=== PATIENT | female | born 1955 | race Caucasian/White ===

== ENCOUNTER → 2017-04-01 | Outpatient (CLI) | payer BC ==
[~2017-04-01] MED LIST: ATV1 SL; DICYCLOMINE
[2017-04-01 12:06] LABS: HEMATOCRIT 40.4 % (37-47); MEAN CELL VOLUME 92.4 fL (80-100); MEAN CORPUSCULAR HEMOGLOBIN 32.3 pg (25-34); MEAN CORPUSCULAR HGB CONC 34.9 g/dl (32-36); MEAN PLATELET VOLUME 10.1 fL (7.4-10.4); PLATELET COUNT 197 K/uL (130-400); RED BLOOD COUNT 4.37 M/uL (4.2-5.4); WHITE BLOOD COUNT 2.42 K/uL (4.8-10.8)
[2017-04-01 12:18] LABS: ALT/SGPT 157 U/L (12-78); AST/SGOT 166 U/L (15-37); BLOOD UREA NITROGEN 4 mg/dl (7-18); BUN/CREATININE RATIO 7.1 (10-20); CALCIUM 9.1 mg/dl (8.5-10.1); CARBON DIOXIDE 29 mmol/L (21-32); CHLORIDE 92 mmol/L (98-107); CHOLESTEROL 199 mg/dl (0-200); CREATININE 0.49 mg/dl (0.60-1.20); GLUCOSE 76 mg/dl (70-99); SODIUM 127 mmol/L (136-145)
[2017-04-01 12:26] LABS: ALB/GLOB RATIO 1.1 (0.9-2); ALKALINE PHOSPHATASE 94 U/L (45-117); CHOLESTEROL/HDL RATIO 1.9; HDL CHOLESTEROL 103 mg/dl; LDL CHOLESTEROL CALCULATED 83 mg/dl; RHEUMATOID FACTOR < 10.0 U/mL (0-15); TRIGLYCERIDES 64 mg/dl (0-150); VERY LOW DENSITY LIPOPROT CALC 13 mg/dl
[2017-04-01 13:35] LABS: LYME DISEASE AB IGG POS (NEG); LYME DISEASE AB IGM POS (NEG)
[2017-04-07 04:30] LABS: 18KDIGG BAND REACTIVE (NONREACTIVE); 23KDIGG BAND REACTIVE (NONREACTIVE); 23KDIGM BAND REACTIVE (NONREACTIVE); 28KDIGG BAND REACTIVE (NONREACTIVE); 30KDIGG BAND REACTIVE (NONREACTIVE); 39KDIGG BAND REACTIVE (NONREACTIVE); 39KDIGM BAND NONREACTIVE (NONREACTIVE); 41KDIGG BAND REACTIVE (NONREACTIVE); 41KDIGM BAND NONREACTIVE (NONREACTIVE); 45KDIGG BAND REACTIVE (NONREACTIVE); 58KDIGG BAND REACTIVE (NONREACTIVE); 66KDIGG BAND REACTIVE (NONREACTIVE); 93KDIGG BAND REACTIVE (NONREACTIVE)
== END | disposition home or self-care (01) ==
LOC: C.LABBFT 09:05
PROVIDERS: ATTEND Internal Medicine
DX: E53.8 Deficiency of other specified B group vitamins (principal); Z13.220 Encounter for screening for lipoid disorders; M25.50 Pain in unspecified joint; E55.9 Vitamin D deficiency, unspecified

== ENCOUNTER → 2017-04-14 | Outpatient (CLI) | payer BC ==
--- NOTE | 2017-04-14 08:54 | DIAGNOSTIC IMAGING REPORT ---
ABDOMINAL ULTRASOUND, RIGHT UPPER QUADRANT HISTORY: ELEVATED LFT. COMPARISON: None. FINDINGS: Pancreas: The pancreas demonstrates a normal echotexture. Liver: No hepatic masses. The liver measures 18 cm in length. Gallbladder: No gallbladder wall thickening. No gallstones. CBD: 4 mm. Right kidney: No hydronephrosis. IMPRESSION: No significant abnormality identified within the right upper quadrant. Electronically signed by: Edgar Cordova M.D. 04/14/2017 8:52 AM Dictated Date/Time: 04/14/2017 8:51 AM
[2017-04-14 09:50] LABS: BASO % 1.3 %; BASO ABS # 0.03 K/uL (0-0.2); COMPLETE YES; EOS % 2.6 %; HEMATOCRIT 42.1 % (37-47); IG% 0.4 %; LYMPH % 23.1 %; LYMPH ABS # 0.54 K/uL (1.2-3.4); MEAN CELL VOLUME 91.5 fL (80-100); MEAN CORPUSCULAR HEMOGLOBIN 31.7 pg (25-34); MEAN CORPUSCULAR HGB CONC 34.7 g/dl (32-36); MEAN PLATELET VOLUME 10.7 fL (7.4-10.4); MONO % 21.8 %; NEUT % 50.8 %; PLATELET COUNT 161 K/uL (130-400); WHITE BLOOD COUNT 2.34 K/uL (4.8-10.8)
[2017-04-14 10:05] LABS: C-REACTIVE PROTEIN 0.38 mg/dl (0-0.29)
== END | disposition home or self-care (01) ==
LOC: C.ULTR 08:07
PROVIDERS: ATTEND Internal Medicine
DX: R94.5 Abnormal results of liver function studies (principal)

== ENCOUNTER → 2017-05-20 | Outpatient (CLI) | payer BC ==
[2017-05-20 12:56] LABS: ALT/SGPT 125 U/L (12-78); AST/SGOT 121 U/L (15-37)
== END | disposition home or self-care (01) ==
LOC: C.LABBFT 09:12
PROVIDERS: ATTEND Physician Assistant
DX: R79.89 Other specified abnormal findings of blood chemistry (principal)

== ENCOUNTER → 2017-07-08 | Outpatient (CLI) | payer BC ==
--- NOTE | 2017-07-08 14:34 | MAMMOGRAPHY REPORT ---
BILATERAL DIGITAL SCREENING MAMMOGRAM TOMOSYNTHESIS WITH CAD: 07/08/2017 CLINICAL HISTORY: Routine screening. Patient has no complaints. TECHNIQUE: Breast tomosynthesis in addition to standard 2D mammography was performed. Current study was also evaluated with a Computer Aided Detection (CAD) system. COMPARISON: Comparison is made to exams dated: 06/04/2016 mammogram, 05/28/2015 mammogram, 04/13/2014 mammogram, 01/18/2013 mammogram, 02/19/2010 mammogram - [facility], and 02/12/2009. BREAST COMPOSITION: The tissue of both breasts is heterogeneously dense, which may obscure small mas ses. FINDINGS: No suspicious masses, calcifications, or areas of architectural distortion are noted in ei ther breast. There has been no significant interval change compared to prior exams. IMPRESSION: ACR BI-RADS CATEGORY 1: NEGATIVE There is no mammographic evidence of malignancy. A 1 year screening mammogram is recommended. The pa tient will receive written notification of the results. Approximately 10% of breast cancers are not detected with mammography. A negative mammographic report should not delay biopsy if a clinically suggestive mass is present. Ilda Umanzor M.D. ah/:07/08/2017 12:21:02 [employer] Manager: Velia SHARMA(Sophy)(M), [facility] letter sent: Normal 1/2 BI-RADS Code: ACR BI-RADS Category 1: Negative
== END | disposition home or self-care (01) ==
LOC: C.MAMM 11:50
PROVIDERS: ATTEND Internal Medicine
DX: Z12.31 Encounter for screening mammogram for malignant neoplasm of breast (principal)

== ENCOUNTER → 2017-09-30 | Outpatient (CLI) | payer BC ==
--- NOTE | 2017-09-30 12:40 | DIAGNOSTIC IMAGING REPORT ---
R HIP UNILATERAL 2 VIEWS CLINICAL HISTORY: RIGHT HIP PAIN pain COMPARISON: None. DISCUSSION: Near complete loss of the joint space of the right hip. [id number] configuration of the superior acetabular margin. Moderate subchondral cyst relation to the femoral head as well as acetabulum. No evidence for acetabular protrusion. There is no evidence for soft tissue swelling. IMPRESSION: Severe degenerative change right hip. The above report was generated using voice recognition software. It may contain grammatical, syntax or spelling errors. Electronically signed by: Jerson Jasmine M.D. 09/30/2017 12:38 PM Dictated Date/Time: 09/30/2017 12:37 PM
[2017-09-30 13:18] LABS: BASO ABS # 0.04 K/uL (0-0.2); EOS % 1.7 %; EOS ABS # 0.07 K/uL (0-0.5); HEMATOCRIT 41.1 % (37-47); HEMOGLOBIN 14.1 g/dL (12.0-16.0); IG# 0.02 K/uL (0.00-0.02); LYMPH ABS # 0.99 K/uL (1.2-3.4); MEAN CELL VOLUME 94.9 fL (80-100); MEAN CORPUSCULAR HEMOGLOBIN 32.6 pg (25-34); MEAN CORPUSCULAR HGB CONC 34.3 g/dl (32-36); MEAN PLATELET VOLUME 9.8 fL (7.4-10.4); MONO % 11.4 %; MONO ABS # 0.47 K/uL (0.11-0.59); NEUT % 61.4 %; NEUT ABS # 2.53 K/uL (1.4-6.5); PLATELET COUNT 219 K/uL (130-400); RED CELL DISTRIBUTION WIDTH CV 13.5 % (11.5-14.5); RED CELL DISTRIBUTION WIDTH SD 46.9 fL (36.4-46.3); WHITE BLOOD COUNT 4.12 K/uL (4.8-10.8)
[2017-09-30 13:41] LABS: ALBUMIN 3.9 gm/dl (3.4-5.0); AST/SGOT 62 U/L (15-37); BLOOD UREA NITROGEN 7 mg/dl (7-18); CARBON DIOXIDE 29 mmol/L (21-32); CREATININE 0.82 mg/dl (0.60-1.20); GLUCOSE 91 mg/dl (70-99); POTASSIUM 4.1 mmol/L (3.5-5.1); SODIUM 130 mmol/L (136-145)
[2017-09-30 13:48] LABS: ALKALINE PHOSPHATASE 93 U/L (45-117); ALT/SGPT 58 U/L (12-78); TOTAL PROTEIN 8.1 gm/dl (6.4-8.2)
== END | disposition home or self-care (01) ==
LOC: C.RAD1850 12:09
PROVIDERS: ATTEND Internal Medicine
DX: M25.551 Pain in right hip (principal); R79.89 Other specified abnormal findings of blood chemistry

== ENCOUNTER → 2017-10-21 | Outpatient (CLI) | payer BC ==
--- NOTE | 2017-10-21 15:06 | DIAGNOSTIC IMAGING REPORT ---
R LOWER EXT NONJOINT WITHOUT CLINICAL HISTORY: 62 years-old Female presenting with M79.674 Pain and swelling of toe, [id number]. TECHNIQUE: Multisequence, multiplanar MR imaging of the right foot was performed without the use of intravenous contrast. IV contrast: None. COMPARISON: Plain radiographs of the right foot from 08/13/2015. FINDINGS: Localizer images: Unremarkable. T2 hyperintense, T1 hypointense lobular lesion noted at the second interweb space intimately associated with the bases of the proximal phalanges of the second and third toes. This abuts but does not erode the adjacent proximal phalanx of the second toe. This extends from the plantar aspect of the dorsum. Normal bone marrow signal intensity of the adjacent phalanges. No significant surrounding edema. A similar appearing though less T2 hyperintense-shaped lesion is also noted in the third interweb space. Small amount of fluid noted between the heads of the fourth and fifth metatarsals. Joint space loss, subchondral sclerosis, and osteophytosis at the first metatarsophalangeal joint. Mild bony edema noted in the first metatarsal diaphysis. Deformity of the fourth metatarsal with a focal T1 hypointense, T2 hypointense region at the distal metaphysis. Minimal proximal bone marrow edema in the fourth metatarsal diaphysis. Callus formation noted at the deformity most prominently along the dorsum (series 5 image 9). IMPRESSION: 1. 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 2. Intermetatarsal bursitis between heads of the fourth and fifth metatarsals. 3. Subacute to chronic fracture deformity of the neck of the fourth metatarsal. 4. Severe degenerative change of the first metatarsophalangeal joint. Electronically signed by: Prashanth Licea M.D. 10/21/2017 3:05 PM Dictated Date/Time: 10/21/2017 2:44 PM
== END | disposition home or self-care (01) ==
LOC: C.MRI 13:27
PROVIDERS: ATTEND Internal Medicine
DX: M79.674 Pain in right toe(s) (principal); M79.89 Other specified soft tissue disorders

== ENCOUNTER 2017-11-07 11:09 | Inpatient (IN) | payer BC ==
[~2017-11-07] VITALS: Ht 167.6 cm; Wt 58.6 kg
[2017-11-07] VITALS (15 sets, daily range): BP systolic 100–145; BP diastolic 66–99; PULSE 100–123; TEMP 37–38.2; O2SAT 93–97; BMI 20.8
[2017-11-07] MEDS ORDERED: SODIUM CHLORIDE 0.9% 1000ML 1,000 ML IV SCH (11:22)
[2017-11-07] MEDS ORDERED: SODIUM CHLORIDE 0.9% 500ML 500 ML IV STA (11:25)
[2017-11-07 11:36] LABS: ISTAT CREATININE 0.6 mg/dl (0.6-1.3); ISTAT IONIZED CALCIUM 1.03 mmol/l (1.12-1.32); ISTAT POTASSIUM 4.9 mEq/L (3.3-5.0)
--- NOTE | 2017-11-07 11:39 | DIAGNOSTIC IMAGING REPORT ---
CT HEAD WITHOUT CONTRAST (CT) CLINICAL HISTORY: Stroke UNRESPONSIVE PATIENT COMPARISON STUDY: MRI dated 08/31/2011 TECHNIQUE: Axial CT of the brain is performed from the vertex to the skull base. IV contrast was not administered for this examination. A dose lowering technique was utilized adhering to the principles of ALARA. CT DOSE: 537.48 mGy.cm FINDINGS: No intra or extra-axial mass lesions are visualized. There is no CT evidence of acute cortical infarction. There is no evidence of midline shift. There is no acute hemorrhage. No calvarial fractures are visualized. There are patchy white matter hypodensities likely on a small vessel basis. There is no evidence of pathologic ventricular dilatation. There is no evidence of acute sinusitis As there are no CT findings to explain the patient's neurological condition, an MRI might be considered in follow-up. IMPRESSION: No acute intracranial findings Electronically signed by: Ebenezer Hunter M.D. 11/07/2017 11:38 AM Dictated Date/Time: 11/07/2017 11:35 AM
[2017-11-07] MEDS ORDERED: ESCI10TA17 PO (11:41)
[2017-11-07] MEDS ORDERED: DICY10CA12 PO (11:41)
[2017-11-07] MEDS ORDERED: NAPR1TAB9 PO (11:41)
[2017-11-07] MEDS ORDERED: OPTOPS OP (11:41)
[2017-11-07] MEDS ORDERED: LORAZEPAM 2 MG/ML 1 ML VIAL ONE (11:44)
[2017-11-07 11:46] LABS: INR 1.1 (0.9-1.1)
[2017-11-07 11:52] LABS: HEMATOCRIT 45.5 % (37-47); MEAN CELL VOLUME 86.7 fL (80-100); MEAN CORPUSCULAR HEMOGLOBIN 32.4 pg (25-34); MEAN CORPUSCULAR HGB CONC 37.4 g/dl (32-36); MEAN PLATELET VOLUME 8.9 fL (7.4-10.4); PLATELET COUNT 190 K/uL (130-400); RED CELL DISTRIBUTION WIDTH CV 12.5 % (11.5-14.5); RED CELL DISTRIBUTION WIDTH SD 39.4 fL (36.4-46.3); WHITE BLOOD COUNT 15.85 K/uL (4.8-10.8)
[2017-11-07 11:53] LABS: CALCIUM 9.2 mg/dl (8.5-10.1); CREATININE 0.76 mg/dl (0.60-1.20); POTASSIUM 4.6 mmol/L (3.5-5.1)
[2017-11-07 12:00] LABS: IG# 0.05 K/uL (0.00-0.02); LYMPH % 3.2 %; MONO % 8.8 %; NEUT % 87.7 %
[2017-11-07] MEDS ORDERED: SODIUM CHLORIDE 3% INJ 500 ML IV STA (12:00)
[2017-11-07 12:02] LABS: CKMB 27.2 ng/ml (0.5-3.6)
--- NOTE | 2017-11-07 12:18 | DIAGNOSTIC IMAGING REPORT ---
CHEST ONE VIEW PORTABLE CLINICAL HISTORY: UNRESPONSIVE CHANGE IN MENTAL STATUS COMPARISON STUDY: No previous studies for comparison. FINDINGS: The cardiac and mediastinal contours are normal. There is no evidence of focal pulmonary consolidation. There is no evidence of failure. No pleural effusions are visualized.[ IMPRESSION: No active disease in the chest. Electronically signed by: Ebenezer Hunter M.D. 11/07/2017 12:16 PM Dictated Date/Time: 11/07/2017 12:16 PM
[2017-11-07] MEDS ORDERED: ICU PROTOCOL FOR HYPERGLYCEMIA PRN (12:45)
[2017-11-07 13:32] LABS: ALBUMIN 4.1 gm/dl (3.4-5.0); TOTAL PROTEIN 8.8 gm/dl (6.4-8.2)
--- NOTE | 2017-11-07 13:34 | History and Physical ---
History & Physical Date & Time of Service: Nov 07, 2017 at 13:03 Chief Complaint: [facility] Primary Care Physician: Zia Salgado M.D. History of Present Illness 62-year-old female with history of alcohol abuse, anxiety and recently probably myalgia and polyarthralgia. She was found by her this morning around 10 AM unresponsive. She was beside her bed and last time he had seen her was around noon yesterday. She had a contusion above her right eye and he called 911 as soon as he found her. He states that she drinks at least 3 beers a day although he is not sure to the exact amount much more on weekends. He denies her having any significant past medical history. After reviewing Dr. Salgado's records, she has a history of irritable bowel anxiety recently started on Lexapro. She has prescriptions for lorazepam which was looked up in [facility] aware and she fills this consistently. Patient had routine labs. White count was elevated at 15.85. PRP was obtained and her initial sodium was 104 potassium 4.6 chloride was 68 carbon dioxide 26. Troponin was also found to be elevated at 0.725 CK 11 CK-MB is 27.2. It is uncertain how long she had laid on the ground. She had a contusion and abrasion above her right eye and a CT scan of the head was obtained there was no acute intracranial findings.Chest x-ray showed no active disease in the chest. Urinalysis showed 1+ ketones and some trace occult blood. A consult was placed with the head sugar reprocess operator and recommendations was for 3% saline which was hung. Patient also got a milligram of Ativan because of being restless. She was also given a liter of saline bolus. At that point,Hospital medicine was asked to evaluate the patient and she will be placed under the hospitalist service with consultation to the head sugar reprocess operator. Past Medical/Surgical History Past Medical History 1. ETOH Abuse 2. Anxiety 3. Irritable Bowel 4. polyjoint arthralgia 5. fibromyalgia 6. hip pain Past Surgical History according to , she has not had any surgeries Family History Cancer Diabetes mellitus Social History Smoking Status: Current Every Day Smoker Smokeless Tobacco Use: No Alcohol Use: heavy Drug Use: none Marital Status: Housing status: lives with significant other Occupational Status: employed Allergies Coded Allergies: No Known Allergies (Unverified , 11/07/17) Home Medications Scheduled Cromolyn Sodium (Ophth) (Opticrom Oph), 1 DROPS OP DAILY Escitalopram (Lexapro), 10 MG PO DAILY Lorazepam (Ativan *), 1 MG SL DAILY Scheduled PRN Dicyclomine Hcl (Dicyclomine Hcl), 1 CAP PO Q6H PRN for Pain Naproxen (Aleve), 220 MG PO BID PRN for Pain Review of Systems patient is currently unresponsive. Unable to do true review of systems. Did discuss with and yesterday, he states she had no complaints Physical Exam Vital Signs Date Time Temp Pulse Resp B/P (MAP) Pulse Ox O2 Delivery O2 Flow Rate FiO2 11/07/17 12:45 110 20 109/84 98 Nasal Cannula 4.0 11/07/17 12:30 105 21 110/96 98 Nasal Cannula 4.0 11/07/17 12:15 103 19 97/76 98 Nasal Cannula 4.0 11/07/17 12:01 101 19 131/91 100 Room Air 5.0 11/07/17 11:45 105 20 196/116 100 Non-Rebreather 15.0 11/07/17 11:43 88 Room Air 11/07/17 11:16 114 11/07/17 11:10 37.3 117 22 132/74 100 Room Air 11/07/17 11:10 100 Room Air General Appearance: + pertinent finding (unresponse ) Head: normocephalic, + evidence of trama (right periorbital/temporal hematoma/ abrassion) Eyes: sclerae normal, + pertinent finding (pupils 3mm and fixed) ENT: + pertinent finding (oral mucosa is moist) Neck: no JVD, no carotid bruits, trachea midline Respiratory/Chest: lungs clear, normal breath sounds, no respiratory distress Cardiovascular: regular rate, rhythm, no edema, no murmur, normal peripheral pulses Abdomen/GI: normal bowel sounds, soft, no organomegaly Back: normal inspection Extremities/Musculoskelatal: no pedal edema, + pertinent finding (feet cold) Neurologic/Psych: + pertinent finding (unresponsive) Skin: + pertinent finding (cool, dry) Diagnostics Laboratory Results Results Past 24 Hours Test 11/07/17 11:15 11/07/17 11:23 11/07/17 11:40 Range/Units White Blood Count 15.85 4.8-10.8 K/uL Red Blood Count 5.25 4.2-5.4 M/uL Hemoglobin 17.0 12.0-16.0 g/dL Hematocrit 45.5 37-47 % Mean Corpuscular Volume 86.7 80-100 fL Mean Corpuscular Hemoglobin 32.4 25-34 pg Mean Corpuscular Hemoglobin Concent 37.4 32-36 g/dl Platelet Count 190 130-400 K/uL Mean Platelet Volume 8.9 7.4-10.4 fL Neutrophils (%) (Auto) 87.7 % Lymphocytes (%) (Auto) 3.2 % Monocytes (%) (Auto) 8.8 % Eosinophils (%) (Auto) 0.0 % Basophils (%) (Auto) 0.0 % Neutrophils # (Auto) 13.90 1.4-6.5 K/uL Lymphocytes # (Auto) 0.50 1.2-3.4 K/uL Monocytes # (Auto) 1.40 0.11-0.59 K/uL Eosinophils # (Auto) 0.00 0-0.5 K/uL Basophils # (Auto) 0.00 0-0.2 K/uL RDW Standard Deviation 39.4 36.4-46.3 fL RDW Coefficient of Variation 12.5 11.5-14.5 % Immature Granulocyte % (Auto) 0.3 % Immature Granulocyte # (Auto) 0.05 0.00-0.02 K/uL Red Blood Cell Morphology Unremarkable Prothrombin Time 11.6 9.0-12.0 SECONDS Prothromb Time International Ratio 1.1 0.9-1.1 Activated Partial Thromboplast Time 31.0 21.0-31.0 SECONDS Partial Thromboplastin Ratio 1.2 Sodium Level 104 136-145 mmol/L Potassium Level 4.6 3.5-5.1 mmol/L Chloride Level 68 98-107 mmol/L Carbon Dioxide Level 26 21-32 mmol/L Anion Gap 10.0 16.0 16-25 mmol/L Blood Urea Nitrogen 11 7-18 mg/dl Creatinine 0.76 0.60-1.20 mg/dl Est Creatinine Clear Calc Drug Dose 72.7 ml/min Estimated GFR () 98.1 Estimated GFR (Non- 84.7 BUN/Creatinine Ratio 14.7 10-20 Random Glucose 103 70-99 mg/dl Calcium Level 9.2 8.5-10.1 mg/dl Magnesium Level 1.9 1.8-2.4 mg/dl Total Creatine Kinase 811 26-192 U/L Creatine Kinase MB 27.2 0.5-3.6 ng/ml Creatine Kinase MB Ratio 3.4 0-3.0 Troponin I 0.725 0-0.045 ng/ml Bedside Hemoglobin 19.4 12.0-16.0 g/dl Bedside Hematocrit 57 37-47 % Bedside Sodium 108 135-144 mEq/L Bedside Potassium 4.9 3.3-5.0 mEq/L Bedside Chloride 70 101-112 mEq/L Bedside Total CO2 28 24-31 mEq/l Bedside Blood Urea Nitrogen 13 7-18 mg/dl Bedside Creatinine 0.6 0.6-1.3 mg/dl Bedside Glucose (other) 112 70-99 mg/dl Bedside Ionized Calcium (Ingrid) 1.03 1.12-1.32 mmol/l Urine Color DK YELLOW Urine Appearance CLEAR CLEAR Urine pH 6.0 4.5-7.5 Urine Specific Randolph 1.020 1.000-1.030 Urine Protein 2+ NEG Urine Glucose (UA) TRACE NEG Urine Ketones 1+ NEG Urine Occult Blood TRACE NEG Urine Nitrite NEG NEG Urine Bilirubin NEG NEG Urine Urobilinogen NEG NEG Urine Leukocyte Esterase NEG NEG Urine WBC (Auto) 1-5 0-5 /hpf Urine RBC (Auto) 0-4 0-4 /hpf Urine Hyaline Casts (Auto) 1-5 0-5 /lpf Urine Epithelial Cells (Auto) 20-30 0-5 /lpf Urine Bacteria (Auto) NEG NEG Diagnostic Radiology CHEST ONE VIEW PORTABLE CLINICAL HISTORY: UNRESPONSIVE CHANGE IN MENTAL STATUS COMPARISON STUDY: No previous studies for comparison. FINDINGS: The cardiac and mediastinal contours are normal. There is no evidence of focal pulmonary consolidation. There is no evidence of failure. No pleural effusions are visualized.[ IMPRESSION: No active disease in the chest. CT HEAD WITHOUT CONTRAST (CT) CLINICAL HISTORY: Stroke UNRESPONSIVE PATIENT COMPARISON STUDY: MRI dated 08/31/2011 TECHNIQUE: Axial CT of the brain is performed from the vertex to the skull base. IV contrast was not administered for this examination. A dose lowering technique was utilized adhering to the principles of ALARA. CT DOSE: 537.48 mGy.cm FINDINGS: No intra or extra-axial mass lesions are visualized. There is no CT evidence of acute cortical infarction. There is no evidence of midline shift. There is no acute hemorrhage. No calvarial fractures are visualized. There are patchy white matter hypodensities likely on a small vessel basis. There is no evidence of pathologic ventricular dilatation. There is no evidence of acute sinusitis As there are no CT findings to explain the patient's neurological condition, an MRI might be considered in follow-up. IMPRESSION: No acute intracranial findings CXR normal EKG NSR with st depressions in V3, V4 Impression Assessment and Plan 62-year-old female presented to the emergency department unresponsive. History of alcohol and tobacco abuse as well as anxiety. 1. Severe acute hyponatremia in setting of chronic hyponatremia. Patient had a sodium of 104. She was started on 3% hypertonic saline. She will be admitted to the intensive care unit and will need frequent PRPs. Goal would be to not raise sodium by more than 1-2/h. I will allow the head sugar reprocess operator to manage the sodium repletion. will check a serum and urine osmolality as well as a random urine sodium. She was started on Lexapro approximately 2 weeks ago which may have contributed to her acute episode of hyponatremia. This may be simply worsening beer potomania as well. She will need frequent neuro assessments as well. 2. Alcohol abuse with high potential for withdrawal. She will be on as needed Lorazepam. She will receive a banana bag daily. 3. Unresponsive episode. This is likely from the severe hyponatremia and, associated with it. She does drink heavily and does use Lorazepam regularly. Will check an alcohol level and also urine tox screen. denies her using any illicit drugs. 4. Elevated troponin - will cycle troponins and consult cardiology if there is further elevation of troponins. 5. Elevated CPK with concerns for rhabdomyolysis as it is unknown how long patient was on the ground or if she stuggled to get up. 6. generalized anxiety disorder. Because of the hyponatremia, we will hold her Lexapro. 7. CODE STATUS. Discussed with she is a full code. 8. DVT prophylaxis will be with SCDs teds and heparin 9. Patient will be admitted to the intensive care unit with consultation to the head sugar reprocess operator. Estimated length of stay is likely greater than 3 days at this point. Uncertain of presenting discharge needs at this time. Resuscitation Status VTE Prophylaxis Will order VTE Prophylaxis: Yes Reviewed: Pt Seen/Exam by Me History Pt is unresponsive in her room without family present. Unable to obtain ROS/ HPI however did review the case as presented to MAINTENANCE CONTROLLER by . General Appearance: WD/WN, no apparent distress Eye Exam: bilateral eye normal inspection, bilateral eye other (nml sclera) Respiratory: normal breath sounds, no respiratory distress Cardiovascular: normal peripheral pulses, regular rate, rhythm Gastrointestinal: non tender, soft Extremities: non-tender, no pedal edema Neurologic/Psychiatric: other (unresponsive to voice) Skin Characteristics: normal color, warm/dry Assessment/Plan Agree with plan as outlined above I reviewed [employer]. Pt has been seen recently by PCP and PA for issues with anxiety. She informed them that she had been taking more than her prescribed dose as she had extra pills left from prior refills. She was started on lexapro on 11/04 for anxiety issues and was to f/u in 1 month. She has several MSK issues and was given a script for transdermal pain control 04/2017. She has also had recent visits for concern of elevated LFTs. Pt has long standing heavy beer intake use. Per MAINTENANCE CONTROLLER, pt and live in the same home but do not interact much and sleep in separate beds. was not fully aware of 's health issues. Unresponsive episode possibly related to hypoNa Baseline Na is low, 125-130 Beer potomania that was exacerbated by lexapro use?? Question of possible seizure activity as well, which was likely related to hypoNa vs EtOH withdrawals EtOH neg in the ED Elevated trop, serials pending ECHO pending
[2017-11-07] MEDS ORDERED: MULTI-VITAMIN INFUSION INJ 10 ML, THIAMINE HCL INJ 100 MG, FoLIC ACID INJ 1 MG in SODIU... IV SCH (14:00)
--- NOTE | 2017-11-07 14:20 | EMERGENCY ROOM VISIT NOTE ---
History Report prepared by Clarita: Marj Moreland Under the Supervision of: Dr. Jose Alejandro Felton M.D. First contact with patient: 11:17 Chief Complaint: UNRESPONSIVE Stated Complaint: AMS History of Present Illness The patient is a 62 year old female who presents to the Emergency Room with persistent altered mental status starting [employer]. The patient presents to the ED by EMS. Her found her on the floor by her bed. The dresser in her room had been moved. She would not say any words. Her did not notice anything out of the ordinary with her yesterday evening. He notes that the patient frequently drinks beer and has bad eating habits. He states that she has not been like this before. The history is limited secondary to patient's altered mental status. 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 Past Medical & Surgical Medical Problems: (1) Acute hyponatremia (2) Unresponsive episode Social History Problems: (1) ETOH abuse Family History Cancer Diabetes mellitus Social History Smoking Status: Current Every Day Smoker Marital Status: Housing Status: lives with significant other Current/Historical Medications Scheduled Cromolyn Sodium (Ophth) (Opticrom Oph), 1 DROPS OP DAILY Escitalopram (Lexapro), 10 MG PO DAILY Lorazepam (Ativan *), 1 MG SL DAILY Scheduled PRN Dicyclomine Hcl (Dicyclomine Hcl), 1 CAP PO Q6H PRN for Pain Naproxen (Aleve), 220 MG PO BID PRN for Pain Allergies Coded Allergies: No Known Allergies (Unverified , 11/07/17) Physical Exam Vital Signs Date Time Temp Pulse Resp B/P (MAP) Pulse Ox O2 Delivery O2 Flow Rate FiO2 11/07/17 12:45 110 20 109/84 98 Nasal Cannula 4.0 11/07/17 12:30 105 21 110/96 98 Nasal Cannula 4.0 11/07/17 12:15 103 19 97/76 98 Nasal Cannula 4.0 11/07/17 12:01 101 19 131/91 100 Room Air 5.0 11/07/17 11:45 105 20 196/116 100 Non-Rebreather 15.0 4/8/18 11:43 88 Room Air 11/07/17 11:16 114 11/07/17 11:10 37.3 117 22 132/74 100 Room Air 11/07/17 11:10 100 Room Air Physical Exam GENERAL: Lethargic, semi responsive to voice, opening eyes spontaneously, ill appearing. HENT: Hematoma to the right eyebrow area. Oropharynx unremarkable. EYES: Pupils 5 mm down to 4 mm bilaterally. Normal conjunctiva. Sclera non- icteric. NECK: Supple. No nuchal rigidity. FROM. No masses. RESPIRATORY: Clear to auscultation. No wheezes. No rales. Normal respiratory effort. CARDIAC: Normal rate. Normal rhythm. No murmurs. No rubs. Extremities warm and well perfused. Pulses equal. No JVD. GI: Soft, non-distended. No tenderness to palpation. No rebound or guarding. No masses. RECTAL: Deferred. MUSCULOSKELETAL: Bruising and skin tear to the left forearm. Chest examination reveals no tenderness. The back is symmetrical on inspection without obvious abnormality. There is no CVA tenderness to palpation. No joint edema. LOWER EXTREMITIES: Calves are equal size bilaterally and non-tender. No edema. No discoloration. NEURO: Altered sensorium. Not following commands. Moving arms and legs spontaneously. SKIN: No rash or jaundice noted. Medical Decision & Procedures ER Provider Diagnostic Interpretation: Radiology results as stated below per my review and radiologist interpretation: CHEST ONE VIEW PORTABLE CLINICAL HISTORY: UNRESPONSIVE CHANGE IN MENTAL STATUS COMPARISON STUDY: No previous studies for comparison. FINDINGS: The cardiac and mediastinal contours are normal. There is no evidence of focal pulmonary consolidation. There is no evidence of failure. No pleural effusions are visualized.[ IMPRESSION: No active disease in the chest. Electronically signed by: Ebenezer Hunter M.D. 11/07/2017 12:16 PM Dictated Date/Time: 11/07/2017 12:[address] HEAD WITHOUT CONTRAST (CT) CLINICAL HISTORY: Stroke UNRESPONSIVE PATIENT COMPARISON STUDY: MRI dated 08/31/2011 TECHNIQUE: Axial CT of the brain is performed from the vertex to the skull base. IV contrast was not administered for this examination. A dose lowering technique was utilized adhering to the principles of ALARA. CT DOSE: 537.48 mGy.cm FINDINGS: No intra or extra-axial mass lesions are visualized. There is no CT evidence of acute cortical infarction. There is no evidence of midline shift. There is no acute hemorrhage. No calvarial fractures are visualized. There are patchy white matter hypodensities likely on a small vessel basis. There is no evidence of pathologic ventricular dilatation. There is no evidence of acute sinusitis As there are no CT findings to explain the patient's neurological condition, an MRI might be considered in follow-up. IMPRESSION: No acute intracranial findings Electronically signed by: Ebenezer Hunter M.D. 11/07/2017 11:38 AM Dictated Date/Time: 11/07/2017 11:35 AM Laboratory Results 11/07/17 11:15 Red Blood Count 5.25, Mean Corpuscular Volume 86.7, Mean Corpuscular Hemoglobin 32.4, Mean Corpuscular Hemoglobin Concent 37.4, Mean Platelet Volume 8.9, Neutrophils (%) (Auto) 87.7, Lymphocytes (%) (Auto) 3.2, Monocytes (%) (Auto) 8.8, Eosinophils (%) (Auto) 0.0, Basophils (%) (Auto) 0.0, Neutrophils # (Auto) 13.90, Lymphocytes # (Auto) 0.50, Monocytes # (Auto) 1.40, Eosinophils # (Auto) 0.00, Basophils # (Auto) 0.00 11/07/17 11:15 Test 11/07/17 11:13 11/07/17 11:15 11/07/17 11:23 11/07/17 11:40 Osmolality 232 mOsm/kg (280-300) White Blood Count 15.85 K/uL (4.8-10.8) Red Blood Count 5.25 M/uL (4.2-5.4) Hemoglobin 17.0 g/dL (12.0-16.0) Hematocrit 45.5 % (37-47) Mean Corpuscular Volume 86.7 fL (80-100) Mean Corpuscular Hemoglobin 32.4 pg (25-34) Mean Corpuscular Hemoglobin Concent 37.4 g/dl (32-36) Platelet Count 190 K/uL (130-400) Mean Platelet Volume 8.9 fL (7.4-10.4) Neutrophils (%) (Auto) 87.7 % Lymphocytes (%) (Auto) 3.2 % Monocytes (%) (Auto) 8.8 % Eosinophils (%) (Auto) 0.0 % Basophils (%) (Auto) 0.0 % Neutrophils # (Auto) 13.90 K/uL (1.4-6.5) Lymphocytes # (Auto) 0.50 K/uL (1.2-3.4) Monocytes # (Auto) 1.40 K/uL (0.11-0.59) Eosinophils # (Auto) 0.00 K/uL (0-0.5) Basophils # (Auto) 0.00 K/uL (0-0.2) RDW Standard Deviation 39.4 fL (36.4-46.3) RDW Coefficient of Variation 12.5 % (11.5-14.5) Immature Granulocyte % (Auto) 0.3 % Immature Granulocyte # (Auto) 0.05 K/uL (0.00-0.02) Red Blood Cell Morphology Unremarkable Prothrombin Time 11.6 SECONDS (9.0-12.0) Prothromb Time International Ratio 1.1 (0.9-1.1) Activated Partial Thromboplast Time 31.0 SECONDS (21.0-31.0) Partial Thromboplastin Ratio 1.2 Est Creatinine Clear Calc Drug Dose 72.7 ml/min Estimated GFR () 98.1 Estimated GFR (Non- 84.7 BUN/Creatinine Ratio 14.7 (10-20) Calcium Level 9.2 mg/dl (8.5-10.1) Magnesium Level 1.9 mg/dl (1.8-2.4) Total Bilirubin 1.6 mg/dl (0.2-1) Direct Bilirubin 0.4 mg/dl (0-0.2) Aspartate Amino Transf (AST/SGOT) 104 U/L (15-37) Alanine Aminotransferase (ALT/SGPT) 124 U/L (12-78) Alkaline Phosphatase 112 U/L (45-117) Total Creatine Kinase 811 U/L (26-192) Creatine Kinase MB 27.2 ng/ml (0.5-3.6) Creatine Kinase MB Ratio 3.4 (0-3.0) Troponin I 0.725 ng/ml (0-0.045) Total Protein 8.8 gm/dl (6.4-8.2) Albumin 4.1 gm/dl (3.4-5.0) Bedside Hemoglobin 19.4 g/dl (12.0-16.0) Bedside Hematocrit 57 % (37-47) Bedside Sodium 108 mEq/L (135-144) Bedside Potassium 4.9 mEq/L (3.3-5.0) Bedside Chloride 70 mEq/L (101-112) Bedside Total CO2 28 mEq/l (24-31) Anion Gap 16.0 mmol/L (16-25) Bedside Blood Urea Nitrogen 13 mg/dl (7-18) Bedside Creatinine 0.6 mg/dl (0.6-1.3) Bedside Glucose (other) 112 mg/dl (70-99) Bedside Ionized Calcium (Ingrid) 1.03 mmol/l (1.12-1.32) Urine Color DK YELLOW Urine Appearance CLEAR (CLEAR) Urine pH 6.0 (4.5-7.5) Urine Specific Orwell 1.020 (1.000-1.030) Urine Protein 2+ (NEG) Urine Glucose (UA) TRACE (NEG) Urine Ketones 1+ (NEG) Urine Occult Blood TRACE (NEG) Urine Nitrite NEG (NEG) Urine Bilirubin NEG (NEG) Urine Urobilinogen NEG (NEG) Urine Leukocyte Esterase NEG (NEG) Urine WBC (Auto) 1-5 /hpf (0-5) Urine RBC (Auto) 0-4 /hpf (0-4) Urine Hyaline Casts (Auto) 1-5 /lpf (0-5) Urine Epithelial Cells (Auto) 20-30 /lpf (0-5) Urine Bacteria (Auto) NEG (NEG) Laboratory results reviewed by me Medications Administered Medications (Trade) Dose Ordered Sig/Mali Route Start Time Stop Time Status Last Admin Dose Admin Sodium Chloride 1,000 ml @ 50 mls/hr Q20H IV 11/07/17 11:22 11/07/17 13:39 DC 11/07/17 12:05 50 MLS/HR Sodium Chloride 500 ml @ 999 mls/hr Q31M STAT IV 11/07/17 11:25 11/07/17 11:55 DC 11/07/17 11:25 999 MLS/HR Lorazepam (Ativan Inj) 2 mg STK-MED ONCE .ROUTE 11/07/17 11:44 11/07/17 11:45 DC 11/07/17 11:57 1 MG Sodium Chloride 150 ml @ 50 mls/hr NOW STAT IV 11/07/17 12:00 11/07/17 14:59 11/07/17 02:08 50 MLS/HR ECG Per My Interpretation Indication: altered mental status Rate (beats per minute): 119 Rhythm: sinus tachycardia Findings: nonspecific-ST abn, no ectopy, other (biatrial enlargement) ED Course 1116: The patient was evaluated in room B1. A complete history and physical exam was performed. 1122: Sodium Chloride 1000 ml @ 50 mls/hr IV. 1125: Sodium Chloride 500 ml @ 999 mls/hr IV. 1144: I reevaluated the patient. Ordered Ativan Inj 2 mg IV. 1159: I discussed the patient's case with Dr. Martinez, ICU. He will evaluate the patient. 1200: Sodium Chloride 150 ml @ 50 mls/hr IV. 1204: I discussed the patient's case with SANTI Gamble [facility] hospitalist. He will evaluate the patient. 1206: I reevaluated the patient. She is now opening her eyes. Hypertonic saline is hanging. I updated her on the results and treatment plan. He verbalized understanding and agreement. She will be evaluated for further management. 1245: I reevaluated the patient. She was stable. Medical Decision Prior records/ancillary studies reviewed and summarized above. Nursing notes reviewed and agree them. Additional history obtained from patient's and EMS. The patient's history was concerning for altered mental status. Differential diagnosis: Etiologies such as infection, hypoglycemia, electrolyte abnormalities, cardiac sources, intracerebral event, toxicologic, neurologic, as well as others were entertained. Physical examination: As above. Patient was altered. ER treatment provided: IV Lock Normal saline hydration . Supplemental oxygen Seizure precautions IV Ativan 1 mg Hypertonic saline On reassessment the patient was doing better. Vital signs stabilized. Diagnostics interpretation by me: ECG: As above. The labs revealed a moderate leukocytosis on CBC. Chemistry panel revealed elevated LFTs and severe hyponatremia. This was found on i-STAT and then confirmed on official chemistries. The patient's troponin is also elevated. Urinalysis there is trace blood. Imaging studies: CT scan and chest x-ray as above Patient was evaluated upon arrival. I did also give medical command prehospital for the patient. She was altered. She seemed to be almost postictal. She had an event of clenching her jaw and this was concerning for possible seizure. Electrolyte testing by i-STAT revealed severe hyponatremia. Normal saline was initiated. I contacted the pharmacy and the ICU to discuss hypertonic saline. Hypertonic saline was ordered and administered as well as IV Ativan. Her condition stabilized. She was maintaining her saturations. Blood work was noted as above. Further management will be necessary in the intensive care unit. Consultation: A consultation was placed with the web production designer and hospitalist. The case was discussed and diagnostics were reviewed. The patient was evaluated in the ER for further treatment and taken emergently to the ICU for further management. Head Trauma GCS Score: 10 Medication Reconcilliation Current Medication List: was personally reviewed by me Blood Pressure Screening Patient's blood pressure: Elevated blood pressure Referred to hospitalist. Consults Time Called: 1157 Consulting Physician: Dr. Martinez, ICU Returned Call: 1159 I discussed the patient's case with him. He will evaluate the patient. Additional Consults: Time Called: 1202 Consulted Physician: SANTI Gamble [facility] hospitalist Returned Call: 1204 Additional Comments: I discussed the patient's case with him. He will evaluate the patient. Impression Primary Impression: Altered mental status Additional Impressions: Hyponatremia Seizure Elevated troponin Critical Care I have personally spent greater than 75 minutes of critical care time in the direct management of this patient. This includes bedside care, interpretation of diagnostic studies, and testing, discussion with consultants, patient, and family members, and other required patient management activities. This 75 minutes is in excess of all separately billable procedures. Scribe Attestation The scribe's documentation has been prepared under my direction and personally reviewed by me in its entirety. I confirm that the note above accurately reflects all work, treatment, procedures, and medical decision making performed by me. Departure Information Dispostion Being Evaluated By Hospitalist Referrals Zia Salgado M.D. (PCP) Patient Instructions [facility] Problem Qualifiers
--- NOTE | 2017-11-07 14:51 | Critical Care Consultation ---
Critical Care Consultation Date of Consultation: Nov 07, 2017. Attending Physician: Ema Gtz DO Reason for Consultation: Severe hyponatremia. History of Present Illness Dear Dr. Florentino: Thank you for your kind referral of Mrs. Hodges to critical care service. 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 Recently she was started on Lexapro for possible depression. The patient has not been in withdrawal in the past as she always been drinking on a daily basis. Him and his has been sleeping in separate beds. Yesterday when he saw her she was within her baseline and today when he saw her she was under the bed and unresponsive. The patient called the EMS and they brought her to the emergency room with the patient was found to have multiple areas of bruises including the right orbit and the left side of the mandible. The patient underwent x-ray survey without evidence of any new injury to the bones. The patient was evaluated with laboratory revealing significant hyponatremia with a sodium level of 104. Although in the records it says she does have chronic hyponatremia, her sodium beginning of September 2017 was 130. The patient could not give me any review of system at the moment, she was confused and delirious, opening her eyes but does not follow any commands. Her also could not have any answers from her. All the information obtained from the . No vomiting was reported, no pain in the chest of the abdomen, she did not lose her urination or defecation. The patient review of system was limited due to the above information. Family History Cancer Diabetes mellitus Social History Smoking Status: Current Every Day Smoker Smokeless Tobacco Use: No Alcohol Use: heavy Drug Use: none Marital Status: Housing Status: lives with significant other Occupation Status: employed Allergies Coded Allergies: No Known Allergies (Unverified , 11/07/17) Home Medications Scheduled Cromolyn Sodium (Ophth) (Opticrom Oph), 1 DROPS OP DAILY Escitalopram (Lexapro), 10 MG PO DAILY Lorazepam (Ativan *), 1 MG SL DAILY Scheduled PRN Dicyclomine Hcl (Dicyclomine Hcl), 1 CAP PO Q6H PRN for Pain Naproxen (Aleve), 220 MG PO BID PRN for Pain Current Inpatient Medications Current Inpatient Medications Medications (Trade) Dose Ordered Sig/Mali Route Start Time Stop Time Status Last Admin Dose Admin Sodium Chloride 150 ml @ 50 mls/hr NOW STAT IV 11/07/17 12:00 11/07/17 14:59 11/07/17 02:08 50 MLS/HR Heparin Sodium (Porcine) (Heparin Sq 5000 Unit/0.5ml) 5,000 unit Q12H SQ 11/07/17 20:00 12/07/17 19:59 Lorazepam (Ativan Inj) 1 mg Q2H PRN IV 11/07/17 12:45 12/07/17 12:44 Pantoprazole Sodium 40 mg/ Syringe 10 ml @ 5 mls/min DAILY@1100 IV 11/08/17 11:00 12/08/17 10:59 Miscellaneous Information (Icu Protocol For Hyperglycemia) 1 ea PRN PRN N/A 11/07/17 12:45 11/09/17 12:44 Multivitamins 10 ml/Thiamine HCl 100 mg/Folic Acid 1 mg/Sodium Chloride 1,011.2 ml @ 75 mls/hr DAILY IV 11/07/17 14:00 12/07/17 13:59 11/07/17 14:09 75 MLS/HR Phenobarbital Sodium 65 mg/ Syringe 1 ml @ 1 mls/min Q6 IV 11/07/17 18:00 12/07/17 17:59 UNV Review of Systems Not obtainable. Physical Exam Date Time Temp Pulse Resp B/P (MAP) Pulse Ox O2 Delivery O2 Flow Rate FiO2 11/07/17 13:30 110 18 109/93 98 Nasal Cannula 4.0 11/07/17 13:10 110 17 109/93 98 Nasal Cannula 4.0 11/07/17 13:07 110 11/07/17 12:45 110 20 109/84 98 Nasal Cannula 4.0 11/07/17 12:30 105 21 110/96 98 Nasal Cannula 4.0 11/07/17 12:15 103 19 97/76 98 Nasal Cannula 4.0 11/07/17 12:01 101 19 131/91 100 Room Air 5.0 11/07/17 11:45 105 20 196/116 100 Non-Rebreather 15.0 11/07/17 11:43 88 Room Air 11/07/17 11:16 114 11/07/17 11:10 37.3 117 22 132/74 100 Room Air 11/07/17 11:10 100 Room Air General Appearance: uncomfortable, mild distress Eyes: EOMI ENT: normal throat exam Respiratory: breath sounds normal, clear to auscultation Cardiovasular: regular rate/rhythm, normal S1S2, no M/G/R Abdomen: no masses Lower Extremities: no edema, other (Significant cold extremities and cyanosis.) Neuro: other (Delirious) Psychiatric: anxious, other (Delirium) Laboratory Results Last 24 Hours Test 11/07/17 11:13 11/07/17 11:15 11/07/17 11:23 11/07/17 11:40 Osmolality 232 mOsm/kg White Blood Count 15.85 K/uL Red Blood Count 5.25 M/uL Hemoglobin 17.0 g/dL Hematocrit 45.5 % Mean Corpuscular Volume 86.7 fL Mean Corpuscular Hemoglobin 32.4 pg Mean Corpuscular Hemoglobin Concent 37.4 g/dl Platelet Count 190 K/uL Mean Platelet Volume 8.9 fL Neutrophils (%) (Auto) 87.7 % Lymphocytes (%) (Auto) 3.2 % Monocytes (%) (Auto) 8.8 % Eosinophils (%) (Auto) 0.0 % Basophils (%) (Auto) 0.0 % Neutrophils # (Auto) 13.90 K/uL Lymphocytes # (Auto) 0.50 K/uL Monocytes # (Auto) 1.40 K/uL Eosinophils # (Auto) 0.00 K/uL Basophils # (Auto) 0.00 K/uL RDW Standard Deviation 39.4 fL RDW Coefficient of Variation 12.5 % Immature Granulocyte % (Auto) 0.3 % Immature Granulocyte # (Auto) 0.05 K/uL Red Blood Cell Morphology Unremarkable Prothrombin Time 11.6 SECONDS Prothromb Time International Ratio 1.1 Activated Partial Thromboplast Time 31.0 SECONDS Partial Thromboplastin Ratio 1.2 Sodium Level 104 mmol/L Potassium Level 4.6 mmol/L Chloride Level 68 mmol/L Carbon Dioxide Level 26 mmol/L Anion Gap 10.0 mmol/L 16.0 mmol/L Blood Urea Nitrogen 11 mg/dl Creatinine 0.76 mg/dl Est Creatinine Clear Calc Drug Dose 72.7 ml/min Estimated GFR () 98.1 Estimated GFR (Non- 84.7 BUN/Creatinine Ratio 14.7 Random Glucose 103 mg/dl Calcium Level 9.2 mg/dl Magnesium Level 1.9 mg/dl Total Bilirubin 1.6 mg/dl Direct Bilirubin 0.4 mg/dl Aspartate Amino Transf (AST/SGOT) 104 U/L Alanine Aminotransferase (ALT/SGPT) 124 U/L Alkaline Phosphatase 112 U/L Total Creatine Kinase 811 U/L Creatine Kinase MB 27.2 ng/ml Creatine Kinase MB Ratio 3.4 Troponin I 0.725 ng/ml Total Protein 8.8 gm/dl Albumin 4.1 gm/dl Bedside Hemoglobin 19.4 g/dl Bedside Hematocrit 57 % Bedside Sodium 108 mEq/L Bedside Potassium 4.9 mEq/L Bedside Chloride 70 mEq/L Bedside Total CO2 28 mEq/l Bedside Blood Urea Nitrogen 13 mg/dl Bedside Creatinine 0.6 mg/dl Bedside Glucose (other) 112 mg/dl Bedside Ionized Calcium (Ingrid) 1.03 mmol/l Urine Color DK YELLOW Urine Appearance CLEAR Urine pH 6.0 Urine Specific Labelle 1.020 Urine Protein 2+ Urine Glucose (UA) TRACE Urine Ketones 1+ Urine Occult Blood TRACE Urine Nitrite NEG Urine Bilirubin NEG Urine Urobilinogen NEG Urine Leukocyte Esterase NEG Urine WBC (Auto) 1-5 /hpf Urine RBC (Auto) 0-4 /hpf Urine Hyaline Casts (Auto) 1-5 /lpf Urine Epithelial Cells (Auto) 20-30 /lpf Urine Bacteria (Auto) NEG Test 11/07/17 13:47 Ethyl Alcohol mg/dL < 3.0 mg/dl Diagnostic Results Labs and chest x-ray as well as other imaging were reviewed personally. The patient has significant hypoosmolar hyponatremia. Urine sodium still pending. No acidosis reported. Slightly elevated CPK and slight elevation in the white count. Chest x-ray with clear lung morrison. Assessment & Plan 1. Severe hyponatremia secondary to hypovolemia and possible [place]. 2. History of alcoholism, no history of alcohol withdrawal in the past. But she has never been abstinent from alcohol in the past. 3. Likely heading towards DT. 4. History of fibromyalgia. 5. History of degenerative joint disease status post cortisone injection in her right hip. 6. Heavy smoker according to the , does not use any inhalers. 7. Possible seizure activity could be related to alcoholism but most likely related to hypo-natremia. Plan: 1. Agree with 3% saline at the current rate. 2. Normal saline at 75 mL an hour. 3. Repeat sodium level every 4 hours. 4. Maintain urine output. 5. The patient currently maintaining her airways and she does not require intubation, although, low threshold to intubate. 6. Start the patient empirically on phenobarbital 65 mg IV every 6. 7. He was high dose of thiamine 500 mg IV every 8 hours for the first day. 8. Continue with vitamins replacement. 9. Keep the patient n.p.o. for the time being. 10. DVT prophylaxis. 11. GI prophylaxis given her history of alcoholism. 12. Leukocytosis is likely related to stress and recent seizure. 13. Seizure precautions in the bed. 14. Discussed with the staff on rounds and details, critical care time spent with the patient was 45 minutes. Case discussed with the and details all his questions being answered.
[2017-11-07] MEDS: THIAMINE HCL INJ 500 MG in SODIUM CHLORIDE 0.9% 50ML 50 ML IV SCH ×2 (15:21→23:19)
[2017-11-07 16:47] LABS: OSMOLALITY,URINE 564 mOms/kg (500-800)
[2017-11-07 16:53] LABS: SODIUM RANDOM URINE 19 mEq/L
[2017-11-07 17:38] LABS: CALCIUM 8.1 mg/dl (8.5-10.1); CREATININE 0.57 mg/dl (0.60-1.20); POTASSIUM 4.2 mmol/L (3.5-5.1)
[2017-11-07] MEDS: PHENOBARBITAL SOD INJ 65 MG in SYRINGE 0 ML IV SCH ×2 (17:54→23:18)
[2017-11-07] MEDS ORDERED: HEPARIN SOD 5000 UNIT/0.5 ML CARP SQ SCH (20:00)
[2017-11-07 20:15] LABS: CALCIUM 8.2 mg/dl (8.5-10.1); CREATININE 0.47 mg/dl (0.60-1.20); POTASSIUM 4.2 mmol/L (3.5-5.1)
[2017-11-07 22:46] LABS: ALBUMIN 3.1 gm/dl (3.4-5.0); CREATININE 0.53 mg/dl (0.60-1.20); POTASSIUM 3.9 mmol/L (3.5-5.1)
[2017-11-07 22:50] LABS: TOTAL PROTEIN 6.8 gm/dl (6.4-8.2)
[2017-11-08] VITALS (22 sets, daily range): BP systolic 86–140; BP diastolic 54–86; PULSE 75–114; TEMP 36–37.2; O2SAT 90–99
[2017-11-08] MEDS: LORAZEPAM 2 MG/ML 1 ML VIAL IV PRN ×2 (02:07→11:22)
[2017-11-08 04:00] LABS: HEMATOCRIT 42.7 % (37-47); HEMOGLOBIN 15.9 g/dL (12.0-16.0); IG# 0.04 K/uL (0.00-0.02); LYMPH % 4.5 %; LYMPH ABS # 0.64 K/uL (1.2-3.4); MEAN CELL VOLUME 88.2 fL (80-100); MEAN CORPUSCULAR HEMOGLOBIN 32.9 pg (25-34); MEAN CORPUSCULAR HGB CONC 37.2 g/dl (32-36); MEAN PLATELET VOLUME 10.2 fL (7.4-10.4); MONO % 10.2 %; MONO ABS # 1.46 K/uL (0.11-0.59); NEUT ABS # 12.17 K/uL (1.4-6.5); PLATELET COUNT 131 K/uL (130-400); RED CELL DISTRIBUTION WIDTH CV 12.6 % (11.5-14.5); RED CELL DISTRIBUTION WIDTH SD 40.4 fL (36.4-46.3); WHITE BLOOD COUNT 14.31 K/uL (4.8-10.8)
[2017-11-08 04:11] LABS: INR 1.1 (0.9-1.1); PTT PATIENT 30.6 SECONDS (21.0-31.0)
[2017-11-08 04:51] LABS: CREATININE 0.47 mg/dl (0.60-1.20); PHOSPHORUS 2.4 mg/dl (2.5-4.9); POTASSIUM 3.8 mmol/L (3.5-5.1)
[2017-11-08] MEDS: PHENOBARBITAL SOD INJ 65 MG in SYRINGE 0 ML IV SCH (06:32)
[2017-11-08 08:32] LABS: CALCIUM 7.8 mg/dl (8.5-10.1); CREATININE 0.4 mg/dl (0.60-1.20); POTASSIUM 3.9 mmol/L (3.5-5.1)
--- NOTE | 2017-11-08 08:41 | Progress Note ---
Subjective Date of Service: Nov 08, 2017. Subjective Pt evaluation today including: conversation w/ patient, physical exam, chart review, lab review, review of studies, conversation w/ field service consultant Pain: under control Voiding: no voiding problems was able to respond to verbal stimuli moved all ext denied any pain yet still lethargic possible slight right side neglect Problem List Medical Problems: (1) Altered mental status Status: Acute (2) Elevated troponin Status: Acute (3) Hyponatremia Status: Acute (4) Seizure Status: Acute Review of Systems Due to patient mental status review of system was unobtainable/unreliable We'll attempt to obtain review of system as needed from staff and family Objective Vital Signs Date Time Temp Pulse Resp B/P (MAP) Pulse Ox O2 Delivery O2 Flow Rate FiO2 11/08/17 07:00 36.0 91 20 115/65 (82) 96 Nasal Cannula 4.0 11/08/17 06:01 105 21 140/79 (99) 97 Nasal Cannula 4.0 11/08/17 05:01 98 16 87/56 (66) 93 Room Air 11/08/17 04:01 37.2 114 20 123/77 (92) 90 Room Air 11/08/17 04:00 92 Room Air 11/08/17 03:01 94 16 100/61 (74) 91 Room Air 11/08/17 02:01 111 20 121/82 (95) 96 Nasal Cannula 4.0 11/08/17 01:02 112 23 138/86 (103) 95 Nasal Cannula 4.0 11/08/17 00:01 37.0 99 20 103/66 (78) 96 Nasal Cannula 4.0 11/08/17 00:01 96 Nasal Cannula 4.0 11/07/17 23:01 100 19 130/69 (89) 95 Nasal Cannula 4.0 11/07/17 22:46 114 17 125/74 (91) 93 Nasal Cannula 4.0 11/07/17 22:01 104 18 125/74 (91) 93 Room Air 11/07/17 21:01 101 21 100/66 (77) 97 Nasal Cannula 4.0 11/07/17 20:01 120 20 124/90 (101) 97 Nasal Cannula 4.0 11/07/17 20:00 96 Nasal Cannula 4.0 11/07/17 19:37 38.2 122 22 132/97 (109) 95 Nasal Cannula 4.0 11/07/17 19:01 123 18 123/85 (98) 95 Nasal Cannula 4.0 11/07/17 18:01 106 20 123/82 (96) 95 Nasal Cannula 4.0 11/07/17 18:00 106 20 123/82 (96) 95 Nasal Cannula 4.0 11/07/17 17:01 118 20 130/77 (94) 96 Nasal Cannula 4.0 11/07/17 17:00 118 18 130/77 (94) 96 Nasal Cannula 4.0 11/07/17 16:00 97 Nasal Cannula 4.0 11/07/17 16:00 107 22 115/66 (82) 97 Nasal Cannula 4.0 11/07/17 16:00 97 Nasal Cannula 4.0 11/07/17 15:00 111 20 116/82 (93) 96 Nasal Cannula 4.0 11/07/17 13:40 37.0 112 18 145/99 97 Nasal Cannula 4.0 11/07/17 13:30 110 18 109/93 98 Nasal Cannula 4.0 11/07/17 13:10 110 17 109/93 98 Nasal Cannula 4.0 11/07/17 13:07 110 11/07/17 12:45 110 20 109/84 98 Nasal Cannula 4.0 11/07/17 12:30 105 21 110/96 98 Nasal Cannula 4.0 11/07/17 12:15 103 19 97/76 98 Nasal Cannula 4.0 11/07/17 12:01 101 19 131/91 100 Room Air 5.0 11/07/17 11:45 105 20 196/116 100 Non-Rebreather 15.0 11/07/17 11:43 88 Room Air 11/07/17 11:16 114 11/07/17 11:10 37.3 117 22 132/74 100 Room Air 11/07/17 11:10 100 Room Air Physical Exam General Appearance: + mild distress, + thin Eyes: normal inspection, PERRL, EOMI, + pertinent finding (Ecchymosis/bruise on right) ENT: normal ENT inspection, hearing grossly normal Neck: supple Respiratory/Chest: chest non-tender, + decreased breath sounds, + crackles Cardiovascular: regular rate, rhythm, no edema, no gallop, no JVD, no murmur Abdomen: normal bowel sounds, non tender, soft, no organomegaly, no pulsatile mass Extremities: normal range of motion, non-tender, normal inspection, no pedal edema Neurologic/Psychiatric: + disoriented, + pertinent finding (Lethargic but responded to verbal stimuli, followed commands, moves all extremities, suspected right-sided neglect) Skin: normal color, warm/dry, no rash Laboratory Results Last 24 Hours Test 11/07/17 11:13 11/07/17 11:15 11/07/17 11:21 11/07/17 11:23 Osmolality 232 mOsm/kg White Blood Count 15.85 K/uL Red Blood Count 5.25 M/uL Hemoglobin 17.0 g/dL Hematocrit 45.5 % Mean Corpuscular Volume 86.7 fL Mean Corpuscular Hemoglobin 32.4 pg Mean Corpuscular Hemoglobin Concent 37.4 g/dl Platelet Count 190 K/uL Mean Platelet Volume 8.9 fL Neutrophils (%) (Auto) 87.7 % Lymphocytes (%) (Auto) 3.2 % Monocytes (%) (Auto) 8.8 % Eosinophils (%) (Auto) 0.0 % Basophils (%) (Auto) 0.0 % Neutrophils # (Auto) 13.90 K/uL Lymphocytes # (Auto) 0.50 K/uL Monocytes # (Auto) 1.40 K/uL Eosinophils # (Auto) 0.00 K/uL Basophils # (Auto) 0.00 K/uL RDW Standard Deviation 39.4 fL RDW Coefficient of Variation 12.5 % Immature Granulocyte % (Auto) 0.3 % Immature Granulocyte # (Auto) 0.05 K/uL Red Blood Cell Morphology Unremarkable Prothrombin Time 11.6 SECONDS Prothromb Time International Ratio 1.1 Activated Partial Thromboplast Time 31.0 SECONDS Partial Thromboplastin Ratio 1.2 Sodium Level 104 mmol/L Potassium Level 4.6 mmol/L Chloride Level 68 mmol/L Carbon Dioxide Level 26 mmol/L Anion Gap 10.0 mmol/L 16.0 mmol/L Blood Urea Nitrogen 11 mg/dl Creatinine 0.76 mg/dl Est Creatinine Clear Calc Drug Dose 72.7 ml/min Estimated GFR () 98.1 Estimated GFR (Non- 84.7 BUN/Creatinine Ratio 14.7 Random Glucose 103 mg/dl Calcium Level 9.2 mg/dl Magnesium Level 1.9 mg/dl Total Bilirubin 1.6 mg/dl Direct Bilirubin 0.4 mg/dl Aspartate Amino Transf (AST/SGOT) 104 U/L Alanine Aminotransferase (ALT/SGPT) 124 U/L Alkaline Phosphatase 112 U/L Total Creatine Kinase 811 U/L Creatine Kinase MB 27.2 ng/ml Creatine Kinase MB Ratio 3.4 Troponin I 0.725 ng/ml Total Protein 8.8 gm/dl Albumin 4.1 gm/dl Bedside Glucose 116 mg/dl Bedside Hemoglobin 19.4 g/dl Bedside Hematocrit 57 % Bedside Sodium 108 mEq/L Bedside Potassium 4.9 mEq/L Bedside Chloride 70 mEq/L Bedside Total CO2 28 mEq/l Bedside Blood Urea Nitrogen 13 mg/dl Bedside Creatinine 0.6 mg/dl Bedside Glucose (other) 112 mg/dl Bedside Ionized Calcium (Ingrid) 1.03 mmol/l Test 11/07/17 11:40 11/07/17 13:47 11/07/17 16:05 11/07/17 16:41 Urine Color DK YELLOW Urine Appearance CLEAR Urine pH 6.0 Urine Specific [place] 1.020 Urine Protein 2+ Urine Glucose (UA) TRACE Urine Ketones 1+ Urine Occult Blood TRACE Urine Nitrite NEG Urine Bilirubin NEG Urine Urobilinogen NEG Urine Leukocyte Esterase NEG Urine WBC (Auto) 1-5 /hpf Urine RBC (Auto) 0-4 /hpf Urine Hyaline Casts (Auto) 1-5 /lpf Urine Epithelial Cells (Auto) 20-30 /lpf Urine Bacteria (Auto) NEG Ethyl Alcohol mg/dL < 3.0 mg/dl Urine Osmolality 564 mOms/kg Urine Random Sodium 19 mEq/L Urine Opiates Screen NEG Urine Methadone, Qualitative NEG Urine Barbiturates NEG Urine Phencyclidine (PCP) Level NEG Ur Amphetamine/Methamphetamine NEG MDMA (Ecstasy) Screen NEG Urine Benzodiazepines Screen NEG Urine Cocaine Metabolite NEG Urine Marijuana (THC) POS Sodium Level 110 mmol/L Potassium Level 4.2 mmol/L Chloride Level 78 mmol/L Carbon Dioxide Level 21 mmol/L Anion Gap 11.0 mmol/L Blood Urea Nitrogen 13 mg/dl Creatinine 0.57 mg/dl Est Creatinine Clear Calc Drug Dose 95.7 ml/min Estimated GFR () 116.0 Estimated GFR (Non- 100.1 BUN/Creatinine Ratio 22.9 Random Glucose 90 mg/dl Calcium Level 8.1 mg/dl Total Creatine Kinase 793 U/L Troponin I 0.835 ng/ml Test 11/07/17 17:24 11/07/17 17:26 11/07/17 19:42 11/07/17 22:03 Bedside Glucose 101 mg/dl Blood Gas Sample Site L Radial Bedside Blood Gas pH (LAB) 7.42 Bedside Blood Gas pCO2 (LAB) 27 mmHg Bedside Blood Gas pO2 (LAB) 77 mmHg Bedside Blood Gas HCO3 (LAB) 17 meq/L Bedside Blood Gas Total CO2 18 mEq/l Bedside Blood Gas Base Excess (LAB) -7.0 meq/L Bedside Blood Gas O2 Saturation 96.0 % Avel Test Pass Oxygen Delivery Device Cannula Sodium Level 111 mmol/L 113 mmol/L Potassium Level 4.2 mmol/L 3.9 mmol/L Chloride Level 79 mmol/L 80 mmol/L Carbon Dioxide Level 20 mmol/L 20 mmol/L Anion Gap 11.0 mmol/L 11.0 mmol/L Blood Urea Nitrogen 13 mg/dl 13 mg/dl Creatinine 0.47 mg/dl 0.53 mg/dl Est Creatinine Clear Calc Drug Dose 116.1 ml/min 102.9 ml/min Estimated GFR () 123.6 118.8 Estimated GFR (Non- 106.6 102.5 BUN/Creatinine Ratio 26.8 24.3 Random Glucose 92 mg/dl 87 mg/dl Calcium Level 8.2 mg/dl 8.0 mg/dl Total Bilirubin 1.0 mg/dl Direct Bilirubin 0.3 mg/dl Aspartate Amino Transf (AST/SGOT) 75 U/L Alanine Aminotransferase (ALT/SGPT) 86 U/L Alkaline Phosphatase 84 U/L Troponin I 0.594 ng/ml Total Protein 6.8 gm/dl Albumin 3.1 gm/dl Test 11/08/17 00:35 11/08/17 03:49 11/08/17 06:37 11/08/17 08:01 Bedside Glucose 93 mg/dl 90 mg/dl White Blood Count 14.31 K/uL Red Blood Count 4.84 M/uL Hemoglobin 15.9 g/dL Hematocrit 42.7 % Mean Corpuscular Volume 88.2 fL Mean Corpuscular Hemoglobin 32.9 pg Mean Corpuscular Hemoglobin Concent 37.2 g/dl Platelet Count 131 K/uL Mean Platelet Volume 10.2 fL Neutrophils (%) (Auto) 85.0 % Lymphocytes (%) (Auto) 4.5 % Monocytes (%) (Auto) 10.2 % Eosinophils (%) (Auto) 0.0 % Basophils (%) (Auto) 0.0 % Neutrophils # (Auto) 12.17 K/uL Lymphocytes # (Auto) 0.64 K/uL Monocytes # (Auto) 1.46 K/uL Eosinophils # (Auto) 0.00 K/uL Basophils # (Auto) 0.00 K/uL RDW Standard Deviation 40.4 fL RDW Coefficient of Variation 12.6 % Immature Granulocyte % (Auto) 0.3 % Immature Granulocyte # (Auto) 0.04 K/uL Prothrombin Time 11.1 SECONDS Prothromb Time International Ratio 1.1 Activated Partial Thromboplast Time 30.6 SECONDS Partial Thromboplastin Ratio 1.2 Sodium Level 115 mmol/L Potassium Level 3.8 mmol/L Chloride Level 83 mmol/L Carbon Dioxide Level 22 mmol/L Anion Gap 10.0 mmol/L Blood Urea Nitrogen 13 mg/dl Creatinine 0.47 mg/dl Est Creatinine Clear Calc Drug Dose 116.1 ml/min Estimated GFR () 123.6 Estimated GFR (Non- 106.6 BUN/Creatinine Ratio 28.5 Random Glucose 89 mg/dl Calcium Level 8.0 mg/dl Phosphorus Level 2.4 mg/dl Magnesium Level 1.9 mg/dl Total Creatine Kinase 805 U/L Troponin I 0.475 ng/ml Assessment and Plan 62-year-old female with history of recently started on Lexapro. she was found unresponsive at home with sodium level of 104 Assessment Metabolic encephalopathy secondary to below Acute on chronic severe hyponatremia SIRS present on admission with no clear source of infection Positive troponin likely demand ischemia Alcohol abuse Plan Patient was found to have low serum osmolality and urine osmolality, indicating low solute intake / beer potomania,. but osmolality was not not low enough to justify his sodium level is 104 likely combined hyponatremia Sodium level today was 115, advanced faster than warranted Discussed with Dr. Cedillo's consult is appreciated, he is considering VDDP to slowly rise of sodium level Alcohol withdrawal precautions, thiamine Korsakoff treatment does for [address] head was negative Consider repeat CT head when patient is stable given her possible right-sided neglect Check electrolytes in a.m. Trend troponin Ordered pro-calcitonin Heparin for DVT prophylaxis Protonix for GI prophylaxis
[2017-11-08] MEDS ORDERED: THIAMINE HCL 100 MG TAB PO SCH (09:00)
[2017-11-08] MEDS ORDERED: DESMOPRESSIN ACETATE 4 MCG/ML 10 ML VIAL SQ ONE (09:00)
--- NOTE | 2017-11-08 09:11 | Clinical Documentation Query ---
CLINICAL DOCUMENTATION QUERY Dr. LLOYD SÁNCHEZ, In your clinical opinion is this patient being managed for: ( x ) Metabolic encephalopathy ( ) Not Agree ( ) Other explanation of clinical findings (Please Explain) ( ) Unable to determine (Please Define) ( ) Need to Discuss The medical record reflects the following clinical findings, treatment, and risk factors. Clinical Indicators: 62 yo female presenting with severe hyponatremia. Found unresponsive by her spouse. Initially presented to ER with lethargy, semiresponsive, unable to follow commands. Na 104. Per nursing documentation on 11/08 at 04:00 pt is described as more awake and alert but still confused and disoriented to location. Treatment: IV fluids, IV hypertonic saline, serial Na levels, serum and urine osmo, urine Na, seizure precautions, ICU monitoring, CT head Risk Factors: hyponatremia, alcohol abuse Please clarify and document your clinical opinion in the progress notes and discharge summary. Terms such as "probable", "suspected", "likely", "questionable", "possible", or "still to be ruled out" are acceptable. IF IN AGREEMENT, YOU MUST DOCUMENT ABOVE DIAGNOSTIC STATEMENT IN DAILY PROGRESS NOTES AND DISCHARGE SUMMARY. This document is not part of the patient's record. Thank You, Cristina Gooden, BERKLEY [phone]
[2017-11-08] MEDS ORDERED: DESMOPRESSIN ACETATE 1 MCG in SYRINGE 0 ML SQ ONE (09:15)
--- NOTE | 2017-11-08 09:22 | Nephrology Consultation ---
Nephrology Consultation Date & Providers Date of Consultation: Nov 08, 2017. Primary Care Provider: Zia Salgado M.D. Referring Provider: Reason for Consultation Hyponatremia History of Present Illness Mrs. Hodges is a 62 year old white female who is seen at the request of Dr. Gtz for evaluation of hyponatremia. Medical records in the EMR were reviewed and are summarized as follows: Mrs. Hodges's PCP is Dr. Zia Salgado. Her medical history is significant for IBS, tobacco use, anxiety, h/o lyme disease and alcohol abuse. She has chronic hyponatremia. Outpatient medical records document a serum sodium of 130 mmol/L 10/17. Patient was brought to the ED yesterday evening for evaluation of lethargy. She had fallen at home. In the ED Mrs. Hodges would awaken to verbal stimuli but would not follow commands. She was not experiencing seizures. Serum sodium was 104 mmol/L. Urine osmolality was elevated at > 500. Toxicology screen was ethanol - , THC + . CXR was negative for mass. Head CT was negative for mass or bleed. Mrs. Hodges was admitted to the ICU and 3% saline infusion was provided. Follow up laboratory studies show a 9 mmol increase over the last 20 hours. 3% saline infusion has been stopped. Potassium is acceptable and serum creatinine is low at 0.4. Patient has a mild leukocytosis w/ L shift. Blood and urine cultures are pending. Patient remains lethargic. Past Medical/Surgical History Medical: # Alcohol abuse # IBS # Tobacco abuse # Anxiety d/o # h/o Lyme disease Allergies Coded Allergies: No Known Allergies (Unverified , 11/07/17) Inpatient Medications Current Inpatient Medications Medications (Trade) Dose Ordered Sig/Mali Route Start Time Stop Time Status Last Admin Dose Admin Heparin Sodium (Porcine) (Heparin Sq 5000 Unit/0.5ml) 5,000 unit Q12H SQ 11/07/17 20:00 12/07/17 19:59 11/07/17 20:45 5,000 UNIT Lorazepam (Ativan Inj) 1 mg Q2H PRN IV 11/07/17 12:45 12/07/17 12:44 11/08/17 02:07 1 MG Pantoprazole Sodium 40 mg/ Syringe 10 ml @ 5 mls/min DAILY@1100 IV 11/08/17 11:00 12/08/17 10:59 Miscellaneous Information (Icu Protocol For Hyperglycemia) 1 ea PRN PRN N/A 11/07/17 12:45 11/09/17 12:44 Phenobarbital Sodium 65 mg/ Syringe 1 ml @ 0.9 mls/min Q6H IV 11/07/17 18:00 12/07/17 17:59 11/08/17 06:32 0.9 MLS/MIN Multivitamins 10 ml/Thiamine HCl 100 mg/Folic Acid 1 mg/Sodium Chloride 1,011.2 ml @ 75 mls/hr DAILY@1400 IV 11/08/17 14:00 12/08/17 13:59 Thiamine HCl (Vitamin B-1 Tab) 500 mg TID PO 11/08/17 09:00 12/08/17 08:59 Desmopressin Acetate (Ddavp Inj) 1 mcg NOW ONCE SQ 11/08/17 09:00 11/08/17 09:01 UNV Family History Cancer Diabetes mellitus Negative for CKD / ESRD Social History Smoking Status: Current Every Day Smoker Smokeless Tobacco Use: No Alcohol Use: heavy Drug Use: none Marital Status: Housing Status: lives with significant other Occupation: employed . Retired. + alcohol & tobacco use. Review of Systems Patient was unable to participate in ROS Physical Exam Date Time Temp Pulse Resp B/P (MAP) Pulse Ox O2 Delivery O2 Flow Rate FiO2 11/08/17 07:00 36.0 91 20 115/65 (82) 96 Nasal Cannula 4.0 11/08/17 06:01 105 21 140/79 (99) 97 Nasal Cannula 4.0 11/08/17 05:01 98 16 87/56 (66) 93 Room Air 11/08/17 04:01 37.2 114 20 123/77 (92) 90 Room Air 11/08/17 04:00 92 Room Air 11/08/17 03:01 94 16 100/61 (74) 91 Room Air 11/08/17 02:01 111 20 121/82 (95) 96 Nasal Cannula 4.0 11/08/17 01:02 112 23 138/86 (103) 95 Nasal Cannula 4.0 11/08/17 00:01 37.0 99 20 103/66 (78) 96 Nasal Cannula 4.0 11/08/17 00:01 96 Nasal Cannula 4.0 11/07/17 23:01 100 19 130/69 (89) 95 Nasal Cannula 4.0 11/07/17 22:46 114 17 125/74 (91) 93 Nasal Cannula 4.0 11/07/17 22:01 104 18 125/74 (91) 93 Room Air 11/07/17 21:01 101 21 100/66 (77) 97 Nasal Cannula 4.0 11/07/17 20:01 120 20 124/90 (101) 97 Nasal Cannula 4.0 11/07/17 20:00 96 Nasal Cannula 4.0 11/07/17 19:37 38.2 122 22 132/97 (109) 95 Nasal Cannula 4.0 11/07/17 19:01 123 18 123/85 (98) 95 Nasal Cannula 4.0 11/07/17 18:01 106 20 123/82 (96) 95 Nasal Cannula 4.0 11/07/17 18:00 106 20 123/82 (96) 95 Nasal Cannula 4.0 11/07/17 17:01 118 20 130/77 (94) 96 Nasal Cannula 4.0 11/07/17 17:00 118 18 130/77 (94) 96 Nasal Cannula 4.0 11/07/17 16:00 97 Nasal Cannula 4.0 11/07/17 16:00 107 22 115/66 (82) 97 Nasal Cannula 4.0 11/07/17 16:00 97 Nasal Cannula 4.0 11/07/17 15:00 111 20 116/82 (93) 96 Nasal Cannula 4.0 11/07/17 13:40 37.0 112 18 145/99 97 Nasal Cannula 4.0 11/07/17 13:30 110 18 109/93 98 Nasal Cannula 4.0 11/07/17 13:10 110 17 109/93 98 Nasal Cannula 4.0 11/07/17 13:07 110 11/07/17 12:45 110 20 109/84 98 Nasal Cannula 4.0 11/07/17 12:30 105 21 110/96 98 Nasal Cannula 4.0 11/07/17 12:15 103 19 97/76 98 Nasal Cannula 4.0 11/07/17 12:01 101 19 131/91 100 Room Air 5.0 11/07/17 11:45 105 20 196/116 100 Non-Rebreather 15.0 11/07/17 11:43 88 Room Air 11/07/17 11:16 114 11/07/17 11:10 37.3 117 22 132/74 100 Room Air 11/07/17 11:10 100 Room Air General Appearance: + thin (frail appearing) Head: + pertinent finding (temporal muscle wasting) Eyes: PERRL, EOMI Neck: no adenopathy Respiratory/Chest: lungs clear Cardiovascular: regular rate, rhythm Extremities/Musculoskelatal: no pedal edema Neurologic/Psych: + pertinent finding (lethargic. Does not folllow commands) Laboratory Results Last 24 Hours Test 11/07/17 11:13 11/07/17 11:15 11/07/17 11:21 11/07/17 11:23 Osmolality 232 mOsm/kg White Blood Count 15.85 K/uL Red Blood Count 5.25 M/uL Hemoglobin 17.0 g/dL Hematocrit 45.5 % Mean Corpuscular Volume 86.7 fL Mean Corpuscular Hemoglobin 32.4 pg Mean Corpuscular Hemoglobin Concent 37.4 g/dl Platelet Count 190 K/uL Mean Platelet Volume 8.9 fL Neutrophils (%) (Auto) 87.7 % Lymphocytes (%) (Auto) 3.2 % Monocytes (%) (Auto) 8.8 % Eosinophils (%) (Auto) 0.0 % Basophils (%) (Auto) 0.0 % Neutrophils # (Auto) 13.90 K/uL Lymphocytes # (Auto) 0.50 K/uL Monocytes # (Auto) 1.40 K/uL Eosinophils # (Auto) 0.00 K/uL Basophils # (Auto) 0.00 K/uL RDW Standard Deviation 39.4 fL RDW Coefficient of Variation 12.5 % Immature Granulocyte % (Auto) 0.3 % Immature Granulocyte # (Auto) 0.05 K/uL Red Blood Cell Morphology Unremarkable Prothrombin Time 11.6 SECONDS Prothromb Time International Ratio 1.1 Activated Partial Thromboplast Time 31.0 SECONDS Partial Thromboplastin Ratio 1.2 Sodium Level 104 mmol/L Potassium Level 4.6 mmol/L Chloride Level 68 mmol/L Carbon Dioxide Level 26 mmol/L Anion Gap 10.0 mmol/L 16.0 mmol/L Blood Urea Nitrogen 11 mg/dl Creatinine 0.76 mg/dl Est Creatinine Clear Calc Drug Dose 72.7 ml/min Estimated GFR () 98.1 Estimated GFR (Non- 84.7 BUN/Creatinine Ratio 14.7 Random Glucose 103 mg/dl Calcium Level 9.2 mg/dl Magnesium Level 1.9 mg/dl Total Bilirubin 1.6 mg/dl Direct Bilirubin 0.4 mg/dl Aspartate Amino Transf (AST/SGOT) 104 U/L Alanine Aminotransferase (ALT/SGPT) 124 U/L Alkaline Phosphatase 112 U/L Total Creatine Kinase 811 U/L Creatine Kinase MB 27.2 ng/ml Creatine Kinase MB Ratio 3.4 Troponin I 0.725 ng/ml Total Protein 8.8 gm/dl Albumin 4.1 gm/dl Bedside Glucose 116 mg/dl Bedside Hemoglobin 19.4 g/dl Bedside Hematocrit 57 % Bedside Sodium 108 mEq/L Bedside Potassium 4.9 mEq/L Bedside Chloride 70 mEq/L Bedside Total CO2 28 mEq/l Bedside Blood Urea Nitrogen 13 mg/dl Bedside Creatinine 0.6 mg/dl Bedside Glucose (other) 112 mg/dl Bedside Ionized Calcium (Ingrid) 1.03 mmol/l Test 11/07/17 11:40 11/07/17 13:47 11/07/17 16:05 11/07/17 16:41 Urine Color DK YELLOW Urine Appearance CLEAR Urine pH 6.0 Urine Specific [place] 1.020 Urine Protein 2+ Urine Glucose (UA) TRACE Urine Ketones 1+ Urine Occult Blood TRACE Urine Nitrite NEG Urine Bilirubin NEG Urine Urobilinogen NEG Urine Leukocyte Esterase NEG Urine WBC (Auto) 1-5 /hpf Urine RBC (Auto) 0-4 /hpf Urine Hyaline Casts (Auto) 1-5 /lpf Urine Epithelial Cells (Auto) 20-30 /lpf Urine Bacteria (Auto) NEG Ethyl Alcohol mg/dL < 3.0 mg/dl Urine Osmolality 564 mOms/kg Urine Random Sodium 19 mEq/L Urine Opiates Screen NEG Urine Methadone, Qualitative NEG Urine Barbiturates NEG Urine Phencyclidine (PCP) Level NEG Ur Amphetamine/Methamphetamine NEG MDMA (Ecstasy) Screen NEG Urine Benzodiazepines Screen NEG Urine Cocaine Metabolite NEG Urine Marijuana (THC) POS Sodium Level 110 mmol/L Potassium Level 4.2 mmol/L Chloride Level 78 mmol/L Carbon Dioxide Level 21 mmol/L Anion Gap 11.0 mmol/L Blood Urea Nitrogen 13 mg/dl Creatinine 0.57 mg/dl Est Creatinine Clear Calc Drug Dose 95.7 ml/min Estimated GFR () 116.0 Estimated GFR (Non- 100.1 BUN/Creatinine Ratio 22.9 Random Glucose 90 mg/dl Calcium Level 8.1 mg/dl Total Creatine Kinase 793 U/L Troponin I 0.835 ng/ml Test 11/07/17 17:24 11/07/17 17:26 11/07/17 19:42 11/07/17 22:03 Bedside Glucose 101 mg/dl Blood Gas Sample Site L Radial Bedside Blood Gas pH (LAB) 7.42 Bedside Blood Gas pCO2 (LAB) 27 mmHg Bedside Blood Gas pO2 (LAB) 77 mmHg Bedside Blood Gas HCO3 (LAB) 17 meq/L Bedside Blood Gas Total CO2 18 mEq/l Bedside Blood Gas Base Excess (LAB) -7.0 meq/L Bedside Blood Gas O2 Saturation 96.0 % Avel Test Pass Oxygen Delivery Device Cannula Sodium Level 111 mmol/L 113 mmol/L Potassium Level 4.2 mmol/L 3.9 mmol/L Chloride Level 79 mmol/L 80 mmol/L Carbon Dioxide Level 20 mmol/L 20 mmol/L Anion Gap 11.0 mmol/L 11.0 mmol/L Blood Urea Nitrogen 13 mg/dl 13 mg/dl Creatinine 0.47 mg/dl 0.53 mg/dl Est Creatinine Clear Calc Drug Dose 116.1 ml/min 102.9 ml/min Estimated GFR () 123.6 118.8 Estimated GFR (Non- 106.6 102.5 BUN/Creatinine Ratio 26.8 24.3 Random Glucose 92 mg/dl 87 mg/dl Calcium Level 8.2 mg/dl 8.0 mg/dl Total Bilirubin 1.0 mg/dl Direct Bilirubin 0.3 mg/dl Aspartate Amino Transf (AST/SGOT) 75 U/L Alanine Aminotransferase (ALT/SGPT) 86 U/L Alkaline Phosphatase 84 U/L Troponin I 0.594 ng/ml Total Protein 6.8 gm/dl Albumin 3.1 gm/dl Test 11/08/17 00:35 11/08/17 03:49 11/08/17 06:37 11/08/17 08:01 Bedside Glucose 93 mg/dl 90 mg/dl White Blood Count 14.31 K/uL Red Blood Count 4.84 M/uL Hemoglobin 15.9 g/dL Hematocrit 42.7 % Mean Corpuscular Volume 88.2 fL Mean Corpuscular Hemoglobin 32.9 pg Mean Corpuscular Hemoglobin Concent 37.2 g/dl Platelet Count 131 K/uL Mean Platelet Volume 10.2 fL Neutrophils (%) (Auto) 85.0 % Lymphocytes (%) (Auto) 4.5 % Monocytes (%) (Auto) 10.2 % Eosinophils (%) (Auto) 0.0 % Basophils (%) (Auto) 0.0 % Neutrophils # (Auto) 12.17 K/uL Lymphocytes # (Auto) 0.64 K/uL Monocytes # (Auto) 1.46 K/uL Eosinophils # (Auto) 0.00 K/uL Basophils # (Auto) 0.00 K/uL RDW Standard Deviation 40.4 fL RDW Coefficient of Variation 12.6 % Immature Granulocyte % (Auto) 0.3 % Immature Granulocyte # (Auto) 0.04 K/uL Prothrombin Time 11.1 SECONDS Prothromb Time International Ratio 1.1 Activated Partial Thromboplast Time 30.6 SECONDS Partial Thromboplastin Ratio 1.2 Sodium Level 115 mmol/L 115 mmol/L Potassium Level 3.8 mmol/L 3.9 mmol/L Chloride Level 83 mmol/L 84 mmol/L Carbon Dioxide Level 22 mmol/L 20 mmol/L Anion Gap 10.0 mmol/L 11.0 mmol/L Blood Urea Nitrogen 13 mg/dl 12 mg/dl Creatinine 0.47 mg/dl 0.40 mg/dl Est Creatinine Clear Calc Drug Dose 116.1 ml/min 136.4 ml/min Estimated GFR () 123.6 130.3 Estimated GFR (Non- 106.6 112.4 BUN/Creatinine Ratio 28.5 30.7 Random Glucose 89 mg/dl 83 mg/dl Calcium Level 8.0 mg/dl 7.8 mg/dl Phosphorus Level 2.4 mg/dl Magnesium Level 1.9 mg/dl Total Creatine Kinase 805 U/L Troponin I 0.475 ng/ml Test 11/08/17 08:37 Impression (1) Acute hyponatremia (2) Altered mental status (3) ETOH abuse (4) Tobacco use Acute on chronic hyponatremia likely related to a combination of poor solute intake, excessive free water intake (alcohol) and ADH release associated with intravascular volume contraction. Patient is at high risk for complications of rapid sodium correction due to the severity of her hyponatremia and poor nutritional status. Patient remains lethargic. CXR is clear. WBC is mildly elevated. Blood & urine cultures are pending Recommendations -- Agree w/ stopping 3% saline infusion -- Will administer 1 mcg DDAVP SQ this am to avoid overcorrection -- Target correction rate is 6 - 8 mmol / day -- Monitor serum sodium q4 hours -- Await blood and urine culture results One hour critical care time provided to the patient today. This was necessary to review her record, perform physical exam and discuss medical management w/ ICU team.
[2017-11-08] MEDS ORDERED: CHLORDIAZEPOXIDE 25 MG CAP PO SCH (09:30)
[2017-11-08] MEDS: PANTOprazole INJ 40 MG in SYRINGE 0 ML IV SCH (09:54)
[2017-11-08] MEDS: THIAMINE HCL INJ 500 MG in SODIUM CHLORIDE 0.9% 50ML 50 ML IV SCH ×3 (09:55→23:47)
[2017-11-08] MEDS: FoLIC ACID INJ 1 MG in SYRINGE 9.8 ML IV SCH (10:02)
--- NOTE | 2017-11-08 12:55 | ECHOCARDIOGRAM REPORT ---
*NOTICE TO RECEIVING DEMOCRAT AGENCY This information is strictly Confidential and protected under [place] law. [place] law prohibits you from making any further disclosure of this information unless further disclosure is expressly permitted by the written consent of the person to whom it pertains or is authorized by law. A general authorization for the release of medical or other information is not sufficient for this purpose. Hospital accepts no responsibility if the information is made available to any other person, INCLUDING THE PATIENT. Interpretation Summary * Name: RIN JAIME Study Date: 11/08/2017 07:26 AM BP: 115/65 mmHg * Patient Location: .MSICU\S\E105\S\1 HR: 88 * : 1955 (M/d/yyyy) Gender: Female Height: 66 in * Age: 62 yrs Ethnicity: CA Weight: 138 lb * Ordering Physician: Javi Chavira * Referring Physician: Self, Referred * Performed By: Denisse Loco RCS * * Reason For Study: ALT OF CONSCIOUSNESS * BSA: 1.7 m2 * -- Conclusions -- * There is mild concentric left ventricular hypertrophy. * Left ventricular systolic function is normal. * Grade I diastolic dysfunction, (abnormal relaxation pattern). * There is mild mitral annular calcification. Procedure Details * A complete two-dimensional transthoracic echocardiogram was performed (2D, M-mode, Doppler and color flow Doppler). Left Ventricle * The left ventricle is normal in size. * There is mild concentric left ventricular hypertrophy. * Left ventricular systolic function is normal. * Ejection Fraction = 55-60%. * Grade I diastolic dysfunction, (abnormal relaxation pattern). * The left ventricular wall motion is normal. Right Ventricle * The right ventricle is normal in size and function. Atria * The left atrial size is normal. * Right atrial size is normal. Mitral Valve * There is mild mitral annular calcification. * Significant mitral regurgitation is absent. Tricuspid Valve * The tricuspid valve is not well visualized, but is grossly normal. * Significant tricuspid regurgitation is absent. Aortic Valve * Aortic valve sclerosis moderate, without significant aortic valvular stenosis. * There is no significant aortic regurgitation. Pulmonic Valve * The pulmonic valve is not well visualized. Great Vessels * The aortic root is normal size. Pericardium/Pleural * There is no pericardial effusion. Great Vessels * Normal inferior vena cava diameter and respiratory variation suggests normal central venous pressure. MMode 2D Measurements and Calculations IVSd 1.4 cm IVSs 1.4 cm LVIDd 4.0 cm LVIDs 2.7 cm LVPWd 1.2 cm LVPWs 1.5 cm IVS/LVPW 1.2 FS 32.7 % EDV(Teich) 71.3 ml ESV(Teich) 27.4 ml EF(Teich) 61.6 % EDV(cubed) 65.5 ml ESV(cubed) 20.0 ml EF(cubed) 69.5 % % IVS thick 0.96 % % LVPW thick 27.2 % LV mass(C)d 187.5 grams LV mass(C)dI 109.7 grams/m\S\2 LV mass(C)s 133.0 grams LV mass(C)sI 77.9 grams/m\S\2 SV(Teich) 43.9 ml SI(Teich) 25.7 ml/m\S\2 SV(cubed) 45.5 ml SI(cubed) 26.7 ml/m\S\2 Ao root diam 2.9 cm Ao root area 6.4 cm\S\2 ACS 1.9 cm LA dimension 3.8 cm LA/Ao 1.3 LVOT diam 2.0 cm LVOT area 3.2 cm\S\2 LVAd ap4 24.8 cm\S\2 LVLd ap4 7.4 cm EDV(MOD-sp4) 70.4 ml EDV(sp4-el) 70.8 ml LVAs ap4 16.0 cm\S\2 LVLs ap4 5.5 cm ESV(MOD-sp4) 37.7 ml ESV(sp4-el) 39.8 ml EF(MOD-sp4) 46.5 % EF(sp4-el) 43.8 % LVAd ap2 24.0 cm\S\2 LVLd ap2 7.3 cm EDV(MOD-sp2) 66.0 ml EDV(sp2-el) 67.3 ml LVAs ap2 15.6 cm\S\2 LVLs ap2 6.0 cm ESV(MOD-sp2) 34.6 ml ESV(sp2-el) 34.3 ml EF(MOD-sp2) 47.6 % EF(sp2-el) 49.1 % LVLd %diff -1.64 % EDV(MOD-bp) 68.2 ml LVLs %diff 9.3 % ESV(MOD-bp) 37.4 ml EF(MOD-bp) 45.1 % SV(MOD-sp4) 32.8 ml SI(MOD-sp4) 19.2 ml/m\S\2 SV(MOD-sp2) 31.4 ml SI(MOD-sp2) 18.4 ml/m\S\2 SV(MOD-bp) 30.7 ml SI(MOD-bp) 18.0 ml/m\S\2 SV(sp4-el) 31.0 ml SI(sp4-el) 18.1 ml/m\S\2 SV(sp2-el) 33.0 ml SI(sp2-el) 19.3 ml/m\S\2 Doppler Measurements and Calculations MV E max edmund 70.1 cm/sec MV A max edmund 102.5 cm/sec MV E/A 0.68 MV P1/2t max edmund 73.3 cm/sec MV P1/2t 50.3 msec MVA(P1/2t) 4.4 cm\S\2 MV dec slope 426.7 cm/sec\S\2 MV dec time 0.21 sec Ao V2 max 132.0 cm/sec Ao max PG 7.0 mmHg Ao max PG (full) 2.3 mmHg RITESH(V,A) 2.6 cm\S\2 RITESH(V,D) 2.6 cm\S\2 LV V1 max PG 4.7 mmHg LV V1 max 108.4 cm/sec PA V2 max 90.6 cm/sec PA max PG 3.3 mmHg
[2017-11-08 13:08] LABS: CALCIUM 8.1 mg/dl (8.5-10.1); CREATININE 0.39 mg/dl (0.60-1.20); POTASSIUM 3.9 mmol/L (3.5-5.1)
[2017-11-08] MEDS: ENOXAPARIN 40 MG/0.4 ML SYR SQ SCH (13:35)
[2017-11-08] MEDS ORDERED: ACETAMINOPHEN 325 MG TAB PO ONE (13:37)
[2017-11-08] MEDS: CHLORDIAZEPOXIDE 50MG 1ST DOSE PO SCH ×3 (13:37→23:48)
[2017-11-08] MEDS ORDERED: ACETAMINOPHEN 325 MG TAB ONE (13:37)
[2017-11-08] MEDS ORDERED: MULTI-VITAMIN INFUSION INJ 10 ML, THIAMINE HCL INJ 100 MG, FoLIC ACID INJ 1 MG in SODIU... IV SCH (14:00)
[2017-11-08] MEDS: NICOTINE 21 MG/24 HR TDSY TD SCH (14:00)
--- NOTE | 2017-11-08 15:21 | Critical Care Progress Note ---
Critical Care Progress Note Date of Service Nov 08, 2017. ICU Day ICU Day Number: [address] Alvarez Subjective 62F admitted to ICU 11/07/17 from ED for altered mental status secondary to severe hyponatremia and SORAYA and elevated lactate. 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 Unclear as to how much daily alcohol. Also smokes cigarettes daily. Sodium on presentation at ED was 104, this AM is 115, with noon value 117 Objective GENERAL: Snoring loudly on exam, unable to rouse. Per nurse, alertness fluctuates greatly, and when asked is able to take PO meds, and when awake sits up in bed unassisted. Has 1:1 due to agitation. HENT: Normocephalic, bruising and 3mm horizontal laceration on right eyebrow. Oropharynx unremarkable. Nasal cannula in place, 3L. EYES: Normal conjunctiva. Sclera non-icteric. PERRL. NECK: Supple. No JVD. RESPIRATORY: Coarse breath sounds bilaterally. CARDIAC: Regular rate, normal rhythm. Extremities warm and well perfused. Pulses equal. ABDOMEN: Soft, non-distended. No tenderness to palpation. No rebound or guarding. No masses. EXTREMITIES: SCD's in place. No edema. No discoloration. 3 peripheral IV's in tact. PICC line in tact right arm. Ecchymosis to arms and knees. NEURO: difficult to arouse, does open eyes and follows simple commands. Breathing spontaneously. CAM positive. SKIN: bruising and 3mm horizontal laceration on right eyebrow Assessment & Plan (1) Unresponsive episode (2) Hyponatremia (3) Seizure (4) Altered mental status (5) Elevated troponin (6) ETOH abuse (7) Tobacco use Reason Critically Ill: 62-year-old female with a significant past medical history of depression and alcohol abuse here due to severe hyponatremia Neuro - CAM ICU: POSITIVE Librium per alcohol withdrawal protocol - DCed Phenobarbital. Neuro checks per protocol in the setting Cardiac - Electrocardiogram was abnormal, with peaked T waves, sinus Tachycardia. Hemodynamically stable. Echocardiogram complete 11/08/17 and wnl: EF 55-60%. There is mild concentric left ventricular hypertrophy. Left ventricular systolic function is normal. Grade I diastolic dysfunction, (abnormal relaxation pattern). There is mild mitral annular calcification. AM ECG ordered. Respiratory - SpO2 97 on 3L. ABG 11/07/17 at 1726 7.42/27/77/17/96% Continue to titrate supplemental O2 >90% No known h/o PFT's/pulmonary disease Daily smoker 1PPD most of adult life Follow closely for respiratory failure - begin end tidal CO2 monitoring. GI - NPO RENAL/LYTES - DCed hypertonic saline Nephrology consulted, appreciate recs. Goal of increase Na by 6- 8 per day - Ordered 1mcg DDAVP SQ this AM to avoid overcorrection. Monitoring serum sodium q4hrs - No concerns at this time. ENDO - No concerns at this time HEME - Elevated WBC 14.31, trending down. Stable H&H. Will monitor ID - No concerns for infection at this point. Urine culture and MRSA negative. Blood cx pending. Monitor fever curve. LINES/IV ACCESS - PIVs intact. PICC line in place in right arm. DVT PROPHYLAXIS - Enoxaparin 40mg daily sq I have personally spent 35 minutes of critical care time in the direct management of this patient. This is a life/limb threatening event. This includes time spent evaluating patient, direct bedside care, chart review, placing orders, interpretation of diagnostic studies, discussion with consultants, patient, and family members, as well as other required patient management activities. This time is exclusive of all separately billable procedures, and teaching time and separate from and in addition to any other critical care service time. Thank you for allowing us to be part of this patient's care. Please refer to Dr. Alvarez's documentation for any further recommendations. Resident Physician Supervision Note: Dr. Jamie Tran was resident physician during care of patient. I separately evaluated patient and did history and exam. I discussed the case with the resident and generally agree with the findings and plan. Patient is critically ill due to profound hyponatremia requiring initially hypertonic saline. Patient's sodium is increased to 117 despite treatment with DDAVP, I have instituted free water intravenously at this time and will continue to check her sodiums every 4 hours. I have personally spent 40 minutes of critical care time in the direct management of this patient. This is a life/limb threatening event. This includes time spent evaluating patient, direct bedside care, chart review, placing orders, interpretation of diagnostic studies, discussion with consultants, patient, and/or family members regarding treatment decisions, as well as other required patient management activities. This time is exclusive of all separately billable procedures, and teaching time and separate from and in addition to any other critical care service time. Documented By: Gerardo Alvarez DO Consults & Procedures Consultants: Nephrology Procedures: PICC line placed 11/08/17 Echocardiogram completed 11/08/17 Data Medications: Current Inpatient Medications Medications (Trade) Dose Ordered Sig/Mali Route Start Time Stop Time Status Last Admin Dose Admin Lorazepam (Ativan Inj) 1 mg Q2H PRN IV 11/07/17 12:45 12/07/17 12:44 11/08/17 11:22 1 MG Pantoprazole Sodium 40 mg/ Syringe 10 ml @ 5 mls/min DAILY@1100 IV 11/08/17 11:00 12/08/17 10:59 11/08/17 09:54 5 MLS/MIN Miscellaneous Information (Icu Protocol For Hyperglycemia) 1 ea PRN PRN N/A 11/07/17 12:45 11/09/17 12:44 Thiamine HCl 500 mg/Sodium Chloride 55 ml @ 208 mls/hr Q8H IV 11/07/17 16:00 11/09/17 15:59 11/08/17 09:55 208 MLS/HR Enoxaparin Sodium (Lovenox Inj) 40 mg DAILY SQ 11/08/17 10:00 12/08/17 09:59 11/08/17 13:35 40 MG Folic Acid 1 mg/ Syringe 10 ml @ 5 mls/min QAM IV 11/08/17 10:00 12/08/17 09:59 11/08/17 10:02 5 MLS/MIN Chlordiazepoxide (Librium Cap) 50 mg Q6H PO 11/08/17 12:00 11/09/17 06:01 11/08/17 13:37 50 MG Chlordiazepoxide (Librium Cap) 50 mg Q8H PO 11/09/17 14:00 11/10/17 06:01 Chlordiazepoxide (Librium Cap) 25 mg Q8H PO 11/10/17 14:00 11/11/17 06:01 Chlordiazepoxide (Librium Cap) 10 mg Q12H PO 11/11/17 18:00 11/12/17 06:01 Nicotine (Nicoderm Cq 21MG Patch) 1 patch QAM TD 11/09/17 09:00 12/09/17 08:59 11/08/17 14:00 1 PATCH Miscellaneous (Remove Nicoderm Patch) 1 ea HS N/A 11/08/17 21:00 12/08/17 20:59 Heparin Sodium (Porcine) (Heparin 10 Unit/ ml 5 ml Flush) 5 ml PRN PRN FLUSH 11/08/17 13:45 12/08/17 13:44 I & O: 24-Hour Column 11/09/17 07:59 Output Total 300 ml Balance -300 ml Vital Signs: Date Time Temp Pulse Resp B/P (MAP) Pulse Ox O2 Delivery O2 Flow Rate FiO2 11/08/17 15:00 75 18 106/65 (79) 96 Room Air 11/08/17 14:00 83 20 115/69 (84) 95 Room Air 11/08/17 13:00 89 20 136/72 (93) 95 Room Air 11/08/17 12:00 Room Air 11/08/17 12:00 36.5 100 18 106/72 (83) 92 Room Air 11/08/17 12:00 95 Room Air 11/08/17 11:00 83 20 86/54 (65) 93 Nasal Cannula 11/08/17 10:08 Nasal Cannula 11/08/17 10:00 91 20 122/71 (88) 97 Nasal Cannula 2.0 11/08/17 09:01 18 110/63 (79) Nasal Cannula 3.0 11/08/17 08:00 88 18 106/64 (78) 95 Nasal Cannula 3.0 11/08/17 08:00 Nasal Cannula 3.0 11/08/17 07:00 36.0 91 20 115/65 (82) 96 Nasal Cannula 4.0 11/08/17 06:01 105 21 140/79 (99) 97 Nasal Cannula 4.0 11/08/17 05:01 98 16 87/56 (66) 93 Room Air 11/08/17 04:01 37.2 114 20 123/77 (92) 90 Room Air 11/08/17 04:00 92 Room Air 11/08/17 03:01 94 16 100/61 (74) 91 Room Air 11/08/17 02:01 111 20 121/82 (95) 96 Nasal Cannula 4.0 11/08/17 01:02 112 23 138/86 (103) 95 Nasal Cannula 4.0 11/08/17 00:01 37.0 99 20 103/66 (78) 96 Nasal Cannula 4.0 11/08/17 00:01 96 Nasal Cannula 4.0 11/07/17 23:01 100 19 130/69 (89) 95 Nasal Cannula 4.0 11/07/17 22:46 114 17 125/74 (91) 93 Nasal Cannula 4.0 11/07/17 22:01 104 18 125/74 (91) 93 Room Air 11/07/17 21:01 101 21 100/66 (77) 97 Nasal Cannula 4.0 11/07/17 20:01 120 20 124/90 (101) 97 Nasal Cannula 4.0 11/07/17 20:00 96 Nasal Cannula 4.0 11/07/17 19:37 38.2 122 22 132/97 (109) 95 Nasal Cannula 4.0 11/07/17 19:01 123 18 123/85 (98) 95 Nasal Cannula 4.0 11/07/17 18:01 106 20 123/82 (96) 95 Nasal Cannula 4.0 11/07/17 18:00 106 20 123/82 (96) 95 Nasal Cannula 4.0 11/07/17 17:01 118 20 130/77 (94) 96 Nasal Cannula 4.0 11/07/17 17:00 118 18 130/77 (94) 96 Nasal Cannula 4.0 11/07/17 16:00 97 Nasal Cannula 4.0 11/07/17 16:00 107 22 115/66 (82) 97 Nasal Cannula 4.0 11/07/17 16:00 97 Nasal Cannula 4.0 Laboratory Results: Last 24 Hours Test 11/07/17 16:05 11/07/17 16:41 11/07/17 17:24 11/07/17 17:26 Urine Osmolality 564 mOms/kg Urine Random Sodium 19 mEq/L Urine Opiates Screen NEG Urine Methadone, Qualitative NEG Urine Barbiturates NEG Urine Phencyclidine (PCP) Level NEG Ur Amphetamine/Methamphetamine NEG MDMA (Ecstasy) Screen NEG Urine Benzodiazepines Screen NEG Urine Cocaine Metabolite NEG Urine Marijuana (THC) POS Sodium Level 110 mmol/L Potassium Level 4.2 mmol/L Chloride Level 78 mmol/L Carbon Dioxide Level 21 mmol/L Anion Gap 11.0 mmol/L Blood Urea Nitrogen 13 mg/dl Creatinine 0.57 mg/dl Est Creatinine Clear Calc Drug Dose 95.7 ml/min Estimated GFR () 116.0 Estimated GFR (Non- 100.1 BUN/Creatinine Ratio 22.9 Random Glucose 90 mg/dl Calcium Level 8.1 mg/dl Total Creatine Kinase 793 U/L Troponin I 0.835 ng/ml Bedside Glucose 101 mg/dl Blood Gas Sample Site L Radial Bedside Blood Gas pH (LAB) 7.42 Bedside Blood Gas pCO2 (LAB) 27 mmHg Bedside Blood Gas pO2 (LAB) 77 mmHg Bedside Blood Gas HCO3 (LAB) 17 meq/L Bedside Blood Gas Total CO2 18 mEq/l Bedside Blood Gas Base Excess (LAB) -7.0 meq/L Bedside Blood Gas O2 Saturation 96.0 % Avel Test Pass Oxygen Delivery Device Cannula Test 11/07/17 19:42 11/07/17 22:03 11/08/17 00:35 11/08/17 03:49 Sodium Level 111 mmol/L 113 mmol/L 115 mmol/L Potassium Level 4.2 mmol/L 3.9 mmol/L 3.8 mmol/L Chloride Level 79 mmol/L 80 mmol/L 83 mmol/L Carbon Dioxide Level 20 mmol/L 20 mmol/L 22 mmol/L Anion Gap 11.0 mmol/L 11.0 mmol/L 10.0 mmol/L Blood Urea Nitrogen 13 mg/dl 13 mg/dl 13 mg/dl Creatinine 0.47 mg/dl 0.53 mg/dl 0.47 mg/dl Est Creatinine Clear Calc Drug Dose 116.1 ml/min 102.9 ml/min 116.1 ml/min Estimated GFR () 123.6 118.8 123.6 Estimated GFR (Non- 106.6 102.5 106.6 BUN/Creatinine Ratio 26.8 24.3 28.5 Random Glucose 92 mg/dl 87 mg/dl 89 mg/dl Calcium Level 8.2 mg/dl 8.0 mg/dl 8.0 mg/dl Total Bilirubin 1.0 mg/dl Direct Bilirubin 0.3 mg/dl Aspartate Amino Transf (AST/SGOT) 75 U/L Alanine Aminotransferase (ALT/SGPT) 86 U/L Alkaline Phosphatase 84 U/L Troponin I 0.594 ng/ml 0.475 ng/ml Total Protein 6.8 gm/dl Albumin 3.1 gm/dl Bedside Glucose 93 mg/dl White Blood Count 14.31 K/uL Red Blood Count 4.84 M/uL Hemoglobin 15.9 g/dL Hematocrit 42.7 % Mean Corpuscular Volume 88.2 fL Mean Corpuscular Hemoglobin 32.9 pg Mean Corpuscular Hemoglobin Concent 37.2 g/dl Platelet Count 131 K/uL Mean Platelet Volume 10.2 fL Neutrophils (%) (Auto) 85.0 % Lymphocytes (%) (Auto) 4.5 % Monocytes (%) (Auto) 10.2 % Eosinophils (%) (Auto) 0.0 % Basophils (%) (Auto) 0.0 % Neutrophils # (Auto) 12.17 K/uL Lymphocytes # (Auto) 0.64 K/uL Monocytes # (Auto) 1.46 K/uL Eosinophils # (Auto) 0.00 K/uL Basophils # (Auto) 0.00 K/uL RDW Standard Deviation 40.4 fL RDW Coefficient of Variation 12.6 % Immature Granulocyte % (Auto) 0.3 % Immature Granulocyte # (Auto) 0.04 K/uL Prothrombin Time 11.1 SECONDS Prothromb Time International Ratio 1.1 Activated Partial Thromboplast Time 30.6 SECONDS Partial Thromboplastin Ratio 1.2 Phosphorus Level 2.4 mg/dl Magnesium Level 1.9 mg/dl Total Creatine Kinase 805 U/L Test 11/08/17 06:37 11/08/17 08:01 11/08/17 08:48 11/08/17 12:08 Bedside Glucose 90 mg/dl Sodium Level 115 mmol/L 117 mmol/L Potassium Level 3.9 mmol/L 3.9 mmol/L Chloride Level 84 mmol/L 86 mmol/L Carbon Dioxide Level 20 mmol/L 23 mmol/L Anion Gap 11.0 mmol/L 8.0 mmol/L Blood Urea Nitrogen 12 mg/dl 13 mg/dl Creatinine 0.40 mg/dl 0.39 mg/dl Est Creatinine Clear Calc Drug Dose 136.4 ml/min 139.9 ml/min Estimated GFR () 130.3 131.4 Estimated GFR (Non- 112.4 113.4 BUN/Creatinine Ratio 30.7 32.1 Random Glucose 83 mg/dl 83 mg/dl Calcium Level 7.8 mg/dl 8.1 mg/dl Troponin I 0.326 ng/ml Procalcitonin 0.31 ng/ml Resident Tracking Resident Involvement: Resident Care Provided Care Provided: Adult [facility] Medicine
[2017-11-08 17:13] LABS: CREATININE 0.38 mg/dl (0.60-1.20); POTASSIUM 3.5 mmol/L (3.5-5.1)
[2017-11-08] MEDS ORDERED: DESMOPRESSIN ACETATE 4 MCG/ML 1 ML AMP SQ ONE (17:30)
[2017-11-08] MEDS: DEXTROSE 5% 1000ML 1,000 ML IV SCH (18:43)
[2017-11-08 21:21] LABS: CALCIUM 8.2 mg/dl (8.5-10.1); CREATININE 0.36 mg/dl (0.60-1.20); POTASSIUM 3.5 mmol/L (3.5-5.1)
[2017-11-09] VITALS (15 sets, daily range): BP systolic 93–139; BP diastolic 56–92; PULSE 75–89; TEMP 36.4–36.6; O2SAT 92–100
[2017-11-09 00:26] LABS: CALCIUM 7.8 mg/dl (8.5-10.1); CREATININE 0.31 mg/dl (0.60-1.20); POTASSIUM 3.2 mmol/L (3.5-5.1)
[2017-11-09] MEDS ORDERED: POTASSIUM CHLR 20 MEQ / WTR 20 MEQ in PREMIXED WATER 100 ML IV SCH (01:15)
[2017-11-09] MEDS ORDERED: SODIUM CHLORIDE 0.65% NA SOLN 45 ML (OCEAN) ONE (03:02)
[2017-11-09] MEDS: LORAZEPAM 2 MG/ML 1 ML VIAL IV PRN ×3 (03:20→22:08)
[2017-11-09 04:12] LABS: EOS % 0.5 %; EOS ABS # 0.04 K/uL (0-0.5); HEMATOCRIT 35.7 % (37-47); HEMOGLOBIN 13.5 g/dL (12.0-16.0); IG# 0.03 K/uL (0.00-0.02); LYMPH % 8.9 %; LYMPH ABS # 0.79 K/uL (1.2-3.4); MEAN CELL VOLUME 88.8 fL (80-100); MEAN CORPUSCULAR HEMOGLOBIN 33.6 pg (25-34); MEAN CORPUSCULAR HGB CONC 37.8 g/dl (32-36); MEAN PLATELET VOLUME 10.2 fL (7.4-10.4); MONO % 12.5 %; NEUT % 77.8 %; NEUT ABS # 6.87 K/uL (1.4-6.5); PLATELET COUNT 100 K/uL (130-400); RED CELL DISTRIBUTION WIDTH CV 12.8 % (11.5-14.5); RED CELL DISTRIBUTION WIDTH SD 41.4 fL (36.4-46.3); WHITE BLOOD COUNT 8.83 K/uL (4.8-10.8)
[2017-11-09 04:27] LABS: PTT PATIENT 31.5 SECONDS (21.0-31.0)
[2017-11-09 04:38] LABS: CREATININE 0.38 mg/dl (0.60-1.20); POTASSIUM 3.9 mmol/L (3.5-5.1)
[2017-11-09 04:46] LABS: PHOSPHORUS 1.7 mg/dl (2.5-4.9); TOTAL PROTEIN 6.3 gm/dl (6.4-8.2)
[2017-11-09] MEDS: CHLORDIAZEPOXIDE 50MG 1ST DOSE PO SCH (04:55)
[2017-11-09] MEDS: DEXTROSE 5% 1000ML 1,000 ML IV SCH (04:55)
--- NOTE | 2017-11-09 07:25 | DIAGNOSTIC IMAGING REPORT ---
CHEST ONE VIEW PORTABLE HISTORY: Respiratory failure. COMPARISON: Chest 11/07/2017. FINDINGS: Interval development of mild diffuse interstitial thickening, left greater than right. A right PICC terminates in the SVC. The heart is normal in size. No pleural effusions. No pneumothorax. IMPRESSION: Interval development of mild diffuse interstitial thickening, left greater than right. This could represent developing congestive change or an interstitial pneumonitis. The right PICC terminates in the SVC. Electronically signed by: Edgar Cordova M.D. 11/09/2017 7:23 AM Dictated Date/Time: 11/09/2017 7:22 AM
[2017-11-09] MEDS ORDERED: POTASSIUM PHOS 3 MMOL/1 ML INFUSION IV STA (08:15)
[2017-11-09] MEDS ORDERED: MAGNESIUM SULFATE 1GM / D5W 2 GM in PREMIXED IN D5W 100 ML IV SCH (08:15)
[2017-11-09] MEDS: THIAMINE HCL INJ 500 MG in SODIUM CHLORIDE 0.9% 50ML 50 ML IV SCH ×2 (08:22→16:05)
[2017-11-09] MEDS ORDERED: POTASSIUM PHOSPHATE INJ 15 MMOL in SODIUM CHLORIDE 0.9% 250ML 250 ML IV ONE (08:30)
[2017-11-09] MEDS ORDERED: MAGNESIUM SULFATE 1GM / D5W 1 GM in PREMIXED IN D5W 100 ML IV SCH (08:30)
[2017-11-09] MEDS: FoLIC ACID INJ 1 MG in SYRINGE 9.8 ML IV SCH (08:37)
[2017-11-09] MEDS: NICOTINE 21 MG/24 HR TDSY TD SCH (08:38)
[2017-11-09] MEDS: ENOXAPARIN 40 MG/0.4 ML SYR SQ SCH (08:38)
[2017-11-09 08:55] LABS: CALCIUM 7.8 mg/dl (8.5-10.1); CREATININE 0.32 mg/dl (0.60-1.20); POTASSIUM 3.4 mmol/L (3.5-5.1)
--- NOTE | 2017-11-09 09:45 | Nephrology Progress Note ---
Nephrology Progress Note Date of Service Nov 09, 2017. Chief Complaint Hyponatremia Subjective Mrs. Hodges was seen & examined in the ICU this morning. She is awake and oriented to self and month only. She will now follow one step commands. Review of Systems Constitutional: No fever Cardiovascular: No chest pain Respiratory: No dyspnea at rest Abdomen: No nausea, No vomiting Extremities: No leg edema A complete review of systems was performed. Pertinent positives are noted above. All other systems are negative. Vital Signs Last 8 Hrs Date Time Temp Pulse Resp B/P (MAP) Pulse Ox O2 Delivery O2 Flow Rate FiO2 11/09/17 06:00 36.6 76 16 115/78 (90) 98 Room Air 11/09/17 04:03 Nasal Cannula 2.0 11/09/17 04:03 36.6 79 18 101/75 (84) 100 Nasal Cannula 2.0 11/09/17 02:04 36.4 85 14 122/72 (89) 98 Nasal Cannula 2.0 Last Recorded Weight Weight (Kilograms): 61.400 Physical Exam General Appearance: + thin (frail appearing) Head: + pertinent finding (temporal muscle wasting. Large area of ecchymosis surrounding R orbit) Eyes: PERRL, EOMI Neck: no adenopathy Respiratory/Chest: lungs clear (anteriorly), no respiratory distress Cardiovascular: regular rate, rhythm Abdomen/GI: normal bowel sounds, non tender, soft Extremities/Musculoskelatal: no calf tenderness, no pedal edema Neurologic/Psych: alert Family History Cancer Diabetes mellitus Negative for CKD / ESRD Social History Smoking Status: Current every day smoker Smokeless Tobacco Use: No Alcohol Use: heavy Drug Use: none Marital Status: Housing Status: lives with significant other Occupation: employed . Retired. + alcohol & tobacco use. Laboratory Results Past 24 Hours 11/09/17 03:52 Red Blood Count 4.02, Mean Corpuscular Volume 88.8, Mean Corpuscular Hemoglobin 33.6, Mean Corpuscular Hemoglobin Concent 37.8, Mean Platelet Volume 10.2, Neutrophils (%) (Auto) 77.8, Lymphocytes (%) (Auto) 8.9, Monocytes (%) (Auto) 12.5, Eosinophils (%) (Auto) 0.5, Basophils (%) (Auto) 0.0, Neutrophils # (Auto ) 6.87, Lymphocytes # (Auto) 0.79, Monocytes # (Auto) 1.10, Eosinophils # (Auto ) 0.04, Basophils # (Auto) 0.00 11/08/17 12:08 11/08/17 16:08 11/08/17 20:46 11/08/17 23:54 11/09/17 03:52 11/09/17 08:11 Test 11/08/17 12:08 11/08/17 12:25 11/08/17 16:08 11/08/17 16:42 Anion Gap 8.0 mmol/L (3-11) 9.0 mmol/L (3-11) Est Creatinine Clear Calc Drug Dose 139.9 ml/min 143.6 ml/min Estimated GFR () 131.4 132.5 Estimated GFR (Non- 113.4 114.3 BUN/Creatinine Ratio 32.1 (10-20) 33.5 (10-20) Calcium Level 8.1 mg/dl (8.5-10.1) 8.0 mg/dl (8.5-10.1) Bedside Glucose 78 mg/dl (70-90) Total Bilirubin 1.1 mg/dl (0.2-1) Direct Bilirubin 0.3 mg/dl (0-0.2) Aspartate Amino Transf (AST/SGOT) 66 U/L (15-37) Alanine Aminotransferase (ALT/SGPT) 71 U/L (12-78) Alkaline Phosphatase 68 U/L (45-117) Ammonia 20.4 umol/L (11-32) Total Protein 6.0 gm/dl (6.4-8.2) Albumin 3.0 gm/dl (3.4-5.0) Test 11/08/17 17:45 11/08/17 20:46 11/08/17 20:49 11/08/17 23:54 Bedside Glucose 73 mg/dl (70-90) 99 mg/dl (70-90) Anion Gap 10.0 mmol/L (3-11) 10.0 mmol/L (3-11) Est Creatinine Clear Calc Drug Dose 151.6 ml/min 176.0 ml/min Estimated GFR () 134.9 141.7 Estimated GFR (Non- 116.4 122.3 BUN/Creatinine Ratio 33.1 (10-20) 34.0 (10-20) Calcium Level 8.2 mg/dl (8.5-10.1) 7.8 mg/dl (8.5-10.1) Test 11/09/17 03:44 11/09/17 03:52 11/09/17 08:11 Bedside Glucose 103 mg/dl (70-90) White Blood Count 8.83 K/uL (4.8-10.8) Red Blood Count 4.02 M/uL (4.2-5.4) Hemoglobin 13.5 g/dL (12.0-16.0) Hematocrit 35.7 % (37-47) Mean Corpuscular Volume 88.8 fL (80-100) Mean Corpuscular Hemoglobin 33.6 pg (25-34) Mean Corpuscular Hemoglobin Concent 37.8 g/dl (32-36) Platelet Count 100 K/uL (130-400) Mean Platelet Volume 10.2 fL (7.4-10.4) Neutrophils (%) (Auto) 77.8 % Lymphocytes (%) (Auto) 8.9 % Monocytes (%) (Auto) 12.5 % Eosinophils (%) (Auto) 0.5 % Basophils (%) (Auto) 0.0 % Neutrophils # (Auto) 6.87 K/uL (1.4-6.5) Lymphocytes # (Auto) 0.79 K/uL (1.2-3.4) Monocytes # (Auto) 1.10 K/uL (0.11-0.59) Eosinophils # (Auto) 0.04 K/uL (0-0.5) Basophils # (Auto) 0.00 K/uL (0-0.2) RDW Standard Deviation 41.4 fL (36.4-46.3) RDW Coefficient of Variation 12.8 % (11.5-14.5) Immature Granulocyte % (Auto) 0.3 % Immature Granulocyte # (Auto) 0.03 K/uL (0.00-0.02) Prothrombin Time 10.8 SECONDS (9.0-12.0) Prothromb Time International Ratio 1.0 (0.9-1.1) Activated Partial Thromboplast Time 31.5 SECONDS (21.0-31.0) Partial Thromboplastin Ratio 1.2 Anion Gap 7.0 mmol/L (3-11) 9.0 mmol/L (3-11) Est Creatinine Clear Calc Drug Dose 143.6 ml/min 172.7 ml/min Estimated GFR () 132.5 140.2 Estimated GFR (Non- 114.3 121.0 BUN/Creatinine Ratio 23.4 (10-20) 21.9 (10-20) Calcium Level 8.0 mg/dl (8.5-10.1) 7.8 mg/dl (8.5-10.1) Phosphorus Level 1.7 mg/dl (2.5-4.9) Magnesium Level 1.8 mg/dl (1.8-2.4) Total Bilirubin 1.1 mg/dl (0.2-1) Aspartate Amino Transf (AST/SGOT) 67 U/L (15-37) Alanine Aminotransferase (ALT/SGPT) 69 U/L (12-78) Alkaline Phosphatase 71 U/L (45-117) Total Protein 6.3 gm/dl (6.4-8.2) Albumin 3.0 gm/dl (3.4-5.0) Globulin 3.3 gm/dl (2.5-4.0) Albumin/Globulin Ratio 0.9 (0.9-2) Allergies Coded Allergies: No Known Allergies (Unverified , 11/07/17) Medications Current Inpatient Medications Medications (Trade) Dose Ordered Sig/Mali Route Start Time Stop Time Status Last Admin Dose Admin Lorazepam (Ativan Inj) 1 mg Q2H PRN IV 11/07/17 12:45 12/07/17 12:44 11/09/17 03:20 1 MG Pantoprazole Sodium 40 mg/ Syringe 10 ml @ 5 mls/min DAILY@1100 IV 11/08/17 11:00 12/08/17 10:59 11/08/17 09:54 5 MLS/MIN Miscellaneous Information (Icu Protocol For Hyperglycemia) 1 ea PRN PRN N/A 11/07/17 12:45 11/09/17 12:44 Thiamine HCl 500 mg/Sodium Chloride 55 ml @ 208 mls/hr Q8H IV 11/07/17 16:00 11/10/17 15:59 11/09/17 08:22 208 MLS/HR Enoxaparin Sodium (Lovenox Inj) 40 mg DAILY SQ 11/08/17 10:00 12/08/17 09:59 11/09/17 08:38 40 MG Folic Acid 1 mg/ Syringe 10 ml @ 5 mls/min QAM IV 11/08/17 10:00 12/08/17 09:59 11/09/17 08:37 5 MLS/MIN Chlordiazepoxide (Librium Cap) 50 mg Q8H PO 11/09/17 14:00 11/10/17 06:01 Chlordiazepoxide (Librium Cap) 25 mg Q8H PO 11/10/17 14:00 11/11/17 06:01 Chlordiazepoxide (Librium Cap) 10 mg Q12H PO 11/11/17 18:00 11/12/17 06:01 Nicotine (Nicoderm Cq 21MG Patch) 1 patch QAM TD 11/09/17 09:00 12/09/17 08:59 11/09/17 08:38 1 PATCH Miscellaneous (Remove Nicoderm Patch) 1 ea HS N/A 11/08/17 21:00 12/08/17 20:59 11/08/17 20:51 1 EA Heparin Sodium (Porcine) (Heparin 10 Unit/ ml 5 ml Flush) 5 ml PRN PRN FLUSH 11/08/17 13:45 12/08/17 13:44 Potassium Phosphate 15 mmol/ Sodium Chloride 255 ml @ 88 mls/hr ONE ONCE IV 11/09/17 08:30 11/09/17 11:23 11/09/17 08:37 88 MLS/HR Impression (1) Acute hyponatremia (2) Altered mental status (3) ETOH abuse (4) Tobacco use Acute on chronic hyponatremia likely related to a combination of poor solute intake, excessive free water intake (alcohol) and ADH release associated with intravascular volume contraction. Patient is at high risk for complications of rapid sodium correction due to the severity of her hyponatremia and poor nutritional status. Patient is more alert today. CXR shows mild interstitial thickening without overt CHF/infiltrate. Blood & urine cultures are NGTD Recommendations -- DDAVP 1 mcg administered at 8 pm last night -- Patient also started on D5W infusion -- Serum sodium has stabilized overnight. Patient is nonoliguric. I&O's were matched last 24 hours -- Target correction rate is 6 - 8 mmol / day. Keep serum sodium 115 - 120 until noon today and then stop D5W and monitor serum sodium. Suspect this will gradually rise as patient diureses on her own One hour critical care time provided to the patient today. This was necessary to review her record, perform physical exam and discuss medical management w/ ICU team.
[2017-11-09] MEDS: PANTOprazole INJ 40 MG in SYRINGE 0 ML IV SCH (11:04)
[2017-11-09 12:41] LABS: CREATININE 0.32 mg/dl (0.60-1.20)
--- NOTE | 2017-11-09 12:42 | Critical Care Progress Note ---
Critical Care Progress Note Date of Service Nov 09, 2017. ICU Day ICU Day Number: [address] Alvarez Subjective Pt sleeping in bed, snoring loudly, is arousable but oriented only to person not to place. Overnight pt pulled out her vazquez in tact and also keeps taking off her nasal cannula. Has yet to void per nursing. Bladder scan this morning showed 260ccs. D5 was kept at 125 ml/hr overnight, and morning Na resulted at 117 yesterday, last result 0800 is 115.5. Pt denies pain in her abdomen or chest, denies difficulty breathing, or headache. ROS See HPI for pertinent positives and negatives. Objective GENERAL: Conversant, appears drowsy. HENT: Normocephalic, bruising and 3mm horizontal laceration on right eyebrow. Oropharynx unremarkable. EYES: Normal conjunctiva. Sclera non-icteric. PERRL. NECK: Supple. No JVD. RESPIRATORY: Coarse breath sounds bilaterally. CARDIAC: Regular rate, normal rhythm. Extremities warm and well perfused. Pulses equal. ABDOMEN: Soft, non-distended. No tenderness to palpation. No rebound or guarding. No masses. EXTREMITIES: SCD's in place. No edema. No discoloration. 3 peripheral IV's in tact. PICC line in tact right arm. Ecchymosis to arms and knees. NEURO: Breathing spontaneously. SKIN: bruising and 3mm horizontal laceration on right eyebrow Assessment & Plan (1) Unresponsive episode (2) Hyponatremia (3) Seizure (4) Altered mental status (5) Elevated troponin (6) ETOH abuse (7) Tobacco use Reason Critically Ill: 62-year-old female with a significant past medical history of depression and alcohol abuse here due to severe hyponatremia Neuro - [facility] ICU: NEGATIVE Librium per alcohol withdrawal protocol, ativan PRN. Neuro checks per protocol Cardiac - Repeat ECG today this AM shows QT prolongation and ST changes, however reordered ECG @ 1200 and QT normalized 472 ms. Pt asymptomatic. Suspect lead placement issue. Hemodynamically stable. Echocardiogram completed 11/08/17 and wnl: EF 55-60%. There is mild concentric left ventricular hypertrophy. Left ventricular systolic function is normal. Grade I diastolic dysfunction, (abnormal relaxation pattern). There is mild mitral annular calcification. Respiratory - SpO2 97 on 3L. ABG 11/07/17 at 1726 7.42/27/77/17/96% Currently 96 on room air No known h/o PFT's/pulmonary disease Daily smoker 1PPD most of adult life Follow closely for respiratory failure - unable to monitor end tidal CO2 monitoring bc pt would not tolerate nasal cannula. Repeat CXR shows no changes. GI - Continue NPO RENAL/LYTES - DCed hypertonic saline Nephrology consulted, appreciate recs. Goal of increase Na by 6- 8 per day - Received 1mcg DDAVP SQ x 2 yesterday. Added D5 125 ml/hr yesterday to slow down increase, DC today. Goal is Na 115-120 today. Last check 0800 was 115, next check is at 1200. Continue monitoring serum sodium q4hrs 15 mmol KPhos given. Thiamine 500mg q8 continue. - Pt has not yet voided s/p vazquez self removal -- bladder scan shows 319 mL. Follow ENDO - No concerns at this time HEME - Leukocytosis resolved. Stable H&H. Will monitor ID - No concerns for infection at this point. Urine culture and MRSA negative. Blood cx NGTD. Monitor fever curve. LINES/IV ACCESS - PIVs intact. PICC line in place in right arm. DVT PROPHYLAXIS - Enoxaparin 40mg daily sq I have personally spent 35 minutes of critical care time in the direct management of this patient. This is a life/limb threatening event. This includes time spent evaluating patient, direct bedside care, chart review, placing orders, interpretation of diagnostic studies, discussion with consultants, patient, and family members, as well as other required patient management activities. This time is exclusive of all separately billable procedures, and teaching time and separate from and in addition to any other critical care service time. Thank you for allowing us to be part of this patient's care. Please refer to Dr. Alvarez's documentation for any further recommendations. Resident Physician Supervision Note: Dr. Jamie Tran was resident physician during care of patient. I separately evaluated patient and did history and exam. I discussed the case with the resident and generally agree with the findings and plan. Patient self discontinued catheter last night, Vazquez bulb remained intact. Continue to monitor clinically for urethral injury may necessitate Vazquez catheter placement. Required D5 administration yesterday for sodium changes, goal sodium 115-120 today will start normal saline infusion at 50 ML's per hour continue every 4 hour sodiums Patient remains critically ill secondary to profound hyponatremia. I have personally spent 35 minutes of critical care time in the direct management of this patient. This is a life/limb threatening event. This includes time spent evaluating patient, direct bedside care, chart review, placing orders, interpretation of diagnostic studies, discussion with consultants, patient, and/or family members regarding treatment decisions, as well as other required patient management activities. This time is exclusive of all separately billable procedures, and teaching time and separate from and in addition to any other critical care service time. Documented By: Gerardo Alvarez DO Consults & Procedures Consultants: Nephrology Procedures: PICC line placed 11/08/17 Echocardiogram completed 11/08/17 Data Medications: Current Inpatient Medications Medications (Trade) Dose Ordered Sig/Mali Route Start Time Stop Time Status Last Admin Dose Admin Lorazepam (Ativan Inj) 1 mg Q2H PRN IV 11/07/17 12:45 12/07/17 12:44 11/09/17 03:20 1 MG Pantoprazole Sodium 40 mg/ Syringe 10 ml @ 5 mls/min DAILY@1100 IV 11/08/17 11:00 12/08/17 10:59 11/09/17 11:04 5 MLS/MIN Miscellaneous Information (Icu Protocol For Hyperglycemia) 1 ea PRN PRN N/A 11/07/17 12:45 11/09/17 12:44 Thiamine HCl 500 mg/Sodium Chloride 55 ml @ 208 mls/hr Q8H IV 11/07/17 16:00 11/10/17 15:59 11/09/17 08:22 208 MLS/HR Enoxaparin Sodium (Lovenox Inj) 40 mg DAILY SQ 11/08/17 10:00 12/08/17 09:59 11/09/17 08:38 40 MG Folic Acid 1 mg/ Syringe 10 ml @ 5 mls/min QAM IV 11/08/17 10:00 12/08/17 09:59 11/09/17 08:37 5 MLS/MIN Chlordiazepoxide (Librium Cap) 50 mg Q8H PO 11/09/17 14:00 11/10/17 06:01 Chlordiazepoxide (Librium Cap) 25 mg Q8H PO 11/10/17 14:00 11/11/17 06:01 Chlordiazepoxide (Librium Cap) 10 mg Q12H PO 11/11/17 18:00 11/12/17 06:01 Nicotine (Nicoderm Cq 21MG Patch) 1 patch QAM TD 11/09/17 09:00 12/09/17 08:59 11/09/17 08:38 1 PATCH Miscellaneous (Remove Nicoderm Patch) 1 ea HS N/A 11/08/17 21:00 12/08/17 20:59 11/08/17 20:51 1 EA Heparin Sodium (Porcine) (Heparin 10 Unit/ ml 5 ml Flush) 5 ml PRN PRN FLUSH 11/08/17 13:45 12/08/17 13:44 Vital Signs: Date Time Temp Pulse Resp B/P (MAP) Pulse Ox O2 Delivery O2 Flow Rate FiO2 11/09/17 10:00 83 18 112/72 (85) 96 Room Air 11/09/17 08:00 Room Air 11/09/17 08:00 36.5 75 16 93/59 (70) 92 Room Air 11/09/17 06:00 36.6 76 16 115/78 (90) 98 Room Air 11/09/17 04:03 Nasal Cannula 2.0 11/09/17 04:03 36.6 79 18 101/75 (84) 100 Nasal Cannula 2.0 11/09/17 02:04 36.4 85 14 122/72 (89) 98 Nasal Cannula 2.0 11/09/17 00:02 36.4 76 17 93/56 (68) 97 Nasal Cannula 2.0 11/09/17 00:02 Nasal Cannula 2.0 11/08/17 22:00 84 20 124/77 (93) 98 Room Air 11/08/17 20:00 36.9 81 16 121/73 (89) 95 Nasal Cannula 2.0 11/08/17 20:00 95 Nasal Cannula 2.0 11/08/17 18:00 81 18 115/73 (87) 97 Room Air 11/08/17 17:00 75 18 104/63 (77) 99 Room Air 11/08/17 16:06 Nasal Cannula 2.0 11/08/17 16:00 97 11/08/17 16:00 36.7 80 20 112/62 (79) 97 Room Air 11/08/17 15:00 75 18 106/65 (79) 96 Room Air 11/08/17 14:00 83 20 115/69 (84) 95 Room Air 11/08/17 13:00 89 20 136/72 (93) 95 Room Air 11/08/17 12:00 Room Air 11/08/17 12:00 36.5 100 18 106/72 (83) 92 Room Air 11/08/17 12:00 95 Room Air Laboratory Results: Last 24 Hours Test 11/08/17 12:08 11/08/17 12:25 11/08/17 16:08 11/08/17 16:42 Sodium Level 117 mmol/L 117 mmol/L Potassium Level 3.9 mmol/L 3.5 mmol/L Chloride Level 86 mmol/L 86 mmol/L Carbon Dioxide Level 23 mmol/L 22 mmol/L Anion Gap 8.0 mmol/L 9.0 mmol/L Blood Urea Nitrogen 13 mg/dl 13 mg/dl Creatinine 0.39 mg/dl 0.38 mg/dl Est Creatinine Clear Calc Drug Dose 139.9 ml/min 143.6 ml/min Estimated GFR () 131.4 132.5 Estimated GFR (Non- 113.4 114.3 BUN/Creatinine Ratio 32.1 33.5 Random Glucose 83 mg/dl 79 mg/dl Calcium Level 8.1 mg/dl 8.0 mg/dl Bedside Glucose 78 mg/dl Total Bilirubin 1.1 mg/dl Direct Bilirubin 0.3 mg/dl Aspartate Amino Transf (AST/SGOT) 66 U/L Alanine Aminotransferase (ALT/SGPT) 71 U/L Alkaline Phosphatase 68 U/L Ammonia 20.4 umol/L Total Protein 6.0 gm/dl Albumin 3.0 gm/dl Test 11/08/17 17:45 11/08/17 20:46 11/08/17 20:49 11/08/17 23:54 Bedside Glucose 73 mg/dl 99 mg/dl Sodium Level 117 mmol/L 117 mmol/L Potassium Level 3.5 mmol/L 3.2 mmol/L Chloride Level 84 mmol/L 85 mmol/L Carbon Dioxide Level 22 mmol/L 23 mmol/L Anion Gap 10.0 mmol/L 10.0 mmol/L Blood Urea Nitrogen 12 mg/dl 11 mg/dl Creatinine 0.36 mg/dl 0.31 mg/dl Est Creatinine Clear Calc Drug Dose 151.6 ml/min 176.0 ml/min Estimated GFR () 134.9 141.7 Estimated GFR (Non- 116.4 122.3 BUN/Creatinine Ratio 33.1 34.0 Random Glucose 98 mg/dl 101 mg/dl Calcium Level 8.2 mg/dl 7.8 mg/dl Test 11/09/17 03:44 11/09/17 03:52 11/09/17 08:11 Bedside Glucose 103 mg/dl White Blood Count 8.83 K/uL Red Blood Count 4.02 M/uL Hemoglobin 13.5 g/dL Hematocrit 35.7 % Mean Corpuscular Volume 88.8 fL Mean Corpuscular Hemoglobin 33.6 pg Mean Corpuscular Hemoglobin Concent 37.8 g/dl Platelet Count 100 K/uL Mean Platelet Volume 10.2 fL Neutrophils (%) (Auto) 77.8 % Lymphocytes (%) (Auto) 8.9 % Monocytes (%) (Auto) 12.5 % Eosinophils (%) (Auto) 0.5 % Basophils (%) (Auto) 0.0 % Neutrophils # (Auto) 6.87 K/uL Lymphocytes # (Auto) 0.79 K/uL Monocytes # (Auto) 1.10 K/uL Eosinophils # (Auto) 0.04 K/uL Basophils # (Auto) 0.00 K/uL RDW Standard Deviation 41.4 fL RDW Coefficient of Variation 12.8 % Immature Granulocyte % (Auto) 0.3 % Immature Granulocyte # (Auto) 0.03 K/uL Prothrombin Time 10.8 SECONDS Prothromb Time International Ratio 1.0 Activated Partial Thromboplast Time 31.5 SECONDS Partial Thromboplastin Ratio 1.2 Sodium Level 116 mmol/L 115 mmol/L Potassium Level 3.9 mmol/L 3.4 mmol/L Chloride Level 84 mmol/L 83 mmol/L Carbon Dioxide Level 25 mmol/L 24 mmol/L Anion Gap 7.0 mmol/L 9.0 mmol/L Blood Urea Nitrogen 9 mg/dl 7 mg/dl Creatinine 0.38 mg/dl 0.32 mg/dl Est Creatinine Clear Calc Drug Dose 143.6 ml/min 172.7 ml/min Estimated GFR () 132.5 140.2 Estimated GFR (Non- 114.3 121.0 BUN/Creatinine Ratio 23.4 21.9 Random Glucose 105 mg/dl 114 mg/dl Calcium Level 8.0 mg/dl 7.8 mg/dl Phosphorus Level 1.7 mg/dl Magnesium Level 1.8 mg/dl Total Bilirubin 1.1 mg/dl Aspartate Amino Transf (AST/SGOT) 67 U/L Alanine Aminotransferase (ALT/SGPT) 69 U/L Alkaline Phosphatase 71 U/L Total Protein 6.3 gm/dl Albumin 3.0 gm/dl Globulin 3.3 gm/dl Albumin/Globulin Ratio 0.9 Resident Tracking Resident Involvement: Resident Care Provided Care Provided: Adult [facility]
[2017-11-09 13:07] LABS: POTASSIUM 4.2 mmol/L (3.5-5.1)
[2017-11-09] MEDS: CHLORDIAZEPOXIDE 50MG Q8H DOSE PO SCH ×2 (13:48→21:25)
[2017-11-09] MEDS ORDERED: SODIUM CHLORIDE 0.9% 1000ML 1,000 ML IV SCH (14:45)
[2017-11-09 16:30] LABS: CALCIUM 7.7 mg/dl (8.5-10.1); CREATININE 0.29 mg/dl (0.60-1.20); POTASSIUM 3.8 mmol/L (3.5-5.1)
--- NOTE | 2017-11-09 18:03 | Progress Note ---
Subjective Date of Service: Nov 09, 2017. Subjective Pt evaluation today including: conversation w/ patient, physical exam, chart review, lab review, review of studies Pain: controlled PO Intake: adequate Voiding: no voiding problems still lethargic but better than yesterday Problem List Medical Problems: (1) Altered mental status Status: Acute (2) Elevated troponin Status: Acute (3) Hyponatremia Status: Acute (4) Seizure Status: Acute Review of Systems Due to patient mental status review of system was unobtainable/unreliable We'll attempt to obtain review of system as needed from staff and family Medications Current Inpatient Medications Medications (Trade) Dose Ordered Sig/Mali Route Start Time Stop Time Status Last Admin Dose Admin Lorazepam (Ativan Inj) 1 mg Q2H PRN IV 11/07/17 12:45 12/07/17 12:44 11/09/17 16:54 1 MG Pantoprazole Sodium 40 mg/ Syringe 10 ml @ 5 mls/min DAILY@1100 IV 11/08/17 11:00 12/08/17 10:59 11/09/17 11:04 5 MLS/MIN Thiamine HCl 500 mg/Sodium Chloride 55 ml @ 208 mls/hr Q8H IV 11/07/17 16:00 11/10/17 15:59 11/09/17 16:05 208 MLS/HR Enoxaparin Sodium (Lovenox Inj) 40 mg DAILY SQ 11/08/17 10:00 12/08/17 09:59 11/09/17 08:38 40 MG Folic Acid 1 mg/ Syringe 10 ml @ 5 mls/min QAM IV 11/08/17 10:00 12/08/17 09:59 11/09/17 08:37 5 MLS/MIN Chlordiazepoxide (Librium Cap) 50 mg Q8H PO 11/09/17 14:00 11/10/17 06:01 11/09/17 13:48 50 MG Chlordiazepoxide (Librium Cap) 25 mg Q8H PO 11/10/17 14:00 11/11/17 06:01 Chlordiazepoxide (Librium Cap) 10 mg Q12H PO 11/11/17 18:00 11/12/17 06:01 Nicotine (Nicoderm Cq 21MG Patch) 1 patch QAM TD 11/09/17 09:00 12/09/17 08:59 11/09/17 08:38 1 PATCH Miscellaneous (Remove Nicoderm Patch) 1 ea HS N/A 11/08/17 21:00 12/08/17 20:59 11/08/17 20:51 1 EA Heparin Sodium (Porcine) (Heparin 10 Unit/ ml 5 ml Flush) 5 ml PRN PRN FLUSH 11/08/17 13:45 12/08/17 13:44 Sodium Chloride 1,000 ml @ 50 mls/hr Q20H IV 11/09/17 14:45 12/09/17 14:44 11/09/17 14:44 50 MLS/HR Objective Vital Signs Date Time Temp Pulse Resp B/P (MAP) Pulse Ox O2 Delivery O2 Flow Rate FiO2 11/09/17 16:00 36.5 79 18 138/79 (98) 95 Room Air 11/09/17 16:00 Room Air 11/09/17 14:00 79 16 131/92 (105) 95 Room Air 11/09/17 12:00 Room Air 11/09/17 12:00 36.6 80 0 113/64 (80) 95 Room Air 11/09/17 10:00 83 18 112/72 (85) 96 Room Air 11/09/17 08:00 Room Air 11/09/17 08:00 Room Air 11/09/17 08:00 36.5 75 16 93/59 (70) 92 Room Air 11/09/17 06:00 36.6 76 16 115/78 (90) 98 Room Air 11/09/17 04:03 Nasal Cannula 2.0 11/09/17 04:03 36.6 79 18 101/75 (84) 100 Nasal Cannula 2.0 11/09/17 02:04 36.4 85 14 122/72 (89) 98 Nasal Cannula 2.0 11/09/17 00:02 36.4 76 17 93/56 (68) 97 Nasal Cannula 2.0 11/09/17 00:02 Nasal Cannula 2.0 11/08/17 22:00 84 20 124/77 (93) 98 Room Air 11/08/17 20:00 36.9 81 16 121/73 (89) 95 Nasal Cannula 2.0 11/08/17 20:00 95 Nasal Cannula 2.0 11/08/17 18:00 81 18 115/73 (87) 97 Room Air Physical Exam Comments: Physical examination General patient appears to be comfortable, not in acute distress HEENT: right eye bruise, Atraumatic , normocephalic /no jaundice /no pallor / anicteric /no dry mucous membrane /normal external ear inspection Neck: Supple /no swelling /central trach Heart: S1/S2 normal/regular rate and rhythm/no gallop /no rub /no murmur Lungs: Clear to auscultation bilaterally/normal chest with expansion/no rhonchi/ no rales/no wheezing/no use of accessory muscles of respiration Abdomen: Soft/nontender/no guarding/no rebound/no organomegaly/no pulsatile mass Musculoskeletal: No swelling/no edema/no tenderness/normal range of motion Neuro exam: lethargic/sensation intact/moves all extremities/no abnormal movements Psychiatric evaluation: No depressed mood/normal affect Skin: No rash on exposed skin area/no erythema Extremity: Normal pulse/no pitting edema/no clubbing or cyanosis Endocrine/lymphatic: No obvious lymphadenopathy /no lymphedema Laboratory Results Last 24 Hours Test 11/08/17 17:45 11/08/17 20:46 11/08/17 20:49 11/08/17 23:54 Bedside Glucose 73 mg/dl 99 mg/dl Sodium Level 117 mmol/L 117 mmol/L Potassium Level 3.5 mmol/L 3.2 mmol/L Chloride Level 84 mmol/L 85 mmol/L Carbon Dioxide Level 22 mmol/L 23 mmol/L Anion Gap 10.0 mmol/L 10.0 mmol/L Blood Urea Nitrogen 12 mg/dl 11 mg/dl Creatinine 0.36 mg/dl 0.31 mg/dl Est Creatinine Clear Calc Drug Dose 151.6 ml/min 176.0 ml/min Estimated GFR () 134.9 141.7 Estimated GFR (Non- 116.4 122.3 BUN/Creatinine Ratio 33.1 34.0 Random Glucose 98 mg/dl 101 mg/dl Calcium Level 8.2 mg/dl 7.8 mg/dl Test 11/09/17 03:44 11/09/17 03:52 11/09/17 08:11 11/09/17 12:07 Bedside Glucose 103 mg/dl White Blood Count 8.83 K/uL Red Blood Count 4.02 M/uL Hemoglobin 13.5 g/dL Hematocrit 35.7 % Mean Corpuscular Volume 88.8 fL Mean Corpuscular Hemoglobin 33.6 pg Mean Corpuscular Hemoglobin Concent 37.8 g/dl Platelet Count 100 K/uL Mean Platelet Volume 10.2 fL Neutrophils (%) (Auto) 77.8 % Lymphocytes (%) (Auto) 8.9 % Monocytes (%) (Auto) 12.5 % Eosinophils (%) (Auto) 0.5 % Basophils (%) (Auto) 0.0 % Neutrophils # (Auto) 6.87 K/uL Lymphocytes # (Auto) 0.79 K/uL Monocytes # (Auto) 1.10 K/uL Eosinophils # (Auto) 0.04 K/uL Basophils # (Auto) 0.00 K/uL RDW Standard Deviation 41.4 fL RDW Coefficient of Variation 12.8 % Immature Granulocyte % (Auto) 0.3 % Immature Granulocyte # (Auto) 0.03 K/uL Prothrombin Time 10.8 SECONDS Prothromb Time International Ratio 1.0 Activated Partial Thromboplast Time 31.5 SECONDS Partial Thromboplastin Ratio 1.2 Sodium Level 116 mmol/L 115 mmol/L 115 mmol/L Potassium Level 3.9 mmol/L 3.4 mmol/L 4.2 mmol/L Chloride Level 84 mmol/L 83 mmol/L 83 mmol/L Carbon Dioxide Level 25 mmol/L 24 mmol/L 22 mmol/L Anion Gap 7.0 mmol/L 9.0 mmol/L 9.0 mmol/L Blood Urea Nitrogen 9 mg/dl 7 mg/dl 7 mg/dl Creatinine 0.38 mg/dl 0.32 mg/dl 0.32 mg/dl Est Creatinine Clear Calc Drug Dose 143.6 ml/min 172.7 ml/min 172.7 ml/min Estimated GFR () 132.5 140.2 140.2 Estimated GFR (Non- 114.3 121.0 121.0 BUN/Creatinine Ratio 23.4 21.9 21.1 Random Glucose 105 mg/dl 114 mg/dl 96 mg/dl Calcium Level 8.0 mg/dl 7.8 mg/dl 8.0 mg/dl Phosphorus Level 1.7 mg/dl Magnesium Level 1.8 mg/dl Total Bilirubin 1.1 mg/dl Aspartate Amino Transf (AST/SGOT) 67 U/L Alanine Aminotransferase (ALT/SGPT) 69 U/L Alkaline Phosphatase 71 U/L Total Protein 6.3 gm/dl Albumin 3.0 gm/dl Globulin 3.3 gm/dl Albumin/Globulin Ratio 0.9 Test 11/09/17 15:53 Sodium Level 115 mmol/L Potassium Level 3.8 mmol/L Chloride Level 84 mmol/L Carbon Dioxide Level 23 mmol/L Anion Gap 8.0 mmol/L Blood Urea Nitrogen 6 mg/dl Creatinine 0.29 mg/dl Est Creatinine Clear Calc Drug Dose 190.6 ml/min Estimated GFR () 144.8 Estimated GFR (Non- 125.0 BUN/Creatinine Ratio 21.6 Random Glucose 86 mg/dl Calcium Level 7.7 mg/dl Assessment and Plan 62-year-old female with history of recently started on Lexapro. she was found unresponsive at home with sodium level of 104 Assessment Metabolic encephalopathy secondary to below Acute on chronic severe hyponatremia SIRS present on admission with no clear source of infection Positive troponin likely demand ischemia Alcohol abuse Plan S/P DDAVP 1 mcg administered last night, sodium continued to rise, so she was started on D5W infusion Sodium level today was 116, Discussed with Dr. Cedillo's and Dr. Alvarez Alcohol withdrawal precautions, thiamine Korsakoff treatment does for [address] head was negative Consider repeat CT head when patient is stable given her possible right-sided neglect Check electrolytes in a.m. Trend troponin low pro-calcitonin Heparin for DVT prophylaxis Protonix for GI prophylaxis
[2017-11-09 20:49] LABS: CREATININE 0.29 mg/dl (0.60-1.20); POTASSIUM 3.6 mmol/L (3.5-5.1)
[2017-11-10] VITALS (24 sets, daily range): BP systolic 100–140; BP diastolic 61–102; PULSE 77–96; TEMP 35.5–37; O2SAT 89–100
[2017-11-10 00:28] LABS: CALCIUM 7.9 mg/dl (8.5-10.1); CREATININE 0.33 mg/dl (0.60-1.20); POTASSIUM 3.6 mmol/L (3.5-5.1)
[2017-11-10] MEDS: THIAMINE HCL INJ 500 MG in SODIUM CHLORIDE 0.9% 50ML 50 ML IV SCH ×2 (00:36→08:00)
[2017-11-10 04:22] LABS: EOS % 0.4 %; EOS ABS # 0.03 K/uL (0-0.5); HEMOGLOBIN 13.7 g/dL (12.0-16.0); IG# 0.03 K/uL (0.00-0.02); LYMPH % 5.7 %; LYMPH ABS # 0.43 K/uL (1.2-3.4); MEAN CELL VOLUME 89.2 fL (80-100); MEAN PLATELET VOLUME 9.9 fL (7.4-10.4); MONO % 17.1 %; MONO ABS # 1.29 K/uL (0.11-0.59); NEUT % 76.4 %; NEUT ABS # 5.76 K/uL (1.4-6.5); PLATELET COUNT 114 K/uL (130-400); RED CELL DISTRIBUTION WIDTH CV 12.9 % (11.5-14.5); RED CELL DISTRIBUTION WIDTH SD 41.9 fL (36.4-46.3); WHITE BLOOD COUNT 7.54 K/uL (4.8-10.8)
[2017-11-10 04:33] LABS: PTT PATIENT 30.2 SECONDS (21.0-31.0)
[2017-11-10 05:01] LABS: BLOOD UREA NITROGEN 5 mg/dl (7-18); CALCIUM 7.6 mg/dl (8.5-10.1); CARBON DIOXIDE 24 mmol/L (21-32); CREATININE 0.26 mg/dl (0.60-1.20); GLUCOSE 79 mg/dl (70-99); PHOSPHORUS 2.1 mg/dl (2.5-4.9); POTASSIUM 3.4 mmol/L (3.5-5.1); SODIUM 120 mmol/L (136-145)
[2017-11-10] MEDS: CHLORDIAZEPOXIDE 50MG Q8H DOSE PO SCH (05:54)
[2017-11-10] MEDS ORDERED: DEXTROSE 50% 50 ML SYR IV ONE (06:00)
[2017-11-10] MEDS ORDERED: DEXTROSE 50% 50 ML SYR ONE (06:00)
[2017-11-10] MEDS: POT PHOSPHATE MONOBASIC W/ SOD TAB PO SCH ×4 (06:39→21:07)
[2017-11-10] MEDS: FoLIC ACID INJ 1 MG in SYRINGE 9.8 ML IV SCH (08:00)
[2017-11-10] MEDS: NICOTINE 21 MG/24 HR TDSY TD SCH (08:47)
[2017-11-10] MEDS: ENOXAPARIN 40 MG/0.4 ML SYR SQ SCH (08:47)
[2017-11-10] MEDS: D5W AND NSS 1,000 ML IV SCH ×2 (08:48→21:07)
[2017-11-10 09:26] LABS: CALCIUM 7.8 mg/dl (8.5-10.1); CREATININE 0.3 mg/dl (0.60-1.20); POTASSIUM 3.2 mmol/L (3.5-5.1)
--- NOTE | 2017-11-10 09:30 | Nephrology Progress Note ---
Nephrology Progress Note Date of Service Nov 10, 2017. Chief Complaint Hyponatremia Subjective Mrs. Hodges was seen & examined in the ICU this morning. Her was present at bedside. Mrs. Hodges is receiving 0.9NS at 50 cc/hr IV. She opens her eyes to voice and will speak her name but then quickly drifts back to sleep. Review of Systems Respiratory: No dyspnea at rest Lethargic. Unable to provide ROS Vital Signs Last 8 Hrs Date Time Temp Pulse Resp B/P (MAP) Pulse Ox O2 Delivery O2 Flow Rate FiO2 11/10/17 08:00 92 Room Air 11/10/17 08:00 36.6 88 18 120/70 (87) 92 Room Air 11/10/17 06:14 91 25 113/80 (101) 97 11/10/17 06:01 93 21 121/102 (108) 97 11/10/17 06:01 93 21 121/102 (103) 97 11/10/17 05:01 96 15 124/66 (111) 92 11/10/17 05:01 96 15 124/66 (85) 92 11/10/17 04:00 86 42 105/61 (66) 90 11/10/17 04:00 Nasal Cannula 3.0 11/10/17 04:00 35.5 11/10/17 03:00 80 21 118/67 (85) 93 11/10/17 02:00 81 21 108/64 (79) 89 11/10/17 02:00 81 21 108/64 (73) 89 Last Recorded Weight Weight (Kilograms): 60.100 Physical Exam General Appearance: no apparent distress Head: + pertinent finding (Ecchymosis surrounding R orbit) Eyes: PERRL, EOMI Neck: no adenopathy Respiratory/Chest: lungs clear (anteriorly) Cardiovascular: regular rate, rhythm Abdomen/GI: normal bowel sounds, non tender, soft Extremities/Musculoskelatal: no calf tenderness, no pedal edema Neurologic/Psych: + pertinent finding (lethargic) Family History Cancer Diabetes mellitus Negative for CKD / ESRD Social History Smoking Status: Current every day smoker Smokeless Tobacco Use: No Alcohol Use: heavy Drug Use: none Marital Status: Housing Status: lives with significant other Occupation: employed . Retired. + alcohol & tobacco use. Laboratory Results Past 24 Hours 11/10/17 04:15 Red Blood Count 4.15, Mean Corpuscular Volume 89.2, Mean Corpuscular Hemoglobin 33.0, Mean Corpuscular Hemoglobin Concent 37.0, Mean Platelet Volume 9.9, Neutrophils (%) (Auto) 76.4, Lymphocytes (%) (Auto) 5.7, Monocytes (%) (Auto) 17.1, Eosinophils (%) (Auto) 0.4, Basophils (%) (Auto) 0.0, Neutrophils # (Auto ) 5.76, Lymphocytes # (Auto) 0.43, Monocytes # (Auto) 1.29, Eosinophils # (Auto ) 0.03, Basophils # (Auto) 0.00 11/09/17 12:07 11/09/17 15:53 11/09/17 20:02 11/09/17 23:23 11/10/17 04:15 Test 11/09/17 12:07 11/09/17 15:53 11/09/17 20:02 11/09/17 23:23 Anion Gap 9.0 mmol/L (3-11) 8.0 mmol/L (3-11) 7.0 mmol/L (3-11) 8.0 mmol/L (3-11) Est Creatinine Clear Calc Drug Dose 172.7 ml/min 190.6 ml/min 190.6 ml/min 167.5 ml/min Estimated GFR () 140.2 144.8 144.8 138.8 Estimated GFR (Non- 121.0 125.0 125.0 119.8 BUN/Creatinine Ratio 21.1 (10-20) 21.6 (10-20) 19.4 (10-20) 16.4 (10-20) Calcium Level 8.0 mg/dl (8.5-10.1) 7.7 mg/dl (8.5-10.1) 8.0 mg/dl (8.5-10.1) 7.9 mg/dl (8.5-10.1) Test 11/10/17 04:15 11/10/17 05:56 11/10/17 06:17 11/10/17 08:36 White Blood Count 7.54 K/uL (4.8-10.8) Red Blood Count 4.15 M/uL (4.2-5.4) Hemoglobin 13.7 g/dL (12.0-16.0) Hematocrit 37.0 % (37-47) Mean Corpuscular Volume 89.2 fL (80-100) Mean Corpuscular Hemoglobin 33.0 pg (25-34) Mean Corpuscular Hemoglobin Concent 37.0 g/dl (32-36) Platelet Count 114 K/uL (130-400) Mean Platelet Volume 9.9 fL (7.4-10.4) Neutrophils (%) (Auto) 76.4 % Lymphocytes (%) (Auto) 5.7 % Monocytes (%) (Auto) 17.1 % Eosinophils (%) (Auto) 0.4 % Basophils (%) (Auto) 0.0 % Neutrophils # (Auto) 5.76 K/uL (1.4-6.5) Lymphocytes # (Auto) 0.43 K/uL (1.2-3.4) Monocytes # (Auto) 1.29 K/uL (0.11-0.59) Eosinophils # (Auto) 0.03 K/uL (0-0.5) Basophils # (Auto) 0.00 K/uL (0-0.2) RDW Standard Deviation 41.9 fL (36.4-46.3) RDW Coefficient of Variation 12.9 % (11.5-14.5) Immature Granulocyte % (Auto) 0.4 % Immature Granulocyte # (Auto) 0.03 K/uL (0.00-0.02) Prothrombin Time 10.4 SECONDS (9.0-12.0) Prothromb Time International Ratio 1.0 (0.9-1.1) Activated Partial Thromboplast Time 30.2 SECONDS (21.0-31.0) Partial Thromboplastin Ratio 1.2 Anion Gap 8.0 mmol/L (3-11) Est Creatinine Clear Calc Drug Dose 212.6 ml/min Estimated GFR () > 150.0 Estimated GFR (Non- 129.5 BUN/Creatinine Ratio 20.1 (10-20) Calcium Level 7.6 mg/dl (8.5-10.1) Phosphorus Level 2.1 mg/dl (2.5-4.9) Magnesium Level 1.8 mg/dl (1.8-2.4) Bedside Glucose 59 mg/dl (70-90) 149 mg/dl (70-90) Allergies Coded Allergies: No Known Allergies (Unverified , 11/07/17) Medications Current Inpatient Medications Medications (Trade) Dose Ordered Sig/Mali Route Start Time Stop Time Status Last Admin Dose Admin Lorazepam (Ativan Inj) 1 mg Q2H PRN IV 11/07/17 12:45 12/07/17 12:44 11/09/17 22:08 1 MG Pantoprazole Sodium 40 mg/ Syringe 10 ml @ 5 mls/min DAILY@1100 IV 11/08/17 11:00 12/08/17 10:59 11/09/17 11:04 5 MLS/MIN Thiamine HCl 500 mg/Sodium Chloride 55 ml @ 208 mls/hr Q8H IV 11/07/17 16:00 11/10/17 15:59 11/10/17 08:00 208 MLS/HR Enoxaparin Sodium (Lovenox Inj) 40 mg DAILY SQ 11/08/17 10:00 12/08/17 09:59 11/10/17 08:47 40 MG Folic Acid 1 mg/ Syringe 10 ml @ 5 mls/min QAM IV 11/08/17 10:00 12/08/17 09:59 11/10/17 08:00 5 MLS/MIN Chlordiazepoxide (Librium Cap) 25 mg Q8H PO 11/10/17 14:00 11/11/17 06:01 Chlordiazepoxide (Librium Cap) 10 mg Q12H PO 11/11/17 18:00 11/12/17 06:01 Nicotine (Nicoderm Cq 21MG Patch) 1 patch QAM TD 11/09/17 09:00 12/09/17 08:59 11/10/17 08:47 1 PATCH Miscellaneous (Remove Nicoderm Patch) 1 ea HS N/A 11/08/17 21:00 12/08/17 20:59 11/09/17 21:00 1 EA Heparin Sodium (Porcine) (Heparin 10 Unit/ ml 5 ml Flush) 5 ml PRN PRN FLUSH 11/08/17 13:45 12/08/17 13:44 Potassium/ Phosphorus/Sodium (Phospha 250 Neutral 155-852-130 Mg) 1 tab Q4H PO 11/10/17 06:30 11/10/17 14:31 11/10/17 06:39 1 TAB Dextrose/Sodium Chloride 1,000 ml @ 50 mls/hr Q20H IV 11/10/17 08:15 12/10/17 08:14 11/10/17 08:48 50 MLS/HR Impression (1) Acute hyponatremia (2) Altered mental status (3) ETOH abuse (4) Tobacco use Acute on chronic hyponatremia likely related to a combination of poor solute intake, excessive free water intake (alcohol) and ADH release associated with intravascular volume contraction. Patient is at high risk for complications of rapid sodium correction due to the severity of her hyponatremia and poor nutritional status. Patient is more alert today. CXR shows mild interstitial thickening without overt CHF/infiltrate. Blood & urine cultures are NGTD Recommendations -- Serum sodium is 120 mmol/L this am representing a 4 mEq increase over the last 24 hours. -- Patient remains nonoliguric. Continue 0.9 NS at 50 cc/hr and monitor serial PRP -- Target correction rate is 6 - 8 mmol / day. 40 min critical care time provided to the patient today. This was necessary to review her record, perform physical exam and discuss medical management w/ patient's & ICU team.
[2017-11-10] MEDS ORDERED: POTASSIUM CHLORIDE 20 MEQ/15 ML UDC PO ONE (10:30)
[2017-11-10] MEDS ORDERED: POTASSIUM CHLR 10 MEQ / WTR 10 MEQ in PREMIXED WATER 100 ML IV SCH (10:30)
[2017-11-10] MEDS ORDERED: POTASSIUM CHLR 20 MEQ / WTR 20 MEQ in PREMIXED WATER 100 ML IV ONE (10:30)
[2017-11-10] MEDS: MAGNESIUM SULFATE 1GM / D5W 1 GM in PREMIXED IN D5W 100 ML IV SCH ×2 (10:46→11:58)
[2017-11-10] MEDS: PANTOprazole INJ 40 MG in SYRINGE 0 ML IV SCH (11:01)
[2017-11-10 13:02] LABS: CALCIUM 7.9 mg/dl (8.5-10.1); CREATININE 0.28 mg/dl (0.60-1.20); POTASSIUM 4.4 mmol/L (3.5-5.1)
[2017-11-10] MEDS: CHLORDIAZEPOXIDE 25MG Q8H DOSE PO SCH ×2 (14:00→21:07)
[2017-11-10 16:52] LABS: CALCIUM 7.8 mg/dl (8.5-10.1); CREATININE 0.41 mg/dl (0.60-1.20)
[2017-11-10 16:53] LABS: POTASSIUM 3.5 mmol/L (3.5-5.1)
[2017-11-10] MEDS ORDERED: POTASSIUM CHLORIDE 20 MEQ TABCR PO STA ×2 (17:25→21:21)
--- NOTE | 2017-11-10 17:39 | Critical Care Progress Note ---
Critical Care Progress Note Date of Service Nov 10, 2017. ICU Day ICU Day Number: [address] Alvarez Subjective Pt still very somnolent this morning. Na was stable overnight, 120 this AM. Asymptomatic hypoglycemia overnight, given dextrose. Receiving valium and ativan for alcohol withdrawal, no seizures as of yet. Review of systems very limited given pt's mental status, but does not offer complaints at this time of pain. Objective GENERAL: Drowsy, in no distress. Oxygenating 96-100 on 2 L NC. HENT: Normocephalic, bruising and 3mm horizontal laceration on right eyebrow. Oropharynx unremarkable. EYES: Normal conjunctiva. Sclera non-icteric. PERRL. NECK: Supple. No JVD. RESPIRATORY: Coarse breath sounds bilaterally although pt is actively snoring. CARDIAC: Regular rate, normal rhythm. Extremities warm and well perfused. Pulses equal. ABDOMEN: Soft, non-distended. No tenderness to palpation. No rebound or guarding. No masses. EXTREMITIES: SCD's in place. No edema. No discoloration. 3 peripheral IV's in tact. PICC line in tact right arm. Ecchymosis to arms and knees. NEURO: Breathing spontaneously. SKIN: bruising and 3mm horizontal laceration on right eyebrow Assessment & Plan (1) Unresponsive episode (2) Hyponatremia (3) Seizure (4) Altered mental status (5) Elevated troponin (6) ETOH abuse (7) Tobacco use Reason Critically Ill: 62-year-old female with a significant past medical history of depression and alcohol abuse here due to severe hyponatremia Neuro - [facility] ICU: NEGATIVE Librium per alcohol withdrawal protocol, ativan PRN. Neuro checks per protocol Cardiac - Hemodynamically stable. Echocardiogram completed 11/08/17 and wnl: EF 55-60%. There is mild concentric left ventricular hypertrophy. Left ventricular systolic function is normal. Grade I diastolic dysfunction, (abnormal relaxation pattern). There is mild mitral annular calcification. Respiratory - Oxygenating 96-100 on 2 L via nasal cannula. No known h/o PFT's/pulmonary disease Daily smoker 1PPD most of adult life Follow closely for respiratory failure. GI - Began regular diet today, slowly advance. Constipated, hopefully diet will correct today. Is flatulent. RENAL/LYTES - Nephrology consulted, appreciate recs. Continue hydration, goal of 6-8 mmol/ day increase. Goal is Na 120-130 today. Last check is at 120. Continue monitoring serum sodium q4hrs Replacing Mg, K, and thiamine. - Self dc'ed vazquez yesterday and was not able to urinate yesterday. Vazquez replaced. Urinating adequately. Urology consult placed. ENDO - No concerns at this time HEME - 50% decrease in platelets. Low probability of HIT <5% given rate, no recent known exposure to heparin prior, and no s/s of new thrombosis or skin necrosis. Will continue Heparin, and monitor ID - No concerns for infection at this point. Urine culture and MRSA negative. Blood cx NGTD. Monitor fever curve. LINES/IV ACCESS - PIVs intact. PICC line in place in right arm. DVT PROPHYLAXIS - Enoxaparin 40mg daily sq Thank you for allowing us to be part of this patient's care. Please refer to Dr. Alvarez's documentation for any further recommendations. Resident Physician Supervision Note: Dr. Jamie Tran was resident physician during care of patient. I separately evaluated patient and did history and exam. I discussed the case with the resident and generally agree with the findings and plan. Patient was discussed on multidisciplinary rounds Patient remains critically ill secondary to profound hyponatremia slowly improving. Given lack of significant movement today increased normal saline to 125 ML's also allowing regular diet continue with frequent sodium monitoring. Routine urology consult placed for possible urethral trauma I have personally spent 35 minutes of critical care time in the direct management of this patient. This is a life/limb threatening event. This includes time spent evaluating patient, direct bedside care, chart review, placing orders, interpretation of diagnostic studies, discussion with consultants, patient, and/or family members regarding treatment decisions, as well as other required patient management activities. This time is exclusive of all separately billable procedures, and teaching time and separate from and in addition to any other critical care service time. Documented By: Gerardo Avlarez DO Consults & Procedures Consultants: Nephrology Procedures: PICC line placed 11/08/17 Echocardiogram completed 11/08/17 Data Medications: Current Inpatient Medications Medications (Trade) Dose Ordered Sig/Mali Route Start Time Stop Time Status Last Admin Dose Admin Lorazepam (Ativan Inj) 1 mg Q2H PRN IV 11/07/17 12:45 12/07/17 12:44 11/09/17 22:08 1 MG Enoxaparin Sodium (Lovenox Inj) 40 mg DAILY SQ 11/08/17 10:00 12/08/17 09:59 11/10/17 08:47 40 MG Folic Acid 1 mg/ Syringe 10 ml @ 5 mls/min QAM IV 11/08/17 10:00 12/08/17 09:59 11/10/17 08:00 5 MLS/MIN Chlordiazepoxide (Librium Cap) 25 mg Q8H PO 11/10/17 14:00 11/11/17 06:01 Chlordiazepoxide (Librium Cap) 10 mg Q12H PO 11/11/17 18:00 11/12/17 06:01 Nicotine (Nicoderm Cq 21MG Patch) 1 patch QAM TD 11/09/17 09:00 12/09/17 08:59 11/10/17 08:47 1 PATCH Miscellaneous (Remove Nicoderm Patch) 1 ea HS N/A 11/08/17 21:00 12/08/17 20:59 11/09/17 21:00 1 EA Heparin Sodium (Porcine) (Heparin 10 Unit/ ml 5 ml Flush) 5 ml PRN PRN FLUSH 11/08/17 13:45 12/08/17 13:44 Dextrose/Sodium Chloride 1,000 ml @ 125 mls/hr Q8H IV 11/10/17 08:15 12/10/17 08:14 11/10/17 08:48 50 MLS/HR Magnesium Oxide (Mag-Ox Tab) 400 mg HS PO 11/10/17 21:00 12/10/17 20:59 Thiamine HCl 250 mg/Sodium Chloride 102.5 ml @ 210 mls/hr QAM IV 11/11/17 09:00 11/15/17 09:30 Potassium/ Phosphorus/Sodium (Phospha 250 Neutral 155-852-130 Mg) 2 tab DAILY PO 11/10/17 19:30 12/10/17 19:29 I & O: 24-Hour Column 11/11/17 08:00 Intake Total 867 ml Output Total 425 ml Balance 442 ml Vital Signs: Date Time Temp Pulse Resp B/P (MAP) Pulse Ox O2 Delivery O2 Flow Rate FiO2 11/10/17 17:00 82 17 116/70 (85) 99 11/10/17 16:00 96 Nasal Cannula 2.0 11/10/17 16:00 36.5 88 21 100/70 (80) 96 Nasal Cannula 2.0 11/10/17 14:00 83 16 108/66 (80) 97 Nasal Cannula 2.0 11/10/17 12:00 100 Nasal Cannula 2.0 11/10/17 12:00 36.5 82 21 106/69 (81) 100 Nasal Cannula 2.0 11/10/17 11:00 90 16 126/77 (93) 93 Nasal Cannula 2.0 11/10/17 10:00 91 20 129/75 (93) 91 11/10/17 08:00 92 Room Air 11/10/17 08:00 Nasal Cannula 11/10/17 08:00 36.6 88 18 120/70 (87) 92 Room Air 11/10/17 06:14 91 25 113/80 (101) 97 11/10/17 06:01 93 21 121/102 (108) 97 11/10/17 06:01 93 21 121/102 (103) 97 11/10/17 05:01 96 15 124/66 (111) 92 11/10/17 05:01 96 15 124/66 (85) 92 11/10/17 04:00 86 42 105/61 (66) 90 11/10/17 04:00 Nasal Cannula 3.0 11/10/17 04:00 35.5 11/10/17 03:00 80 21 118/67 (85) 93 11/10/17 02:00 81 21 108/64 (79) 89 11/10/17 02:00 81 21 108/64 (73) 89 11/10/17 01:00 78 18 105/66 (85) 93 11/10/17 01:00 78 18 105/66 (85) 93 11/10/17 00:45 80 23 93 11/10/17 00:30 85 22 91 11/10/17 00:15 79 19 92 11/10/17 00:01 36.6 11/10/17 00:00 77 17 124/71 (90) 97 11/10/17 00:00 77 17 124/71 (90) 97 11/09/17 23:59 Room Air 11/09/17 23:00 89 24 139/84 (107) 97 11/09/17 22:02 81 24 135/77 (92) 98 11/09/17 21:00 86 20 118/79 (82) 98 11/09/17 20:00 94 Room Air 11/09/17 20:00 36.5 11/09/17 20:00 80 18 119/77 (84) 98 11/09/17 19:00 83 19 133/74 (80) 95 11/09/17 18:00 80 16 127/69 (88) 97 Room Air Laboratory Results: Last 24 Hours Test 11/09/17 20:02 11/09/17 23:23 11/10/17 04:15 11/10/17 05:56 Sodium Level 117 mmol/L 118 mmol/L 120 mmol/L Potassium Level 3.6 mmol/L 3.6 mmol/L 3.4 mmol/L Chloride Level 85 mmol/L 86 mmol/L 88 mmol/L Carbon Dioxide Level 24 mmol/L 25 mmol/L 24 mmol/L Anion Gap 7.0 mmol/L 8.0 mmol/L 8.0 mmol/L Blood Urea Nitrogen 6 mg/dl 5 mg/dl 5 mg/dl Creatinine 0.29 mg/dl 0.33 mg/dl 0.26 mg/dl Est Creatinine Clear Calc Drug Dose 190.6 ml/min 167.5 ml/min 212.6 ml/min Estimated GFR () 144.8 138.8 > 150.0 Estimated GFR (Non- 125.0 119.8 129.5 BUN/Creatinine Ratio 19.4 16.4 20.1 Random Glucose 81 mg/dl 78 mg/dl 79 mg/dl Calcium Level 8.0 mg/dl 7.9 mg/dl 7.6 mg/dl White Blood Count 7.54 K/uL Red Blood Count 4.15 M/uL Hemoglobin 13.7 g/dL Hematocrit 37.0 % Mean Corpuscular Volume 89.2 fL Mean Corpuscular Hemoglobin 33.0 pg Mean Corpuscular Hemoglobin Concent 37.0 g/dl Platelet Count 114 K/uL Mean Platelet Volume 9.9 fL Neutrophils (%) (Auto) 76.4 % Lymphocytes (%) (Auto) 5.7 % Monocytes (%) (Auto) 17.1 % Eosinophils (%) (Auto) 0.4 % Basophils (%) (Auto) 0.0 % Neutrophils # (Auto) 5.76 K/uL Lymphocytes # (Auto) 0.43 K/uL Monocytes # (Auto) 1.29 K/uL Eosinophils # (Auto) 0.03 K/uL Basophils # (Auto) 0.00 K/uL RDW Standard Deviation 41.9 fL RDW Coefficient of Variation 12.9 % Immature Granulocyte % (Auto) 0.4 % Immature Granulocyte # (Auto) 0.03 K/uL Prothrombin Time 10.4 SECONDS Prothromb Time International Ratio 1.0 Activated Partial Thromboplast Time 30.2 SECONDS Partial Thromboplastin Ratio 1.2 Phosphorus Level 2.1 mg/dl Magnesium Level 1.8 mg/dl Bedside Glucose 59 mg/dl Test 11/10/17 06:17 11/10/17 08:36 11/10/17 12:04 11/10/17 16:04 Bedside Glucose 149 mg/dl Sodium Level 120 mmol/L 121 mmol/L 120 mmol/L Potassium Level 3.2 mmol/L 4.4 mmol/L 3.5 mmol/L Chloride Level 87 mmol/L 89 mmol/L 89 mmol/L Carbon Dioxide Level 24 mmol/L 26 mmol/L 25 mmol/L Anion Gap 8.0 mmol/L 6.0 mmol/L 6.0 mmol/L Blood Urea Nitrogen 5 mg/dl 4 mg/dl 4 mg/dl Creatinine 0.30 mg/dl 0.28 mg/dl 0.41 mg/dl Est Creatinine Clear Calc Drug Dose 184.2 ml/min 197.4 ml/min 134.8 ml/min Estimated GFR () 143.2 146.5 129.2 Estimated GFR (Non- 123.6 126.4 111.5 BUN/Creatinine Ratio 15.9 15.2 10.4 Random Glucose 108 mg/dl 125 mg/dl 136 mg/dl Calcium Level 7.8 mg/dl 7.9 mg/dl 7.8 mg/dl Resident Tracking Resident Involvement: Resident Care Provided Care Provided: Adult Hospital Medicine
--- NOTE | 2017-11-10 18:15 | Progress Note ---
Subjective Date of Service: Nov 10, 2017. Subjective Pt evaluation today including: conversation w/ patient, conversation w/ family , physical exam, chart review, lab review, review of inpatient medication list Pain: controlled her was in the room we had a long discussion about what happened he does not think beer drinking was significant enough to cause it but admitted that she hides her drinking from him Problem List Medical Problems: (1) Altered mental status Status: Acute (2) Elevated troponin Status: Acute (3) Hyponatremia Status: Acute (4) Seizure Status: Acute Review of Systems Due to patient mental status review of system was unobtainable/unreliable We'll attempt to obtain review of system as needed from staff and family Objective Vital Signs Date Time Temp Pulse Resp B/P (MAP) Pulse Ox O2 Delivery O2 Flow Rate FiO2 11/10/17 17:00 82 17 116/70 (85) 99 11/10/17 16:00 96 Nasal Cannula 2.0 11/10/17 16:00 36.5 88 21 100/70 (80) 96 Nasal Cannula 2.0 11/10/17 14:00 83 16 108/66 (80) 97 Nasal Cannula 2.0 11/10/17 12:00 100 Nasal Cannula 2.0 11/10/17 12:00 36.5 82 21 106/69 (81) 100 Nasal Cannula 2.0 11/10/17 11:00 90 16 126/77 (93) 93 Nasal Cannula 2.0 11/10/17 10:00 91 20 129/75 (93) 91 11/10/17 08:00 92 Room Air 11/10/17 08:00 Nasal Cannula 11/10/17 08:00 36.6 88 18 120/70 (87) 92 Room Air 11/10/17 06:14 91 25 113/80 (101) 97 11/10/17 06:01 93 21 121/102 (108) 97 11/10/17 06:01 93 21 121/102 (103) 97 11/10/17 05:01 96 15 124/66 (111) 92 11/10/17 05:01 96 15 124/66 (85) 92 11/10/17 04:00 86 42 105/61 (66) 90 11/10/17 04:00 Nasal Cannula 3.0 11/10/17 04:00 35.5 11/10/17 03:00 80 21 118/67 (85) 93 11/10/17 02:00 81 21 108/64 (79) 89 11/10/17 02:00 81 21 108/64 (73) 89 11/10/17 01:00 78 18 105/66 (85) 93 11/10/17 01:00 78 18 105/66 (85) 93 11/10/17 00:45 80 23 93 11/10/17 00:30 85 22 91 11/10/17 00:15 79 19 92 11/10/17 00:01 36.6 11/10/17 00:00 77 17 124/71 (90) 97 11/10/17 00:00 77 17 124/71 (90) 97 11/09/17 23:59 Room Air 11/09/17 23:00 89 24 139/84 (107) 97 11/09/17 22:02 81 24 135/77 (92) 98 11/09/17 21:00 86 20 118/79 (82) 98 11/09/17 20:00 94 Room Air 11/09/17 20:00 36.5 11/09/17 20:00 80 18 119/77 (84) 98 11/09/17 19:00 83 19 133/74 (80) 95 Physical Exam Comments: Physical examination General patient appears to be comfortable, not in acute distress HEENT: Atraumatic , normocephalic /no jaundice /no pallor /anicteric /no dry mucous membrane /normal external ear inspection, Neck: Supple /no swelling /central trach Heart: S1/S2 normal/regular rate and rhythm/no gallop /no rub /no murmur Lungs: Decreased air entry with scattered rhonchi, decreased chest wall expansion, poor respiratory effort. Abdomen: Soft/nontender/no guarding/no rebound/no organomegaly/no pulsatile mass Musculoskeletal: No swelling/no edema/no tenderness/normal range of motion Neuro exam: Lethargic but moves all extremities and follows simple commands bruise over her right eye Psychiatric evaluation: No depressed mood/normal affect Skin: No rash on exposed skin area/no erythema Extremity: Normal pulse/no pitting edema/no clubbing or cyanosis Endocrine/lymphatic: No obvious lymphadenopathy /no lymphedema Laboratory Results Last 24 Hours Test 11/09/17 20:02 11/09/17 23:23 11/10/17 04:15 11/10/17 05:56 Sodium Level 117 mmol/L 118 mmol/L 120 mmol/L Potassium Level 3.6 mmol/L 3.6 mmol/L 3.4 mmol/L Chloride Level 85 mmol/L 86 mmol/L 88 mmol/L Carbon Dioxide Level 24 mmol/L 25 mmol/L 24 mmol/L Anion Gap 7.0 mmol/L 8.0 mmol/L 8.0 mmol/L Blood Urea Nitrogen 6 mg/dl 5 mg/dl 5 mg/dl Creatinine 0.29 mg/dl 0.33 mg/dl 0.26 mg/dl Est Creatinine Clear Calc Drug Dose 190.6 ml/min 167.5 ml/min 212.6 ml/min Estimated GFR () 144.8 138.8 > 150.0 Estimated GFR (Non- 125.0 119.8 129.5 BUN/Creatinine Ratio 19.4 16.4 20.1 Random Glucose 81 mg/dl 78 mg/dl 79 mg/dl Calcium Level 8.0 mg/dl 7.9 mg/dl 7.6 mg/dl White Blood Count 7.54 K/uL Red Blood Count 4.15 M/uL Hemoglobin 13.7 g/dL Hematocrit 37.0 % Mean Corpuscular Volume 89.2 fL Mean Corpuscular Hemoglobin 33.0 pg Mean Corpuscular Hemoglobin Concent 37.0 g/dl Platelet Count 114 K/uL Mean Platelet Volume 9.9 fL Neutrophils (%) (Auto) 76.4 % Lymphocytes (%) (Auto) 5.7 % Monocytes (%) (Auto) 17.1 % Eosinophils (%) (Auto) 0.4 % Basophils (%) (Auto) 0.0 % Neutrophils # (Auto) 5.76 K/uL Lymphocytes # (Auto) 0.43 K/uL Monocytes # (Auto) 1.29 K/uL Eosinophils # (Auto) 0.03 K/uL Basophils # (Auto) 0.00 K/uL RDW Standard Deviation 41.9 fL RDW Coefficient of Variation 12.9 % Immature Granulocyte % (Auto) 0.4 % Immature Granulocyte # (Auto) 0.03 K/uL Prothrombin Time 10.4 SECONDS Prothromb Time International Ratio 1.0 Activated Partial Thromboplast Time 30.2 SECONDS Partial Thromboplastin Ratio 1.2 Phosphorus Level 2.1 mg/dl Magnesium Level 1.8 mg/dl Bedside Glucose 59 mg/dl Test 11/10/17 06:17 11/10/17 08:36 11/10/17 12:04 11/10/17 16:04 Bedside Glucose 149 mg/dl Sodium Level 120 mmol/L 121 mmol/L 120 mmol/L Potassium Level 3.2 mmol/L 4.4 mmol/L 3.5 mmol/L Chloride Level 87 mmol/L 89 mmol/L 89 mmol/L Carbon Dioxide Level 24 mmol/L 26 mmol/L 25 mmol/L Anion Gap 8.0 mmol/L 6.0 mmol/L 6.0 mmol/L Blood Urea Nitrogen 5 mg/dl 4 mg/dl 4 mg/dl Creatinine 0.30 mg/dl 0.28 mg/dl 0.41 mg/dl Est Creatinine Clear Calc Drug Dose 184.2 ml/min 197.4 ml/min 134.8 ml/min Estimated GFR () 143.2 146.5 129.2 Estimated GFR (Non- 123.6 126.4 111.5 BUN/Creatinine Ratio 15.9 15.2 10.4 Random Glucose 108 mg/dl 125 mg/dl 136 mg/dl Calcium Level 7.8 mg/dl 7.9 mg/dl 7.8 mg/dl Assessment and Plan 62-year-old female with history of recently started on Lexapro. she was found unresponsive at home with sodium level of 104 Assessment Metabolic encephalopathy secondary to below Acute on chronic severe hyponatremia SIRS present on admission with no clear source of infection Positive troponin likely demand ischemia Alcohol abuse Plan S/P DDAVP 1 mcg administered 11/08, sodium continued to rise, so she was started on D5W infusion, sodium level today is 120, advancing in a satisfactory rate, goal is 6 mEq per [address] Cedillo's and Dr. Alvarez in both Alcohol withdrawal precautions, thiamine Korsakoff treatment does for 3 days then switch to lower dose of thiamine continue Librium per protocol, CT head was negative Consider repeat CT head if no improvement Check electrolytes in a.m. low pro-calcitonin Heparin for DVT prophylaxis Protonix for GI prophylaxis
[2017-11-10 20:53] LABS: CALCIUM 7.5 mg/dl (8.5-10.1); CREATININE 0.42 mg/dl (0.60-1.20); POTASSIUM 3.4 mmol/L (3.5-5.1)
[2017-11-10] MEDS: MAGNESIUM OXIDE 400 MG TAB PO SCH (21:07)
[2017-11-10 23:37] LABS: CALCIUM 7.7 mg/dl (8.5-10.1); CREATININE 0.4 mg/dl (0.60-1.20); POTASSIUM 4.3 mmol/L (3.5-5.1)
[2017-11-11] VITALS (18 sets, daily range): BP systolic 92–168; BP diastolic 58–101; PULSE 73–107; TEMP 36.6–37; O2SAT 92–100; Ht 167.6 cm; Wt 58.6 kg
[2017-11-11] MEDS: LORAZEPAM 2 MG/ML 1 ML VIAL IV PRN (00:26)
[2017-11-11 04:30] LABS: BASO % 0.2 %; BASO ABS # 0.01 K/uL (0-0.2); EOS % 0.6 %; EOS ABS # 0.04 K/uL (0-0.5); HEMOGLOBIN 13.3 g/dL (12.0-16.0); IG# 0.04 K/uL (0.00-0.02); LYMPH % 8.4 %; LYMPH ABS # 0.55 K/uL (1.2-3.4); MEAN CELL VOLUME 90.7 fL (80-100); MEAN CORPUSCULAR HEMOGLOBIN 32.6 pg (25-34); MEAN CORPUSCULAR HGB CONC 35.9 g/dl (32-36); MEAN PLATELET VOLUME 9.9 fL (7.4-10.4); MONO % 22.5 %; MONO ABS # 1.47 K/uL (0.11-0.59); NEUT % 67.7 %; NEUT ABS # 4.42 K/uL (1.4-6.5); PLATELET COUNT 150 K/uL (130-400); RED CELL DISTRIBUTION WIDTH CV 13.1 % (11.5-14.5); RED CELL DISTRIBUTION WIDTH SD 43.4 fL (36.4-46.3); WHITE BLOOD COUNT 6.53 K/uL (4.8-10.8)
[2017-11-11 04:39] LABS: PTT PATIENT 31.7 SECONDS (21.0-31.0)
[2017-11-11 04:46] LABS: CALCIUM 7.8 mg/dl (8.5-10.1); CREATININE 0.35 mg/dl (0.60-1.20); PHOSPHORUS 2.2 mg/dl (2.5-4.9); POTASSIUM 4.1 mmol/L (3.5-5.1)
[2017-11-11] MEDS: D5W AND NSS 1,000 ML IV SCH (04:57)
[2017-11-11] MEDS ORDERED: SODIUM CHLORIDE 1 GM TAB PO ONE (05:00)
[2017-11-11] MEDS: CHLORDIAZEPOXIDE 25MG Q8H DOSE PO SCH (06:00)
[2017-11-11] MEDS ORDERED: MINERAL OIL 30 ML UDC PO ONE (08:15)
[2017-11-11] MEDS ORDERED: BISACODYL 5 MG TABEC PO ONE (08:15)
[2017-11-11 08:58] LABS: CALCIUM 7.8 mg/dl (8.5-10.1); CREATININE 0.38 mg/dl (0.60-1.20)
[2017-11-11] MEDS ORDERED: THIAMINE HCL INJ 250 MG in SODIUM CHLORIDE 0.9% 100ML 100 ML IV SCH (09:00)
[2017-11-11] MEDS: FoLIC ACID INJ 1 MG in SYRINGE 9.8 ML IV SCH (09:01)
[2017-11-11] MEDS: NICOTINE 21 MG/24 HR TDSY TD SCH (09:01)
[2017-11-11] MEDS: SODIUM CHLORIDE 1 GM TAB PO SCH ×2 (09:02→21:12)
[2017-11-11] MEDS: ENOXAPARIN 40 MG/0.4 ML SYR SQ SCH (09:02)
[2017-11-11] MEDS: POT PHOSPHATE MONOBASIC W/ SOD TAB PO SCH (09:02)
--- NOTE | 2017-11-11 09:26 | Nephrology Progress Note ---
Nephrology Progress Note Date of Service Nov 11, 2017. Chief Complaint Hyponatremia Subjective Mrs. Hodges was seen & examined in the ICU this am. She was sitting up in bed visiting with her . She repeatedly requests to "go home" Review of Systems Constitutional: No fever Cardiovascular: No chest pain Respiratory: No dyspnea at rest Abdomen: No pain, No nausea Extremities: No leg edema A complete review of systems was performed. Pertinent positives are noted above. All other systems are negative. Vital Signs Last 8 Hrs Date Time Temp Pulse Resp B/P (MAP) Pulse Ox O2 Delivery O2 Flow Rate FiO2 11/11/17 08:00 36.7 90 20 135/75 (95) 95 Room Air 11/11/17 07:41 Room Air 96 11/11/17 06:00 73 19 92/58 (69) 98 Nasal Cannula 2.0 11/11/17 05:00 93 20 128/71 (90) 93 Nasal Cannula 2.0 11/11/17 04:00 36.6 84 17 129/69 (89) 98 Nasal Cannula 2.0 11/11/17 04:00 Nasal Cannula 11/11/17 03:00 83 18 116/68 (84) 100 11/11/17 02:00 84 18 135/71 (92) 100 Nasal Cannula 2.0 Last Recorded Weight Weight (Kilograms): 60.600 Physical Exam General Appearance: no apparent distress Head: normocephalic (R periorbital ecchymosis) Eyes: PERRL Neck: no adenopathy Respiratory/Chest: lungs clear, no respiratory distress Cardiovascular: regular rate, rhythm Abdomen/GI: normal bowel sounds, non tender, soft Extremities/Musculoskelatal: no calf tenderness, no pedal edema Neurologic/Psych: alert Family History Cancer Diabetes mellitus Negative for CKD / ESRD Social History Smoking Status: Current every day smoker Smokeless Tobacco Use: No Alcohol Use: heavy Drug Use: none Marital Status: Housing Status: lives with significant other Occupation: employed . Retired. + alcohol & tobacco use. Laboratory Results Past 24 Hours 11/11/17 04:08 Red Blood Count 4.08, Mean Corpuscular Volume 90.7, Mean Corpuscular Hemoglobin 32.6, Mean Corpuscular Hemoglobin Concent 35.9, Mean Platelet Volume 9.9, Neutrophils (%) (Auto) 67.7, Lymphocytes (%) (Auto) 8.4, Monocytes (%) (Auto) 22.5, Eosinophils (%) (Auto) 0.6, Basophils (%) (Auto) 0.2, Neutrophils # (Auto ) 4.42, Lymphocytes # (Auto) 0.55, Monocytes # (Auto) 1.47, Eosinophils # (Auto ) 0.04, Basophils # (Auto) 0.01 11/10/17 12:04 11/10/17 16:04 11/10/17 20:06 11/10/17 23:07 11/11/17 04:08 11/11/17 08:14 Test 11/10/17 12:04 11/10/17 16:04 11/10/17 20:06 11/10/17 23:07 Anion Gap 6.0 mmol/L (3-11) 6.0 mmol/L (3-11) 6.0 mmol/L (3-11) 4.0 mmol/L (3-11) Est Creatinine Clear Calc Drug Dose 197.4 ml/min 134.8 ml/min 131.6 ml/min 138.2 ml/min Estimated GFR () 146.5 129.2 128.2 130.3 Estimated GFR (Non- 126.4 111.5 110.6 112.4 BUN/Creatinine Ratio 15.2 (10-20) 10.4 (10-20) 9.9 (10-20) 9.0 (10-20) Calcium Level 7.9 mg/dl (8.5-10.1) 7.8 mg/dl (8.5-10.1) 7.5 mg/dl (8.5-10.1) 7.7 mg/dl (8.5-10.1) Test 11/11/17 04:08 11/11/17 08:14 White Blood Count 6.53 K/uL (4.8-10.8) Red Blood Count 4.08 M/uL (4.2-5.4) Hemoglobin 13.3 g/dL (12.0-16.0) Hematocrit 37.0 % (37-47) Mean Corpuscular Volume 90.7 fL (80-100) Mean Corpuscular Hemoglobin 32.6 pg (25-34) Mean Corpuscular Hemoglobin Concent 35.9 g/dl (32-36) Platelet Count 150 K/uL (130-400) Mean Platelet Volume 9.9 fL (7.4-10.4) Neutrophils (%) (Auto) 67.7 % Lymphocytes (%) (Auto) 8.4 % Monocytes (%) (Auto) 22.5 % Eosinophils (%) (Auto) 0.6 % Basophils (%) (Auto) 0.2 % Neutrophils # (Auto) 4.42 K/uL (1.4-6.5) Lymphocytes # (Auto) 0.55 K/uL (1.2-3.4) Monocytes # (Auto) 1.47 K/uL (0.11-0.59) Eosinophils # (Auto) 0.04 K/uL (0-0.5) Basophils # (Auto) 0.01 K/uL (0-0.2) RDW Standard Deviation 43.4 fL (36.4-46.3) RDW Coefficient of Variation 13.1 % (11.5-14.5) Immature Granulocyte % (Auto) 0.6 % Immature Granulocyte # (Auto) 0.04 K/uL (0.00-0.02) Prothrombin Time 10.7 SECONDS (9.0-12.0) Prothromb Time International Ratio 1.0 (0.9-1.1) Activated Partial Thromboplast Time 31.7 SECONDS (21.0-31.0) Partial Thromboplastin Ratio 1.2 Anion Gap 2.0 mmol/L (3-11) 6.0 mmol/L (3-11) Est Creatinine Clear Calc Drug Dose 157.9 ml/min 145.5 ml/min Estimated GFR () 136.1 132.5 Estimated GFR (Non- 117.5 114.3 BUN/Creatinine Ratio 9.0 (10-20) 5.9 (10-20) Calcium Level 7.8 mg/dl (8.5-10.1) 7.8 mg/dl (8.5-10.1) Phosphorus Level 2.2 mg/dl (2.5-4.9) Magnesium Level 1.9 mg/dl (1.8-2.4) Allergies Coded Allergies: No Known Allergies (Unverified , 11/07/17) Medications Current Inpatient Medications Medications (Trade) Dose Ordered Sig/Mali Route Start Time Stop Time Status Last Admin Dose Admin Lorazepam (Ativan Inj) 1 mg Q2H PRN IV 11/07/17 12:45 12/07/17 12:44 11/11/17 00:26 1 MG Enoxaparin Sodium (Lovenox Inj) 40 mg DAILY SQ 11/08/17 10:00 12/08/17 09:59 11/11/17 09:02 40 MG Folic Acid 1 mg/ Syringe 10 ml @ 5 mls/min QAM IV 11/08/17 10:00 12/08/17 09:59 11/11/17 09:01 5 MLS/MIN Chlordiazepoxide (Librium Cap) 10 mg Q12H PO 11/11/17 18:00 11/12/17 06:01 Nicotine (Nicoderm Cq 21MG Patch) 1 patch QAM TD 11/09/17 09:00 12/09/17 08:59 11/11/17 09:01 1 PATCH Miscellaneous (Remove Nicoderm Patch) 1 ea HS N/A 11/08/17 21:00 12/08/17 20:59 11/10/17 21:21 1 EA Heparin Sodium (Porcine) (Heparin 10 Unit/ ml 5 ml Flush) 5 ml PRN PRN FLUSH 11/08/17 13:45 12/08/17 13:44 Magnesium Oxide (Mag-Ox Tab) 400 mg HS PO 11/10/17 21:00 12/10/17 20:59 11/10/17 21:07 400 MG Thiamine HCl 250 mg/Sodium Chloride 102.5 ml @ 210 mls/hr QAM IV 11/11/17 09:00 11/15/17 09:30 11/11/17 09:01 210 MLS/HR Potassium/ Phosphorus/Sodium (Phospha 250 Neutral 155-852-130 Mg) 2 tab DAILY PO 11/10/17 19:30 12/10/17 19:29 11/11/17 09:02 2 TAB Sodium Chloride (Sodium Chloride Tab) 1 gm BID PO 11/11/17 09:00 12/11/17 08:59 11/11/17 09:02 1 GM Impression (1) Acute hyponatremia (2) Altered mental status (3) ETOH abuse (4) Tobacco use Acute on chronic hyponatremia likely related to a combination of poor solute intake, excessive free water intake (alcohol) and ADH release associated with intravascular volume contraction. Patient is at high risk for complications of rapid sodium correction due to the severity of her hyponatremia and poor nutritional status. Patient is more alert today. CXR shows mild interstitial thickening without overt CHF/infiltrate. Blood & urine cultures are NGTD Recommendations -- Serum sodium is 125 mmol/L this am representing a 5 mEq increase over the last 24 hours. -- Patient remains nonoliguric. -- Primary service has stopped IVF and will provide NaCl tablets today -- Target correction rate is 6 - 8 mmol / day. Continue serial PRP 30 min critical care time provided to the patient today. This was necessary to review her record, perform physical exam and discuss medical management w/ patient's & ICU team.
--- NOTE | 2017-11-11 11:26 | Critical Care Progress Note ---
Critical Care Progress Note Date of Service Nov 11, 2017. ICU Day ICU Day Number: [address] Alvarez Subjective Pt mental status significantly improved today. Of note, pt states that she normally takes 3 ativan's per day for her anxiety. Pt is eating her breakfast, and requesting salt with her eggs. Reports that she normally eats at least 2 balanced meals per day. Acknowledges that she is not at her baseline yet, still drowsy. When I ask about her bruises on her right eye and arms and legs, she states that she fell out of bed. Denies any abuse at home or being threatened. States she follows with her PCP regularly, and last saw Dr. Salgado on October 31, and at that time he had made no changes to her medications. Denies any other complaints at this time, including difficulty breathing, chest pain, or abdominal pain. Also denies genitourinary pain. Objective GENERAL: Drowsy, in no distress. Oxygenating 98 on 2 L NC. HENT: Normocephalic, bruising and 3mm horizontal laceration on right eyebrow. Oropharynx unremarkable. EYES: Normal conjunctiva. Sclera non-icteric. PERRL. NECK: Supple. No JVD. RESPIRATORY: Coarse breath sounds bilaterally. No respiratory distress. Has wet cough. CARDIAC: Regular rate, normal rhythm. Extremities warm and well perfused. Pulses equal. ABDOMEN: Soft, non-distended. No tenderness to palpation. No rebound or guarding. No masses. EXTREMITIES: SCD's in place. No edema. No discoloration. 3 peripheral IV's in tact. PICC line in tact right arm. Ecchymosis to arms and knees. NEURO: Breathing spontaneously. SKIN: bruising and 3mm horizontal laceration on right eyebrow Assessment & Plan (1) Unresponsive episode (2) Hyponatremia (3) Seizure (4) Altered mental status (5) Elevated troponin (6) ETOH abuse (7) Tobacco use Reason Critically Ill: 62-year-old female with a significant past medical history of depression and alcohol abuse here due to severe hyponatremia Neuro - [facility] ICU: NEGATIVE Librium per alcohol withdrawal protocol, ativan PRN. Neuro checks per protocol Cardiac - Hemodynamically stable. Echocardiogram completed 11/08/17 and wnl: EF 55-60%. There is mild concentric left ventricular hypertrophy. Left ventricular systolic function is normal. Grade I diastolic dysfunction, (abnormal relaxation pattern). There is mild mitral annular calcification. Respiratory - Oxygenating 98 on 2 L via nasal cannula, weaning as tolerated. No known h/o PFT's/pulmonary disease Daily smoker 1PPD most of adult life Follow closely for respiratory failure. GI - Tolerating regular diet Constipated. Is flatulent. Mineral oil given. Follow. RENAL/LYTES - Nephrology consulted, appreciate recs. Continue hydration, goal of 6-8 mmol/ day increase. Goal is normal Na today. Last check is at 126. Continue monitoring serum sodium q4hrs Replacing Mg, K, and thiamine. - Self dc'ed vazquez 2 days ago and was not able to urinate afterwards. Vazquez replaced. Urinating adequately. Urology consult, appreciate recs. ENDO - No concerns at this time HEME - PLT normalized. Will continue Heparin, and monitor ID - No concerns for infection at this point. Urine culture and MRSA negative. Blood cx NGTD. Monitor fever curve. LINES/IV ACCESS - PIVs intact. PICC line in place in right arm. DVT PROPHYLAXIS - Enoxaparin 40mg daily sq Thank you for allowing us to be part of this patient's care. Please refer to Dr. Alvarez's documentation for any further recommendations. Resident Physician Supervision Note: Dr. Jamie Tran was resident physician during care of patient. I separately evaluated patient and did history and exam. I discussed the case with the resident and generally agree with the findings and plan. Reviewed urology consultation, hold off voiding trial today possibly tomorrow with improved mental status. Discontinue normal saline at this time instituted salt tablets significant improvement in mental status allowing for oral intake. I have personally spent 35 minutes of critical care time in the direct management of this patient. This is a life/limb threatening event. This includes time spent evaluating patient, direct bedside care, chart review, placing orders, interpretation of diagnostic studies, discussion with consultants, patient, and/or family members regarding treatment decisions, as well as other required patient management activities. This time is exclusive of all separately billable procedures, and teaching time and separate from and in addition to any other critical care service time. Documented By: Gerardo Alvarez DO Consults & Procedures Consultants: Nephrology Procedures: PICC line placed 11/08/17 Echocardiogram completed 11/08/17 Data Medications: Current Inpatient Medications Medications (Trade) Dose Ordered Sig/Mali Route Start Time Stop Time Status Last Admin Dose Admin Lorazepam (Ativan Inj) 1 mg Q2H PRN IV 11/07/17 12:45 12/07/17 12:44 11/11/17 00:26 1 MG Enoxaparin Sodium (Lovenox Inj) 40 mg DAILY SQ 11/08/17 10:00 12/08/17 09:59 11/11/17 09:02 40 MG Folic Acid 1 mg/ Syringe 10 ml @ 5 mls/min QAM IV 11/08/17 10:00 12/08/17 09:59 11/11/17 09:01 5 MLS/MIN Chlordiazepoxide (Librium Cap) 10 mg Q12H PO 11/11/17 18:00 11/12/17 06:01 Nicotine (Nicoderm Cq 21MG Patch) 1 patch QAM TD 11/09/17 09:00 12/09/17 08:59 11/11/17 09:01 1 PATCH Miscellaneous (Remove Nicoderm Patch) 1 ea HS N/A 11/08/17 21:00 12/08/17 20:59 11/10/17 21:21 1 EA Heparin Sodium (Porcine) (Heparin 10 Unit/ ml 5 ml Flush) 5 ml PRN PRN FLUSH 11/08/17 13:45 12/08/17 13:44 Magnesium Oxide (Mag-Ox Tab) 400 mg HS PO 11/10/17 21:00 12/10/17 20:59 11/10/17 21:07 400 MG Thiamine HCl 250 mg/Sodium Chloride 102.5 ml @ 210 mls/hr QAM IV 11/11/17 09:00 11/15/17 09:30 11/11/17 09:01 210 MLS/HR Potassium/ Phosphorus/Sodium (Phospha 250 Neutral 155-852-130 Mg) 2 tab DAILY PO 11/10/17 19:30 12/10/17 19:29 11/11/17 09:02 2 TAB Sodium Chloride (Sodium Chloride Tab) 1 gm BID PO 11/11/17 09:00 12/11/17 08:59 11/11/17 09:02 1 GM Vital Signs: Date Time Temp Pulse Resp B/P (MAP) Pulse Ox O2 Delivery O2 Flow Rate FiO2 11/11/17 10:00 90 20 92 Room Air 11/11/17 08:00 36.7 90 20 135/75 (95) 95 Room Air 11/11/17 08:00 Nasal Cannula 11/11/17 07:41 Room Air 96 11/11/17 06:00 73 19 92/58 (69) 98 Nasal Cannula 2.0 11/11/17 05:00 93 20 128/71 (90) 93 Nasal Cannula 2.0 11/11/17 04:00 36.6 84 17 129/69 (89) 98 Nasal Cannula 2.0 11/11/17 04:00 Nasal Cannula 11/11/17 03:00 83 18 116/68 (84) 100 11/11/17 02:00 84 18 135/71 (92) 100 Nasal Cannula 2.0 11/11/17 01:00 89 20 129/69 (89) 99 Nasal Cannula 2.0 11/11/17 00:00 36.6 95 20 144/78 (100) 97 Nasal Cannula 11/10/17 23:59 Nasal Cannula 11/10/17 22:00 86 21 133/80 (97) 98 Nasal Cannula 11/10/17 21:00 88 24 140/81 (100) 97 Nasal Cannula 11/10/17 20:00 37.0 88 21 125/70 (88) 92 Nasal Cannula 11/10/17 20:00 Nasal Cannula 11/10/17 19:00 84 23 132/82 (99) 100 Nasal Cannula 11/10/17 18:00 86 20 120/75 (90) 99 Nasal Cannula 2.0 11/10/17 17:00 82 17 116/70 (85) 99 11/10/17 16:00 96 Nasal Cannula 2.0 11/10/17 16:00 36.5 88 21 100/70 (80) 96 Nasal Cannula 2.0 11/10/17 14:00 83 16 108/66 (80) 97 Nasal Cannula 2.0 11/10/17 12:00 100 Nasal Cannula 2.0 11/10/17 12:00 36.5 82 21 106/69 (81) 100 Nasal Cannula 2.0 Laboratory Results: Last 24 Hours Test 11/10/17 12:04 11/10/17 16:04 11/10/17 20:06 11/10/17 23:07 Sodium Level 121 mmol/L 120 mmol/L 122 mmol/L 122 mmol/L Potassium Level 4.4 mmol/L 3.5 mmol/L 3.4 mmol/L 4.3 mmol/L Chloride Level 89 mmol/L 89 mmol/L 90 mmol/L 91 mmol/L Carbon Dioxide Level 26 mmol/L 25 mmol/L 27 mmol/L 27 mmol/L Anion Gap 6.0 mmol/L 6.0 mmol/L 6.0 mmol/L 4.0 mmol/L Blood Urea Nitrogen 4 mg/dl 4 mg/dl 4 mg/dl 4 mg/dl Creatinine 0.28 mg/dl 0.41 mg/dl 0.42 mg/dl 0.40 mg/dl Est Creatinine Clear Calc Drug Dose 197.4 ml/min 134.8 ml/min 131.6 ml/min 138.2 ml/min Estimated GFR () 146.5 129.2 128.2 130.3 Estimated GFR (Non- 126.4 111.5 110.6 112.4 BUN/Creatinine Ratio 15.2 10.4 9.9 9.0 Random Glucose 125 mg/dl 136 mg/dl 119 mg/dl 142 mg/dl Calcium Level 7.9 mg/dl 7.8 mg/dl 7.5 mg/dl 7.7 mg/dl Test 11/11/17 04:08 11/11/17 08:14 White Blood Count 6.53 K/uL Red Blood Count 4.08 M/uL Hemoglobin 13.3 g/dL Hematocrit 37.0 % Mean Corpuscular Volume 90.7 fL Mean Corpuscular Hemoglobin 32.6 pg Mean Corpuscular Hemoglobin Concent 35.9 g/dl Platelet Count 150 K/uL Mean Platelet Volume 9.9 fL Neutrophils (%) (Auto) 67.7 % Lymphocytes (%) (Auto) 8.4 % Monocytes (%) (Auto) 22.5 % Eosinophils (%) (Auto) 0.6 % Basophils (%) (Auto) 0.2 % Neutrophils # (Auto) 4.42 K/uL Lymphocytes # (Auto) 0.55 K/uL Monocytes # (Auto) 1.47 K/uL Eosinophils # (Auto) 0.04 K/uL Basophils # (Auto) 0.01 K/uL RDW Standard Deviation 43.4 fL RDW Coefficient of Variation 13.1 % Immature Granulocyte % (Auto) 0.6 % Immature Granulocyte # (Auto) 0.04 K/uL Prothrombin Time 10.7 SECONDS Prothromb Time International Ratio 1.0 Activated Partial Thromboplast Time 31.7 SECONDS Partial Thromboplastin Ratio 1.2 Sodium Level 125 mmol/L 126 mmol/L Potassium Level 4.1 mmol/L 4.0 mmol/L Chloride Level 93 mmol/L 94 mmol/L Carbon Dioxide Level 30 mmol/L 25 mmol/L Anion Gap 2.0 mmol/L 6.0 mmol/L Blood Urea Nitrogen 3 mg/dl 2 mg/dl Creatinine 0.35 mg/dl 0.38 mg/dl Est Creatinine Clear Calc Drug Dose 157.9 ml/min 145.5 ml/min Estimated GFR () 136.1 132.5 Estimated GFR (Non- 117.5 114.3 BUN/Creatinine Ratio 9.0 5.9 Random Glucose 122 mg/dl 140 mg/dl Calcium Level 7.8 mg/dl 7.8 mg/dl Phosphorus Level 2.2 mg/dl Magnesium Level 1.9 mg/dl Resident Tracking Resident Involvement: Resident Care Provided Care Provided: [facility]
--- NOTE | 2017-11-11 11:27 | Urology Consultation ---
History General Date of Service: Nov 11, 2017. Chief Complaint: Hematuria, vazquez trauma Primary Care Physician: Zia Salgado M.D. History of Present Illness 62 yo female admitted with malnutrition and history of alcohol abuse, hyponatremia, in ICU, slowly improving clinically as well as with her serum Na. Family in room. Patient noted to have pulled her vazquez out yesterday, replaced after she was unable to void. Her mental status has been improving, no further trauma since it was replaced. Transient hematuria associated with trauma, essentially resolved. consulted to assist with her care. Laboratory Last 24 Hours Test 11/10/17 12:04 11/10/17 16:04 11/10/17 20:06 11/10/17 23:07 Sodium Level 121 mmol/L 120 mmol/L 122 mmol/L 122 mmol/L Potassium Level 4.4 mmol/L 3.5 mmol/L 3.4 mmol/L 4.3 mmol/L Chloride Level 89 mmol/L 89 mmol/L 90 mmol/L 91 mmol/L Carbon Dioxide Level 26 mmol/L 25 mmol/L 27 mmol/L 27 mmol/L Anion Gap 6.0 mmol/L 6.0 mmol/L 6.0 mmol/L 4.0 mmol/L Blood Urea Nitrogen 4 mg/dl 4 mg/dl 4 mg/dl 4 mg/dl Creatinine 0.28 mg/dl 0.41 mg/dl 0.42 mg/dl 0.40 mg/dl Est Creatinine Clear Calc Drug Dose 197.4 ml/min 134.8 ml/min 131.6 ml/min 138.2 ml/min Estimated GFR () 146.5 129.2 128.2 130.3 Estimated GFR (Non- 126.4 111.5 110.6 112.4 BUN/Creatinine Ratio 15.2 10.4 9.9 9.0 Random Glucose 125 mg/dl 136 mg/dl 119 mg/dl 142 mg/dl Calcium Level 7.9 mg/dl 7.8 mg/dl 7.5 mg/dl 7.7 mg/dl Test 11/11/17 04:08 11/11/17 08:14 White Blood Count 6.53 K/uL Red Blood Count 4.08 M/uL Hemoglobin 13.3 g/dL Hematocrit 37.0 % Mean Corpuscular Volume 90.7 fL Mean Corpuscular Hemoglobin 32.6 pg Mean Corpuscular Hemoglobin Concent 35.9 g/dl Platelet Count 150 K/uL Mean Platelet Volume 9.9 fL Neutrophils (%) (Auto) 67.7 % Lymphocytes (%) (Auto) 8.4 % Monocytes (%) (Auto) 22.5 % Eosinophils (%) (Auto) 0.6 % Basophils (%) (Auto) 0.2 % Neutrophils # (Auto) 4.42 K/uL Lymphocytes # (Auto) 0.55 K/uL Monocytes # (Auto) 1.47 K/uL Eosinophils # (Auto) 0.04 K/uL Basophils # (Auto) 0.01 K/uL RDW Standard Deviation 43.4 fL RDW Coefficient of Variation 13.1 % Immature Granulocyte % (Auto) 0.6 % Immature Granulocyte # (Auto) 0.04 K/uL Prothrombin Time 10.7 SECONDS Prothromb Time International Ratio 1.0 Activated Partial Thromboplast Time 31.7 SECONDS Partial Thromboplastin Ratio 1.2 Sodium Level 125 mmol/L 126 mmol/L Potassium Level 4.1 mmol/L 4.0 mmol/L Chloride Level 93 mmol/L 94 mmol/L Carbon Dioxide Level 30 mmol/L 25 mmol/L Anion Gap 2.0 mmol/L 6.0 mmol/L Blood Urea Nitrogen 3 mg/dl 2 mg/dl Creatinine 0.35 mg/dl 0.38 mg/dl Est Creatinine Clear Calc Drug Dose 157.9 ml/min 145.5 ml/min Estimated GFR () 136.1 132.5 Estimated GFR (Non- 117.5 114.3 BUN/Creatinine Ratio 9.0 5.9 Random Glucose 122 mg/dl 140 mg/dl Calcium Level 7.8 mg/dl 7.8 mg/dl Phosphorus Level 2.2 mg/dl Magnesium Level 1.9 mg/dl Problem List Medical Problems: (1) Altered mental status Status: Acute (2) Elevated troponin Status: Acute (3) Hyponatremia Status: Acute (4) Seizure Status: Acute Past History alcohol addiction, anxiety, osteoporosis, other (IBS, Lyme disease) Family History Cancer Diabetes mellitus Social History Smokin pack/day Alcohol: history of alcohol abuse Marital status: Housing status: lives with significant other Occupation status: employed History of MDRO No Allergies Coded Allergies: No Known Allergies (Unverified , 11/07/17) Medications Home Medications: Home Meds and Scripts Medications Dose Route/Sig Max Daily Dose Days Date Category Aleve (Naproxen) 220 Mg Tab 220 Mg PO BID PRN 11/07/17 Reported Opticrom Oph (Cromolyn Sodium (Ophth)) 4 % Joy 1 Drops OP DAILY 90 11/07/17 Reported Lexapro (Escitalopram Oxalate) 10 Mg Tab 10 Mg PO DAILY 11/07/17 Reported Dicyclomine Hcl 10 Mg Cap 1 Cap PO Q6H PRN 25 11/07/17 Reported Ativan * (Lorazepam) 1 Mg Tab 1 Mg SL DAILY 06/12/11 Reported Inpatient Medications: Current Inpatient Medications Medications (Trade) Dose Ordered Sig/Mali Route Start Time Stop Time Status Last Admin Dose Admin Lorazepam (Ativan Inj) 1 mg Q2H PRN IV 11/07/17 12:45 12/07/17 12:44 11/11/17 00:26 1 MG Enoxaparin Sodium (Lovenox Inj) 40 mg DAILY SQ 11/08/17 10:00 12/08/17 09:59 11/11/17 09:02 40 MG Folic Acid 1 mg/ Syringe 10 ml @ 5 mls/min QAM IV 11/08/17 10:00 12/08/17 09:59 11/11/17 09:01 5 MLS/MIN Chlordiazepoxide (Librium Cap) 10 mg Q12H PO 11/11/17 18:00 11/12/17 06:01 Nicotine (Nicoderm Cq 21MG Patch) 1 patch QAM TD 11/09/17 09:00 12/09/17 08:59 11/11/17 09:01 1 PATCH Miscellaneous (Remove Nicoderm Patch) 1 ea HS N/A 11/08/17 21:00 12/08/17 20:59 11/10/17 21:21 1 EA Heparin Sodium (Porcine) (Heparin 10 Unit/ ml 5 ml Flush) 5 ml PRN PRN FLUSH 11/08/17 13:45 12/08/17 13:44 Magnesium Oxide (Mag-Ox Tab) 400 mg HS PO 11/10/17 21:00 12/10/17 20:59 11/10/17 21:07 400 MG Thiamine HCl 250 mg/Sodium Chloride 102.5 ml @ 210 mls/hr QAM IV 11/11/17 09:00 11/15/17 09:30 11/11/17 09:01 210 MLS/HR Potassium/ Phosphorus/Sodium (Phospha 250 Neutral 155-852-130 Mg) 2 tab DAILY PO 11/10/17 19:30 12/10/17 19:29 11/11/17 09:02 2 TAB Sodium Chloride (Sodium Chloride Tab) 1 gm BID PO 11/11/17 09:00 12/11/17 08:59 11/11/17 09:02 1 GM Review of Systems Review of Systems Constitutional: No fever, No chills Neurological: + problem reported (disoriented) Gastrointestinal: No abdominal pain, No nausea, No vomiting Cardiovascular: No irregular heartbeat Respiratory: No coughing up blood Skin: No boils Ears / Nose / Throat: No hoarse voice Psychologic / Mental: + trouble remembering Female : + see HPI Physical Exam Vital Signs: Vital Signs Past 12 Hours Date Time Temp Pulse Resp B/P (MAP) Pulse Ox O2 Delivery O2 Flow Rate FiO2 11/11/17 10:00 90 20 92 Room Air 11/11/17 08:00 36.7 90 20 135/75 (95) 95 Room Air 11/11/17 08:00 Nasal Cannula 11/11/17 07:41 Room Air 96 11/11/17 06:00 73 19 92/58 (69) 98 Nasal Cannula 2.0 11/11/17 05:00 93 20 128/71 (90) 93 Nasal Cannula 2.0 11/11/17 04:00 36.6 84 17 129/69 (89) 98 Nasal Cannula 2.0 11/11/17 04:00 Nasal Cannula 11/11/17 03:00 83 18 116/68 (84) 100 11/11/17 02:00 84 18 135/71 (92) 100 Nasal Cannula 2.0 11/11/17 01:00 89 20 129/69 (89) 99 Nasal Cannula 2.0 11/11/17 00:00 36.6 95 20 144/78 (100) 97 Nasal Cannula 11/10/17 23:59 Nasal Cannula Physical Exam: General Appearance: WD/WN, no apparent distress ENT: hearing grossly normal Neck: supple Respiratory/Chest: no respiratory distress, no accessory muscle use Cardiovascular: no JVD Gastrointestinal: Abdomen: normal abdomen Bladder: normal bladder Renal: normal renal Spleen: normal spleen Extremities: non-tender Neurologic/Psychiatric: + disoriented (sedate) Skin: normal color Assessment & Plan Assessment & Plan A/P 62 yo female with improving hyponatremia and delirium, vazquez trauma. Vazquez in place, functioning well. Leave vazquez in place until mental status back to baseline and then would proceed with trial of void. I expect the patient's voiding should return to baseline. Will arrange for outpatient cystoscopy in 4-6 weeks to r/o any worrisome findings associated with her hematuria - I would expect her trauma to be the cause. Continue medical management per primary service. Thank you for allowing us to participate in this patient's care. Please recall our service PRN any new questions or concerns.
[2017-11-11 12:47] LABS: CALCIUM 8.1 mg/dl (8.5-10.1); CREATININE 0.3 mg/dl (0.60-1.20)
--- NOTE | 2017-11-11 14:36 | Progress Note ---
Subjective Date of Service: Nov 11, 2017. Subjective Pt evaluation today including: conversation w/ patient, conversation w/ family , physical exam, chart review, lab review, review of inpatient medication list Pain: Controlled PO Intake: Adequate Much more awake today, was able to follow all commands, answered simple questions Not awake enough sufficient to rely on her own and the review of system Problem List Medical Problems: (1) Altered mental status Status: Acute (2) Elevated troponin Status: Acute (3) Hyponatremia Status: Acute (4) Seizure Status: Acute Review of Systems Due to patient mental status review of system was unobtainable/unreliable We'll attempt to obtain review of system as needed from staff and family Objective Vital Signs Date Time Temp Pulse Resp B/P (MAP) Pulse Ox O2 Delivery O2 Flow Rate FiO2 11/11/17 12:00 Room Air 95 11/11/17 10:00 90 20 92 Room Air 11/11/17 08:00 36.7 90 20 135/75 (95) 95 Room Air 11/11/17 08:00 Nasal Cannula 11/11/17 07:41 Room Air 96 11/11/17 06:00 73 19 92/58 (69) 98 Nasal Cannula 2.0 11/11/17 05:00 93 20 128/71 (90) 93 Nasal Cannula 2.0 11/11/17 04:00 36.6 84 17 129/69 (89) 98 Nasal Cannula 2.0 11/11/17 04:00 Nasal Cannula 11/11/17 03:00 83 18 116/68 (84) 100 11/11/17 02:00 84 18 135/71 (92) 100 Nasal Cannula 2.0 11/11/17 01:00 89 20 129/69 (89) 99 Nasal Cannula 2.0 11/11/17 00:00 36.6 95 20 144/78 (100) 97 Nasal Cannula 11/10/17 23:59 Nasal Cannula 11/10/17 22:00 86 21 133/80 (97) 98 Nasal Cannula 11/10/17 21:00 88 24 140/81 (100) 97 Nasal Cannula 11/10/17 20:00 37.0 88 21 125/70 (88) 92 Nasal Cannula 11/10/17 20:00 Nasal Cannula 11/10/17 19:00 84 23 132/82 (99) 100 Nasal Cannula 11/10/17 18:00 86 20 120/75 (90) 99 Nasal Cannula 2.0 11/10/17 17:00 82 17 116/70 (85) 99 11/10/17 16:00 96 Nasal Cannula 2.0 11/10/17 16:00 36.5 88 21 100/70 (80) 96 Nasal Cannula 2.0 Physical Exam Comments: Physical examination General patient appears to be comfortable, not in acute distress HEENT: Big bruise on her right eye, normocephalic /no jaundice /no pallor / anicteric /no dry mucous membrane /normal external ear inspection Neck: Supple /no swelling /central trach Heart: S1/S2 normal/regular rate and rhythm/no gallop /no rub /no murmur Lungs: decrease air entry b/l , scattered rhonchi Abdomen: Soft/nontender/no guarding/no rebound/no organomegaly/no pulsatile mass Musculoskeletal: No swelling/no edema/no tenderness/normal range of motion Neuro exam: Lethargic but arousable , requires strong verbal or tactile stimuli . When awaking she was able to follow commands sensation intact/moves all extremities/no abnormal movements. Right eye visual acuity is equal to the left Psychiatric evaluation: No depressed mood/normal affect Skin: No rash on exposed skin area/no erythema Extremity: Normal pulse/no pitting edema/no clubbing or cyanosis Endocrine/lymphatic: No obvious lymphadenopathy /no lymphedema Laboratory Results Last 24 Hours Test 11/10/17 16:04 11/10/17 20:06 11/10/17 23:07 11/11/17 04:08 Sodium Level 120 mmol/L 122 mmol/L 122 mmol/L 125 mmol/L Potassium Level 3.5 mmol/L 3.4 mmol/L 4.3 mmol/L 4.1 mmol/L Chloride Level 89 mmol/L 90 mmol/L 91 mmol/L 93 mmol/L Carbon Dioxide Level 25 mmol/L 27 mmol/L 27 mmol/L 30 mmol/L Anion Gap 6.0 mmol/L 6.0 mmol/L 4.0 mmol/L 2.0 mmol/L Blood Urea Nitrogen 4 mg/dl 4 mg/dl 4 mg/dl 3 mg/dl Creatinine 0.41 mg/dl 0.42 mg/dl 0.40 mg/dl 0.35 mg/dl Est Creatinine Clear Calc Drug Dose 134.8 ml/min 131.6 ml/min 138.2 ml/min 157.9 ml/min Estimated GFR () 129.2 128.2 130.3 136.1 Estimated GFR (Non- 111.5 110.6 112.4 117.5 BUN/Creatinine Ratio 10.4 9.9 9.0 9.0 Random Glucose 136 mg/dl 119 mg/dl 142 mg/dl 122 mg/dl Calcium Level 7.8 mg/dl 7.5 mg/dl 7.7 mg/dl 7.8 mg/dl White Blood Count 6.53 K/uL Red Blood Count 4.08 M/uL Hemoglobin 13.3 g/dL Hematocrit 37.0 % Mean Corpuscular Volume 90.7 fL Mean Corpuscular Hemoglobin 32.6 pg Mean Corpuscular Hemoglobin Concent 35.9 g/dl Platelet Count 150 K/uL Mean Platelet Volume 9.9 fL Neutrophils (%) (Auto) 67.7 % Lymphocytes (%) (Auto) 8.4 % Monocytes (%) (Auto) 22.5 % Eosinophils (%) (Auto) 0.6 % Basophils (%) (Auto) 0.2 % Neutrophils # (Auto) 4.42 K/uL Lymphocytes # (Auto) 0.55 K/uL Monocytes # (Auto) 1.47 K/uL Eosinophils # (Auto) 0.04 K/uL Basophils # (Auto) 0.01 K/uL RDW Standard Deviation 43.4 fL RDW Coefficient of Variation 13.1 % Immature Granulocyte % (Auto) 0.6 % Immature Granulocyte # (Auto) 0.04 K/uL Prothrombin Time 10.7 SECONDS Prothromb Time International Ratio 1.0 Activated Partial Thromboplast Time 31.7 SECONDS Partial Thromboplastin Ratio 1.2 Phosphorus Level 2.2 mg/dl Magnesium Level 1.9 mg/dl Test 11/11/17 08:14 11/11/17 11:56 Sodium Level 126 mmol/L 126 mmol/L Potassium Level 4.0 mmol/L 4.0 mmol/L Chloride Level 94 mmol/L 95 mmol/L Carbon Dioxide Level 25 mmol/L 26 mmol/L Anion Gap 6.0 mmol/L 5.0 mmol/L Blood Urea Nitrogen 2 mg/dl 3 mg/dl Creatinine 0.38 mg/dl 0.30 mg/dl Est Creatinine Clear Calc Drug Dose 145.5 ml/min 184.2 ml/min Estimated GFR () 132.5 143.2 Estimated GFR (Non- 114.3 123.6 BUN/Creatinine Ratio 5.9 9.5 Random Glucose 140 mg/dl 117 mg/dl Calcium Level 7.8 mg/dl 8.1 mg/dl Assessment and Plan 62-year-old female with history of recently started on Lexapro. she was found unresponsive at home with sodium level of 104 Assessment Metabolic encephalopathy secondary to below Acute on chronic severe hyponatremia SIRS present on admission with no clear source of infection Positive troponin likely demand ischemia Alcohol abuse Plan sodium level today is 126, advancing in a satisfactory rate, goal is 6 mEq per 24 hour. S/P DDAVP 1 mcg administered 11/08, Appreciate Dr. Cedillo's and Dr. Alvarez in both Alcohol withdrawal precautions, thiamine Korsakoff treatment does for 3 days then switch to lower dose of thiamine continue Librium per protocol, CT head was negative Check electrolytes in a.m. low pro-calcitonin Heparin for DVT prophylaxis Protonix for GI prophylaxis
[2017-11-11 16:53] LABS: CALCIUM 7.8 mg/dl (8.5-10.1); CREATININE 0.38 mg/dl (0.60-1.20)
[2017-11-11] MEDS: CHLORDIAZEPOXIDE 10MG Q12H DOSE PO SCH (18:00)
[2017-11-11 20:21] LABS: CALCIUM 8.2 mg/dl (8.5-10.1); POTASSIUM 3.6 mmol/L (3.5-5.1)
[2017-11-11 20:33] LABS: CREATININE 0.69 mg/dl (0.60-1.20)
[2017-11-11] MEDS ORDERED: POTASSIUM CHLORIDE 20 MEQ TABCR PO STA (20:37)
[2017-11-11] MEDS: MAGNESIUM OXIDE 400 MG TAB PO SCH (21:12)
[2017-11-12] VITALS (9 sets, daily range): BP systolic 112–165; BP diastolic 64–101; PULSE 100–114; TEMP 36.4–37.4; O2SAT 88–97
[2017-11-12 00:36] LABS: CALCIUM 7.9 mg/dl (8.5-10.1); CREATININE 0.42 mg/dl (0.60-1.20)
[2017-11-12 05:44] LABS: BASO % 0.3 %; BASO ABS # 0.02 K/uL (0-0.2); EOS % 0.4 %; EOS ABS # 0.03 K/uL (0-0.5); HEMATOCRIT 34.9 % (37-47); HEMOGLOBIN 12.3 g/dL (12.0-16.0); IG# 0.04 K/uL (0.00-0.02); LYMPH % 9.9 %; LYMPH ABS # 0.73 K/uL (1.2-3.4); MEAN CELL VOLUME 92.1 fL (80-100); MEAN CORPUSCULAR HEMOGLOBIN 32.5 pg (25-34); MEAN CORPUSCULAR HGB CONC 35.2 g/dl (32-36); MEAN PLATELET VOLUME 9.5 fL (7.4-10.4); MONO % 24.2 %; MONO ABS # 1.78 K/uL (0.11-0.59); NEUT % 64.7 %; NEUT ABS # 4.75 K/uL (1.4-6.5); PLATELET COUNT 168 K/uL (130-400); RED CELL DISTRIBUTION WIDTH CV 13.3 % (11.5-14.5); RED CELL DISTRIBUTION WIDTH SD 44.5 fL (36.4-46.3); WHITE BLOOD COUNT 7.35 K/uL (4.8-10.8)
[2017-11-12 05:55] LABS: PTT PATIENT 28.2 SECONDS (21.0-31.0)
[2017-11-12 06:15] LABS: CALCIUM 8.1 mg/dl (8.5-10.1); CREATININE 0.35 mg/dl (0.60-1.20)
[2017-11-12 06:18] LABS: PHOSPHORUS 3.3 mg/dl (2.5-4.9)
[2017-11-12] MEDS: CHLORDIAZEPOXIDE 10MG Q12H DOSE PO SCH (06:19)
[2017-11-12] MEDS: POT PHOSPHATE MONOBASIC W/ SOD TAB PO SCH (07:50)
[2017-11-12] MEDS: SODIUM CHLORIDE 1 GM TAB PO SCH ×4 (07:51→20:47)
[2017-11-12] MEDS: NICOTINE 21 MG/24 HR TDSY TD SCH (07:51)
[2017-11-12] MEDS: THIAMINE HCL 100 MG TAB PO SCH (07:51)
[2017-11-12] MEDS: ENOXAPARIN 40 MG/0.4 ML SYR SQ SCH (07:51)
[2017-11-12] MEDS: FoLIC ACID INJ 1 MG in SYRINGE 9.8 ML IV SCH (07:52)
[2017-11-12] MEDS ORDERED: MINERAL OIL 30 ML UDC PO ONE (08:15)
[2017-11-12] MEDS: BISACODYL 5 MG TABEC PO SCH (08:53)
--- NOTE | 2017-11-12 09:18 | Nephrology Progress Note ---
Nephrology Progress Note Date of Service Nov 12, 2017. Chief Complaint Hyponatremia Subjective Mrs. Hodges was seen & examined in the ICU this morning. Her was present at bedside. She reports no complications overnight. She currently denies fever, angina or dyspnea. She is tolerating oral NaCl therapy without GI upset. She is tolerating a regular diet. Review of Systems Constitutional: No fever Cardiovascular: No chest pain Respiratory: No dyspnea at rest Abdomen: No pain, No nausea, No vomiting Extremities: No leg edema A complete review of systems was performed. Pertinent positives are noted above. All other systems are negative. Vital Signs Last 8 Hrs Date Time Temp Pulse Resp B/P (MAP) Pulse Ox O2 Delivery O2 Flow Rate FiO2 11/12/17 09:06 36.6 105 22 88 2.0 11/12/17 08:00 Nasal Cannula 2.0 11/12/17 08:00 36.6 105 22 124/64 (84) 88 Room Air 11/12/17 06:11 111 25 112/75 (87) 94 Nasal Cannula 2.0 11/12/17 04:00 Nasal Cannula 2.0 11/12/17 04:00 36.5 105 18 133/69 (90) 97 Nasal Cannula 2.0 11/12/17 02:01 114 18 141/101 (114) 89 Room Air Last Recorded Weight Weight (Kilograms): 61.300 Physical Exam General Appearance: no apparent distress Head: + pertinent finding (ecchymosis surrounding the R orbit) Eyes: PERRL, EOMI Respiratory/Chest: lungs clear, no respiratory distress Cardiovascular: + tachycardia Abdomen/GI: normal bowel sounds, non tender, soft Extremities/Musculoskelatal: no calf tenderness, no pedal edema Neurologic/Psych: alert Family History Cancer Diabetes mellitus Negative for CKD / ESRD Social History Smoking Status: Current every day smoker Smokeless Tobacco Use: No Alcohol Use: heavy Drug Use: none Marital Status: Housing Status: lives with significant other Occupation: employed . Retired. + alcohol & tobacco use. Laboratory Results Past 24 Hours 11/12/17 05:23 Red Blood Count 3.79, Mean Corpuscular Volume 92.1, Mean Corpuscular Hemoglobin 32.5, Mean Corpuscular Hemoglobin Concent 35.2, Mean Platelet Volume 9.5, Neutrophils (%) (Auto) 64.7, Lymphocytes (%) (Auto) 9.9, Monocytes (%) (Auto) 24.2, Eosinophils (%) (Auto) 0.4, Basophils (%) (Auto) 0.3, Neutrophils # (Auto ) 4.75, Lymphocytes # (Auto) 0.73, Monocytes # (Auto) 1.78, Eosinophils # (Auto ) 0.03, Basophils # (Auto) 0.02 11/11/17 11:56 11/11/17 16:02 11/11/17 19:37 11/11/17 23:58 11/12/17 05:23 Test 11/11/17 11:56 11/11/17 16:02 11/11/17 19:37 11/11/17 23:58 Anion Gap 5.0 mmol/L (3-11) 3.0 mmol/L (3-11) 3.0 mmol/L (3-11) 4.0 mmol/L (3-11) Est Creatinine Clear Calc Drug Dose 184.2 ml/min 145.5 ml/min 80.1 ml/min 131.6 ml/min Estimated GFR () 143.2 132.5 108.9 128.2 Estimated GFR (Non- 123.6 114.3 94.0 110.6 BUN/Creatinine Ratio 9.5 (10-20) 8.2 (10-20) 9.0 (10-20) 17.5 (10-20) Calcium Level 8.1 mg/dl (8.5-10.1) 7.8 mg/dl (8.5-10.1) 8.2 mg/dl (8.5-10.1) 7.9 mg/dl (8.5-10.1) Test 11/12/17 05:23 White Blood Count 7.35 K/uL (4.8-10.8) Red Blood Count 3.79 M/uL (4.2-5.4) Hemoglobin 12.3 g/dL (12.0-16.0) Hematocrit 34.9 % (37-47) Mean Corpuscular Volume 92.1 fL (80-100) Mean Corpuscular Hemoglobin 32.5 pg (25-34) Mean Corpuscular Hemoglobin Concent 35.2 g/dl (32-36) Platelet Count 168 K/uL (130-400) Mean Platelet Volume 9.5 fL (7.4-10.4) Neutrophils (%) (Auto) 64.7 % Lymphocytes (%) (Auto) 9.9 % Monocytes (%) (Auto) 24.2 % Eosinophils (%) (Auto) 0.4 % Basophils (%) (Auto) 0.3 % Neutrophils # (Auto) 4.75 K/uL (1.4-6.5) Lymphocytes # (Auto) 0.73 K/uL (1.2-3.4) Monocytes # (Auto) 1.78 K/uL (0.11-0.59) Eosinophils # (Auto) 0.03 K/uL (0-0.5) Basophils # (Auto) 0.02 K/uL (0-0.2) RDW Standard Deviation 44.5 fL (36.4-46.3) RDW Coefficient of Variation 13.3 % (11.5-14.5) Immature Granulocyte % (Auto) 0.5 % Immature Granulocyte # (Auto) 0.04 K/uL (0.00-0.02) Prothrombin Time 10.6 SECONDS (9.0-12.0) Prothromb Time International Ratio 1.0 (0.9-1.1) Activated Partial Thromboplast Time 28.2 SECONDS (21.0-31.0) Partial Thromboplastin Ratio 1.1 Anion Gap 3.0 mmol/L (3-11) Est Creatinine Clear Calc Drug Dose 157.9 ml/min Estimated GFR () 136.1 Estimated GFR (Non- 117.5 BUN/Creatinine Ratio 18.3 (10-20) Calcium Level 8.1 mg/dl (8.5-10.1) Phosphorus Level 3.3 mg/dl (2.5-4.9) Magnesium Level 1.8 mg/dl (1.8-2.4) Allergies Coded Allergies: No Known Allergies (Unverified , 11/07/17) Medications Current Inpatient Medications Medications (Trade) Dose Ordered Sig/Mali Route Start Time Stop Time Status Last Admin Dose Admin Lorazepam (Ativan Inj) 1 mg Q2H PRN IV 11/07/17 12:45 12/07/17 12:44 11/11/17 00:26 1 MG Enoxaparin Sodium (Lovenox Inj) 40 mg DAILY SQ 11/08/17 10:00 12/08/17 09:59 11/12/17 07:51 40 MG Nicotine (Nicoderm Cq 21MG Patch) 1 patch QAM TD 11/09/17 09:00 12/09/17 08:59 11/12/17 07:51 1 PATCH Miscellaneous (Remove Nicoderm Patch) 1 ea HS N/A 11/08/17 21:00 12/08/17 20:59 11/11/17 21:12 1 EA Heparin Sodium (Porcine) (Heparin 10 Unit/ ml 5 ml Flush) 5 ml PRN PRN FLUSH 11/08/17 13:45 12/08/17 13:44 Magnesium Oxide (Mag-Ox Tab) 400 mg HS PO 11/10/17 21:00 12/10/17 20:59 11/11/17 21:12 400 MG Thiamine HCl (Vitamin B-1 Tab) 200 mg Taper QAM PO 11/12/17 09:00 12/16/17 08:59 11/12/17 07:51 200 MG Bisacodyl (Dulcolax Tab) 5 mg QAM PO 11/12/17 09:00 12/12/17 08:59 11/12/17 08:53 5 MG Mineral Oil (Mineral Oil) 30 ml BID PO 11/12/17 21:00 12/12/17 20:59 Sodium Chloride (Sodium Chloride Tab) 1 gm TID PO 11/12/17 09:00 12/12/17 08:59 11/12/17 08:51 1 GM Folic Acid (Folvite Tab) 1 mg QAM PO 11/13/17 09:00 12/13/17 08:59 Polyethylene (Miralax Powder Packet) 17 gm BID PO 11/12/17 09:00 12/12/17 08:59 Impression (1) Acute hyponatremia (2) Altered mental status (3) ETOH abuse (4) Tobacco use Acute on chronic hyponatremia due to a combination of poor solute intake, excessive free water intake (alcohol) and ADH release associated with intravascular volume contraction. Patient is more alert today. CXR shows mild interstitial thickening without overt CHF/infiltrate. Blood & urine cultures are NGTD Recommendations -- Serum sodium is 128 mmol/L this am representing a 3 mEq increase over the last 24 hours. -- Patient remains nonoliguric. -- Primary started NaCl tablets yesterday. Serum sodium continues to gradually trend upward -- Target correction rate is 6 - 8 mmol / day. Continue serial PRP -- No further Nephrology evaluation indicated at this time. Will defer NaCl management to primary service and sign off. Please call if further assistance is needed. 30 min critical care time provided to the patient today. This was necessary to review her record, perform physical exam and discuss medical management w/ patient's & ICU team.
--- NOTE | 2017-11-12 09:25 | Critical Care Progress Note ---
Critical Care Progress Note Date of Service Nov 12, 2017. ICU Day ICU Day Number: [address] Alvarez Subjective Pt is alert and oriented to place and self but not time. Eating breakfast in bed. Has not had a BM since admission. Given mineral oil yesterday. Pt refused suppository. Also has h/o pulling own vazquez several days ago and inability to void afterwards. Vazquez currently in now. Objective GENERAL: Drowsy, in no distress. Oxygenating 94 on 2 L NC, 88 on room air. HENT: Normocephalic, bruising and 3mm horizontal laceration on right eyebrow present on admission. Oropharynx unremarkable. EYES: Normal conjunctiva. Sclera non-icteric. PERRL. NECK: Supple. No JVD. RESPIRATORY: Coarse breath sounds bilaterally. No respiratory distress. Has wet cough. CARDIAC: Regular rate, normal rhythm. Extremities warm and well perfused. Pulses equal. ABDOMEN: Soft, non-distended. No tenderness to palpation. No rebound or guarding. No masses. EXTREMITIES: SCD's in place. No edema. No discoloration. 3 peripheral IV's in tact. PICC line in tact right arm. Ecchymosis to arms and knees present on admission. NEURO: Breathing spontaneously. Assessment & Plan (1) Unresponsive episode (2) Hyponatremia (3) Seizure (4) Altered mental status (5) Elevated troponin (6) ETOH abuse (7) Tobacco use Reason Critically Ill: 62-year-old female with a significant past medical history of depression and alcohol abuse here due to severe hyponatremia Neuro - [facility] ICU: NEGATIVE Librium per alcohol withdrawal protocol, ativan PRN. Neuro checks per protocol Cardiac - Hemodynamically stable. Echocardiogram completed 11/08/17 and wnl: EF 55-60%. There is mild concentric left ventricular hypertrophy. Left ventricular systolic function is normal. Grade I diastolic dysfunction, (abnormal relaxation pattern). There is mild mitral annular calcification. Respiratory - Oxygenating 98 on 2 L via nasal cannula, weaning as tolerated. No known h/o PFT's/pulmonary disease -- recommend follow up PFT's in 4-6 weeks. Daily smoker 1PPD most of adult life Follow closely for respiratory failure. GI - Tolerating regular diet Constipated. Is flatulent. Mineral oil and Miralax and dulcolax ordered BID till she has BM. Follow. RENAL/LYTES - Nephrology consulted, appreciate recs. Na is at 128. Sodium tabs ordered TID till normalize. Goal is normal Na today. Continue monitoring serum sodium, rec q 12h Replacing Mg, K, and thiamine. - Self dc'ed vazquez 2 days ago and was not able to urinate afterwards. Vazquez replaced. Urinating adequately. Ordered dc vazquez and will need voiding trial with bladder scan post resid <150. Urology consult, appreciate recs. Recommend outpatient cystoscopy in 6-8 weeks to ensure no residual trauma to urethra. ENDO - No concerns at this time HEME - PLT normalized. Will continue Heparin, and monitor ID - No concerns for infection at this point. Urine culture and MRSA negative. Blood cx NGTD. Monitor fever curve. LINES/IV ACCESS - PIVs intact. PICC line in place in right arm. DVT PROPHYLAXIS - Enoxaparin 40mg daily sq Thank you for allowing us to be part of this patient's care. Please refer to Dr. Alvarez's documentation for any further recommendations. Pt will be transferred to med/surg today for further management. Resident Physician Supervision Note: Dr. Jamie Tran was resident physician during care of patient. I separately evaluated patient and did history and exam. I discussed the case with the resident and generally agree with the findings and plan. Significant improvement in mental status, increased salt intake, oriented at this time to participate in voiding trial to evaluate for urethral injury, will ultimately need follow-up with urology as noted in their recommendations. Stable for downgrade to the medical floor. Documented By: Gerardo Alvarez DO Consults & Procedures Consultants: Nephrology Procedures: PICC line placed 11/08/17 Echocardiogram completed 11/08/17 Data Medications: Current Inpatient Medications Medications (Trade) Dose Ordered Sig/Mali Route Start Time Stop Time Status Last Admin Dose Admin Lorazepam (Ativan Inj) 1 mg Q2H PRN IV 11/07/17 12:45 12/07/17 12:44 11/11/17 00:26 1 MG Enoxaparin Sodium (Lovenox Inj) 40 mg DAILY SQ 11/08/17 10:00 12/08/17 09:59 11/12/17 07:51 40 MG Nicotine (Nicoderm Cq 21MG Patch) 1 patch QAM TD 11/09/17 09:00 12/09/17 08:59 11/12/17 07:51 1 PATCH Miscellaneous (Remove Nicoderm Patch) 1 ea HS N/A 11/08/17 21:00 12/08/17 20:59 11/11/17 21:12 1 EA Heparin Sodium (Porcine) (Heparin 10 Unit/ ml 5 ml Flush) 5 ml PRN PRN FLUSH 11/08/17 13:45 12/08/17 13:44 Magnesium Oxide (Mag-Ox Tab) 400 mg HS PO 11/10/17 21:00 12/10/17 20:59 11/11/17 21:12 400 MG Thiamine HCl (Vitamin B-1 Tab) 200 mg Taper QAM PO 11/12/17 09:00 12/16/17 08:59 11/12/17 07:51 200 MG Bisacodyl (Dulcolax Tab) 5 mg QAM PO 11/12/17 09:00 12/12/17 08:59 11/12/17 08:53 5 MG Mineral Oil (Mineral Oil) 30 ml BID PO 11/12/17 21:00 12/12/17 20:59 Sodium Chloride (Sodium Chloride Tab) 1 gm TID PO 11/12/17 09:00 12/12/17 08:59 11/12/17 08:51 1 GM Folic Acid (Folvite Tab) 1 mg QAM PO 11/13/17 09:00 12/13/17 08:59 Polyethylene (Miralax Powder Packet) 17 gm BID PO 11/12/17 09:00 12/12/17 08:59 Vital Signs: Date Time Temp Pulse Resp B/P (MAP) Pulse Ox O2 Delivery O2 Flow Rate FiO2 11/12/17 09:06 36.6 105 22 88 2.0 11/12/17 08:00 Nasal Cannula 2.0 11/12/17 08:00 36.6 105 22 124/64 (84) 88 Room Air 11/12/17 06:11 111 25 112/75 (87) 94 Nasal Cannula 2.0 11/12/17 04:00 Nasal Cannula 2.0 11/12/17 04:00 36.5 105 18 133/69 (90) 97 Nasal Cannula 2.0 11/12/17 02:01 114 18 141/101 (114) 89 Room Air 11/12/17 00:01 Nasal Cannula 2.0 11/12/17 00:00 36.6 105 21 147/75 (99) 93 Room Air 11/11/17 22:00 107 14 155/86 (109) 94 Room Air 11/11/17 20:00 Room Air 95 11/11/17 20:00 18 124/83 (97) 94 Room Air 11/11/17 19:41 103 17 152/99 (116) 94 Room Air 11/11/17 19:21 36.7 11/11/17 19:20 103 19 168/101 (123) 94 Room Air 11/11/17 18:00 96 13 145/74 (97) 97 11/11/17 16:00 Nasal Cannula 2.0 95 11/11/17 15:49 37.0 104 17 158/84 (108) 97 Nasal Cannula 2.0 11/11/17 14:00 95 15 127/73 (91) 95 11/11/17 12:00 36.8 91 20 121/78 (92) 95 Room Air 11/11/17 12:00 Room Air 95 11/11/17 10:00 90 20 92 Room Air Laboratory Results: Last 24 Hours Test 11/11/17 11:56 11/11/17 16:02 11/11/17 19:37 11/11/17 23:58 Sodium Level 126 mmol/L 128 mmol/L 125 mmol/L 129 mmol/L Potassium Level 4.0 mmol/L 4.0 mmol/L 3.6 mmol/L 4.0 mmol/L Chloride Level 95 mmol/L 95 mmol/L 94 mmol/L 94 mmol/L Carbon Dioxide Level 26 mmol/L 30 mmol/L 28 mmol/L 30 mmol/L Anion Gap 5.0 mmol/L 3.0 mmol/L 3.0 mmol/L 4.0 mmol/L Blood Urea Nitrogen 3 mg/dl 3 mg/dl 6 mg/dl 7 mg/dl Creatinine 0.30 mg/dl 0.38 mg/dl 0.69 mg/dl 0.42 mg/dl Est Creatinine Clear Calc Drug Dose 184.2 ml/min 145.5 ml/min 80.1 ml/min 131.6 ml/min Estimated GFR () 143.2 132.5 108.9 128.2 Estimated GFR (Non- 123.6 114.3 94.0 110.6 BUN/Creatinine Ratio 9.5 8.2 9.0 17.5 Random Glucose 117 mg/dl 101 mg/dl 131 mg/dl 102 mg/dl Calcium Level 8.1 mg/dl 7.8 mg/dl 8.2 mg/dl 7.9 mg/dl Test 11/12/17 05:23 White Blood Count 7.35 K/uL Red Blood Count 3.79 M/uL Hemoglobin 12.3 g/dL Hematocrit 34.9 % Mean Corpuscular Volume 92.1 fL Mean Corpuscular Hemoglobin 32.5 pg Mean Corpuscular Hemoglobin Concent 35.2 g/dl Platelet Count 168 K/uL Mean Platelet Volume 9.5 fL Neutrophils (%) (Auto) 64.7 % Lymphocytes (%) (Auto) 9.9 % Monocytes (%) (Auto) 24.2 % Eosinophils (%) (Auto) 0.4 % Basophils (%) (Auto) 0.3 % Neutrophils # (Auto) 4.75 K/uL Lymphocytes # (Auto) 0.73 K/uL Monocytes # (Auto) 1.78 K/uL Eosinophils # (Auto) 0.03 K/uL Basophils # (Auto) 0.02 K/uL RDW Standard Deviation 44.5 fL RDW Coefficient of Variation 13.3 % Immature Granulocyte % (Auto) 0.5 % Immature Granulocyte # (Auto) 0.04 K/uL Prothrombin Time 10.6 SECONDS Prothromb Time International Ratio 1.0 Activated Partial Thromboplast Time 28.2 SECONDS Partial Thromboplastin Ratio 1.1 Sodium Level 128 mmol/L Potassium Level 4.0 mmol/L Chloride Level 94 mmol/L Carbon Dioxide Level 31 mmol/L Anion Gap 3.0 mmol/L Blood Urea Nitrogen 6 mg/dl Creatinine 0.35 mg/dl Est Creatinine Clear Calc Drug Dose 157.9 ml/min Estimated GFR () 136.1 Estimated GFR (Non- 117.5 BUN/Creatinine Ratio 18.3 Random Glucose 100 mg/dl Calcium Level 8.1 mg/dl Phosphorus Level 3.3 mg/dl Magnesium Level 1.8 mg/dl
[2017-11-12] MEDS: POLYETHYLENE (MIRALAX) 17 GM PACK PO SCH ×2 (09:27→20:10)
[2017-11-12 16:55] LABS: CALCIUM 8.4 mg/dl (8.5-10.1); CREATININE 0.38 mg/dl (0.60-1.20); POTASSIUM 3.6 mmol/L (3.5-5.1)
--- NOTE | 2017-11-12 17:34 | Progress Note ---
Subjective Date of Service: Nov 12, 2017. Subjective Pt evaluation today including: conversation w/ patient, physical exam, chart review, lab review, review of studies, review of inpatient medication list Pain: controlled PO Intake: adequate Voiding: no voiding problems patient has no complaint she was transferred from ICU after being stable for 2 days. she said that she used to take lorazepam twice a day at home Problem List Medical Problems: (1) Altered mental status Status: Acute (2) Elevated troponin Status: Acute (3) Hyponatremia Status: Acute (4) Seizure Status: Acute Review of Systems Constitutional: No see HPI, No fever, No chills, No sweats, No weight loss, No weakness, No fatigue, No problem reported Eyes: No see HPI, No worsening of vision, No eye pain, No redness, No discharge , No diplopia, No problem reported ENT: No see HPI, No hearing loss, No unusual epistaxis, No nasal symptoms, No sore throat, No tinnitus, No dental problems, No trouble swallowing, No problem reported Respiratory: + cough, + sputum, No see HPI, No wheezing, No shortness of breath , No dyspnea on exertion, No dyspnea at rest, No hemoptysis, No problem reported Cardiac: No see HPI, No chest pain, No orthopnea, No PND, No edema, No claudication, No palpitations, No problem reported Breast: No see HPI, No breast lump, No change in shape, No nipple discharge, No breast pain, No problem reported Abdomen: No see HPI, No pain, No nausea, No vomiting, No diarrhea, No constipation, No GI bleeding, No problem reported Musculoskeletal: No see HPI, No joint pain, No muscle pain, No swelling, No calf pain, No problem reported Female : No see HPI, No dysuria, No urinary frequency, No hematuria, No incontinence, No abnormal vaginal bleeding, No vaginal discharge, No problem reported Neurologic: No see HPI, No memory loss, No paralysis, No weakness, No numbness/ tingling, No vertigo, No balance problems, No problem reported Psychiatric: No see HPI, No depression symptoms, No anhedonism, No anxiety, No insomnia, No substance abuse, No problem reported Heme: No see HPI, No abnormal bleeding/bruising, No clotting problems, No swollen lymph nodes, No night sweats, No problem reported Endo: No see HPI, No fatigue, No excessive thirst, No excessive urination, No problem reported Skin: No see HPI, No rash, No itch, No new/changing skin lesions, No color change, No bleeding, No problem reported Medications Current Inpatient Medications Medications (Trade) Dose Ordered Sig/Mali Route Start Time Stop Time Status Last Admin Dose Admin Lorazepam (Ativan Inj) 1 mg Q2H PRN IV 11/07/17 12:45 12/07/17 12:44 11/11/17 00:26 1 MG Enoxaparin Sodium (Lovenox Inj) 40 mg DAILY SQ 11/08/17 10:00 12/08/17 09:59 11/12/17 07:51 40 MG Nicotine (Nicoderm Cq 21MG Patch) 1 patch QAM TD 11/09/17 09:00 12/09/17 08:59 11/12/17 07:51 1 PATCH Miscellaneous (Remove Nicoderm Patch) 1 ea HS N/A 11/08/17 21:00 12/08/17 20:59 11/11/17 21:12 1 EA Heparin Sodium (Porcine) (Heparin 10 Unit/ ml 5 ml Flush) 5 ml PRN PRN FLUSH 11/08/17 13:45 12/08/17 13:44 11/12/17 16:06 5 ML Magnesium Oxide (Mag-Ox Tab) 400 mg HS PO 11/10/17 21:00 12/10/17 20:59 11/11/17 21:12 400 MG Thiamine HCl (Vitamin B-1 Tab) 200 mg Taper QAM PO 11/12/17 09:00 12/16/17 08:59 11/12/17 07:51 200 MG Bisacodyl (Dulcolax Tab) 5 mg QAM PO 11/12/17 09:00 12/12/17 08:59 11/12/17 08:53 5 MG Mineral Oil (Mineral Oil) 30 ml BID PO 11/12/17 21:00 12/12/17 20:59 Sodium Chloride (Sodium Chloride Tab) 1 gm TID PO 11/12/17 09:00 12/12/17 08:59 11/12/17 13:34 1 GM Folic Acid (Folvite Tab) 1 mg QAM PO 11/13/17 09:00 12/13/17 08:59 Polyethylene (Miralax Powder Packet) 17 gm BID PO 11/12/17 09:00 12/12/17 08:59 11/12/17 09:27 17 GM Objective Vital Signs Date Time Temp Pulse Resp B/P (MAP) Pulse Ox O2 Delivery O2 Flow Rate FiO2 11/12/17 16:00 Room Air 11/12/17 15:06 37.1 113 20 156/72 (100) 92 11/12/17 09:30 92 Room Air 11/12/17 09:30 36.4 100 18 136/82 (100) 92 Room Air 11/12/17 09:06 36.6 105 22 88 2.0 11/12/17 08:00 Nasal Cannula 2.0 11/12/17 08:00 Nasal Cannula 11/12/17 08:00 36.6 105 22 124/64 (84) 88 Room Air 11/12/17 06:11 111 25 112/75 (87) 94 Nasal Cannula 2.0 11/12/17 04:00 Nasal Cannula 2.0 11/12/17 04:00 36.5 105 18 133/69 (90) 97 Nasal Cannula 2.0 11/12/17 02:01 114 18 141/101 (114) 89 Room Air 11/12/17 00:01 Nasal Cannula 2.0 11/12/17 00:00 36.6 105 21 147/75 (99) 93 Room Air 11/11/17 22:00 107 14 155/86 (109) 94 Room Air 11/11/17 20:00 Room Air 95 11/11/17 20:00 18 124/83 (97) 94 Room Air 11/11/17 19:41 103 17 152/99 (116) 94 Room Air 11/11/17 19:21 36.7 11/11/17 19:20 103 19 168/101 (123) 94 Room Air 11/11/17 18:00 96 13 145/74 (97) 97 Physical Exam General Appearance: WD/WN, no apparent distress Eyes: normal inspection, EOMI ENT: normal ENT inspection, hearing grossly normal Neck: supple Respiratory/Chest: chest non-tender, + decreased breath sounds, + crackles Cardiovascular: regular rate, rhythm, no edema, no gallop, no JVD, no murmur Abdomen: normal bowel sounds, non tender, soft, no organomegaly, no pulsatile mass Extremities: normal range of motion, non-tender, normal inspection, no pedal edema, no calf tenderness 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, no motor/sensory deficits, alert, normal mood/affect, oriented x 3 Skin: normal color, warm/dry, no rash Laboratory Results Last 24 Hours Test 11/11/17 19:37 11/11/17 23:58 11/12/17 05:23 11/12/17 16:05 Sodium Level 125 mmol/L 129 mmol/L 128 mmol/L 127 mmol/L Potassium Level 3.6 mmol/L 4.0 mmol/L 4.0 mmol/L 3.6 mmol/L Chloride Level 94 mmol/L 94 mmol/L 94 mmol/L 94 mmol/L Carbon Dioxide Level 28 mmol/L 30 mmol/L 31 mmol/L 30 mmol/L Anion Gap 3.0 mmol/L 4.0 mmol/L 3.0 mmol/L 3.0 mmol/L Blood Urea Nitrogen 6 mg/dl 7 mg/dl 6 mg/dl 7 mg/dl Creatinine 0.69 mg/dl 0.42 mg/dl 0.35 mg/dl 0.38 mg/dl Est Creatinine Clear Calc Drug Dose 80.1 ml/min 131.6 ml/min 157.9 ml/min 145.5 ml/min Estimated GFR () 108.9 128.2 136.1 132.5 Estimated GFR (Non- 94.0 110.6 117.5 114.3 BUN/Creatinine Ratio 9.0 17.5 18.3 19.1 Random Glucose 131 mg/dl 102 mg/dl 100 mg/dl 93 mg/dl Calcium Level 8.2 mg/dl 7.9 mg/dl 8.1 mg/dl 8.4 mg/dl White Blood Count 7.35 K/uL Red Blood Count 3.79 M/uL Hemoglobin 12.3 g/dL Hematocrit 34.9 % Mean Corpuscular Volume 92.1 fL Mean Corpuscular Hemoglobin 32.5 pg Mean Corpuscular Hemoglobin Concent 35.2 g/dl Platelet Count 168 K/uL Mean Platelet Volume 9.5 fL Neutrophils (%) (Auto) 64.7 % Lymphocytes (%) (Auto) 9.9 % Monocytes (%) (Auto) 24.2 % Eosinophils (%) (Auto) 0.4 % Basophils (%) (Auto) 0.3 % Neutrophils # (Auto) 4.75 K/uL Lymphocytes # (Auto) 0.73 K/uL Monocytes # (Auto) 1.78 K/uL Eosinophils # (Auto) 0.03 K/uL Basophils # (Auto) 0.02 K/uL RDW Standard Deviation 44.5 fL RDW Coefficient of Variation 13.3 % Immature Granulocyte % (Auto) 0.5 % Immature Granulocyte # (Auto) 0.04 K/uL Prothrombin Time 10.6 SECONDS Prothromb Time International Ratio 1.0 Activated Partial Thromboplast Time 28.2 SECONDS Partial Thromboplastin Ratio 1.1 Phosphorus Level 3.3 mg/dl Magnesium Level 1.8 mg/dl Test 11/12/17 16:38 Bedside Glucose 108 mg/dl Assessment and Plan 62-year-old female with history of recently started on Lexapro. she was found unresponsive at home with sodium level of 104 Assessment Metabolic encephalopathy, resolved secondary to below Acute on chronic severe hyponatremia SIRS present on admission with no clear source of infection Positive troponin likely demand ischemia Alcohol abuse Plan sodium level today is 127, did not advance much since yesterday S/P DDAVP 1 mcg administered 11/08, Appreciate Dr. Cedillo's Alcohol withdrawal precautions, [facility] then switched to lower dose of thiamine continue ativan per protocol, CT head was negative Check electrolytes in a.m. low pro-calcitonin ordered PT/OT Heparin for DVT prophylaxis Protonix for GI prophylaxis
[2017-11-12] MEDS: MINERAL OIL 30 ML UDC PO SCH (20:08)
[2017-11-12] MEDS: MAGNESIUM OXIDE 400 MG TAB PO SCH (20:47)
[2017-11-13 05:25] LABS: BASO % 0.3 %; BASO ABS # 0.02 K/uL (0-0.2); EOS ABS # 0.07 K/uL (0-0.5); HEMATOCRIT 34.1 % (37-47); IG# 0.06 K/uL (0.00-0.02); LYMPH % 14.2 %; MEAN CELL VOLUME 92.9 fL (80-100); MEAN CORPUSCULAR HEMOGLOBIN 32.7 pg (25-34); MEAN CORPUSCULAR HGB CONC 35.2 g/dl (32-36); MEAN PLATELET VOLUME 9.4 fL (7.4-10.4); MONO % 22.3 %; MONO ABS # 1.57 K/uL (0.11-0.59); NEUT % 61.3 %; NEUT ABS # 4.31 K/uL (1.4-6.5); PLATELET COUNT 176 K/uL (130-400); RED CELL DISTRIBUTION WIDTH CV 13.2 % (11.5-14.5); RED CELL DISTRIBUTION WIDTH SD 44.7 fL (36.4-46.3); WHITE BLOOD COUNT 7.03 K/uL (4.8-10.8)
[2017-11-13 05:53] LABS: ALBUMIN 2.5 gm/dl (3.4-5.0); CALCIUM 8.3 mg/dl (8.5-10.1); CREATININE 0.33 mg/dl (0.60-1.20); POTASSIUM 3.6 mmol/L (3.5-5.1)
[2017-11-13 05:55] LABS: TOTAL PROTEIN 6.1 gm/dl (6.4-8.2)
[2017-11-13 07:40] VITALS: BP 146/86; PULSE 96; TEMP 36.6; O2SAT 93
[2017-11-13] MEDS: POLYETHYLENE (MIRALAX) 17 GM PACK PO SCH (07:57)
[2017-11-13] MEDS: SODIUM CHLORIDE 1 GM TAB PO SCH ×3 (07:58→21:00)
[2017-11-13] MEDS: THIAMINE HCL 100 MG TAB PO SCH (07:58)
[2017-11-13] MEDS: NICOTINE 21 MG/24 HR TDSY TD SCH (07:58)
[2017-11-13] MEDS: ENOXAPARIN 40 MG/0.4 ML SYR SQ SCH (07:58)
[2017-11-13] MEDS: BISACODYL 5 MG TABEC PO SCH (07:58)
[2017-11-13] MEDS: MINERAL OIL 30 ML UDC PO SCH (07:59)
[2017-11-13 15:19] VITALS: BP 149/74; PULSE 92; TEMP 37; O2SAT 94
[2017-11-13] MEDS ORDERED: NURSING VERBAL MED ORDER ONE (20:45)
[2017-11-13] MEDS: MAGNESIUM OXIDE 400 MG TAB PO SCH (21:00)
--- NOTE | 2017-11-13 22:35 | Progress Note ---
Subjective Date of Service: Nov 13, 2017. Subjective Pt evaluation today including: conversation w/ patient 62 yo female with history of alcohol abuse. Patient believes the reason she has low salt is not due to her drinking about a 6 pack of beer daily (sometimes 5 beers a day). She states that it is likely due to her hip injection that she had in the beginning of October. She also states she was recently started on lexapro as well. She states that she is having trouble sleeping in the hospital and takes lorazepam at home as needed. She takes about .25 to 1 mg a day. Problem List Medical Problems: (1) Altered mental status Status: Acute (2) Elevated troponin Status: Acute (3) Hyponatremia Status: Acute (4) Seizure Status: Acute Review of Systems Constitutional: No fever, No chills Eyes: No worsening of vision ENT: No hearing loss Respiratory: No cough Cardiac: No chest pain Abdomen: No pain Neurologic: No memory loss Psychiatric: + depression symptoms, + anxiety, + insomnia Heme: No abnormal bleeding/bruising Endo: No fatigue Skin: No rash All Other Systems: Reviewed and Negative Medications Current Inpatient Medications Medications (Trade) Dose Ordered Sig/Mali Route Start Time Stop Time Status Last Admin Dose Admin Lorazepam (Ativan Inj) 1 mg Q2H PRN IV 11/07/17 12:45 12/07/17 12:44 11/11/17 00:26 1 MG Enoxaparin Sodium (Lovenox Inj) 40 mg DAILY SQ 11/08/17 10:00 12/08/17 09:59 11/14/17 07:42 40 MG Nicotine (Nicoderm Cq 21MG Patch) 1 patch QAM TD 11/09/17 09:00 12/09/17 08:59 11/14/17 07:42 1 PATCH Miscellaneous (Remove Nicoderm Patch) 1 ea HS N/A 11/08/17 21:00 12/08/17 20:59 11/13/17 21:00 1 EA Heparin Sodium (Porcine) (Heparin 10 Unit/ ml 5 ml Flush) 5 ml PRN PRN FLUSH 11/08/17 13:45 12/08/17 13:44 11/14/17 05:12 5 ML Magnesium Oxide (Mag-Ox Tab) 400 mg HS PO 11/10/17 21:00 5/11/18 20:59 11/13/17 21:00 400 MG Thiamine HCl (Vitamin B-1 Tab) 200 mg Taper QAM PO 11/12/17 09:00 12/16/17 08:59 11/14/17 07:43 200 MG Sodium Chloride (Sodium Chloride Tab) 1 gm TID PO 11/12/17 09:00 12/12/17 08:59 11/14/17 07:43 1 GM Folic Acid (Folvite Tab) 1 mg QAM PO 11/13/17 09:00 12/13/17 08:59 11/14/17 07:43 1 MG Objective Vital Signs Date Time Temp Pulse Resp B/P (MAP) Pulse Ox O2 Delivery O2 Flow Rate FiO2 11/13/17 19:15 Room Air 11/13/17 16:30 Room Air 11/13/17 15:19 37.0 92 18 149/74 (99) 94 Room Air 11/13/17 08:30 Room Air 11/13/17 07:40 36.6 96 18 146/86 (106) 93 Room Air 11/13/17 00:00 Room Air 11/12/17 23:48 37.4 106 18 165/81 (109) 90 Room Air Physical Exam Comments: General Appearance: WD/WN, no apparent distress Eyes: normal inspection, EOMI, ecchymosis on right eye ENT: normal ENT inspection, hearing grossly normal Neck: supple Respiratory/Chest: chest non-tender, + decreased breath sounds, + crackles Cardiovascular: regular rate, rhythm, no edema, no gallop, no JVD, no murmur Abdomen: normal bowel sounds, non tender, soft, no organomegaly, no pulsatile mass Extremities: normal range of motion, non-tender, normal inspection, no pedal edema, no calf tenderness Neurologic/Psychiatric: 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, no motor/sensory deficits, alert, normal mood/affect, oriented x 3 Skin: normal color, warm/dry, no rash Laboratory Results Last 24 Hours Test 11/13/17 05:09 11/13/17 07:31 11/13/17 11:16 11/13/17 16:21 White Blood Count 7.03 K/uL Red Blood Count 3.67 M/uL Hemoglobin 12.0 g/dL Hematocrit 34.1 % Mean Corpuscular Volume 92.9 fL Mean Corpuscular Hemoglobin 32.7 pg Mean Corpuscular Hemoglobin Concent 35.2 g/dl Platelet Count 176 K/uL Mean Platelet Volume 9.4 fL Neutrophils (%) (Auto) 61.3 % Lymphocytes (%) (Auto) 14.2 % Monocytes (%) (Auto) 22.3 % Eosinophils (%) (Auto) 1.0 % Basophils (%) (Auto) 0.3 % Neutrophils # (Auto) 4.31 K/uL Lymphocytes # (Auto) 1.00 K/uL Monocytes # (Auto) 1.57 K/uL Eosinophils # (Auto) 0.07 K/uL Basophils # (Auto) 0.02 K/uL RDW Standard Deviation 44.7 fL RDW Coefficient of Variation 13.2 % Immature Granulocyte % (Auto) 0.9 % Immature Granulocyte # (Auto) 0.06 K/uL Sodium Level 127 mmol/L Potassium Level 3.6 mmol/L Chloride Level 93 mmol/L Carbon Dioxide Level 31 mmol/L Anion Gap 3.0 mmol/L Blood Urea Nitrogen 6 mg/dl Creatinine 0.33 mg/dl Est Creatinine Clear Calc Drug Dose 167.5 ml/min Estimated GFR () 138.8 Estimated GFR (Non- 119.8 BUN/Creatinine Ratio 19.0 Random Glucose 98 mg/dl Calcium Level 8.3 mg/dl Magnesium Level 1.6 mg/dl Total Bilirubin 0.7 mg/dl Aspartate Amino Transf (AST/SGOT) 52 U/L Alanine Aminotransferase (ALT/SGPT) 48 U/L Alkaline Phosphatase 61 U/L Total Protein 6.1 gm/dl Albumin 2.5 gm/dl Globulin 3.6 gm/dl Albumin/Globulin Ratio 0.7 Bedside Glucose 93 mg/dl 82 mg/dl 94 mg/dl Test 11/13/17 20:26 Bedside Glucose 98 mg/dl Assessment and Plan 62-year-old female with history of recently started on Lexapro. she was found unresponsive at home with sodium level of 104 Assessment Metabolic encephalopathy, resolved secondary to below Acute on chronic severe hyponatremia SIRS present on admission with no clear source of infection Positive troponin likely demand ischemia Alcohol abuse Plan sodium level today is 127, did not advance much since yesterday. Will continue to monitor, if level decreases tomorrow, will ask for further input from nephro team. S/P DDAVP 1 mcg administered 11/08, Appreciate Dr. Cedillo's Has signed off. Alcohol withdrawal precautions, thiamine [place] treatment does for 3 days then switched to lower dose of thiamine continue ativan per protocol, Will not add more Ativan at this time. Explained to patient that doubt SNRI was cause of her hyponatremia, and I believe her alcoholism likely played a role. Concerning however that her sodium has not improved from more than 127. SNRI can cause SIADH but are more rare. Patient also believes that she think the corticosteroid used for her hip injection could have caused this. I explained that this is very unlikely. I discussed at length the importance of not drinking as she may have more complications in the future from drinking alcohol. CT head was negative Check electrolytes in a.m. low pro-calcitonin ordered PT/OT Heparin for DVT prophylaxis Protonix for GI prophylaxis
[2017-11-13 23:10] VITALS: BP 169/93; PULSE 100; TEMP 37.2; O2SAT 100
[2017-11-14 05:49] LABS: CALCIUM 8.2 mg/dl (8.5-10.1); CREATININE 0.32 mg/dl (0.60-1.20); POTASSIUM 3.4 mmol/L (3.5-5.1)
[2017-11-14 07:22] VITALS: BP 169/78; PULSE 96; TEMP 36.7; O2SAT 93
[2017-11-14] MEDS: NICOTINE 21 MG/24 HR TDSY TD SCH (07:42)
[2017-11-14] MEDS: ENOXAPARIN 40 MG/0.4 ML SYR SQ SCH (07:42)
[2017-11-14] MEDS: THIAMINE HCL 100 MG TAB PO SCH (07:43)
[2017-11-14] MEDS: SODIUM CHLORIDE 1 GM TAB PO SCH ×3 (07:43→20:44)
[2017-11-14] MEDS ORDERED: LEVALBUTEROL 1.25MG/0.5ML NEB INH PRN (15:30)
[2017-11-14 15:43] VITALS: BP 148/87; PULSE 95; TEMP 37.3; O2SAT 95
[2017-11-14] MEDS ORDERED: LEVALBUTEROL 1.25MG/0.5ML NEB INH SCH (15:45)
[2017-11-14] MEDS ORDERED: FUROSEMIDE 20 MG TAB PO ONE (16:00)
--- NOTE | 2017-11-14 16:32 | DIAGNOSTIC IMAGING REPORT ---
CHEST 2 VIEWS ROUTINE CLINICAL HISTORY: 62 years-old Female presenting with wheezing. TECHNIQUE: PA and lateral views of the chest were obtained. COMPARISON: 11/09/2017. FINDINGS: Right upper extremity PICC again terminates in the mid SVC. Atherosclerosis of aortic arch. Cardiac silhouette normal in size. Diffuse prominence of lung markings. Mild peribronchial cuffing vague perihilar opacity. No other focal opacity. No large effusion or pneumothorax. Osseous structures normal. Upper abdomen normal. IMPRESSION: 1. Appropriately positioned right upper extremity PICC. 2. Bronchial wall thickening and vague perihilar opacities suggest reactive airways disease or viral bronchiolitis. No focal infiltrate to suggest pneumonia. Electronically signed by: Prashanth Licea M.D. 11/14/2017 4:31 PM Dictated Date/Time: 11/14/2017 4:29 PM
[2017-11-14] MEDS: MAGNESIUM OXIDE 400 MG TAB PO SCH (20:43)
[2017-11-14] MEDS: POTASSIUM CHLORIDE 20 MEQ TABCR PO SCH (20:43)
[2017-11-14] MEDS: LORAZEPAM 1 MG TAB PO PRN (21:57)
--- NOTE | 2017-11-14 22:22 | Progress Note ---
Subjective Date of Service: Nov 14, 2017. Subjective Pt evaluation today including: conversation w/ patient, conversation w/ family , physical exam Patient reports feeling well. On questioning she denies any signs of alcohol withdrawal: such as tremors, agitation, hallucinations. Problem List Medical Problems: (1) Altered mental status Status: Acute (2) Elevated troponin Status: Acute (3) Hyponatremia Status: Acute (4) Seizure Status: Acute Review of Systems Constitutional: No fever, No chills Eyes: No worsening of vision ENT: No hearing loss Respiratory: No cough Cardiac: No chest pain Abdomen: No pain Neurologic: No memory loss Psychiatric: + anxiety, + insomnia Endo: No fatigue Skin: No rash All Other Systems: Reviewed and Negative Medications Current Inpatient Medications Medications (Trade) Dose Ordered Sig/Mali Route Start Time Stop Time Status Last Admin Dose Admin Lorazepam (Ativan Inj) 1 mg Q2H PRN IV 11/07/17 12:45 12/07/17 12:44 11/11/17 00:26 1 MG Enoxaparin Sodium (Lovenox Inj) 40 mg DAILY SQ 11/08/17 10:00 12/08/17 09:59 11/14/17 07:42 40 MG Nicotine (Nicoderm Cq 21MG Patch) 1 patch QAM TD 11/09/17 09:00 12/09/17 08:59 11/14/17 07:42 1 PATCH Miscellaneous (Remove Nicoderm Patch) 1 ea HS N/A 11/08/17 21:00 12/08/17 20:59 11/14/17 20:44 1 EA Heparin Sodium (Porcine) (Heparin 10 Unit/ ml 5 ml Flush) 5 ml PRN PRN FLUSH 11/08/17 13:45 12/08/17 13:44 11/14/17 05:12 5 ML Magnesium Oxide (Mag-Ox Tab) 400 mg HS PO 11/10/17 21:00 12/10/17 20:59 11/14/17 20:43 400 MG Thiamine HCl (Vitamin B-1 Tab) 200 mg Taper QAM PO 11/12/17 09:00 12/16/17 08:59 11/14/17 07:43 200 MG Folic Acid (Folvite Tab) 1 mg QAM PO 11/13/17 09:00 12/13/17 08:59 11/14/17 07:43 1 MG Potassium Chloride (Klor-Con Tab) 20 meq BID PO 11/14/17 21:00 11/16/17 09:01 11/14/17 20:43 20 MEQ Sodium Chloride (Sodium Chloride Tab) 2 gm BID PO 11/14/17 21:00 12/12/17 08:59 11/14/17 20:44 2 GM Furosemide (Lasix Tab) 20 mg QAM PO 11/15/17 09:00 12/15/17 08:59 Levalbuterol (Xopenex 1.25MG/ 0.5ML Neb) 1.25 mg Q6HWA PRN INH 11/14/17 15:30 12/14/17 15:29 Lorazepam (Ativan Tab) 1 mg HS PRN PO 11/14/17 21:45 12/14/17 21:44 11/14/17 21:57 1 MG Objective Vital Signs Date Time Temp Pulse Resp B/P (MAP) Pulse Ox O2 Delivery O2 Flow Rate FiO2 11/14/17 16:15 Room Air 11/14/17 15:43 37.3 95 18 148/87 (107) 95 Room Air 11/14/17 08:15 Room Air 11/14/17 07:22 36.7 96 18 169/78 (108) 93 Room Air 11/14/17 00:30 Room Air 11/13/17 23:10 37.2 100 18 169/93 (118) 100 Room Air Physical Exam Comments: General Appearance: WD/WN, no apparent distress Eyes: normal inspection, EOMI, ecchymosis on right eye ENT: normal ENT inspection, hearing grossly normal Neck: supple Respiratory/Chest: chest non-tender, + decreased breath sounds, + crackles Cardiovascular: regular rate, rhythm, no edema, no gallop, no JVD, no murmur Abdomen: normal bowel sounds, non tender, soft, no organomegaly, no pulsatile mass Extremities: normal range of motion, non-tender, normal inspection, no pedal edema, no calf tenderness 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, no motor/sensory deficits, alert, normal mood/affect, oriented x 3 Skin: normal color, warm/dry, no rash Laboratory Results Last 24 Hours Test 11/14/17 05:04 11/14/17 07:32 11/14/17 11:22 4/15/18 16:32 Sodium Level 125 mmol/L Potassium Level 3.4 mmol/L Chloride Level 90 mmol/L Carbon Dioxide Level 29 mmol/L Anion Gap 6.0 mmol/L Blood Urea Nitrogen 6 mg/dl Creatinine 0.32 mg/dl Est Creatinine Clear Calc Drug Dose 172.7 ml/min Estimated GFR () 140.2 Estimated GFR (Non- 121.0 BUN/Creatinine Ratio 19.7 Random Glucose 89 mg/dl Calcium Level 8.2 mg/dl Bedside Glucose 102 mg/dl 118 mg/dl 92 mg/dl Assessment and Plan 62-year-old female with history of recently started on Lexapro. she was found unresponsive at home with sodium level of 104 Assessment Metabolic encephalopathy, resolved secondary to below Acute on chronic severe hyponatremia SIRS present on admission with no clear source of infection Positive troponin likely demand ischemia Alcohol abuse Plan sodium level today is 125, did not advance much since yesterday; actually worsened a bit. D/W nephro will start lasix PO. increase sodium tabs strength. recheck sodium in AM S/P DDAVP 1 mcg administered 11/08, Appreciate Dr. Cedillo's Alcohol withdrawal precautions, thiamine K[place]akoff treatment does for 3 days then switched to lower dose of thiamine continue ativan per protocol, Will not add more Ativan at this time. Explained to patient that doubt SNRI was cause of her hyponatremia, and I believe her alcoholism likely played a role. Concerning however that her sodium has not improved from more than 127. SNRI can cause SIADH but are more rare. Patient also believes that she think the corticosteroid used for her hip injection could have caused this. I explained that this is very unlikely. I discussed at length the importance of not drinking as she may have more complications in the future from drinking alcohol. CT head was negative Check electrolytes in a.m. low pro-calcitonin ordered PT/OT Heparin for DVT prophylaxis Protonix for GI prophylaxis Continued [facility] stay due to: other (abnormal labs) Discharge planning: uncertain
[2017-11-14 22:55] VITALS: BP 151/89; PULSE 91; TEMP 37.3; O2SAT 97
--- NOTE | 2017-11-14 23:22 | Progress Note ---
Post ICU Progress Note Date & Time Nov 14, 2017 at 23:13 Vital Signs Vital Signs Past 12 Hours Date Time Temp Pulse Resp B/P (MAP) Pulse Ox O2 Delivery O2 Flow Rate FiO2 11/14/17 16:15 Room Air 11/14/17 15:43 37.3 95 18 148/87 (107) 95 Room Air Notes Mental Status: alert / awake, participated in evaluation Nausea / Vomiting: adequately controlled Pain: adequately controlled Airway Patency, RR, SpO2: stable & adequate BP & HR: stable & adequate Anni Molina is a 62-year-old female who is found in her bedroom unresponsive and upon admission to [facility] was found to be hyponatremic with a level of 104. She was admitted to the ICU where her sodium was closely trended and repleted appropriately. Patient admits to drinking, smoking and marijuana use. She was monitored and at no point demonstrated signs of withdrawal. Patient was not intubated as she was maintaining her airway. Patient did not undergo invasive monitoring, central line or arterial line access. Patient did however undergo a right upper arm PICC line which remains in place at this time. Patient was downgraded to telemetry status on November 12. Upon my examination today patient's only complaints are some generalized pain from laying in her bed. She does state that she has been walking the halls with her without problem. She was happy that her Schrader catheter had been removed and she is urinating appropriately. She does complain that she does not care for her current doctor and that he has been withholding medications from her including her allergy medications and her Lorazepam. She asked me for 10 mg of lorazepam upon exiting the room for her anxiety. I did resume her 1 mg p.o. Ativan home medication for night administration at this time. Patient is stabilized sodium today is 125 and is being monitored by the hospitalist team. Consider outpatient follow up in 1 to 2 weeks with: Dr. Zia Salgado Repeat imaging needed: ELLYN Follow up cultures: NA Reviewed progress notes, labs, and inpatient medication list Continue current management Additional recommendations: Onur provide nurse with a HS order for 1mg PO Ativan per patients outpt med list. Critical care will sign off at this time. Thank you for including us in the care of this patient; please feel free to reconsult as needed. [facility] inpatient billing Thank you for including us in the care of this patient. Please review Dr. Gerardo Alvarez's addendum for further recommendations. Consults & Procedures Consultants: Nephrology: Dr. Jonathan Zuniga Urology: Dr. Deon Méndez Procedures: PICC line placed 11/08/17 Echocardiogram completed 11/08/17
[2017-11-15] VITALS: O2SAT 97
[2017-11-15 07:28] VITALS: BP 124/74; PULSE 85; TEMP 36.7; O2SAT 95
[2017-11-15] MEDS: NICOTINE 21 MG/24 HR TDSY TD SCH (07:40)
[2017-11-15] MEDS: ENOXAPARIN 40 MG/0.4 ML SYR SQ SCH (07:41)
[2017-11-15] MEDS: FUROSEMIDE 20 MG TAB PO SCH (07:41)
[2017-11-15] MEDS: THIAMINE HCL 100 MG TAB PO SCH (07:41)
[2017-11-15] MEDS: SODIUM CHLORIDE 1 GM TAB PO SCH ×2 (07:42→20:34)
[2017-11-15] MEDS: POTASSIUM CHLORIDE 20 MEQ TABCR PO SCH ×2 (07:42→20:35)
[2017-11-15 08:23] LABS: HEMATOCRIT 36.2 % (37-47); HEMOGLOBIN 12.8 g/dL (12.0-16.0); MEAN CELL VOLUME 92.8 fL (80-100); MEAN CORPUSCULAR HEMOGLOBIN 32.8 pg (25-34); MEAN CORPUSCULAR HGB CONC 35.4 g/dl (32-36); MEAN PLATELET VOLUME 9.4 fL (7.4-10.4); PLATELET COUNT 219 K/uL (130-400); RED CELL DISTRIBUTION WIDTH SD 44.4 fL (36.4-46.3); WHITE BLOOD COUNT 5.41 K/uL (4.8-10.8)
[2017-11-15 08:54] LABS: CALCIUM 8.4 mg/dl (8.5-10.1); CREATININE 0.44 mg/dl (0.60-1.20); POTASSIUM 3.5 mmol/L (3.5-5.1)
--- NOTE | 2017-11-15 14:36 | Hospitalist Progress Note ---
Hospitalist Progress Note Date of Service Nov 15, 2017. Subjective Pt evaluation today including: conversation w/ patient, conversation w/ family ( at bedside ), physical exam, lab review, review of studies, review of inpatient medication list Voiding: no voiding problems Patient resting in bed. Feeling well. Eating and drinking OK. +weakness, feeling stronger each day. +anxiousness due to situation but controlled w/ Ativan. at bedside- continues to improve daily, walking around the halls with his assistance, but stronger. Encouraged importance of proper nutrition, alcohol cessation, smoking cessation. and patient both in understanding. Patient denies any fever, chills, sweats, lightheadedness, dizziness, vision changes, CP, palpitations, edema, SOB, wheezing, cough, abdominal pain, nausea, vomiting, diarrhea, urinary symptoms, melena, numbness/tingling, muscle/joint pain, depression, active bleeding, or new skin discoloration/changes. Medications Current Inpatient Medications Medications (Trade) Dose Ordered Sig/Mali Route Start Time Stop Time Status Last Admin Dose Admin Lorazepam (Ativan Inj) 1 mg Q2H PRN IV 11/07/17 12:45 12/07/17 12:44 11/11/17 00:26 1 MG Enoxaparin Sodium (Lovenox Inj) 40 mg DAILY SQ 11/08/17 10:00 12/08/17 09:59 11/15/17 07:41 40 MG Nicotine (Nicoderm Cq 21MG Patch) 1 patch QAM TD 11/09/17 09:00 12/09/17 08:59 11/15/17 07:40 1 PATCH Miscellaneous (Remove Nicoderm Patch) 1 ea HS N/A 11/08/17 21:00 12/08/17 20:59 11/14/17 20:44 1 EA Heparin Sodium (Porcine) (Heparin 10 Unit/ ml 5 ml Flush) 5 ml PRN PRN FLUSH 11/08/17 13:45 12/08/17 13:44 11/14/17 05:12 5 ML Magnesium Oxide (Mag-Ox Tab) 400 mg HS PO 11/10/17 21:00 12/10/17 20:59 11/14/17 20:43 400 MG Thiamine HCl (Vitamin B-1 Tab) 200 mg Taper QAM PO 11/12/17 09:00 12/16/17 08:59 11/15/17 07:41 200 MG Folic Acid (Folvite Tab) 1 mg QAM PO 11/13/17 09:00 12/13/17 08:59 11/15/17 07:42 1 MG Potassium Chloride (Klor-Con Tab) 20 meq BID PO 11/14/17 21:00 11/16/17 09:01 11/15/17 07:42 20 MEQ Sodium Chloride (Sodium Chloride Tab) 2 gm BID PO 11/14/17 21:00 12/12/17 08:59 11/15/17 07:42 2 GM Furosemide (Lasix Tab) 20 mg QAM PO 11/15/17 09:00 12/15/17 08:59 11/15/17 07:41 20 MG Levalbuterol (Xopenex 1.25MG/ 0.5ML Neb) 1.25 mg Q6HWA PRN INH 11/14/17 15:30 12/14/17 15:29 Lorazepam (Ativan Tab) 1 mg HS PRN PO 11/14/17 21:45 12/14/17 21:44 11/14/17 21:57 1 MG Objective Vital Signs Date Time Temp Pulse Resp B/P (MAP) Pulse Ox O2 Delivery O2 Flow Rate FiO2 11/15/17 08:15 Room Air 11/15/17 07:28 36.7 85 20 124/74 (91) 95 Room Air 11/15/17 00:00 97 Room Air 11/14/17 22:55 37.3 91 18 151/89 (109) 97 Room Air 11/14/17 16:15 Room Air 11/14/17 15:43 37.3 95 18 148/87 (107) 95 Room Air Physical Exam General Appearance: no apparent distress Eyes: PERRL, + pertinent finding (brusing around R orbit ) ENT: hearing grossly normal Neck: supple Respiratory/Chest: lungs clear, no respiratory distress, no accessory muscle use Cardiovascular: regular rate, rhythm Abdomen: normal bowel sounds, non tender, soft Extremities: no pedal edema, no calf tenderness Neurologic/Psychiatric: alert, normal mood/affect, oriented x 3 Skin: normal color, warm/dry, no rash Laboratory Results Last 24 Hours Test 11/14/17 16:32 11/15/17 08:05 Bedside Glucose 92 mg/dl White Blood Count 5.41 K/uL Red Blood Count 3.90 M/uL Hemoglobin 12.8 g/dL Hematocrit 36.2 % Mean Corpuscular Volume 92.8 fL Mean Corpuscular Hemoglobin 32.8 pg Mean Corpuscular Hemoglobin Concent 35.4 g/dl RDW Standard Deviation 44.4 fL RDW Coefficient of Variation 13.0 % Platelet Count 219 K/uL Mean Platelet Volume 9.4 fL Sodium Level 127 mmol/L Potassium Level 3.5 mmol/L Chloride Level 91 mmol/L Carbon Dioxide Level 30 mmol/L Anion Gap 6.0 mmol/L Blood Urea Nitrogen 5 mg/dl Creatinine 0.44 mg/dl Est Creatinine Clear Calc Drug Dose 124.8 ml/min Estimated GFR () 126.3 Estimated GFR (Non- 108.9 BUN/Creatinine Ratio 12.3 Random Glucose 128 mg/dl Calcium Level 8.4 mg/dl Assessment and Plan 62-year-old female with history of recently started on Lexapro. she was found unresponsive at home with sodium level of 104 Metabolic encephalopathy secondary to acute on chronic severe hypoNA- RESOLVING , alcohol abuse: - Admitted to ICU- transferred to med/surg- STABLE - Follow Na- 127 today- Na in 09/2017 at 130 - Treated w/ IV NSS and DDAVP - Continue Lasix 20 mg daily and Sodium chloride 2 gm BID - Stop Lexapro - IV Thiamine taper + Folic acid - Encourage alcohol cessation, healthy diet - Alcohol withdrawal protocol - BCx NG; UCx NG; MRSA swab negative - Nephrology consulted- signed-off at this time Hypomagnesemia: Continue Mag-Ox supplement Hypokalemia- RESOLVED: KCL supplement, follow PRP and replace PRN Anxiety: - Stop Lexapro as above - Continue Ativan 1 mg HS and IV Ativan PRN for anxiousness Tobacco abuse: - Smoking cessation encouraged - Nicotine patch DVT prophylaxis: Lovenox SQ daily Code status: LEVEL I, FULL Dispo: Discharge to home once medically stable- hopefully in the next 1-2 days- CM and PT/OT following
[2017-11-15 14:56] VITALS: BP 123/75; PULSE 94; TEMP 37.2; O2SAT 98
[2017-11-15] MEDS: IBUPROFEN 200 MG TAB PO PRN ×2 (15:31→23:34)
[2017-11-15 16:00] VITALS: O2SAT 98
[2017-11-15] MEDS: MAGNESIUM OXIDE 400 MG TAB PO SCH (20:35)
[2017-11-15] MEDS: LORAZEPAM 1 MG TAB PO PRN (20:38)
[2017-11-15 23:04] VITALS: BP 151/78; PULSE 89; TEMP 36.6; O2SAT 97
[2017-11-16 06:23] LABS: CALCIUM 8.4 mg/dl (8.5-10.1); CREATININE 0.33 mg/dl (0.60-1.20); POTASSIUM 3.8 mmol/L (3.5-5.1)
[2017-11-16 07:10] VITALS: BP 131/77; PULSE 77; TEMP 36.5; O2SAT 99
[2017-11-16] MEDS: FUROSEMIDE 20 MG TAB PO SCH (08:06)
[2017-11-16] MEDS: POTASSIUM CHLORIDE 20 MEQ TABCR PO SCH (08:06)
[2017-11-16] MEDS: NICOTINE 21 MG/24 HR TDSY TD SCH (08:07)
[2017-11-16] MEDS: THIAMINE HCL 100 MG TAB PO SCH (08:07)
[2017-11-16] MEDS: SODIUM CHLORIDE 1 GM TAB PO SCH (08:08)
[2017-11-16] MEDS: ENOXAPARIN 40 MG/0.4 ML SYR SQ SCH (08:10)
[2017-11-16] MEDS ORDERED: MGNO400 PO (08:17)
[2017-11-16] MEDS ORDERED: LSX20 PO (08:17)
[2017-11-16] MEDS ORDERED: MCRK20 PO (08:17)
[2017-11-16] MEDS ORDERED: SDMC1 PO (08:17)
[2017-11-16] MEDS ORDERED: THM100 PO (08:17)
[2017-11-16] MEDS ORDERED: FLV1 PO (08:17)
--- NOTE | 2017-11-16 08:24 | Discharge Instructions ---
Discharge Instructions Date of Service Nov 16, 2017. Admission Reason for Admission: Acute Hyponatremia,Etoh Abuse,Unresponsive Episode Discharge Discharge Diagnosis / Problem: Hyponatremia, altered mental status, alcohol abuse Discharge Goals Goal(s): Improve function, Improve disease control Activity Recommendations Activity Limitations: resume your previous activity Exercise/Sports Limitations: as tolerated May Resume Sexual Activity: when tolerated Shower/Bathe: no limitations Driving or Machine Use: no driving after taking Ativan . Instructions / Follow-Up Instructions / Follow-Up Medications: - SODIUM CHLORIDE: 2gm (2 tablets) twice a day - LASIX: 20mg daily, this is to help retain sodium and decrease urinary concentrating ability - FOLIC ACID and THIAMINE and MAGNESIUM and POTASSIUM: daily supplements, take as prescribed Hyponatremia (low sodium) dangerously low on admission at 104 (normal 135) at this level you can suffer seizures, coma, corrected over admission, today sodium is 130 continue to take sodium chloride tablets and Lasix as prescribed recommended that you stop drinking as heavy alcohol abuse with poor intake of food can lead to hyponatremia also, Lexapro was stopped as this may have been contributing you need to call Dr. Salgado for follow up next week and get a repeat sodium level Alcohol abuse: as discussed, recommended that you stop drinking damage to the liver is irreversible at this time, you want to stop drinking before you develop cirrhosis your drinking obviously affected your sodium level but also has effected your nutrition please reach out to your PCP for information on alcohol cessation FOLLOW UP - call for appointment with Dr. Salgado in 5-7 days - call for appointment with Dr. Zuniga (nephrology) in several weeks, [phone] Current Hospital Diet Patient's current hospital diet: Regular Diet Discharge Diet Recommended Diet: Regular Diet Pending Studies Studies pending at discharge: no Medical Emergencies . Who to Call and When: Medical Emergencies: If at any time you feel your situation is an emergency, please call 911 immediately. . Non-Emergent Contact Non-Emergency issues call your: Primary Care Provider, [employer] Beauty Advisor Call Non-Emergent contact if: you have any medication questions . . "Provider Documentation" section prepared by Chetan Roque. . [place] Drug Monitoring Program Search Results: no issues identified
--- NOTE | 2017-11-16 09:19 | Discharge Summary ---
Discharge Summary Date of Service Nov 16, 2017. Discharge Summary Admission Date: Nov 07, 2017 at 12:57 Discharge Date: Nov 16, 2017 Discharge Disposition: Home Principal Diagnosis: Acute hyponatremia Problems/Secondary Diagnoses: Metabolic encephalopathy acute on chronic severe hypoNA alcohol abuse Hypomagnesemia Hypokalemia Anxiety Tobacco abuse grade I diastolic dysfunction Hematuria secondary to Schrader trauma R hip pain Procedures: CT HEAD WITHOUT CONTRAST (CT) CLINICAL HISTORY: Stroke UNRESPONSIVE PATIENT COMPARISON STUDY: MRI dated 08/31/2011 TECHNIQUE: Axial CT of the brain is performed from the vertex to the skull base. IV contrast was not administered for this examination. A dose lowering technique was utilized adhering to the principles of ALARA. CT DOSE: 537.48 mGy.cm FINDINGS: No intra or extra-axial mass lesions are visualized. There is no CT evidence of acute cortical infarction. There is no evidence of midline shift. There is no acute hemorrhage. No calvarial fractures are visualized. There are patchy white matter hypodensities likely on a small vessel basis. There is no evidence of pathologic ventricular dilatation. There is no evidence of acute sinusitis As there are no CT findings to explain the patient's neurological condition, an MRI might be considered in follow-up. IMPRESSION: No acute intracranial findings Electronically signed by: Ebenezer Hunter M.D. 11/07/2017 11:38 AM Dictated Date/Time: 11/07/2017 11:35 AM The status of this report is Signed. Draft = Not yet reviewed or approved by Radiologist. Signed = Reviewed and approved by Radiologist CHEST ONE VIEW PORTABLE CLINICAL HISTORY: UNRESPONSIVE CHANGE IN MENTAL STATUS COMPARISON STUDY: No previous studies for comparison. FINDINGS: The cardiac and mediastinal contours are normal. There is no evidence of focal pulmonary consolidation. There is no evidence of failure. No pleural effusions are visualized.[ IMPRESSION: No active disease in the chest. Electronically signed by: Ebenezer Hunter M.D. 11/07/2017 12:16 PM Dictated Date/Time: 11/07/2017 12:16 PM The status of this report is Signed. Draft = Not yet reviewed or approved by Radiologist. Signed = Reviewed and approved by Radiologist CHEST ONE VIEW PORTABLE HISTORY: Respiratory failure. COMPARISON: Chest 11/07/2017. FINDINGS: Interval development of mild diffuse interstitial thickening, left greater than right. A right PICC terminates in the SVC. The heart is normal in size. No pleural effusions. No pneumothorax. IMPRESSION: Interval development of mild diffuse interstitial thickening, left greater than right. This could represent developing congestive change or an interstitial pneumonitis. The right PICC terminates in the SVC. Electronically signed by: Edgar Cordova M.D. 11/09/2017 7:23 AM Dictated Date/Time: 11/09/2017 7:22 AM The status of this report is Signed. Draft = Not yet reviewed or approved by Radiologist. Signed = Reviewed and approved by Radiologist CHEST 2 VIEWS ROUTINE CLINICAL HISTORY: 62 years-old Female presenting with wheezing. TECHNIQUE: PA and lateral views of the chest were obtained. COMPARISON: 11/09/2017. FINDINGS: Right upper extremity PICC again terminates in the mid SVC. Atherosclerosis of aortic arch. Cardiac silhouette normal in size. Diffuse prominence of lung markings. Mild peribronchial cuffing vague perihilar opacity. No other focal opacity. No large effusion or pneumothorax. Osseous structures normal. Upper abdomen normal. IMPRESSION: 1. Appropriately positioned right upper extremity PICC. 2. Bronchial wall thickening and vague perihilar opacities suggest reactive airways disease or viral bronchiolitis. No focal infiltrate to suggest pneumonia. Electronically signed by: Prashanth Licea M.D. 11/14/2017 4:31 PM Dictated Date/Time: 11/14/2017 4:29 PM The status of this report is Signed. Draft = Not yet reviewed or approved by Radiologist. Signed = Reviewed and approved by Radiologist ECHOCARDIOGRAM: Interpretation Summary * Name: RIN JAIME Study Date: 11/08/2017 07:26 AM BP: 115/65 mmHg * Patient Location: [facility] [place]\S\1 HR: 88 * : 1955 (M/d/yyyy) Gender: Female Height: 66 in * Age: 62 yrs Ethnicity: [place] Weight: 138 lb * Ordering Physician: Javi Chavira * Referring Physician: Self, Referred * Performed By: Denisse Loco RCS * * Reason For Study: ALT OF CONSCIOUSNESS * BSA: 1.7 m2 * -- Conclusions -- * There is mild concentric left ventricular hypertrophy. * Left ventricular systolic function is normal. * Grade I diastolic dysfunction, (abnormal relaxation pattern). * There is mild mitral annular calcification. Procedure Details * A complete two-dimensional transthoracic echocardiogram was performed (2D, M- mode, Doppler and color flow Doppler). Left Ventricle * The left ventricle is normal in size. * There is mild concentric left ventricular hypertrophy. * Left ventricular systolic function is normal. * Ejection Fraction = 55-60%. * Grade I diastolic dysfunction, (abnormal relaxation pattern). * The left ventricular wall motion is normal. Right Ventricle * The right ventricle is normal in size and function. Atria * The left atrial size is normal. * Right atrial size is normal. Mitral Valve * There is mild mitral annular calcification. * Significant mitral regurgitation is absent. Tricuspid Valve * The tricuspid valve is not well visualized, but is grossly normal. * Significant tricuspid regurgitation is absent. Aortic Valve * Aortic valve sclerosis moderate, without significant aortic valvular stenosis. * There is no significant aortic regurgitation. Pulmonic Valve * The pulmonic valve is not well visualized. Great Vessels * The aortic root is normal size. Pericardium/Pleural * There is no pericardial effusion. Great Vessels * Normal inferior vena cava diameter and respiratory variation suggests normal central venous pressure. Consultations: Nephrology- Dr. Zuniga ICU- Dr. Martinez Urology- Dr. Méndez Medication Reconciliation New Medications: Folic Acid (Folic Acid) 1 Mg Tab 1 MG PO QAM, #30 TAB 1 Refill Furosemide (Furosemide) 20 Mg Tab 20 MG PO QAM, #30 TAB 1 Refill Magnesium Oxide (Magnesium-Oxide) 400 Mg Tab 400 MG PO HS, #30 TAB 3 Refills Potassium Chloride (Klor-Con M20) 20 Meq Tabcr 20 MEQ PO BID, #60 TABS 1 Refill Sodium Chloride (Sodium Chloride) 1 Gm Tab 2 GM PO BID, #120 TAB 1 Refill Thiamine HCl (Vitamin B-1) 100 Mg Tab 100 MG PO QAM, #30 TAB 1 Refill Continued Medications: Cromolyn Sodium (Ophth) (Opticrom Oph) 4 % Joy 1 DROPS OP DAILY for 90 Days, #30 ML 3 Refills Dicyclomine Hcl (Dicyclomine Hcl) 10 Mg Cap 1 CAP PO Q6H PRN for Pain for 25 Days, #100 CAP 3 Refills Lorazepam (Ativan *) 1 Mg Tab 1 MG SL DAILY, 0 Refills Naproxen (Aleve) 220 Mg Tab 220 MG PO BID PRN for Pain, TAB Discontinued Medications: Escitalopram (Lexapro) 10 Mg Tab 10 MG PO DAILY, TAB Referrals At Discharge Follow up Referrals: Family Practice Referral - Within 1 Week with Zia Salgado M.D. Rehab Director Occupational Therapist Referral - Within a Month with Jonathan Zuniga M.D. Discharge Exam Review of Systems: Constitutional: No fever, No chills, No sweats, No weakness, No fatigue Eyes: No worsening of vision ENT: No hearing loss Respiratory: + cough, No sputum, No shortness of breath, No hemoptysis Cardiovascular: No chest pain, No edema, No palpitations Abdomen: No pain, No nausea, No vomiting, No diarrhea, No constipation Musculoskeletal: + joint pain (R hip- ongoing issue ), No muscle pain, No swelling, No calf pain Genitourinary - Female: No dysuria, No urinary frequency, No urinary urgency , No urinary incontinence, No urinary retention, No hematuria Neurologic: No memory loss, No weakness, No numbness/tingling Psychiatric: No depression symptoms, No anxiety Endocrine: No fatigue Hematologic / Lymphatic: No abnormal bleeding/bruising Integumentary: No rash, No itch, No new/changing skin lesions Physical Exam: General Appearance: no apparent distress Eyes: PERRL, + pertinent finding (healing bruise around R orbit ) ENT: hearing grossly normal Neck: supple Respiratory/Chest: lungs clear, no respiratory distress, no accessory muscle use Cardiovascular: regular rate, rhythm Abdomen / GI: normal bowel sounds, non tender, soft Extremities: no calf tenderness, no pedal edema Neurologic/Psychiatric: alert, normal mood/affect, oriented x 3 Skin: normal color, warm/dry, no rash Hospital Course 62-year-old female with history of recently started on Lexapro. she was found unresponsive at home with sodium level of 104 Metabolic encephalopathy secondary to acute on chronic severe hypoNA- RESOLVING , alcohol abuse: - Admitted to ICU- transferred to med/surg- STABLE - Follow Na- 130 today- Na in 09/2017 at 130 - Treated w/ IV NSS and DDAVP - Lasix 20 mg daily and Sodium chloride 2 gm BID- continue at discharge - Stop Lexapro - IV Thiamine taper + Folic acid- Continue Thiamine and Folic acid supplement at discharge - Encourage alcohol cessation, healthy diet - Alcohol withdrawal protocol - BCx NG; UCx NG; MRSA swab negative - Nephrology consulted- signed-off at this time- f/u outpatient within 1 month Hypomagnesemia: Continue Mag-Ox supplement- continue Mag-Ox supplement at discharge Hypokalemia- RESOLVED: KCL supplement, follow PRP and replace PRN- continue KCL supplement at discharge Anxiety: - Stop Lexapro as above - Continue Ativan 1 mg HS and IV Ativan PRN for anxiousness - f/u w/ PCP for further anxiety management Tobacco abuse: - Smoking cessation encouraged - Nicotine patch Hematuria secondary to Schrader trauma- RESOLVED: - UA/UCx- negative - Consulted Urology- will arrange 4-6 week f/u for possible cystoscopy to r/o other causes but likely Schrader trauma R hip pain: Continue outpatient f/u w/ [facility] DVT prophylaxis: Lovenox SQ daily Code status: LEVEL I, FULL Dispo: Discharge to home Total Time Spent: Greater than 30 minutes This includes examination of the patient, discharge planning, medication reconciliation, and communication with other providers. Discharge Instructions Please refer to the electronic Patient Visit Report (Discharge Instructions) for additional information. Follow-Up Please follow-up with your PCP within 5-7 days Please follow-up with Nephrology, Dr. Zuniga within 1 month Please follow-up/keep all of your subspecialty appointments Additional Copies To Zia Salgado M.D.
[2017-11-16 10:14] VITALS: BP 131/77; PULSE 77; TEMP 36.5; O2SAT 99
== END 2017-11-16 12:20 | disposition home or self-care (01) | DRG 640 ==
LOC: C.EDB 11:09 → C.MSICU 12:57 → ENRESERV 13:07 → C.MS2W 11-12 09:22
PROVIDERS: ADMIT Family Medicine; ATTEND Internal Medicine
DX: E87.1 Hypo-osmolality and hyponatremia (principal); G93.41 Metabolic encephalopathy; R65.10 Systemic inflammatory response syndrome (SIRS) of non-infectious origin without acute organ dysfunction; I24.8 Other forms of acute ischemic heart disease; E16.2 Hypoglycemia, unspecified; E87.6 Hypokalemia; E83.42 Hypomagnesemia; R31.9 Hematuria, unspecified; F10.10 Alcohol abuse, uncomplicated; S00.11XA Contusion of right eyelid and periocular area, initial encounter; S50.12XA Contusion of left forearm, initial encounter; F41.1 Generalized anxiety disorder; K58.9 Irritable bowel syndrome, unspecified; R54 Age-related physical debility; F17.200 Nicotine dependence, unspecified, uncomplicated; Z79.899 Other long term (current) drug therapy; Z68.20 Body mass index [BMI] 20.0-20.9, adult; W06.XXXA Fall from bed, initial encounter; Y92.003 Bedroom of unspecified non-institutional (private) residence as the place of occurrence of the external cause

== ENCOUNTER → 2017-11-22 | Outpatient (CLI) | payer BC ==
[~2017-11-22] MED LIST changes: +DICY10CA12 PO; -DICYCLOMINE; +FLV1 PO; +LSX20 PO; +MCRK20 PO; +MGNO400 PO; +NAPR1TAB9 PO; +OPTOPS OP; +SDMC1 PO; +THM100 PO
[2017-11-22 12:31] LABS: BLOOD UREA NITROGEN 5 mg/dl (7-18); CALCIUM 9.2 mg/dl (8.5-10.1); CARBON DIOXIDE 29 mmol/L (21-32); CREATININE 0.65 mg/dl (0.60-1.20); GLUCOSE 90 mg/dl (70-99); POTASSIUM 3.9 mmol/L (3.5-5.1); SODIUM 130 mmol/L (136-145)
== END | disposition home or self-care (01) ==
LOC: C.LAB1850 11:12
PROVIDERS: ATTEND Physician Assistant
DX: E87.1 Hypo-osmolality and hyponatremia (principal)

== ENCOUNTER → 2017-12-06 | Outpatient (CLI) | payer BC ==
[2017-12-06 16:53] LABS: BLOOD UREA NITROGEN 6 mg/dl (7-18); CALCIUM 9.1 mg/dl (8.5-10.1); CARBON DIOXIDE 29 mmol/L (21-32); CREATININE 0.68 mg/dl (0.60-1.20); GLUCOSE 97 mg/dl (70-99); SODIUM 132 mmol/L (136-145)
== END | disposition home or self-care (01) ==
LOC: C.LABBFT 12:54
PROVIDERS: ATTEND Physician Assistant
DX: E87.1 Hypo-osmolality and hyponatremia (principal)

== ENCOUNTER → 2017-12-21 | Outpatient (CLI) | payer BC | END | disposition home or self-care (01) | LOC: C.LABBFT 13:38 | PROVIDERS: ATTEND Physician Assistant | DX: E87.1 Hypo-osmolality and hyponatremia (principal) ==

== ENCOUNTER → 2018-02-17 | Outpatient (CLI) | payer BC ==
[~2018-02-17] MED LIST changes: +THIA100T27 PO; -THM100 PO
[2018-02-17 17:08] LABS: ALBUMIN 3.9 gm/dl (3.4-5.0); ALKALINE PHOSPHATASE 99 U/L (45-117); ALT/SGPT 20 U/L (12-78); AST/SGOT 16 U/L (15-37); BLOOD UREA NITROGEN 7 mg/dl (7-18); CALCIUM 9.1 mg/dl (8.5-10.1); CARBON DIOXIDE 30 mmol/L (21-32); CREATININE 0.79 mg/dl (0.60-1.20); GLUCOSE 129 mg/dl (70-99); POTASSIUM 3.5 mmol/L (3.5-5.1); SODIUM 131 mmol/L (136-145); TOTAL PROTEIN 8.1 gm/dl (6.4-8.2); URIC ACID 3.7 mg/dl (2.6-7.2)
[2018-02-21 15:54] LABS: ANA SCREEN TC 249X POSITIVE (NEGATIVE)
== END | disposition home or self-care (01) ==
LOC: C.LAB1850 15:19
PROVIDERS: ATTEND Physician Assistant
DX: M79.674 Pain in right toe(s) (principal); M79.89 Other specified soft tissue disorders; T07.XXXA Unspecified multiple injuries, initial encounter; X58.XXXA Exposure to other specified factors, initial encounter

== ENCOUNTER → 2018-02-17 | Outpatient (CLI) | payer BC ==
[~2018-02-17] MED LIST changes: +OPTIRAY 320 IV PRN
--- NOTE | 2018-02-17 14:49 | DIAGNOSTIC IMAGING REPORT ---
CT OF THE ABDOMEN AND PELVIS WITH AND WITHOUT CONTRAST HEMATURIA PROTOCOL CLINICAL HISTORY: Gross hematuria. COMPARISON STUDY: Right upper quadrant ultrasound April 14, 2017. TECHNIQUE: Unenhanced and split bolus phase imaging of the abdomen and pelvis was performed. Injection of 119 cc Optiray 320 IV was uneventful. A dose lowering technique was utilized adhering to the principles of ALARA. CT DOSE: 753.94 mGycm FINDINGS: A 6 mm subpleural left lower lobe nodule is noted on image 28 of 376. No renal, ureteral or bladder calculi are present. There is mild fullness of the right collecting system without kodak hydronephrosis. Note is made of a 1 cm left renal cyst. A few subcentimeter renal lesions are too small to characterize but likely reflect cysts. No upper tract urothelial lesions are identified. No lateral lesion is identified by CT. The liver, spleen, adrenal glands and pancreas are unremarkable. There is no evidence for a bowel obstruction. Note is made of sigmoid diverticulosis without evidence for acute diverticulitis. A calcified uterine fibroid within the fundus is noted. Severe right hip joint space narrowing is noted with some chondral cystic change and sclerosis of the right hip. There may be underlying avascular necrosis of the right femoral head with flattening of the right femoral head. A right hip joint effusion with synovial enhancement/thickening is noted. There is extensive atherosclerotic plaque within the major vessels of the abdomen and pelvis. Old mild compression deformity of the superior plate of L3 is noted. IMPRESSION: 1. No urinary calculi. Mild right collecting system fullness without kodak hydronephrosis. No upper tract urothelial lesions. No CT findings to explain hematuria. 2. 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 Complex right hip joint effusion with synovial enhancement/thickening. 3. 6 mm subpleural left lower lobe nodule. A follow-up chest CT in 6 months to ensure stability is recommended. Electronically signed by: Yaniv Williamson M.D. 02/17/2018 2:47 PM Dictated Date/Time: 02/17/2018 2:33 PM
== END | disposition home or self-care (01) ==
LOC: C.CTS 12:29
PROVIDERS: ATTEND Urology
DX: R31.0 Gross hematuria (principal); M16.11 Unilateral primary osteoarthritis, right hip; R91.8 Other nonspecific abnormal finding of lung field; M25.451 Effusion, right hip

== ENCOUNTER → 2018-03-03 | Outpatient (CLI) | payer BC ==
[~2018-03-03] MED LIST changes: -OPTIRAY 320 IV PRN
[2018-03-03 17:54] LABS: CALCIUM 9.9 mg/dl (8.5-10.1); CREATININE 0.53 mg/dl (0.60-1.20)
[2018-03-10 03:34] LABS: PARVOVIRUS IgM INDEX 0.2 (<0.9)
== END | disposition home or self-care (01) ==
LOC: C.LABBFT 11:41
PROVIDERS: ATTEND Internal Medicine Rheumatology
DX: R60.0 Localized edema (principal); M79.641 Pain in right hand; M80.00XA Age-related osteoporosis with current pathological fracture, unspecified site, initial encounter for fracture; E55.9 Vitamin D deficiency, unspecified; E61.8 Deficiency of other specified nutrient elements; S92.309A Fracture of unspecified metatarsal bone(s), unspecified foot, initial encounter for closed fracture; X58.XXXA Exposure to other specified factors, initial encounter

== ENCOUNTER → 2018-03-14 | Outpatient (CLI) | payer BC | END | disposition home or self-care (01) | LOC: C.MAMM 10:49 | PROVIDERS: ATTEND Internal Medicine Rheumatology | DX: M80.00XA Age-related osteoporosis with current pathological fracture, unspecified site, initial encounter for fracture (principal); X58.XXXA Exposure to other specified factors, initial encounter; E55.9 Vitamin D deficiency, unspecified; E61.8 Deficiency of other specified nutrient elements; S92.309A Fracture of unspecified metatarsal bone(s), unspecified foot, initial encounter for closed fracture; M85.852 Other specified disorders of bone density and structure, left thigh ==

== ENCOUNTER 2019-05-05 06:08 | Inpatient (IN) ==
--- NOTE | 2019-05-03 10:02 | Anesthesiology Consultation ---
Date of Service May 03, 2019 Assessment & Plan (1) Encounter for pre-operative examination: Chart Review Chart Review: Acceptable Risk for Surgery and Patient NOT seen in Pre Admission Testing Consults Requested none Proposed Anesthesia Risk / Benefits Reviewed With: PT / POA / Parent / Guardian, Accepts Plan and Informed Consent Obtained History Surgery Operation Date: 05/05/19 09:15 Proposed Procedures p Right Total Hip Arthroplasty - Milan Avila DO Height/Weight Height: 5 ft 6 in Weight: 61.235 kg Allergies Allergy/AdvReac Type Severity Reaction Status Date / Time sulfamethoxazole Allergy Mild GI Verified 04/07/19 12:05 [From Bactrim] DISTURBANCES trimethoprim [From Bactrim] Allergy Mild GI Verified 04/07/19 12:05 DISTURBANCES escitalopram [From Lexapro] AdvReac Verified 04/07/19 12:06 Medications Home Medications Medication Instructions Recorded Confirmed Last Taken dicyclomine 10 mg capsule 10 mg PO Q6H PRN cap 01/19/19 04/07/19 Unknown lorazepam 1 mg tablet 1 mg PO BID PRN 30 Days #60 tab 01/19/19 04/07/19 Unknown fluticasone propionate 50 1 spray INTRANASAL DAILY PRN gm 03/26/19 04/07/19 Unknown mcg/actuation nasal spray,suspension naproxen sodium 220 mg capsule 220 mg PO Q12H PRN cap 03/26/19 04/07/19 Unknown citalopram [Celexa] 20 mg PO QDL 04/07/19 04/07/19 Unknown Past Medical History Medical History Osteoarthritis of right hip (Chronic) Cigarette smoker (Chronic) 1 PPD Depression (Chronic) Generalized anxiety disorder (Chronic) Irritable bowel syndrome (Chronic) History of Lyme disease Hyponatremia CHRONIC FELT SECONDARY TO POOR SOLUTE INTAKE/EXCESSIVE FREE WATER INTAKE (ALCOHOL) AND ADH RELEASE ASSOCIATED WITH INTRAVASCULAR VOLUME CONTRACTION PER [facility] NEPHRO NOTES- BASELINE 129-131 (1+ YEARS PER CHART REVIEW) MGUS (monoclonal gammopathy of unknown significance) PT COULD NOT CONFIRM Exercise / Class Metabolic Activity II 4-5 Yardwork/Stairs/Walk up hill Past Family History Family History Brother Family history of diabetes mellitus Coronary heart disease Father Family history of diabetes mellitus Acute myocardial infarction Prostate cancer Uncle Acute myocardial infarction Past Surgical History Surgical History History of cataract surgery History of foot surgery Rt - 05/27/2018 [facility] History of tooth extraction Hx of LASIK Hx of wisdom tooth extraction Past Anesthesia History No Hx of Anesthesia Complications and No Family Hx of Anesthesia Complications History of PONV No Hx of PONV and No Hx of Motion Sickness Social History Smoking Status: Current every day smoker tobacco type: cigarettes Smoking cigarettes per day: 1 PPD Do You Dip or Chew Tobacco: No Hx Alcohol Use: No Hx Substance Use: No Physical Exam ENMT Mouth: no TMJ abnormality Thyromental Distance: > or= 3.5 Finger Breadths Mallampati Class: II Neck normal visual inspection Respiratory normal respiratory effort Auscultation: lungs clear to auscultation bilaterally Cardiovascular Rate/Rhythm: regular rate and regular rhythm Heart Sounds: no murmur Vessels: no carotid bruit Neurologic moves all extremities Psychiatric Orientation: alert and oriented x 3 Testing Electrocardiogram Date: 05/02/19 Findings: + NSR @ (75), + NSST changes and + no change from (PVCs now present since 05/09/18) occasional PVCs Chest X-Ray Date: 05/02/19 Findings: + NAD Echocardiogram Date: 11/07/17 EF: 55-60% LV Function: normal RWMA: + none Other Findings: + diastolic dysfunction (Gr 1DD) Valvular Disease: + no significant valvular disease
--- NOTE | 2019-05-03 15:31 | History & Physical Report ---
Date of Service May 03, 2019 Assessment & Plan (1) Primary osteoarthritis of right hip: Schedule right knee ALISON. All potential risks, benefits, complications, alternatives, and rehab have been discussed with the patient and she wishes to proceed. She will be scheduled for 05.05.19 with plan for ASA 81 mg BID x 4 wks for DVT prophylaxis. History of Present Illness Chief Complaint: right hip pain Primary Care Provider: Zia Salgado MD This is a patient with chronic right hip pain. She was treated conservatively for right hip osteoarthritis but has failed all treatments. She is now being set up for surgical management. Allergies Allergy/AdvReac Type Severity Reaction Status Date / Time sulfamethoxazole Allergy Mild GI Verified 04/07/19 12:05 [From Bactrim] DISTURBANCES trimethoprim [From Bactrim] Allergy Mild GI Verified 04/07/19 12:05 DISTURBANCES escitalopram [From Lexapro] AdvReac Verified 04/07/19 12:06 Home Medications Home Medications Medication Instructions Recorded Confirmed Type dicyclomine 10 mg capsule 10 mg PO Q6H PRN cap 01/19/19 04/07/19 History lorazepam 1 mg tablet 1 mg PO BID PRN 30 Days #60 tab 01/19/19 04/07/19 Rx fluticasone propionate 50 1 spray INTRANASAL DAILY PRN gm 03/26/19 04/07/19 History mcg/actuation nasal spray,suspension naproxen sodium 220 mg capsule 220 mg PO Q12H PRN cap 03/26/19 04/07/19 History citalopram [Celexa] 20 mg PO QDL 04/07/19 04/07/19 History Past Med/Surg History Medical History Osteoarthritis of right hip (Chronic) Cigarette smoker (Chronic) 1 PPD Depression (Chronic) Generalized anxiety disorder (Chronic) Irritable bowel syndrome (Chronic) History of Lyme disease Hyponatremia CHRONIC FELT SECONDARY TO POOR SOLUTE INTAKE/EXCESSIVE FREE WATER INTAKE (ALCOHOL) AND ADH RELEASE ASSOCIATED WITH INTRAVASCULAR VOLUME CONTRACTION PER [facility] NEPHRO NOTES- BASELINE 129-131 (1+ YEARS PER CHART REVIEW) MGUS (monoclonal gammopathy of unknown significance) PT COULD NOT CONFIRM Surgical History History of cataract surgery History of foot surgery Rt - 05/27/2018 [facility] History of tooth extraction Hx of LASIK Hx of wisdom tooth extraction Family History Brother Family history of diabetes mellitus Coronary heart disease Father Family history of diabetes mellitus Acute myocardial infarction Prostate cancer Uncle Acute myocardial infarction Social History Preferred Language: [place] Communication Ability: Effective Visual Impairment: No Limitations Dowel Pin Worker Required: No Beliefs That Will Affect Care: None Current Living Situation: Spouse Feels Safe at Home: Yes Smoking Status: Current every day smoker Tobacco Type: cigarettes ; Cigarettes Per Day: 1 PPD ; Second Hand Exposure: No ; Hx Alcohol Use: No Hx Substance Use: No Physical Exam Constitutional: well developed and well nourished; no acute distress ENMT: external ear and nose normal, oropharynx normal Neck: trachea midline, no thyromegaly Respiratory: normal respiratory effort, lungs clear to auscultation Cardiovascular: Rate/Rhythm: regular rate and regular rhythm Gastrointestinal (Abdomen): normal bowel sounds, soft, nontender, no hepatosplenomegaly Musculoskeletal: Gait: + antalgic gait (right) Hip: + limited ROM of hip (right hip), + hip ROM with crepitation (right hip), + joint line tenderness (right groin) and + STARLA test positive (right); no skin erythema and no ecchymosis Skin: no rashes, warm and dry Neurologic: normal touch/pain/proprioception Psychiatric: A+Ox3, euthymic affect Lymphatic: no cervical or axillary lymphadenopathy
[~2019-05-05 06:08] MED LIST changes: +ACETAMINOPHEN 500 MG TAB PO SCH; -ATV1 SL; +CEFAZOLIN 3000MG 72.5 ML IV SCH; +CeleBREX 200 MG CAP PO SCH; -DICY10CA12 PO; +FAMOTIDINE 20 MG TAB PO SCH; -FLV1 PO; +GABAPENTIN 600 MG DOSE PO SCH; +LR 500ML BOLUS, THEN 15ML/HR IV SCH; -LSX20 PO; -MCRK20 PO; +METOCLOPRAMIDE HCL 10 MG TABLET PO SCH; -MGNO400 PO; -NAPR1TAB9 PO; -OPTOPS OP; +ROPIVACAINE 0.5% HCL/PF 150 MG, BUPIVACAINE 0.5% MPF 30 ML, EPINEPHrine 30MG/30ML (OR U... INFIL SCH; -SDMC1 PO; -THIA100T27 PO; +dexAMETHasone 4 MG TAB PO SCH
[2019-05-05] MEDS ORDERED: BUPIVACAINE 0.5 % 5 MG/1 ML PF 10ML VIAL ONE (06:23)
[2019-05-05] MEDS ORDERED: fentaNYL citrate 100 MCG/2 ML VIAL ONE (06:36)
[2019-05-05] MEDS ORDERED: MIDAZOLAM HCL 1 MG/ML 2ML VIAL ONE ×3 (06:37→08:31)
[2019-05-05] MEDS ORDERED: BACITRACIN INJ 50,000 UNIT VIAL ONE (07:04)
[2019-05-05] MEDS ORDERED: ORTHO JOINT ANESTHETIC ONE (07:08)
--- NOTE | 2019-05-05 07:36 | History & Physical Bridge Note ---
Date of Service May 05, 2019 History & Physical Bridge Note I have examined the patient, reviewed the History & Physical and in the interval since the performance of the History & Physical I have noted the following changes of clinical significance: Here for RIGHT TOTAL HIP ARTHROPLASTY.
[2019-05-05] MEDS ORDERED: CEFAZOLIN 2000MG 2,000 MG/15 ML SYR IV ONE (07:38)
[2019-05-05] MEDS ORDERED: CEFAZOLIN 2,000 MG/15 ML IV PUSH IV ONE (07:48)
[2019-05-05] MEDS ORDERED: ePHEDrine sulfate 50 MG/ML AMP IV PRN (08:03)
[2019-05-05] MEDS ORDERED: ATROPINE SULFATE 0.1 MG/ML 10ML SYR IV PRN (08:03)
[2019-05-05] MEDS ORDERED: ePHEDrine sulfate 50 MG/ML SYR ONE (08:20)
[2019-05-05] MEDS ORDERED: PHENYLEPHRINE 100MCG/ML 5ML SYR ONE (08:20)
[2019-05-05] MEDS ORDERED: PROPOFOL IV EMULSION 10 MG/ML 20 ML VIAL IV ONE ×5 (08:20→11:15)
[2019-05-05] MEDS ORDERED: PHENYLEPHRINE HCL 10 MG/ML VIAL ONE (08:35)
[2019-05-05] MEDS ORDERED: CEFAZOLIN 250 MG/ML 1 GM VIAL ONE (11:10)
--- NOTE | 2019-05-05 11:25 | Post Operative Brief Note ---
Immediate Post Op Note v1 Date of Surgery May 05, 2019 Pre & Post Diagnosis Operation Date: 05/05/19 07:45 Pre-Op Diagnosis: Right Hip severe osteoarthritis, dysplasia femoral head with bone loss, severe acetabular bone loss, limb length deficiency right Post-Op Diagnosis: Right Hip severe osteoarthritis, dysplasia femoral head with bone loss, severe acetabular bone loss, limb length deficiency right Procedure Operation Date: 05/05/19 07:45 Actual Procedures p Right Total Hip Arthroplasty -[place] uncemented, application of autograft acetabulum, s Autograft harvest right femoral head (Right) - Milan Avlia DO Surgeon Milan Avila DO Barrel Assembler Helper David Villegas PA-C Estimated Blood Loss 30 Findings Consistent with Post-Op Diagnosis Specimens Bone and tissue right hip Drains Hemovac Drain Anesthesia Type Spinal MAC Complications none Disposition Accompanied Patient To Recovery: No Disposition: Recovery Room Overlapping Procedure I was present for: the critical portions of procedure. I was immediately available: during the entire case.
--- NOTE | 2019-05-05 12:46 | XRay Report ---
XR hip 1V RT w pelvis CLINICAL HISTORY: Postoperative evaluation. COMPARISON: CT of the abdomen and pelvis February 17, 2018. FINDINGS: Alignment of the total right hip arthroplasty is anatomic. There are 3 acetabular screws a nd surgical drains. There is no fracture or unexpected radiopaque foreign body. IMPRESSION: Expected findings following total right hip arthroplasty Electronically signed by: Yaniv Williamson M.D. 05/05/2019 12:45 PM
--- NOTE | 2019-05-05 13:12 | Anesthesiology Progress Note ---
Date of Service May 05, 2019 Anesthesia Post Procedure Vital Signs Vital Signs: Temp Pulse Pulse Resp BP Pulse Ox 05/05/19 12:40 36.7 C 101 H 16 82/68 L 95 05/05/19 12:30 36.7 C 98 H 15 93/56 L 93 05/05/19 12:20 36.7 C 94 H 18 88/55 L 94 05/05/19 12:10 36.7 C 99 H 16 86/54 L 95 05/05/19 12:00 36.8 C 97 H 19 91/58 L 95 05/05/19 11:50 36.8 C 97 H 20 88/59 L 98 05/05/19 11:41 36.8 C 100 H 16 97/55 L 99 05/05/19 06:31 36.5 C 87 20 121/73 97 Pain Intensity Right Hip: Pain Intensity: 0 Transfer of Care Handoff Completed per policy Notes Mental Status: alert / awake / arousable and participated in evaluation Patient Amnestic to Procedure: Yes Nausea / Vomiting: adequately controlled Pain: adequately controlled Airway Patency, RR, SpO2: stable & adequate BP & HR: stable & adequate Hydration State: stable & adequate Anesthetic Complications: no major complications apparent
[2019-05-05] MEDS ORDERED: METOCLOPRAMIDE HCL INJ 5 MG/ML 2 ML VIAL IV PRN (13:13)
[2019-05-05] MEDS ORDERED: NALOXONE HCL 0.4 MG/1 ML VIAL/CARP IV PRN (13:13)
[2019-05-05] MEDS ORDERED: ONDANSETRON INJ 2 MG/ML 2 ML VIAL IV PRN (13:13)
[2019-05-05] MEDS ORDERED: ALUMINUM/MAGNESIUM SUSP 30 ML UDC PO PRN (13:13)
[2019-05-05] MEDS ORDERED: MAGNESIUM HYDROXIDE SUSP 30 ML UDC PO PRN (13:13)
[2019-05-05] MEDS ORDERED: DICYCLOMINE HCL 10 MG CAP PO PRN (13:13)
[2019-05-05] MEDS ORDERED: HYDROmorphone INJ 0.5 MG/0.5 ML SYR IV PRN (13:13)
[2019-05-05] MEDS ORDERED: FLUTICASONE PROPIONATE NA SPR 16 GM BTL PRN (13:13)
[2019-05-05] MEDS ORDERED: bisacodyL 10 MG SUPP PR PRN (13:13)
[2019-05-05] MEDS: ACETAMINOPHEN 500 MG TAB PO SCH ×2 (13:44→21:01)
[2019-05-05] MEDS: KETOROLAC TROMETHAMINE 15 MG/ML VIAL IV SCH ×2 (13:44→20:02)
[2019-05-05] MEDS: SODIUM CHLORIDE 0.9% 1000ML 1,000 ML IV SCH ×2 (14:23→16:09)
[2019-05-05] MEDS: OXYCODONE HCL IR 5 MG TAB (IMMEDIATE RELEASE) PO PRN ×2 (14:52→20:01)
--- NOTE | 2019-05-05 15:38 | Consultation ---
Date of Consultation May 05, 2019 Assessment & Plan (1) Post-operative state: S/p right ALISON 05/05 monitor for acute blood loss - CBC am Pain control, DVT proph per primary (2) Hypotension: asymptomatic, receiving fluids per primary (3) Depression: and anxiety Continue citalopram, lorazepam (4) Irritable bowel syndrome: Continue dicyclomine History of Present Illness Ms. Hodges is post ALISON today. She has no complaints, feeling well, pain well controlled. Pmhx: depression, anxiety, IBS Social: retired, lives with , smoker 1ppd for about 45 years, no alcohol, Family: brother with CAD and DMII Attending Physician: Milan Avila DO Allergies Allergy/AdvReac Type Severity Reaction Status Date / Time sulfamethoxazole Allergy Mild GI Verified 05/05/19 06:25 [From Bactrim] DISTURBANCES trimethoprim [From Bactrim] Allergy Mild GI Verified 05/05/19 06:25 DISTURBANCES escitalopram [From Lexapro] AdvReac Verified 05/05/19 06:25 Home Medications Home Medications Medication Instructions Recorded Confirmed Type dicyclomine 10 mg capsule 10 mg PO Q6H PRN cap 01/19/19 05/05/19 History fluticasone propionate 50 1 spray INTRANASAL DAILY PRN gm 03/26/19 05/04/19 History mcg/actuation nasal spray,suspension naproxen sodium 220 mg capsule 220 mg PO Q12H PRN cap 03/26/19 05/04/19 History citalopram [Celexa] 20 mg PO QDL 04/07/19 05/04/19 History lorazepam 1 mg tablet 1 mg PO BID PRN 30 Days #60 tab 05/04/19 05/05/19 Rx Patient History Medical History Osteoarthritis of right hip (Chronic) Cigarette smoker (Chronic) 1 PPD Depression (Chronic) Generalized anxiety disorder (Chronic) Irritable bowel syndrome (Chronic) History of Lyme disease Hyponatremia CHRONIC FELT SECONDARY TO POOR SOLUTE INTAKE/EXCESSIVE FREE WATER INTAKE (ALCOHOL) AND ADH RELEASE ASSOCIATED WITH INTRAVASCULAR VOLUME CONTRACTION PER [facility] NEPHRO NOTES- BASELINE 129-131 (1+ YEARS PER CHART REVIEW) MGUS (monoclonal gammopathy of unknown significance) PT COULD NOT CONFIRM Surgical History History of cataract surgery History of foot surgery Rt - 05/27/2018 [facility] History of tooth extraction Hx of LASIK Hx of wisdom tooth extraction Family History Brother Family history of diabetes mellitus Coronary heart disease Father Family history of diabetes mellitus Acute myocardial infarction Prostate cancer Uncle Acute myocardial infarction Social History Preferred Language: Bengali Communication Ability: Effective Visual Impairment: No Limitations Cable Television Access Coordinator Required: No Beliefs That Will Affect Care: None Current Living Situation: Spouse Other Information That Helps Us Care for You: No Feels Safe at Home: Yes Safety Concerns: Feels Safe At This Time Smoking Status: Current every day smoker Tobacco Type: cigarettes ; Cigarettes Per Day: 1 PACK PER DAY ; Do You Dip or Chew Tobacco: No ; Second Hand Exposure: No ; Tobacco Cessation Education Requested by Patient: No Hx Alcohol Use: No Hx Substance Use: No Review of Systems Review of Systems: All systems reviewed & are unremarkable except as noted in HPI & below Physical Exam Physical Exam: General: no distress Eyes: normal inspection, PERLL Respiratory: chest non tender, clear to auscultation, normal breath sounds, no respiratory distress, no accessory muscle use Cardiac: regular rate and rhythm, no rub or gallop, no murmur, no edema, no jvd GI/: active bowel sounds, no abd pain or tenderness, soft, non distended Extremities: normal range of motion, normal strength, non tender Neuro:oriented x 3, moves all extremities Psych: alert, normal mood and affect Skin: normal color, dry Results & Data Vital Signs (Past 12 Hours) Vital Signs Temp Pulse Pulse Resp BP Pulse Ox 05/05/19 15:03 85 16 95/58 L 99 05/05/19 13:49 77 18 100/66 95 05/05/19 13:20 82 18 89/57 L 94 05/05/19 12:50 36.5 C 94 H 18 88/52 L 95 05/05/19 12:40 36.7 C 101 H 16 82/68 L 95 05/05/19 12:30 36.7 C 98 H 15 93/56 L 93 05/05/19 12:20 36.7 C 94 H 18 88/55 L 94 05/05/19 12:10 36.7 C 99 H 16 86/54 L 95 05/05/19 12:00 36.8 C 97 H 19 91/58 L 95 05/05/19 11:50 36.8 C 97 H 20 88/59 L 98 05/05/19 11:41 36.8 C 100 H 16 97/55 L 99 05/05/19 06:31 36.5 C 87 20 121/73 97 PG Care Time/CCT Total # of Minutes Spent Total Time Spent with Patient: Total time spent is greater than 50% in coordination of care (as documented) at patient's floor/unit and/or counseling patient:
[2019-05-05] MEDS: CEFAZOLIN 2000MG 2,000 MG/15 ML SYR IV SCH (16:02)
[2019-05-05] MEDS ORDERED: TRANEXAMIC ACID 1,000 MG in 0.9 % SODIUM CHLORIDE 100 ML IV SCH (17:44)
[2019-05-05] MEDS: LORazepam 1 MG TAB PO PRN (18:49)
[2019-05-05] MEDS: DOCUSATE SODIUM 100 MG CAP PO SCH (21:00)
[2019-05-05] MEDS: ASPIRIN 81 MG ECTAB PO SCH (21:00)
[2019-05-05] MEDS ORDERED: SENNA 8.6 MG TAB PO SCH (21:00)
[2019-05-06] MEDS: CEFAZOLIN 2000MG 2,000 MG/15 ML SYR IV SCH (00:15)
[2019-05-06] MEDS: KETOROLAC TROMETHAMINE 15 MG/ML VIAL IV SCH ×2 (01:36→07:53)
[2019-05-06] MEDS: ACETAMINOPHEN 500 MG TAB PO SCH ×2 (04:41→13:22)
[2019-05-06 06:59] LABS: Basophils # (auto) 0.01 K/uL (0-0.2); Basophils % (auto) 0.1 %; Hematocrit (blood only) 28.6 % (37-47); Hemoglobin 9.5 g/dL (12.0-16.0); Immature Granulocytes # (auto) 0.02 K/uL (0.00-0.02); Immature Granulocytes % (auto) 0.1 %; Lymphocytes # (auto) 1.09 K/uL (1.2-3.4); Lymphocytes % (auto) 7.4 %; Mean Corpuscular Hemoglobin 29.2 pg (25-34); Mean Corpuscular Hgb Conc 33.2 g/dL (32-36); Mean Platelet Volume 9.2 fL (7.4-10.4); Monocytes # (auto) 1.79 K/uL (0.11-0.59); Monocytes % (auto) 12.2 %; Neutrophils # (auto) 11.79 K/uL (1.4-6.5); Neutrophils % (auto) 80.2 %; Platelet Count 214 K/uL (130-400); RDW Coefficient of Variation 13.9 % (11.5-14.5); RDW Standard Deviation 45.3 fL (36.4-46.3); Red Blood Count 3.25 M/uL (4.2-5.4)
[2019-05-06 07:35] LABS: BUN Creatinine Ratio 11.7 (10-20); Calcium 8.9 mg/dl (8.5-10.1); Creatinine Clr Calc Pharmacy 69.1 ml/min; Est GFR (African American) 98.3; Est GFR (Non-African American) 84.8; Potassium 4.2 mmol/L (3.5-5.1)
[2019-05-06] MEDS: LORazepam 1 MG TAB PO PRN (07:53)
[2019-05-06] MEDS ORDERED: dexAMETHasone 4 MG TAB PO SCH (08:00)
--- NOTE | 2019-05-06 08:34 | Orthopedic Progress Note ---
Date of Service May 06, 2019 Assessment & Plan (1) Status post right hip replacement: 64 yo female stable POD #1 s/p right ALISON 1. Med management 2. DVT prophylaxis- ASA, SCDs 3. PT/OT 4. D/C planning- home w/ HH Subjective Pt sitting in chair, states she's in moderate pain but looks comfortable Physical Exam Physical Exam: Dressing/drain in place, thigh soft, calves soft, toes mobile, NVI Results & Data Vital Signs (Past 12 Hours) Vital Signs Temp Pulse Resp BP Pulse Ox 05/06/19 07:50 36.7 C 94 H 18 122/66 97 05/06/19 04:45 36.6 C 95 H 15 111/63 96 05/06/19 00:10 36.6 C 79 15 93/56 L 91 Laboratory Results 05/06/19 05/06/19 05/06/19 Range/Units 06:42 06:42 06:42 WBC 14.70 H (4.8-10.8) K/uL RBC 3.25 L (4.2-5.4) M/uL Hgb 9.5 L (12.0-16.0) g/dL Hct 28.6 L (37-47) % MCV 88.0 (80-100) fL MCH 29.2 (25-34) pg MCHC 33.2 (32-36) g/dL RDW Std Deviation 45.3 (36.4-46.3) fL RDW Coeff of Amador 13.9 (11.5-14.5) % Plt Count 214 (130-400) K/uL MPV 9.2 (7.4-10.4) fL Immature Gran % (Auto) 0.1 % Neut % (Auto) 80.2 % Lymph % (Auto) 7.4 % [place] % (Auto) 12.2 % Eos % (Auto) 0.0 % Baso % (Auto) 0.1 % Immature Gran # (Auto) 0.02 (0.00-0.02) K/uL Neut # (Auto) 11.79 H (1.4-6.5) K/uL Lymph # (Auto) 1.09 L (1.2-3.4) K/uL [place] # (Auto) 1.79 H (0.11-0.59) K/uL Eos # (Auto) 0.00 (0-0.5) K/uL Baso # (Auto) 0.01 (0-0.2) K/uL Sodium 137 (136-145) mmol/L Potassium 4.2 (3.5-5.1) mmol/L Chloride 104 (98-107) mmol/L Carbon Dioxide 25 (21-32) mmol/L Anion Gap 8.0 (3-11) BUN 9 (7-18) mg/dl Creatinine 0.75 (0.6-1.2) mg/dl Est Cr Clr Drug Dosing 69.1 ml/min Est GFR ( Amer) 98.3 Est GFR (Non-Af Amer) 84.8 BUN/Creatinine Ratio 11.7 (10-20) Glucose 110 H (70-99) mg/dl Calcium 8.9 (8.5-10.1) mg/dl Hepatitis C Ab Screen Pending 05/05/19 Range/Units 16:48 WBC (4.8-10.8) K/uL RBC (4.2-5.4) M/uL Hgb 11.1 L (12.0-16.0) g/dL Hct (37-47) % MCV (80-100) fL MCH (25-34) pg MCHC (32-36) g/dL RDW Std Deviation (36.4-46.3) fL RDW Coeff of Amador (11.5-14.5) % Plt Count (130-400) K/uL MPV (7.4-10.4) fL Immature Gran % (Auto) % Neut % (Auto) % Lymph % (Auto) % [place] % (Auto) % Eos % (Auto) % Baso % (Auto) % Immature Gran # (Auto) (0.00-0.02) K/uL Neut # (Auto) (1.4-6.5) K/uL Lymph # (Auto) (1.2-3.4) K/uL [place] # (Auto) (0.11-0.59) K/uL Eos # (Auto) (0-0.5) K/uL Baso # (Auto) (0-0.2) K/uL Sodium (136-145) mmol/L Potassium (3.5-5.1) mmol/L Chloride (98-107) mmol/L Carbon Dioxide (21-32) mmol/L Anion Gap (3-11) BUN (7-18) mg/dl Creatinine (0.6-1.2) mg/dl Est Cr Clr Drug Dosing ml/min Est GFR ( Amer) Est GFR (Non-Af Amer) BUN/Creatinine Ratio (10-20) Glucose (70-99) mg/dl Calcium (8.5-10.1) mg/dl Hepatitis C Ab Screen
[2019-05-06] MEDS ORDERED: MULTIVITAMIN TAB PO SCH (09:00)
[2019-05-06] MEDS ORDERED: NICOTINE 14 MG/24 HR PATCH TD SCH (09:00)
[2019-05-06] MEDS: ASPIRIN 81 MG ECTAB PO SCH (09:05)
[2019-05-06] MEDS: DOCUSATE SODIUM 100 MG CAP PO SCH (09:05)
[2019-05-06] MEDS: OXYCODONE HCL IR 5 MG TAB (IMMEDIATE RELEASE) PO PRN (09:08)
[2019-05-06] MEDS ORDERED: CITALOPRAM 20 MG TAB PO SCH (11:30)
[2019-05-06] MEDS ORDERED: CeleBREX 200 MG CAP PO SCH (13:00)
--- NOTE | 2019-05-06 15:51 | Hospitalist Progress Note ---
Date of Service May 06, 2019 Assessment & Plan (1) Post-operative state: S/p right ALISON 05/05 monitor for acute blood loss - patient did lose 5g hgb since surgery which likely contributed to her hypotension. No indication for transfusion Pain control, DVT proph per primary (2) Hypotension: asymptomatic, received fluids per primary Pressures improved today (3) Depression: and anxiety Continue citalopram, lorazepam (4) Irritable bowel syndrome: Continue dicyclomine Medicine will sign off at this time. Subjective Ms. Hodges's blood pressures have improved. She has no complaints. Review of Systems Review of Systems: All systems reviewed & are unremarkable except as noted in HPI & below Physical Exam Physical Exam: General: no distress Eyes: normal inspection, PERLL Respiratory: chest non tender, clear to auscultation, normal breath sounds, no respiratory distress, no accessory muscle use Cardiac: regular rate and rhythm, no rub or gallop, no murmur, no edema, no jvd GI/: active bowel sounds, no abd pain or tenderness, soft, non distended Extremities: normal range of motion, normal strength, non tender Neuro/Psych: alert and oriented x 3, normal mood and affect Skin: normal color, dry Results & Data Vital Signs (Past 12 Hours) Vital Signs Temp Pulse Resp BP BP Pulse Ox 05/06/19 12:22 36.7 C 94 H 18 122/66 90/58 L 97 05/06/19 07:50 36.7 C 94 H 18 122/66 97 05/06/19 04:45 36.6 C 95 H 15 111/63 96 PG Care Time/CCT Total # of Minutes Spent Total Time Spent with Patient: Total time spent is greater than 50% in coordination of care (as documented) at patient's floor/unit and/or counseling patient:
--- NOTE | 2019-05-08 08:37 | Operative Report ---
DATE OF OPERATION: 05/05/2019 PREOPERATIVE DIAGNOSES: 1. Right hip severe degenerative joint disease. 2. 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 3. Severe acetabular bone loss. 4. Right leg length insufficiency secondary to severe degenerative arthritis with bone loss. POSTOPERATIVE DIAGNOSES: 1. Right hip severe degenerative joint disease. 2. 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 3. Severe acetabular bone loss. 4. Right leg length insufficiency secondary to severe degenerative arthritis with bone loss. PROCEDURE: 1. Right total hip arthroplasty using a Tae Accolade II size 5 femoral component, 132 degree angle with a MDM 48 mm polyethylene liner and a Biolox 28 mm +0 ceramic head, a Trident 62 mm hemispheric fully coated revision cup with three 6.5 mm screws. 2. Application autograft, right acetabulum. 3. Autograft harvest, right femoral head. SURGEON: Milan Avila DO. E COMMERCE WEB DEVELOPER: David Villegas PA-C who was present for patient positioning, sterile prep and drape, management of retractors and instruments. He was present through the critical portions of the case including wound closure, application of sterile dressing and transport of the patient to recovery. ANESTHESIA: Spinal with sedation and local, right hip. SPECIMENS: Bone and tissue, right hip. DRAINS: Hemovac drains, 10 Indonesian x2. COMPLICATIONS: None. BLOOD LOSS: 30 mL. PERTINENT HISTORY: This is a 64-year-old woman with chronic progressive longstanding degenerative arthritis of the right hip. She had difficulty with weightbearing on the hip for the last 4-5 years. It has become increasingly difficult over the last 12 months. She had an issue with her foot which was corrected surgically and had to spend some time off of her foot. She has been wheelchair for the last year due to the hip and the foot. She then had no opportunity to complete or mitigate physical therapy as her hip bone loss was too severe and she had a leg length discrepancy of over 2.5 cm. She had leg length insufficiency on the right. The patient has been using the heel lift and modification of her shoe wear from time to time. Radiographs and CT scan demonstrate severe bone loss in the right femoral head, right acetabulum with leg length discrepancy on the right. The patient was then scheduled for surgery as indicated. All potential risks, benefits, complications, alternatives, rehab, potential for incomplete relief of symptoms, need for further surgery, DVT, PE, , persistent pain, swelling, scarring, weakness, neurovascular injury, wound complications, hardware failure, nonunion, malunion, bone fracture and persistent leg length discrepancy including the need of use for special modifications of her shoes or shoe lifts was discussed with the patient. The patient decided to proceed with procedure as indicated. The patient was taken to the Operating Suite and placed supine on the Operating Room table after identification of the consent and identification of the proper operative site the patient was sedated. The patient had previously received a spinal epidural anesthetic. The patient was then placed in the left lateral decubitus position with the affected side up and Stulberg positioning device then used to maintain lateral position of the patient. All bony prominences were properly padded and protected. Axillary roll was placed as standard and the leg lengths were determined to be essentially equal and then the right hip was then sterilely prepped and draped in the usual fashion. 10-blade scalpel incision was made laterally over the greater trochanter. The incision was deepened through the subcutaneous tissue and meticulous hemostasis with electrocautery. Further deepening of the wound through the layer of the fascia was performed with electrocautery and iliotibial band was then incised with electrocautery. Next, Charnley retractor was placed bother anteriorly and posteriorly at the level of the gluteus tendon. Next, electrocautery was used to make an incision in the vastus lateralis and then sweep was made toward the anterior aspect of the patient along the course of the femoral neck and head. Abductor split was then completed. The gluteus minimus and capsule were then incised and then soft tissue was dissected anteriorly. Next as the soft tissue was dissected anteriorly the lesser trochanter was clearly identified and hip was dislocated with relative ease. Hypertrophic osteophytes were noted circumferentially. The hip joint was noted to be noticeably tight. Next the sagittal saw was used to resect the proximal portion of the femoral neck and head approximately one fingerbreadth proximal to the lesser trochanter. Head was then removed and next the labrum was excised from the acetabulum with a 22 blade scalpel and long forceps. Next the wound was irrigated with pulsatile lavage and the pulvinar was then excised from the acetabulum. Appropriate retractors were placed anteriorly superiorly and posteriorly. Next initial acetabular reamer was placed 44 mm medialized to the medial wall and then sequential reaming was performed to size 62 mm due to the significant bone loss in the acetabulum. Before implantation of acetabular liner, the femoral head was taken to the back table, grasped with 2 towel clips and the 44 mm reamer was used to ream autograft from the femoral head for autograft bone grafting into the acetabulum. The acetabular bone graft was packed around the acetabulum prior to implantation of the acetabular shell. Trial cage was then placed and noted to be stable with excellent fit. Next the wound was irrigated with pulsatile lavage with bacitracin additive and 62 mm [place] Trident 62 mm hemispheric fully coated revision cup was impacted and then 3X 6.5 mm screws were used to stabilize the acetabular shell. Next MDM 48 mm liner was placed into the shell. Lap sponge was placed over to protect it. Next, attention was turned toward the proximal femur. Box osteotome was used to resect proximal portion of bone followed by first pass small reamer. Next, sequential broaching was performed up to size 5 and the 5 trial was placed followed by +0 28 mm trial head. Next, it was reduced and had excellent fit and feel with minimal shuck and excellent stability in all planes and range of motion. Leg lengths were restored and next all trial implants were removed. The wound was copiously irrigated with pulsatile lavage and size 5 Accolade TMZF x 132 degree final stem was impacted. Next, Biolox ceramic 28 mm head +0 neck was impacted. The construct was reduced. Range of motion was performed and noted to be completely stable with excellent range of motion, improved to greater degree than prior to surgery. Two 10 Indonesian single Hemovac drains were placed exiting anterolaterally. Wound was irrigated with pulsatile lavage. Next a #5 FiberWire suture was used to close the capsule and gluteus minimum via two small bone tunnels made with 2.4 mm drill bit in the greater trochanter. After FiberWire closure was completed and noted to be stable then 10 Indonesian drains were placed followed by closure of the vastus lateralis and the gluteus medius. This was closed with #1 Vicryl sutures. Next, the iliotibial band was closed using interrupted [id number] #1 Vicryl sutures. Next, final irrigation was performed with pulsatile lavage and dermis was closed using buried interrupted 2-0 Vicryl suture. The skin was closed with skin abel. Sterile compressive dressing was applied. The patient was then placed supine and taken to recovery in stable condition. Use of a dilute sterile Betadine soak was performed for a period of 3 minutes. This was irrigated and suctioned dry. I attest to the content of the Intraoperative Record and any orders documented therein. Any exceptions are noted below. PO
--- NOTE | 2019-05-15 11:10 | Discharge Summary ---
Date of Service May 15, 2019 Admission HPI Per Admitting Provider This is a patient with chronic right hip pain. She was treated conservatively for right hip osteoarthritis but has failed all treatments. She is now being set up for surgical management. Principal Diagnosis right hip osteoarthritis Discharge Exam Constitutional well developed and well nourished; no acute distress ENMT external ear and nose normal, oropharynx normal Neck trachea midline, no thyromegaly Respiratory normal respiratory effort, lungs clear to auscultation Cardiovascular Rate/Rhythm: regular rate and regular rhythm Gastrointestinal (Abdomen) normal bowel sounds, soft, nontender, no hepatosplenomegaly Musculoskeletal Gait: + antalgic gait (right) Hip: + surgical incision (right hip: zipline in place. Well approximated.); no skin erythema and no ecchymosis Skin no rashes, warm and dry Neurologic normal touch/pain/proprioception Psychiatric A+Ox3, euthymic affect Lymphatic no cervical or axillary lymphadenopathy Discharge Data Allergies Allergy/AdvReac Type Severity Reaction Status Date / Time sulfamethoxazole Allergy Mild GI Verified 05/05/19 06:25 [From Bactrim] DISTURBANCES trimethoprim [From Bactrim] Allergy Mild GI Verified 05/05/19 06:25 DISTURBANCES escitalopram [From Lexapro] AdvReac Verified 05/05/19 06:25 Consultations 05/05/19 13:13 Consult Internal Medicine Routine 05/06/19 08:00 Consult Case Management - Discharge Planning Routine Procedures Performed Operation Date: 05/05/19 07:45 Actual Procedures p Right Total Hip Arthroplasty - uncemented(Right) - Milan Avila DO Hospital Course (1) Status post right hip replacement: The patient was admitted on 05.05.19 and underwent a right ALISON. She progressed well with PT and pain control on POD #1. Home with home health was set up for her. She was discharged home on POD #1. 64 yo female stable POD #1 s/p right ALISON 1. Med management 2. DVT prophylaxis- ASA, SCDs 3. PT/OT 4. D/C planning- home w/ HH Total Time Total Time Spent Total Time Spent (In Minutes): 30 Total Time Includes: Examination of the Patient, Discharge Planning and Medication Reconciliation Discharge Plan Discharge Items Patient Disposition: Home - Home Health Services Reason For Visit: Right Hip Osteoarthritis Discharge Diagnosis: right hip osteoarthritis Activity: Per Instructions section Bathing: May shower/bathe in 3 days Call non-emergency contact if: your pain is not controlled, your pain is worsening and your temperature is above 101 Follow-up/Referrals: Pro,Zia Connor MD [Primary Care Provider] - Addtl Attending Provider Instructions: ACTIVITY RECOMMENDATIONS: SELF CARE INSTRUCTIONS AFTER TOTAL HIP REPLACEMENT Until the incision and soft tissues around your hip have healed, there is a possibility that the hip prosthesis could dislocate. A. Observe the following precautions to prevent dislocation: 1. Don't bend your hip greater than 90 degrees. 2. Avoid crossing your legs or ankles while standing or lying. 3. Sit with your feet placed 6 inches apart. 4. When sitting, keep your knees below your hips. Sit on a firm surface, avoid deep, soft chairs and couches. Use an elevated toilet seat in the bathroom. 5. Don't bend over at the waist. Use a long handled shoehorn and a sock aid to help you put on your shoes and socks. A assembler billiard table can help you fruit or nut picker objects that are too high or too low to reach. 6. Keep car riding to a minimum for at least one month after surgery. B. Your balance may be shaky for a while. Use crutches or a walker until directed by your doctor. C. Use hand rails when walking on stairs. D. Wear low heeled shoes with non-slip soles. E. Be sure that your floors are free of things that could trip you - throw rugs, electrical cords, small objects. Avoid wet and waxed floors, especially with crutches and canes. F. Try to walk several times a day with rest periods between. G. Continue with all the exercises taught to you in the hospital. Again, make walking a part of your daily routine. H. It is okay to shower if minimal to no drainage from incision. No baths. Do not soak wound. I. Physical Therapy as instructed by your Physician. Trever Ricci: You have a Silverlon dressing on the right knee incision. It will remain in place for 7 days from the day of your surgery. After 7 days, you may remove the dressing, just as you would remove a bandaid. You may shower with the Silverlon dressing in place. However, if you notice any water within the dressing, the dressing should be removed. You may cover the incision with a dry dressing once the silverlon is removed if there is any drainage. K. You have a Zipline closure system over your incision. It will remain in place for 14 days after your surgery. If you have a Silverlon dressing or a large bandaid-like silver dressing over your surgical incision, make sure the Zipline under the dressing remains in place after its removal. SPECIAL CARE INSTRUCTIONS: VERY IMPORTANT TO READ AND REVIEW A. You may still be at risk for phlebitis and blood clots. 1. Wear surgical stockings (PAUL hose) for one month, 20 hours daily, after surgery to improve circulation and reduce swelling. 2. Take Aspirin (blood thinning medications), as directed by your doctor. 3. Have a pro-time (blood test) drawn according to your doctor's instructions. B. We encourage and will assist you in choosing a home-health agency of your choice. Home health nurses and therapists will monitor your temperature, wound healing and progress in exercise and walking. Home health nurses may also draw the blood for the pro-time test. They may instruct you in decreasing or increasing the amount of Coumadin you take. C. You must take antibiotics before having dental work, bladder, bowel and other surgery. Your doctor will provide you with a permanent card to carry describing precautions. D. Call [facility] if you have a temperature of 101 or g reater, redness or swelling around the incision, cloudy drainage from incision, or sudden increase in pain in your hip, not relieved by your regular pain medication. E. Please call the office at if you have any concerns or questions about your operation or recovery. FOLLOW UP VISIT: If appointment is not already scheduled: Please call [facility] to make a follow-up appointment for 2 weeks after your surgery at . Pending Studies at Discharge: No Stand-Alone Forms: My [employer], Opioid Pain Management Medications and DC Order Prescriptions: No Action naproxen sodium 220 mg capsule 220 mg PO Q12H PRN (Reason: pain) RF: 0 fluticasone propionate 50 mcg/actuation spray,suspension 1 spray intranasal DAILY PRN (Reason: Congestion) RF: 0 aspirin [Adult Low Dose Aspirin] 81 mg tablet,delayed release (DR/EC) 81 mg PO BID Qty: 60 RF: 2 oxycodone 5 mg tablet 5 mg PO Q6H PRN (Reason: pain) Qty: 30 RF: 0 dicyclomine 10 mg capsule 10 mg PO Q6H PRN (Reason: irritable bowel syndr) RF: 0 lorazepam 1 mg tablet 1 mg PO BID PRN (Reason: anxiety) 30 Days Qty: 60 RF: 3 citalopram [Celexa] 20 mg tablet 20 mg PO QDL RF: 0 Discharge Orders: Discharge Order (Routine); Ordered 05/06/19 Ordered By: Milan Avila Admission Data Admit Date/Time: 05/05/19 11:56 Attending Provider: Milan Avila Admit Provider: Milan Avila Primary Care Provider: Zia Salgado Other Providers: Alex Meneses ; Beckie Galaviz ; Regina Doe ; Boone Whitmore ; Joe Reeves ; Ema Gtz ; Jude Clayton ; Ryley Bliss ; Chetan Roque ; Mariam Lim ; Elena Roy ; Shayy Auguste ; Miguel Longoria ; Delai Mix ; Evan Méndez ; Reinire Amin ; Beckie Morrow ; Kraig Holland ; Maxine Pulido ; Carmela Duvall ; Maurice Peters ; Boone Parker ; Dario Coleman ; Ree Rios ; Trell Hubbard ; Matthew Cooley ; Kenn Olvera Other Interventions: Discharge Summary Assessment (RN) Last Done: 05/06/19 12:22 DC Date/Time DO NOT enter until pt leaves facility: 05/06/19 13:57
== END 2019-05-06 13:57 | disposition home health service (06) | DRG 470 ==
LOC: ASU 06:08 → 3E 11:56
DX: M16.11 Unilateral primary osteoarthritis, right hip; F32.9 Major depressive disorder, single episode, unspecified; M21.751 Unequal limb length (acquired), right femur; I95.9 Hypotension, unspecified; Z82.49 Family history of ischemic heart disease and other diseases of the circulatory system; Z83.3 Family history of diabetes mellitus; Z88.2 Allergy status to sulfonamides; F41.1 Generalized anxiety disorder; F17.210 Nicotine dependence, cigarettes, uncomplicated; Z98.49 Cataract extraction status, unspecified eye; K58.9 Irritable bowel syndrome, unspecified; Z80.42 Family history of malignant neoplasm of prostate; Z88.8 Allergy status to other drugs, medicaments and biological substances

== ENCOUNTER 2022-09-22 11:14 | Inpatient (IN) ==
--- NOTE | 2022-09-22 11:33 | Emergency Department Note ---
Impression & Plan Acute hyponatremia, Acute confusion, Alcohol use disorder, Encephalopathy ED Provider Note NAME: RIN JAIME AGE: 67 SEX: F : 1955 ARRIVES VIA: Ambulance INFORMANT: Patient, ED PROVIDER(S): Gilberto York MD CHIEF COMPLAINT: Confusion MEDICAL DECISION MAKING: Patient was found by allergist/immunologist in a bath incontinent of stool around 10 AM this morning. Last known well was at 1400 yesterday. Patient reportedly was co nfused and not following commands noted to have fever Patient did have sepsis protocols initiated along with CT head and cervical spine due to concern for possible fall. The patient's last known well was at 1400 yesterday so the patient is not a TNK candidate. Patient only has repetitive nonsensical speech. Current GCS of 10 for confused speech no eye- opening and localizes to pain. Currently protecting her airway. The patient also did have empiric Rocephin IV IV fluids IV Ofirmev procalcitonin blood and urine cultures ordered and drawn. Alcohol and ammonia also ordered. Blood work shows a normal white count hemoglobin 16.7. The patient did receive IV fluids. The patient's kidney function is unremarkable. Hyponatremia noted. The patient did have urine and serum osmolality ordered as well as urine electrolytes. The patient's ammonia is not elevated. Troponin is not elevated Pro-Drew is not elevated. Urinalysis does not show obvious evidence of infection. COVID flu and RSV negative. Patient's head and neck CTs are negative. Chest x-ray does show 9 mm nodule is recommended to have follow-up chest x-ray or chest CT for further evaluation. This may be completed as an i npatient or as an outpatient but deferred to the inpatient team at this time. Prior /Outside records reviewed: I did review the patient's most recent primary care visit with Dr. Salgado from April 2022. Patient does have a known history of PVD hyponatremia generalized anxiety. Patient reportedly uses a walker for feet and special shoes and did some therapy but currently uses a motorized wheelchair at home. Differential diagnosis: Sepsis, UTI, pneumonia, metabolic, electrolyte abnormalities, cardiac sources, intracerebral event, toxicologic, neurologic, as well as other pathologies. Diagnostics, as interpreted by me: ECG: Normal sinus rhythm, rate of 100, normal NE and QRS, no ST elevations. Normal axis Cardiac monitoring: An order was placed for continuous cardiac monitoring. The monitor shows a rate of 95 with sinus rhythm. Patient was placed on pulse oximetry Medical decision rules: None Imaging studies: See below HPI: All of the history is obtained from the caregiver did present at bedside. The caregiver has been with the patient for approximately 2 years as the patient has had difficulty with walking ever since she had a hip replacement. The patient's last known well was at 2 PM yesterday although the caregiver states that she seemed to be more sleepy and had been sleeping most of the day. The patient last ate around noon but when she came in today she noticed that the patient appeared to have fallen into the bathtub incontinent of stool. Patient was noted to have confused speech by the caregiver. She does not take any blood thinners but reportedly does drink alcohol daily and does have a prescription for Ativan. She states that family situation she does not have a good relationship with other family members and does have a neck spouse. Patient did not have any specific complaints yesterday per the caregiver. No prior history of stroke or mini stroke. Patient did present via EMS had a sugar in the 100s and the patient's temperature was low-grade 99 9. PAST MEDICAL HISTORY: See Below PAST SURGICAL HISTORY: See Below SOCIAL HISTORY: See Below HOME MEDICATIONS: See Below ALLERGIES: See Below VITALS: See Below PHYSICAL EXAMINATION: GENERAL: NAD, wearing a mask, non-toxic. EYE EXAM: Normal conjunctiva. PERRL, no anisocoria and EOM's grossly intact w/o pain. NECK: Supple, no nuchal rigidity, no adenopathy, non-tender. No signs of meningismus. FROM of the neck with good chin to chest and neck extension. No stridor. LUNGS: Scant expiratory wheezes more prominent in the left chest. HEART: NSR, no MRG. ABDOMEN: Abdomen soft, non-tender, normo-active bowel sounds, no masses, no rebound or guarding. BACK: No CVA TTP. SKIN: No rashes and no obvious signs of trauma or bruising to the back abdomen chest face or neck or extremities UPPER EXTREMITIES: Upper extremities are grossly normal. LOWER EXTREMITIES: Grossly normal, no edema. NEURO EXAM: GCS of 10, localizes to pain, confused occasionally repetitive speech, does move all 4 extremities, pupils are equally round and reactive. Past Med/Surg History Medical History Alcohol use disorder Cigarette smoker 1 PPD Depression Elevated LFTs Fractures, multiple Generalized anxiety disorder Gross hematuria History of Lyme disease Hyponatremia CHRONIC FELT SECONDARY TO POOR SOLUTE INTAKE/EXCESSIVE FREE WATER INTAKE (ALCOHOL) AND ADH RELEASE ASSOCIATED WITH INTRAVASCULAR VOLUME CONTRACTION PER [facility] NEPHRO NOTES- BASELINE 129-131 (1+ YEARS PER CHART REVIEW) Hypotension Irritable bowel syndrome MGUS (monoclonal gammopathy of unknown significance) PT COULD NOT CONFIRM Osteoarthritis of right hip Surgical History History of cataract surgery History of foot surgery Rt - 05/27/2018 [facility] History of tooth extraction Hx of LASIK Hx of wisdom tooth extraction Family History Brother Family history of diabetes mellitus Coronary heart disease Myocardial infarction Father Family history of diabetes mellitus Acute myocardial infarction Prostate cancer Uncle Acute myocardial infarction Denies family history of Ovarian cancer Breast cancer Colorectal cancer Social History Smoking Status: Current every day smoker Cigarettes Per Day: 1 PPD; Second Hand Exposure: No; Hx Alcohol Use: Yes Alcohol type: beer Hx Substance Use: No Preferred Language: Lebanese Communication Ability: Impaired Visual Impairment: No 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 Has caregiver from 10-2pm daily Feels Safe at Home: Yes Seatbelt Use: always Assistive Devices: Walker and Wheelchair Allergies Allergies Allergy/AdvReac Type Severity Reaction Status Date / Time sulfamethoxazole Allergy Mild GI Verified 09/22/22 12:35 [From Bactrim] DISTURBANCES trimethoprim [From Bactrim] Allergy Mild GI Verified 09/22/22 12:35 DISTURBANCES escitalopram [From Lexapro] AdvReac Unknown Verified 09/22/22 12:35 Home Meds Home Medications Medication Instructions Recorded Confirmed loratadine 10 mg tablet (Claritin) 10 mg PO DAILY PRN allergies 09/22/22 09/22/22 lorazepam 1 mg tablet 1 mg PO BID PRN Anxiety 09/22/22 09/22/22 Results & Data (ED) Vital Signs Vital Signs - 24 hr 09/22/22 11:23 09/22/22 11:31 09/22/22 11:43 Temperature 37.7 C H Temperature Source Oral Pulse Rate 101 H 96 H Pulse Rate [Apical] Pulse Rhythm Regular Pulse Rhythm [Apical] Pulse Strength Normal Pulse Strength [Apical] Respiratory Rate 18 Respiratory Effort / Characteristics Non-Labored Respiratory Depth Normal Respiratory Pattern Regular Blood Pressure 136/88 Blood Pressure [Left Arm] Blood Pressure Mean 104 Blood Pressure Mean [Left Arm] Blood Pressure Position Lying Blood Pressure Position [Left Arm] Pulse Oximetry 97 Oxygen Delivery Method Room Air Room Air Sepsis Recent Fever Within 48 Hours No Sepsis New/Unexplained Change in Mental Status Yes Sepsis Action Taken by Nursing MD Previously Notified 09/22/22 13:13 09/22/22 15:00 09/22/22 15:33 Temperature Temperature Source Pulse Rate 88 Pulse Rate [Apical] 97 H 89 Pulse Rhythm Pulse Rhythm [Apical] Regular Pulse Strength Pulse Strength [Apical] Normal Respiratory Rate 19 18 Respiratory Effort / Characteristics Non-Labored Non-Labored Respiratory Depth Normal Respiratory Pattern Regular Blood Pressure Blood Pressure [Left Arm] 163/90 H 149/82 H Blood Pressure Mean Blood Pressure Mean [Left Arm] 114 104 Blood Pressure Position Blood Pressure Position [Left Arm] Lying Pulse Oximetry 95 96 Oxygen Delivery Method Room Air Room Air Sepsis Recent Fever Within 48 Hours Sepsis New/Unexplained Change in Mental Status Sepsis Action Taken by [facility] Medications Current Medication List: was personally reviewed by me Laboratory Data Attestation: I reviewed the patient's lab results. 09/22/22 11:27 09/22/22 15:58 Lab Results 09/22/22 09/22/22 09/22/22 Range/Units 11:27 11:27 11:27 WBC 10.68 (4.8-10.8) K/ul RBC 5.24 (4.20-5.40) M/uL Hgb 16.7 H (12.0-16.0) g/dl Hct 47.1 H (37.0-47.0) % MCV 89.9 (80.0-100.0) fL MCH 31.9 (25.0-34.0) pg MCHC 35.5 (32.0-36.0) g/dL RDW Std Deviation 41.1 (36.4-46.3) fL RDW Coeff of Amador 12.5 (11.5-14.5) % Plt Count 240 (130-400) K/uL MPV 9.6 (9.4-12.4) fL Immature Gran % (Auto) 0.5 % Neut % (Auto) 82.4 % Lymph % (Auto) 5.4 % Logan % (Auto) 11.2 % Eos % (Auto) 0.0 % Baso % (Auto) 0.5 % Neut # (Auto) 8.80 H (1.40-6.50) K/uL Lymph # (Auto) 0.58 L (1.2-3.4) K/uL Logan # (Auto) 1.20 H (0.11-0.59) K/uL Eos # (Auto) 0.00 (0-0.50) K/uL Baso # (Auto) 0.05 (0-0.2) K/uL Immature Gran # (Auto) 0.05 (0.01-0.20) K/uL PT (9.0-12.0) Seconds INR (0.9-1.1) APTT (21.0-31.0) Seconds PTT Ratio Sodium 123 L (136-145) mmol/L Potassium 4.3 (3.5-5.1) mmol/L Chloride 86 L (98-107) mmol/L Carbon Dioxide 26 (21-32) mmol/L Anion Gap 11 (3-11) BUN 4 L (6-23) mg/dl Creatinine 0.48 L (0.6-1.2) mg/dl Est Cr Clr Drug Dosing Not Reportable Est GFR ( Amer) 118.5 ml/min Est GFR (Non-Af Amer) 102.2 ml/min BUN/Creatinine Ratio 8.3 L (10-20) Glucose 119 H (70-99(Fasting)) mg/dl Osmolality (280-300) mOsm/kg Lactate (0.4-2.0) mmol/L Calcium 9.8 (8.5-10.1) mg/dl Magnesium 1.6 L (1.7-2.4) mg/dl Total Bilirubin 1.5 H (0.2-1.0) mg/dl Direct Bilirubin 0.2 (0-0.2) mg/dl AST 29 (13-39) U/L ALT 27 (7-52) U/L Alkaline Phosphatase 77 (34-104) U/L Ammonia (18-72) umol/L Troponin I High Sens 4.6 (0-14) pg/ml Total Protein 7.4 (6.0-8.3) gm/dl Albumin 4.4 (3.4-5.0) gm/dl Procalcitonin < 0.05 (0-0.5) ng/ml Urine Color Urine Appearance (Clear) Urine pH (4.5-7.5) Ur Specific [place] (1.000-1.030) Urine Protein (Negative) Urine Glucose (UA) (Negative) Urine Ketones (Negative) Urine Blood (Negative) Urine Nitrite (Negative) Urine Bilirubin (Negative) Urine Urobilinogen (Negative) Ur Leukocyte Esterase (Negative) Urine WBC (Auto) (0-5) /hpf Urine RBC (Auto) (0-4) /hpf U Hyaline Cast (Auto) (0-5) /lpf U Epithel Cells (Auto) (0-5) /lpf Urine Bacteria (Auto) (Negative) Urine Osmolality (500-800) mOsm/kg Urine Sodium mmol/L Urine Potassium mmol/L Urine Chloride mmol/L Ethyl Alcohol mg/dL (<10.0) mg/dl SARS-CoV-2 (PCR) (Negative) Influenza Type A (PCR) (Neg) Influenza Type B (PCR) (Neg) RSV (RT-PCR) (Neg) 09/22/22 09/22/22 09/22/22 Range/Units 11:27 11:27 12:02 WBC (4.8-10.8) K/ul RBC (4.20-5.40) M/uL Hgb (12.0-16.0) g/dl Hct (37.0-47.0) % MCV (80.0-100.0) fL MCH (25.0-34.0) pg MCHC (32.0-36.0) g/dL RDW Std Deviation (36.4-46.3) fL RDW Coeff of Amador (11.5-14.5) % Plt Count (130-400) K/uL MPV (9.4-12.4) fL Immature Gran % (Auto) % Neut % (Auto) % Lymph % (Auto) % Logan % (Auto) % Eos % (Auto) % Baso % (Auto) % Neut # (Auto) (1.40-6.50) K/uL Lymph # (Auto) (1.2-3.4) K/uL Logan # (Auto) (0.11-0.59) K/uL Eos # (Auto) (0-0.50) K/uL Baso # (Auto) (0-0.2) K/uL Immature Gran # (Auto) (0.01-0.20) K/uL PT 10.9 (9.0-12.0) Seconds INR 1.0 (0.9-1.1) APTT 29.0 (21.0-31.0) Seconds PTT Ratio 1.1 Sodium (136-145) mmol/L Potassium (3.5-5.1) mmol/L Chloride (98-107) mmol/L Carbon Dioxide (21-32) mmol/L Anion Gap (3-11) BUN (6-23) mg/dl Creatinine (0.6-1.2) mg/dl Est Cr Clr Drug Dosing Est GFR ( Amer) ml/min Est GFR (Non-Af Amer) ml/min BUN/Creatinine Ratio (10-20) Glucose (70-99(Fasting)) mg/dl Osmolality 258 L (280-300) mOsm/kg Lactate 1.4 (0.4-2.0) mmol/L Calcium (8.5-10.1) mg/dl Magnesium (1.7-2.4) mg/dl Total Bilirubin (0.2-1.0) mg/dl Direct Bilirubin (0-0.2) mg/dl AST (13-39) U/L ALT (7-52) U/L Alkaline Phosphatase (34-104) U/L Ammonia (18-72) umol/L Troponin I High Sens (0-14) pg/ml Total Protein (6.0-8.3) gm/dl Albumin (3.4-5.0) gm/dl Procalcitonin (0-0.5) ng/ml Urine Color Urine Appearance (Clear) Urine pH (4.5-7.5) Ur Specific [place] (1.000-1.030) Urine Protein (Negative) Urine Glucose (UA) (Negative) Urine Ketones (Negative) Urine Blood (Negative) Urine Nitrite (Negative) Urine Bilirubin (Negative) Urine Urobilinogen (Negative) Ur Leukocyte Esterase (Negative) Urine WBC (Auto) (0-5) /hpf Urine RBC (Auto) (0-4) /hpf U Hyaline Cast (Auto) (0-5) /lpf U Epithel Cells (Auto) (0-5) /lpf Urine Bacteria (Auto) (Negative) Urine Osmolality (500-800) mOsm/kg Urine Sodium mmol/L Urine Potassium mmol/L Urine Chloride mmol/L Ethyl Alcohol mg/dL (<10.0) mg/dl SARS-CoV-2 (PCR) (Negative) Influenza Type A (PCR) (Neg) Influenza Type B (PCR) (Neg) RSV (RT-PCR) (Neg) 09/22/22 09/22/22 09/22/22 Range/Units 12:02 12:02 12:51 WBC (4.8-10.8) K/ul RBC (4.20-5.40) M/uL Hgb (12.0-16.0) g/dl Hct (37.0-47.0) % MCV (80.0-100.0) fL MCH (25.0-34.0) pg MCHC (32.0-36.0) g/dL RDW Std Deviation (36.4-46.3) fL RDW Coeff of Amador (11.5-14.5) % Plt Count (130-400) K/uL MPV (9.4-12.4) fL Immature Gran % (Auto) % Neut % (Auto) % Lymph % (Auto) % Logan % (Auto) % Eos % (Auto) % Baso % (Auto) % Neut # (Auto) (1.40-6.50) K/uL Lymph # (Auto) (1.2-3.4) K/uL Logan # (Auto) (0.11-0.59) K/uL Eos # (Auto) (0-0.50) K/uL Baso # (Auto) (0-0.2) K/uL Immature Gran # (Auto) (0.01-0.20) K/uL PT (9.0-12.0) Seconds INR (0.9-1.1) APTT (21.0-31.0) Seconds PTT Ratio Sodium (136-145) mmol/L Potassium (3.5-5.1) mmol/L Chloride (98-107) mmol/L Carbon Dioxide (21-32) mmol/L Anion Gap (3-11) BUN (6-23) mg/dl Creatinine (0.6-1.2) mg/dl Est Cr Clr Drug Dosing Est GFR ( Amer) ml/min Est GFR (Non-Af Amer) ml/min BUN/Creatinine Ratio (10-20) Glucose (70-99(Fasting)) mg/dl Osmolality (280-300) mOsm/kg Lactate (0.4-2.0) mmol/L Calcium (8.5-10.1) mg/dl Magnesium (1.7-2.4) mg/dl Total Bilirubin (0.2-1.0) mg/dl Direct Bilirubin (0-0.2) mg/dl AST (13-39) U/L ALT (7-52) U/L Alkaline Phosphatase (34-104) U/L Ammonia 39.0 (18-72) umol/L Troponin I High Sens (0-14) pg/ml Total Protein (6.0-8.3) gm/dl Albumin (3.4-5.0) gm/dl Procalcitonin (0-0.5) ng/ml Urine Color Yellow Urine Appearance Clear (Clear) Urine pH 8.0 H (4.5-7.5) Ur Specific [place] 1.009 (1.000-1.030) Urine Protein Negative (Negative) Urine Glucose (UA) Negative (Negative) Urine Ketones 2+ H (Negative) Urine Blood Trace H (Negative) Urine Nitrite Negative (Negative) Urine Bilirubin Negative (Negative) Urine Urobilinogen Negative (Negative) Ur Leukocyte Esterase Negative (Negative) Urine WBC (Auto) 0 (0-5) /hpf Urine RBC (Auto) 5-10 H (0-4) /hpf U Hyaline Cast (Auto) 1-5 (0-5) /lpf U Epithel Cells (Auto) 0-5 (0-5) /lpf Urine Bacteria (Auto) Negative (Negative) Urine Osmolality (500-800) mOsm/kg Urine Sodium mmol/L Urine Potassium mmol/L Urine Chloride mmol/L Ethyl Alcohol mg/dL < 10.0 (<10.0) mg/dl SARS-CoV-2 (PCR) (Negative) Influenza Type A (PCR) (Neg) Influenza Type B (PCR) (Neg) RSV (RT-PCR) (Neg) 09/22/22 09/22/22 09/22/22 Range/Units 12:51 12:51 13:13 WBC (4.8-10.8) K/ul RBC (4.20-5.40) M/uL Hgb (12.0-16.0) g/dl Hct (37.0-47.0) % MCV (80.0-100.0) fL MCH (25.0-34.0) pg MCHC (32.0-36.0) g/dL RDW Std Deviation (36.4-46.3) fL RDW Coeff of Amador (11.5-14.5) % Plt Count (130-400) K/uL MPV (9.4-12.4) fL Immature Gran % (Auto) % Neut % (Auto) % Lymph % (Auto) % Logan % (Auto) % Eos % (Auto) % Baso % (Auto) % Neut # (Auto) (1.40-6.50) K/uL Lymph # (Auto) (1.2-3.4) K/uL Logan # (Auto) (0.11-0.59) K/uL Eos # (Auto) (0-0.50) K/uL Baso # (Auto) (0-0.2) K/uL Immature Gran # (Auto) (0.01-0.20) K/uL PT (9.0-12.0) Seconds INR (0.9-1.1) APTT (21.0-31.0) Seconds PTT Ratio Sodium (136-145) mmol/L Potassium (3.5-5.1) mmol/L Chloride (98-107) mmol/L Carbon Dioxide (21-32) mmol/L Anion Gap (3-11) BUN (6-23) mg/dl Creatinine (0.6-1.2) mg/dl Est Cr Clr Drug Dosing Est GFR ( Amer) ml/min Est GFR (Non-Af Amer) ml/min BUN/Creatinine Ratio (10-20) Glucose (70-99(Fasting)) mg/dl Osmolality (280-300) mOsm/kg Lactate (0.4-2.0) mmol/L Calcium (8.5-10.1) mg/dl Magnesium (1.7-2.4) mg/dl Total Bilirubin (0.2-1.0) mg/dl Direct Bilirubin (0-0.2) mg/dl AST (13-39) U/L ALT (7-52) U/L Alkaline Phosphatase (34-104) U/L Ammonia (18-72) umol/L Troponin I High Sens (0-14) pg/ml Total Protein (6.0-8.3) gm/dl Albumin (3.4-5.0) gm/dl Procalcitonin (0-0.5) ng/ml Urine Color Urine Appearance (Clear) Urine pH (4.5-7.5) Ur Specific [place] (1.000-1.030) Urine Protein (Negative) Urine Glucose (UA) (Negative) Urine Ketones (Negative) Urine Blood (Negative) Urine Nitrite (Negative) Urine Bilirubin (Negative) Urine Urobilinogen (Negative) Ur Leukocyte Esterase (Negative) Urine WBC (Auto) (0-5) /hpf Urine RBC (Auto) (0-4) /hpf U Hyaline Cast (Auto) (0-5) /lpf U Epithel Cells (Auto) (0-5) /lpf Urine Bacteria (Auto) (Negative) Urine Osmolality 320 L (500-800) mOsm/kg Urine Sodium 55 mmol/L Urine Potassium 67.1 mmol/L Urine Chloride 74 mmol/L Ethyl Alcohol mg/dL (<10.0) mg/dl SARS-CoV-2 (PCR) NEGATIVE (Negative) Influenza Type A (PCR) Negative (Neg) Influenza Type B (PCR) Negative (Neg) RSV (RT-PCR) Negative (Neg) Administered Medications Discontinued Medications Sodium Chloride (Nss 1000ml) 1,000 mls @ 999 mls/hr IV .[id number] MARY Stop: 09/22/22 12:45 Last Infusion: 09/22/22 14:11 Dose: 0 mls/hr Documented By: Admin: 09/22/22 13:10 Dose: 999 mls/hr Documented By: ML Ceftriaxone Sodium (Rocephin) 2,000 mg in 70 mls @ 140 mls/hr IV NOW STA Stop: 09/22/22 12:12 Last Infusion: 09/22/22 14:05 Dose: 0 mls/hr Documented By: Admin: 09/22/22 13:32 Dose: 140 mls/hr Documented By: ML Acetaminophen (Ofirmev) 1,000 mg in 100 mls @ 400 mls/hr IV NOW STA Stop: 09/22/22 11:57 Last Infusion: 09/22/22 13:25 Dose: 0 mls/hr Documented By: Admin: 09/22/22 13:10 Dose: 400 mls/hr Documented By: ML Magnesium Sulfate/Dextrose (Magnesium Sulfate / D5w) 1 gm in 100 mls @ 100 mls/hr IV NOW STA Stop: 09/22/22 13:55 Last Infusion: 09/22/22 15:03 Dose: 0 mls/hr Documented By: Admin: 09/22/22 13:52 Dose: 100 mls/hr Documented By: ML Thiamine HCl 100 mg/ Syringe 10 mls @ 2 mls/min IV NOW STA Stop: 09/22/22 15:19 Last Admin: 09/22/22 15:50 Dose: 2 mls/min Documented By: AP Lorazepam (Lorazepam 2 Mg/1 Ml Vial) 3 mg IV ONCE PRN; Protocol PRN Reason: EtOH Withdrawal AWSS Score 10+ Last Admin: 09/22/22 18:17 Dose: 3 mg Documented By: AMW Lorazepam (Lorazepam 2 Mg/1 Ml Vial) 2 mg IV NOW STA Stop: 09/22/22 18:28 Last Admin: 09/22/22 18:31 Dose: 2 mg Documented By: AMW Phenobarbital Sodium (Phenobarbital Sodium 130 Mg/Ml Vial) 120 mg IM NOW STA Stop: 09/22/22 19:12 Last Admin: 09/22/22 19:13 Dose: 120 mg Documented By: [facility] Imaging Data Radiologist's Impression: Cervical Spine CT 09/22/22 11:43 CT OF THE CERVICAL SPINE WITHOUT CONTRAST CLINICAL HISTORY: ? fall, confusion COMPARISON STUDY: No previous studies for comparison. TECHNIQUE: Helical axial images of the cervical spine were obtained without IV contrast. Sagittal and coronal reconstructions were viewed. Automated exposure control was utilized for the study. A dose lowering technique was utilized adhering to the principles of ALARA. FINDINGS: Alignment of the cervical spine is anatomic. Vertebral body heights are maintained. No acute cervical spine fracture or subluxation is present. There is no prevertebral edema. Facet joints are intact. Slight concavity of the superior endplates of T8-T4 is chronic. Moderate multilevel degenerative changes within the cervical spine are present. Emphysema within the visualized lung apices is incidentally noted. IMPRESSION: No acute cervical spine fracture or subluxation. ACT 112: Negative or not required by law. Electronically signed by: Yaniv Williamson M.D. 09/22/2022 1:55 PM Chest X-Ray 09/22/22 11:43 XR chest 1V portable HISTORY: Sepsis COMPARISON: Chest 05/02/2019. FINDINGS: No pneumothorax. No pleural effusions. No new focal lung consolidations to suggest a pneumonia. No evidence for pulmonary edema. The heart is normal in size. Mild calcified plaque at the aortic knob. There is 9 mm nodular density at the left lung base. IMPRESSION: 1. No acute process within the chest. 2. A 9 mm nodular density at the left lung base. Follow-up PA and lateral views of the chest or chest CT recommended for further evaluation. ACT 112: Positive. There are findings on this exam that require communication between the performing entity and the patient following Patient Test Result Information Act ([place] Act 112) guidelines. Electronically signed by: Edgar Cordova M.D. 09/22/2022 12:[address] 09/22/22 11:[address] DOSE: HISTORY: confusion TECHNIQUE: Multiaxial CT images of the head were performed without the use of intravenous contrast. Automated exposure control was utilized for this study. A dose lowering technique was utilized adhering to the principles of ALARA. Comparison: Head CT 11/07/2017. Findings: The paranasal sinuses and mastoid air cells are clear. The calvarium and skull base are intact. There is no mass, hematoma, midline shift, acute infarct. White matter hypodensity is nonspecific but suggestive of microvascular ischemic change. The ventricles and sulci demonstrate mild age-related involutional changes. Impression: No acute intracranial abnormality. Atrophy and microvascular ischemic changes. ACT 112: Negative or not required by law. Electronically signed by: Edgar Cordova M.D. 09/22/2022 2:16 PM Discharge Plan Visit Data Chief Complaint: Weakness ED Provider: Gilberto York Discharge Problem: Acute hyponatremia, Acute confusion, Alcohol use disorder, Encephalopathy Patient Disposition: Admitted As Inpatient Discharge Instructions Interventions: ED Discharge Assessment Last Done: 09/22/22 16:58
[2022-09-22] MEDS ORDERED: ACETAMINOPHEN 1,000 MG/100 ML VIAL IV STA (11:43)
[2022-09-22] MEDS ORDERED: cefTRIAXone SODIUM 2,000 MG/70 ML BAG IV STA (11:43)
[2022-09-22] MEDS ORDERED: SODIUM CHLORIDE 0.9% 1000ML 1,000 ML IV SCH (11:45)
[2022-09-22 12:12] LABS: Alanine Aminotransferase 27 U/L (7-52); Albumin Level 4.4 gm/dl (3.4-5.0); Alkaline Phosphatase 77 U/L (34-104); Anion Gap 11 (3-11); Aspartate Aminotransferase 29 U/L (13-39); BUN Creatinine Ratio 8.3 (10-20); Basophils # (auto) 0.05 K/uL (0-0.2); Basophils % (auto) 0.5 %; Bilirubin Direct 0.2 mg/dl (0-0.2); Bilirubin,Total 1.5 mg/dl (0.2-1.0); Blood Urea Nitrogen 4 mg/dl (6-23); Calcium 9.8 mg/dl (8.5-10.1); Carbon Dioxide 26 mmol/L (21-32); Chloride 86 mmol/L (98-107); Est GFR (African American) 118.5 ml/min; Est GFR (Non-African American) 102.2 ml/min; Glucose 119 mg/dl (70-99(Fasting)); Hematocrit (blood only) 47.1 % (37.0-47.0); Hemoglobin 16.7 g/dl (12.0-16.0); Immature Granulocytes # (auto) 0.05 K/uL (0.01-0.20); Immature Granulocytes % (auto) 0.5 %; Lymphocytes # (auto) 0.58 K/uL (1.2-3.4); Lymphocytes % (auto) 5.4 %; Magnesium 1.6 mg/dl (1.7-2.4); Mean Corpuscular Hemoglobin 31.9 pg (25.0-34.0); Mean Corpuscular Hgb Conc 35.5 g/dL (32.0-36.0); Mean Corpuscular Volume 89.9 fL (80.0-100.0); Mean Platelet Volume 9.6 fL (9.4-12.4); Monocytes % (auto) 11.2 %; Neutrophils % (auto) 82.4 %; Platelet Count 240 K/uL (130-400); Potassium 4.3 mmol/L (3.5-5.1); RDW Coefficient of Variation 12.5 % (11.5-14.5); RDW Standard Deviation 41.1 fL (36.4-46.3); Red Blood Count 5.24 M/uL (4.20-5.40); Sodium 123 mmol/L (136-145); Total Protein 7.4 gm/dl (6.0-8.3); White Blood Count 10.68 K/ul (4.8-10.8)
[2022-09-22 12:18] LABS: Troponin I High Sensitivity 4.6 pg/ml (0-14)
--- NOTE | 2022-09-22 12:20 | XRay Report ---
XR chest 1V portable HISTORY: Sepsis COMPARISON: Chest 05/02/2019. FINDINGS: No pneumothorax. No pleural effusions. No new focal lung consolidations to suggest a pneumo rachel. No evidence for pulmonary edema. The heart is normal in size. Mild calcified plaque at the aorti c knob. There is 9 mm nodular density at the left lung base. IMPRESSION: 1. No acute process within the chest. 2. A 9 mm nodular density at the left lung base. Follow-up PA and lateral views of the chest or chest CT recommended for further evaluation. ACT 112: Positive. There are findings on this exam that require communication between the performing entity and the patient following Patient Test Result Information Act ([place] Act 112) guidelines. Electronically signed by: Edgar Cordova M.D. 09/22/2022 12:19 PM
[2022-09-22 12:35] LABS: Partial Thromboplastin Ratio 1.1; Prothrombin Time 10.9 Seconds (9.0-12.0)
[2022-09-22] MEDS ORDERED: MAGNESIUM SULFATE / D5W 1 GM/100 ML BAG IV STA (12:56)
[2022-09-22 13:15] LABS: Appearance Urine Clear (Clear); Bacteria Urine Automated Negative (Negative); Bilirubin Urine Negative (Negative); Blood Urine Trace (Negative); Color Urine Yellow; Epithelial Cell Urine Auto 0-5 /lpf (0-5); Glucose Urine UA Negative (Negative); Ketones Urine 2+ (Negative); Leukocyte Esterase Urine Negative (Negative); Nitrite Urine Negative (Negative); Protein Urine Negative (Negative); Specific Gravity Urine 1.009 (1.000-1.030); Urobilinogen Urine Negative (Negative); WBC Urine Automated 0 /hpf (0-5)
--- NOTE | 2022-09-22 13:58 | CT Scan Report ---
CT OF THE CERVICAL SPINE WITHOUT CONTRAST CLINICAL HISTORY: ? fall, confusion COMPARISON STUDY: No previous studies for comparison. TECHNIQUE: Helical axial images of the cervical spine were obtained without IV contrast. Sagittal a nd coronal reconstructions were viewed. Automated exposure control was utilized for the study. A do se lowering technique was utilized adhering to the principles of ALARA. FINDINGS: Alignment of the cervical spine is anatomic. Vertebral body heights are maintained. No acut e cervical spine fracture or subluxation is present. There is no prevertebral edema. Facet joints are intact. Slight concavity of the superior endplates of T8-T4 is chronic. Moderate multilevel degener ative changes within the cervical spine are present. Emphysema within the visualized lung apices is i ncidentally noted. IMPRESSION: No acute cervical spine fracture or subluxation. ACT 112: Negative or not required by law. Electronically signed by: Yaniv Williamson M.D. 09/22/2022 1:55 PM
--- NOTE | 2022-09-22 13:59 | Electrocardiogram Report ---
Test Reason : Blood Pressure : / mmHG Vent. Rate : 100 BPM Atrial Rate : 100 BPM P-R Int : 174 ms QRS Dur : 062 ms QT Int : 366 ms P-R-T Axes : 075 055 093 degrees QTc Int : 472 ms Poor data quality, interpretation may be adversely affected Normal sinus rhythm Low voltage QRS Nonspecific T wave abnormality Abnormal ECG When compared with ECG of 02-MAY-2019 12:07, Premature ventricular complexes are no longer Present Nonspecific T wave abnormality, improved in Inferior leads Nonspecific T wave abnormality now evident in Lateral leads Confirmed by Sascha Centeno ([id number]) on 09/22/2022 1:59:25 PM Referred By: Confirmed By:Ed Centeno
[2022-09-22 14:14] LABS: Influenza A virus by PCR Negative (Neg); Influenza B virus by PCR Negative (Neg); RSV by PCR Negative (Neg); SARS CoV2 RNA(COVID-19) Ceph NEGATIVE (Negative)
--- NOTE | 2022-09-22 14:17 | CT Scan Report ---
HEAD CT NONCONTRAST CT DOSE: HISTORY: confusion TECHNIQUE: Multiaxial CT images of the head were performed without the use of intravenous contrast. A utomated exposure control was utilized for this study. A dose lowering technique was utilized adheri ng to the principles of ALARA. Comparison: Head CT 11/07/2017. Findings: The paranasal sinuses and mastoid air cells are clear. The calvarium and skull base are int act. There is no mass, hematoma, midline shift, acute infarct. White matter hypodensity is nonspecifi c but suggestive of microvascular ischemic change. The ventricles and sulci demonstrate mild age-rela priscila involutional changes. Impression: No acute intracranial abnormality. Atrophy and microvascular ischemic changes. ACT 112: Negative or not required by law. Electronically signed by: Edgar Cordova M.D. 09/22/2022 2:16 PM
[2022-09-22 14:46] LABS: Urine Potassium 67.1 mmol/L
[2022-09-22] MEDS ORDERED: THIAMINE HCL 100 MG in SYRINGE 9 ML IV STA (15:15)
--- NOTE | 2022-09-22 16:01 | History & Physical Report ---
Date of Service September 22, 2022 Assessment & Plan (1) Hyponatremia: Plan: -Acute on chronic. -Has a history of chronic hyponatremia with a baseline around [id number] according to documentation from 2018. Patient was admitted to the intensive care unit in 2018 due to symptomatic hyponatremia with a sodium as low as 108, was discharged on sodium tablets. At that time, her hyponatremia was felt to be secondary to poor solute intake and excess free water intake (in the form of alcohol), as well as ADH release associated with intravascular volume contraction. -Today, patient's sodium is 123. Patient is not taking sodium tablets per her caregiver, and is drinking 8 regular sized Coors lights daily. -Suspect that patient's presentation is similar to previous admission for metabolic encephalopathy secondary to hyponatremia, will await repeat basic metabolic panel after receiving IV fluids and use that to help dictate next steps. Given symptomatic hyponatremia will likely give hypertonic saline bolus doses with basic metabolic panel every 4 hours. (2) Metabolic encephalopathy: Plan: -Acute alteration in mental status as compared to her baseline in the setting of hyponatremia of 124, alcohol use disorder, last known well at 2 PM on 09/21. -CT head without evidence of CVA, MRI pending. -Suspect presentation is acute metabolic encephalopathy secondary to hyponatremia, please see above. -Neuro checks every 2 hours through the night. -N.p.o. for now until patient is more awake and alert. (3) Alcohol use disorder: Plan: Active use, 8 regular size Coors light cans daily. Suspect this is contributing to patient's hyponatremia. AWSS protocol initiated with IV Ativan. IV thiamine and folate. (4) Peripheral vascular disease: Plan: History of, as well as history of current tobacco use. Not on any medications including aspirin, antihypertensives, cholesterol medications. (5) Tobacco use: Plan: See above (6) Depression: Plan: Patient is not on medications other than Ativan. Alcohol withdrawal protocol, n.p.o. for now. Plan Patient's point of contact is her caregiver Cassandra Dodson (phone number [phone]), patient is estranged from her and her sister. Patient is still , but has been from her for a few years. History of Present Illness Chief Complaint: Altered mental status Primary Care Provider: Zia Salgado MD 67-year-old female past medical history significant for chronic hyponatremia, major depressive disorder, alcohol use disorder, tobacco use presented to the ER via EMS due to altered mental status and being found in her bathtub by her caregiver. History is given by caregiver as patient is very tired and unable to answer any questions except for basic yes/no questions before falling back asleep. Caregiver reports that at baseline, Anni is very depressed, chronic alcohol user, drinking 8 regular sized Coors light beers daily for at least as long as the patient has had this caregiver. The only other medication that she is on as far as the caregiver knows is lorazepam 1 mg p.o. daily as needed for anxiety. Caregiver goes to Anni's house from -2 every day to help give her a bath, get her food, get her groceries, etc. Yesterday Anni slept through most of the day, but was at least somewhat conversant with caregiver before she left. On arrival today at 10 AM, caregiver notes that patient's coffee table was turned over, walker was turned over, and patient was found in the bathtub having soiled herself. She would awake to voice, but had strange speech, and would fall back asleep again. EMS was called. Patient herself was able to tell me that she does not have any pain, otherwise either unable or unwilling to answer my questions. In the ER patient noted to have a hemoglobin of 16.7, sodium of 123, magnesium of 1.6, total bilirubin of 1.5, LFTs normal, ammonia normal, normal troponin, normal procalcitonin, and normal lactate. Patient noted to have a low-grade temperature of 37.7 C, vitals otherwise normal and patient is protecting her own airway. Alcohol level was negative. UDS not performed. Urinalysis not sug gestive of urinary tract infection. Hyponatremia labs as follows: Serum osmolality 258, urine osmolality 320, urine sodium 55. Patient is COVID/influenza/RSV negative. CT head did not show any acute abnormality such as a stroke but did note chronic atrophy and microvascular ischemic changes. MRI is pending. Chest x-ray shows a 9 mm nodular density at the left lung base, but no evidence of pneumonia, pleural effusions, pulmonary edema. Patient received 1 L of normal saline, IV magnesium, and IV ceftriaxone. Hospitalist service was consulted for admission for altered mental status. Allergies Allergy/AdvReac Type Severity Reaction Status Date / Time sulfamethoxazole Allergy Mild GI Verified 09/22/22 12:35 [From Bactrim] DISTURBANCES trimethoprim [From Bactrim] Allergy Mild GI Verified 09/22/22 12:35 DISTURBANCES escitalopram [From Lexapro] AdvReac Unknown Verified 09/22/22 12:35 Home Medications Medication Instructions Recorded Confirmed Type loratadine 10 mg tablet (Claritin) 10 mg PO DAILY PRN allergies 09/22/22 09/22/22 History lorazepam 1 mg tablet 1 mg PO BID PRN Anxiety 09/22/22 09/22/22 History Past Med/Surg History Medical History (Updated 09/22/22 @ 16:17 by Lina Nelson DO) Alcohol use disorder Cigarette smoker 1 PPD Depression Elevated LFTs Fractures, multiple Generalized anxiety disorder Gross hematuria History of Lyme disease Hyponatremia CHRONIC FELT SECONDARY TO POOR SOLUTE INTAKE/EXCESSIVE FREE WATER INTAKE (ALCOHOL) AND ADH RELEASE ASSOCIATED WITH INTRAVASCULAR VOLUME CONTRACTION PER [facility] NEPHRO NOTES- BASELINE 129-131 (1+ YEARS PER CHART REVIEW) Hypotension Irritable bowel syndrome MGUS (monoclonal gammopathy of unknown significance) PT COULD NOT CONFIRM Osteoarthritis of right hip Surgical History History of cataract surgery History of foot surgery Rt - 05/27/2018 [facility] History of tooth extraction Hx of LASIK Hx of wisdom tooth extraction Family History Brother Family history of diabetes mellitus Coronary heart disease Myocardial infarction Father Family history of diabetes mellitus Acute myocardial infarction Prostate cancer Uncle Acute myocardial infarction Denies family history of Ovarian cancer Breast cancer Colorectal cancer Social History Smoking Status: Unknown if ever smoked Cigarettes Per Day: 1 PPD; Second Hand Exposure: No; Hx Alcohol Use: No Hx Substance Use: No Preferred Language: Faroese Communication Ability: Effective Visual Impairment: No Limitations Aircraft Structural [employer]itter Required: No Beliefs That Will Affect Care: None Current Living Situation: Spouse Feels Safe at Home: Yes Seatbelt Use: always Assistive Devices: Walker Review of Systems Review of Systems: Unobtainable due to cognitive status Physical Exam Constitutional: Well-developed, thin, ill-appearing Respiratory: normal respiratory effort, lungs clear to auscultation (Saturating well on room air) Cardiovascular: RRR, no murmur, no edema Gastrointestinal (Abdomen): normal bowel sounds, soft, nontender, no hepatosplenomegaly Skin: Bilateral lower extremities with cracking of skin, no evidence of infection Psychiatric: Obtunded affect, responds to voice but will very quickly fall asleep again Results & Data Results & Data ([facility]) Vital Signs (Past 12 Hours) Vital Signs Temp Pulse Pulse Resp BP BP Pulse Ox 09/22/22 15:33 88 09/22/22 15:00 89 18 149/82 H 96 09/22/22 13:13 97 H 19 163/90 H 95 09/22/22 11:43 09/22/22 11:31 96 H 09/22/22 11:23 37.7 C H 101 H 18 136/88 97 O2 Del Method 09/22/22 15:33 09/22/22 15:00 Room Air 09/22/22 13:13 Room Air 09/22/22 11:43 Room Air 09/22/22 11:31 09/22/22 11:23 Room Air Code Status & VTE Plan VTE Prophylaxis Plan VTE Prophylaxis will be ordered: Yes PG Care Time/CCT Total # of Minutes Spent Total Time Spent with Patient: Total time spent is greater than 50% in coordination of care (as documented) at patient's floor/unit and/or counseling patient: Coding Level of Care Code 99995 INT INP/OBS CARE 3/75MIN Diagnoses Hyponatremia E87.1 Metabolic encephalopathy G93.41 Alcohol use disorder F10.90 Peripheral vascular disease I73.9 Tobacco use Z72.0 Depression F32.9
[2022-09-22 16:31] LABS: Anion Gap 5 (3-11); Blood Urea Nitrogen 4 mg/dl (6-23); Calcium 9.3 mg/dl (8.5-10.1); Carbon Dioxide 26 mmol/L (21-32); Chloride 92 mmol/L (98-107); Est GFR (African American) 125.8 ml/min; Est GFR (Non-African American) 108.5 ml/min; Glucose 134 mg/dl (70-99(Fasting)); Potassium 3.7 mmol/L (3.5-5.1); Sodium 123 mmol/L (136-145)
[2022-09-22] MEDS ORDERED: LORazepam 2 MG/1 ML VIAL IV PRN ×3 (17:35)
[2022-09-22] MEDS ORDERED: Ativan IV Alcohol Withdrawal--Active Protocol IV PRN (17:35)
[2022-09-22] MEDS ORDERED: SODIUM CHLORIDE 3 % 50 ML IV ONE ×2 (18:13→23:45)
[2022-09-22] MEDS ORDERED: STAT IV STA ×2 (18:13→23:16)
[2022-09-22] MEDS ORDERED: LORazepam 2 MG/1 ML VIAL IV STA ×2 (18:27→23:22)
--- NOTE | 2022-09-22 18:32 | Nephrology Consultation ---
Date of Consultation September 22, 2022 Assessment & Plan (1) Hyponatremia: Chronic, severe hyponatremia with symptoms. Appears slightly volume depleted on exam. Received 1 L of NSS. Uosm 320. Serum sodium stable. Urine in Schrader remains concentrated. Close monitoring will be required due to risk of ODS and potential for auto-correction. Avoid a rate of correction >0.5 mmol/L/h or >6-8 mmol/L within a 24 hour period. I would aim to increase by 2-3 mmol/L overnight. 3% NaCl bolus of 50 ml has been provided with repeat labs scheduled q 4 hours. Document strict I/O's. Consider updating a TSH with AM labs. (2) Metabolic encephalopathy: Complex picture of alcohol dependence, chronic benzodiazepine use, and hyponatremia. CT negative for acute CVA. MRI unable to be obtained at this time. UDS pending. Treatment of dysnatremia outlined above. Presentation concerning for Wernicke encephalopathy. High dose IV thiamine has been ordered. MVI and FA also provided. Frequent neurochecks. ICU team has been consulted for management of alcohol withdrawal. (3) Alcohol use disorder: As above. Prognosis is unfortunately guarded. History of Present Illness Reason for Consultation: hyponatremia Hx alcohol use and SIADH Requesting Physician: Lina Nelson DO Attending Physician: Lina Nelson DO History of Present Illness Eliana Hodges is a 67 year-old female with a history of chronic hyponatremia, major depressive disorder, alcohol use disorder, and tobacco abuse. She presented to the ER at [facility] via EMS today for evaluation of mental status changes. Eliana was found in her bathtub by her caregiver. Eliana on p resentation, she was somnolent and unable to provide history. I discussed the patient and medical history with Dr. Nelson by phone earlier today. The patient was seen with Dr. Nelson and SANTI Butcher this evening. Eliana is encephalopathic and remains unable to provide any meaningful history. She is not oriented and attempting to get out of bed requiring frequent reorientation and constant supervision. There has been reported concern for possible aphasia. The patient's caregiver reported concerns relating to chronic depression and alcohol abuse. Eliana was reported to have been drinking 8 Coors light beers daily and taking lorazepam for anxiety. Her last known drink was yesterday. ETOH level today not detectable. Eliana was found to be somnolent yesterday but her caregiver did feel symptoms were improving throughout their time together. Today, symptoms were much worse and Eliana was found relatively obtunded in her bathtub. Laboratory evaluation was notable for a serum sodium of 123 mmol/L. Serum osmolality 258, urine osmolality 320, urine sodium 55 mmol/L and urine potassium 66 mmol/L. CT head did not show any acute abnormality but chronic atrophy and microvascular ischemic changes. MRI has been ordered. Chest x-ray shows a 9 mm nodular density at the left lung base, but otherwise normal lung morrison. She received 1 L of normal saline, IV magnesium, and IV ceftriaxone. Repeat sodium was found to be 123 mmol/L. 3% saline x 50 ml was then ordered. Eliana remains NPO. Eliana is non-oliguric with concentrated yellow urine draining from Schrader. Thiamine and folate are being provided. There was a similar admission in 2018 at [facility] for hyponatremia attributed to beer potomania and volume depletion. Allergies Allergy/AdvReac Type Severity Reaction Status Date / Time sulfamethoxazole Allergy Mild GI Verified 09/22/22 12:35 [From Bactrim] DISTURBANCES trimethoprim [From Bactrim] Allergy Mild GI Verified 09/22/22 12:35 DISTURBANCES escitalopram [From Lexapro] AdvReac Unknown Verified 09/22/22 12:35 Home Medications Medication Instructions Recorded Confirmed Type loratadine 10 mg tablet (Claritin) 10 mg PO DAILY PRN allergies 09/22/22 09/22/22 History lorazepam 1 mg tablet 1 mg PO BID PRN Anxiety 09/22/22 09/22/22 History Patient History Medical History Alcohol use disorder Cigarette smoker 1 PPD Depression Elevated LFTs Fractures, multiple Generalized anxiety disorder Gross hematuria History of Lyme disease Hyponatremia CHRONIC FELT SECONDARY TO POOR SOLUTE INTAKE/EXCESSIVE FREE WATER INTAKE (ALCOHOL) AND ADH RELEASE ASSOCIATED WITH INTRAVASCULAR VOLUME CONTRACTION PER [facility] NEPHRO NOTES- BASELINE 129-131 (1+ YEARS PER CHART REVIEW) Hypotension Irritable bowel syndrome MGUS (monoclonal gammopathy of unknown significance) PT COULD NOT CONFIRM Osteoarthritis of right hip Surgical History History of cataract surgery History of foot surgery Rt - 05/27/2018 [facility] History of tooth extraction Hx of LASIK Hx of wisdom tooth extraction Family History Brother Family history of diabetes mellitus Coronary heart disease Myocardial infarction Father Family history of diabetes mellitus Acute myocardial infarction Prostate cancer Uncle Acute myocardial infarction Denies family history of Ovarian cancer Breast cancer Colorectal cancer Social History Smoking Status: Current every day smoker Cigarettes Per Day: 1 PPD; Second Hand Exposure: No; Hx Alcohol Use: Yes Alcohol type: beer Hx Substance Use: No Preferred Language: Khmer Communication Ability: Impaired Visual Impairment: No Limitations Legal Director Required: No Beliefs That Will Affect Care: None Current Living Situation: Alone Current Living Situation Comment: Lives alone. Has caregiver from 10-2pm daily Feels Safe at Home: Yes Seatbelt Use: always Assistive Devices: Walker and Wheelchair Review of Systems Review of Systems: Unobtainable due to reduced consciousness Physical Exam Constitutional: well developed, + ill appearing, + thin and + altered mental status; not edematous Eyes: + anicteric sclerae; no corneal abnormality ENMT: Mouth: + dry oral mucous membranes Neck: normal visual inspection and trachea midline Respiratory: normal respiratory effort Auscultation: lungs clear to auscultation bilaterally Cardiovascular: Rate/Rhythm: regular rate Heart Sounds: normal S1 and normal S2 Extremities: no edema Musculoskeletal: Extremities: no cyanosis and no clubbing Skin: + turgor decreased, + skin atrophy, + crusts and + dry skin Neurologic: awake and + confused Psychiatric: Orientation: cooperative; + not oriented x 3 Genitourinary: Schrader draining concentrated yellow urine Results & Data ([facility]) Vital Signs (Past 12 Hours) Vital Signs Temp Pulse Pulse Resp BP BP Pulse Ox 09/22/22 17:00 36.9 C 92 H 18 137/87 95 09/22/22 16:58 37.2 C 88 18 155/91 H 93 09/22/22 15:33 88 09/22/22 15:00 89 18 149/82 H 96 09/22/22 13:13 97 H 19 163/90 H 95 09/22/22 11:43 09/22/22 11:31 96 H 09/22/22 11:23 37.7 C H 101 H 18 136/88 97 O2 Del Method 09/22/22 17:00 Room Air 09/22/22 16:58 Room Air 09/22/22 15:33 09/22/22 15:00 Room Air 09/22/22 13:13 Room Air 09/22/22 11:43 Room Air 09/22/22 11:31 09/22/22 11:23 Room Air Laboratory Results Laboratory Results - last 24 hr 09/22/22 09/22/22 09/22/22 11:27 11:27 11:27 WBC 10.68 RBC 5.24 Hgb 16.7 H Hct 47.1 H MCV 89.9 MCH 31.9 MCHC 35.5 RDW Std Deviation 41.1 RDW Coeff of Amador 12.5 Plt Count 240 MPV 9.6 Immature Gran % (Auto) 0.5 Neut % (Auto) 82.4 Lymph % (Auto) 5.4 [place] % (Auto) 11.2 Eos % (Auto) 0.0 Baso % (Auto) 0.5 Neut # (Auto) 8.80 H Lymph # (Auto) 0.58 L [place] # (Auto) 1.20 H Eos # (Auto) 0.00 Baso # (Auto) 0.05 Immature Gran # (Auto) 0.05 PT INR APTT PTT Ratio Sodium 123 L Potassium 4.3 Chloride 86 L Carbon Dioxide 26 Anion Gap 11 BUN 4 L Creatinine 0.48 L Est Cr Clr Drug Dosing Not Reportable Est GFR ( Amer) 118.5 Est GFR (Non-Af Amer) 102.2 BUN/Creatinine Ratio 8.3 L Glucose 119 H Osmolality Lactate Calcium 9.8 Magnesium 1.6 L Total Bilirubin 1.5 H Direct Bilirubin 0.2 AST 29 ALT 27 Alkaline Phosphatase 77 Ammonia Troponin I High Sens 4.6 Total Protein 7.4 Albumin 4.4 Procalcitonin < 0.05 Urine Color Urine Appearance Urine pH Ur Specific [place] Urine Protein Urine Glucose (UA) Urine Ketones Urine Blood Urine Nitrite Urine Bilirubin Urine Urobilinogen Ur Leukocyte Esterase Urine WBC (Auto) Urine RBC (Auto) U Hyaline Cast (Auto) U Epithel Cells (Auto) Urine Bacteria (Auto) Urine Osmolality Urine Sodium Urine Potassium Urine Chloride Urine Opiates Screen Ur Methadone, Qual Urine Barbiturates Ur Phencyclidine (PCP) U Amphetamin/Meth Scrn MDMA (Ecstasy) Screen U Benzodiazepines Scrn Ur Cocaine Metabolite U Marijuana (THC) Screen Ethyl Alcohol mg/dL SARS-CoV-2 (PCR) Influenza Type A (PCR) Influenza Type B (PCR) RSV (RT-PCR) 09/22/22 09/22/22 09/22/22 11:27 11:27 12:02 WBC RBC Hgb Hct MCV MCH MCHC RDW Std Deviation RDW Coeff of Amador Plt Count MPV Immature Gran % (Auto) Neut % (Auto) Lymph % (Auto) [place] % (Auto) Eos % (Auto) Baso % (Auto) Neut # (Auto) Lymph # (Auto) [place] # (Auto) Eos # (Auto) Baso # (Auto) Immature Gran # (Auto) PT 10.9 INR 1.0 APTT 29.0 PTT Ratio 1.1 Sodium Potassium Chloride Carbon Dioxide Anion Gap BUN Creatinine Est Cr Clr Drug Dosing Est GFR ( Amer) Est GFR (Non-Af Amer) BUN/Creatinine Ratio Glucose Osmolality 258 L Lactate 1.4 Calcium Magnesium Total Bilirubin Direct Bilirubin AST ALT Alkaline Phosphatase Ammonia Troponin I High Sens Total Protein Albumin Procalcitonin Urine Color Urine Appearance Urine pH Ur Specific [place] Urine Protein Urine Glucose (UA) Urine Ketones Urine Blood Urine Nitrite Urine Bilirubin Urine Urobilinogen Ur Leukocyte Esterase Urine WBC (Auto) Urine RBC (Auto) U Hyaline Cast (Auto) U Epithel Cells (Auto) Urine Bacteria (Auto) Urine Osmolality Urine Sodium Urine Potassium Urine Chloride Urine Opiates Screen Ur Methadone, Qual Urine Barbiturates Ur Phencyclidine (PCP) U Amphetamin/Meth Scrn MDMA (Ecstasy) Screen U Benzodiazepines Scrn Ur Cocaine Metabolite U Marijuana (THC) Screen Ethyl Alcohol mg/dL SARS-CoV-2 (PCR) Influenza Type A (PCR) Influenza Type B (PCR) RSV (RT-PCR) 09/22/22 09/22/22 09/22/22 12:02 12:02 12:51 WBC RBC Hgb Hct MCV MCH MCHC RDW Std Deviation RDW Coeff of Amador Plt Count MPV Immature Gran % (Auto) Neut % (Auto) Lymph % (Auto) [place] % (Auto) Eos % (Auto) Baso % (Auto) Neut # (Auto) Lymph # (Auto) [place] # (Auto) Eos # (Auto) Baso # (Auto) Immature Gran # (Auto) PT INR APTT PTT Ratio Sodium Potassium Chloride Carbon Dioxide Anion Gap BUN Creatinine Est Cr Clr Drug Dosing Est GFR ( Amer) Est GFR (Non-Af Amer) BUN/Creatinine Ratio Glucose Osmolality Lactate Calcium Magnesium Total Bilirubin Direct Bilirubin AST ALT Alkaline Phosphatase Ammonia 39.0 Troponin I High Sens Total Protein Albumin Procalcitonin Urine Color Yellow Urine Appearance Clear Urine pH 8.0 H Ur Specific [place] 1.009 Urine Protein Negative Urine Glucose (UA) Negative Urine Ketones 2+ H Urine Blood Trace H Urine Nitrite Negative Urine Bilirubin Negative Urine Urobilinogen Negative Ur Leukocyte Esterase Negative Urine WBC (Auto) 0 Urine RBC (Auto) 5-10 H U Hyaline Cast (Auto) 1-5 U Epithel Cells (Auto) 0-5 Urine Bacteria (Auto) Negative Urine Osmolality Urine Sodium Urine Potassium Urine Chloride Urine Opiates Screen Ur Methadone, Qual Urine Barbiturates Ur Phencyclidine (PCP) U Amphetamin/Meth Scrn MDMA (Ecstasy) Screen U Benzodiazepines Scrn Ur Cocaine Metabolite U Marijuana (THC) Screen Ethyl Alcohol mg/dL < 10.0 SARS-CoV-2 (PCR) Influenza Type A (PCR) Influenza Type B (PCR) RSV (RT-PCR) 09/22/22 09/22/22 09/22/22 12:51 12:51 13:13 WBC RBC Hgb Hct MCV MCH MCHC RDW Std Deviation RDW Coeff of Amador Plt Count MPV Immature Gran % (Auto) Neut % (Auto) Lymph % (Auto) [place] % (Auto) Eos % (Auto) Baso % (Auto) Neut # (Auto) Lymph # (Auto) [place] # (Auto) Eos # (Auto) Baso # (Auto) Immature Gran # (Auto) PT INR APTT PTT Ratio Sodium Potassium Chloride Carbon Dioxide Anion Gap BUN Creatinine Est Cr Clr Drug Dosing Est GFR ( Amer) Est GFR (Non-Af Amer) BUN/Creatinine Ratio Glucose Osmolality Lactate Calcium Magnesium Total Bilirubin Direct Bilirubin AST ALT Alkaline Phosphatase Ammonia Troponin I High Sens Total Protein Albumin Procalcitonin Urine Color Urine Appearance Urine pH Ur Specific [place] Urine Protein Urine Glucose (UA) Urine Ketones Urine Blood Urine Nitrite Urine Bilirubin Urine Urobilinogen Ur Leukocyte Esterase Urine WBC (Auto) Urine RBC (Auto) U Hyaline Cast (Auto) U Epithel Cells (Auto) Urine Bacteria (Auto) Urine Osmolality 320 L Urine Sodium 55 Urine Potassium 67.1 Urine Chloride 74 Urine Opiates Screen Ur Methadone, Qual Urine Barbiturates Ur Phencyclidine (PCP) U Amphetamin/Meth Scrn MDMA (Ecstasy) Screen U Benzodiazepines Scrn Ur Cocaine Metabolite U Marijuana (THC) Screen Ethyl Alcohol mg/dL SARS-CoV-2 (PCR) NEGATIVE Influenza Type A (PCR) Negative Influenza Type B (PCR) Negative RSV (RT-PCR) Negative 09/22/22 09/22/22 15:58 18:23 WBC RBC Hgb Hct MCV MCH MCHC RDW Std Deviation RDW Coeff of Amador Plt Count MPV Immature Gran % (Auto) Neut % (Auto) Lymph % (Auto) [place] % (Auto) Eos % (Auto) Baso % (Auto) Neut # (Auto) Lymph # (Auto) [place] # (Auto) Eos # (Auto) Baso # (Auto) Immature Gran # (Auto) PT INR APTT PTT Ratio Sodium 123 L Potassium 3.7 Chloride 92 L Carbon Dioxide 26 Anion Gap 5 BUN 4 L Creatinine 0.40 L Est Cr Clr Drug Dosing Not Reportable Est GFR ( Amer) 125.8 Est GFR (Non-Af Amer) 108.5 BUN/Creatinine Ratio 10.0 Glucose 134 H Osmolality Lactate Calcium 9.3 Magnesium Total Bilirubin Direct Bilirubin AST ALT Alkaline Phosphatase Ammonia Troponin I High Sens Total Protein Albumin Procalcitonin Urine Color Urine Appearance Urine pH Ur Specific [place] Urine Protein Urine Glucose (UA) Urine Ketones Urine Blood Urine Nitrite Urine Bilirubin Urine Urobilinogen Ur Leukocyte Esterase Urine WBC (Auto) Urine RBC (Auto) U Hyaline Cast (Auto) U Epithel Cells (Auto) Urine Bacteria (Auto) Urine Osmolality Urine Sodium Urine Potassium Urine Chloride Urine Opiates Screen Pending Ur Methadone, Qual Pending Urine Barbiturates Pending Ur Phencyclidine (PCP) Pending U Amphetamin/Meth Scrn Pending MDMA (Ecstasy) Screen Pending U Benzodiazepines Scrn Pending Ur Cocaine Metabolite Pending U Marijuana (THC) Screen Pending Ethyl Alcohol mg/dL SARS-CoV-2 (PCR) Influenza Type A (PCR) Influenza Type B (PCR) RSV (RT-PCR) Diagnostic Findings HEAD CT NONCONTRAST Findings: The paranasal sinuses and mastoid air cells are clear. The calvarium and skull base are intact. There is no mass, hematoma, midline shift, acute infarct. White matter hypodensity is nonspecific but suggestive of microvascular ischemic change. The ventricles and sulci demonstrate mild age-related involutional changes. Impression: No acute intracranial abnormality. Atrophy and microvascular ischemic changes. PG Care Time/CCT Total # of Minutes Spent Total Time Spent with Patient: Total time spent is greater than 50% in coordination of care (as documented) at patient's floor/unit and/or counseling patient: Coding Level of Care Code INP/OBS CONSULT LVL 4, 60 MIN Diagnoses Hyponatremia E87.1 Metabolic encephalopathy G93.41 Alcohol use disorder F10.90
[2022-09-22] MEDS ORDERED: PHENobarbital sodium 65 MG/ML VIAL IM STA (18:49)
[2022-09-22] MEDS ORDERED: Flu Vaccine-High Dose (Fluzone-HD) PF 65+ 0.7mL SYR IM ONE (19:00)
[2022-09-22] MEDS ORDERED: PNEUMOCOCCAL Polysaccharide Vaccine 25mcg/0.5mL vial/Syr IM ONE (19:00)
[2022-09-22 19:03] LABS: Amphetamines+Metham, Urine Neg (Neg); Barbiturates, Urine Neg (Neg); Benzodiazepine, Urine Neg (Neg); Cocaine, Urine Neg (Neg); MDMA (Ecstacy), Urine Neg (Neg); Methadone, Urine Neg (Neg); Opiate, Urine Neg (Neg); Phencyclidine, Urine Neg (Neg)
[2022-09-22] MEDS ORDERED: PHENobarbital sodium 130 MG/ML VIAL IM STA (19:11)
[2022-09-22] MEDS ORDERED: THIAMINE HCL 500 MG in SODIUM CHLORIDE 0.9% 50 ML IV STA (19:16)
[2022-09-22] MEDS ORDERED: THIAMINE HCL 500 MG in 0.9 % SODIUM CHLORIDE 100 ML IV STA (19:27)
[2022-09-22] MEDS: PHENobarbital sodium 130 MG/ML VIAL IM SCH (22:39)
[2022-09-22 23:10] LABS: Anion Gap 7 (3-11); BUN Creatinine Ratio 10.8 (10-20); Blood Urea Nitrogen 4 mg/dl (6-23); Carbon Dioxide 24 mmol/L (21-32); Chloride 94 mmol/L (98-107); Est GFR (African American) 129.1 ml/min; Est GFR (Non-African American) 111.4 ml/min; Glucose 103 mg/dl (70-99(Fasting)); Sodium 125 mmol/L (136-145)
[2022-09-22] MEDS ORDERED: LORazepam 2 MG/1 ML VIAL ONE (23:28)
[2022-09-23] MEDS: PHENobarbital sodium 130 MG/ML VIAL IM SCH (01:25)
[2022-09-23 03:12] LABS: Anion Gap 6 (3-11); BUN Creatinine Ratio 9.5 (10-20); Blood Urea Nitrogen 4 mg/dl (6-23); Calcium 9.2 mg/dl (8.5-10.1); Carbon Dioxide 29 mmol/L (21-32); Chloride 93 mmol/L (98-107); Est GFR (African American) 123.8 ml/min; Est GFR (Non-African American) 106.8 ml/min; Glucose 100 mg/dl (70-99(Fasting)); Potassium 3.6 mmol/L (3.5-5.1); Sodium 128 mmol/L (136-145)
[2022-09-23] MEDS: THIAMINE HCL 500 MG in SODIUM CHLORIDE 0.9% 50 ML IV SCH ×3 (03:22→19:55)
[2022-09-23 07:13] LABS: Magnesium 1.8 mg/dl (1.7-2.4); Phosphorus 3.3 mg/dl (2.5-4.9)
[2022-09-23 07:18] LABS: Anion Gap 8 (3-11); BUN Creatinine Ratio 11.4 (10-20); Blood Urea Nitrogen 4 mg/dl (6-23); Carbon Dioxide 26 mmol/L (21-32); Chloride 95 mmol/L (98-107); Est GFR (African American) 131.4 ml/min; Est GFR (Non-African American) 113.4 ml/min; Glucose 91 mg/dl (70-99(Fasting)); Potassium 3.3 mmol/L (3.5-5.1); Sodium 129 mmol/L (136-145)
--- NOTE | 2022-09-23 07:40 | Magnetic Resonance Report ---
Brain MRI WITHOUT CONTRAST HISTORY: Altered mental status. r/o cva TECHNIQUE: Multiplanar multisequence MRI of the brain was performed without the use of contrast. COMPARISON STUDY: Head CT 09/22/2022. Brain MRI 08/31/2011. FINDINGS: Motion artifact. There is no mass, hematoma, midline shift, or acute infarct. The paranasal sinuses are clear. The mastoid air cells are clear. The ventricles and sulci demonstrate mild age-re lated involutional changes. Scattered foci of T2 hyperintensity seen within the periventricular and s ubcortical white matter are nonspecific but suggestive of mild microvascular ischemic changes. The ma jonas vascular flow voids at the skull base are well-maintained. IMPRESSION: 1. Motion artifact. No definite acute intracranial abnormality. 2. Scattered foci of T2 hyperintensity seen within the periventricular and subcortical white matter a re nonspecific but favor microvascular ischemic change. ACT 112: Negative or not required by law. Electronically signed by: Edgar Cordova M.D. 09/23/2022 7:39 AM
--- NOTE | 2022-09-23 08:15 | Hospitalist Progress Note ---
Date of Service September 23, 2022 Assessment & Plan (1) Hyponatremia: Plan: 67 yo female with a PMH of chronic hyponatremia and alcohol use disorder was found in her home with altered mental status and presented with hyponatremia. Hyponatremia -Acute on chronic, likely multifactorial -Has a history of chronic hyponatremia with a baseline around [id number] according to documentation from 2018. Patient was admitted to the intensive care unit in 2018 due to symptomatic hyponatremia with a sodium as low as 108, was discharged on sodium tablets. At that time, her hyponatremia was felt to be secondary to poor solute intake and excess free water intake (in the form of alcohol), as well as ADH release associated with intravascular volume contraction. -Today, patient's sodium is 123. Patient is not taking sodium tablets per her caregiver, and is drinking 8 regular sized Coors lights daily. - Serum Osm 258, Urine Osm 320, Urine Na 55 - Nephrology consulted: goal increase 2-3/24 hrs, no more than 6-8/24 hrs - 1 L NS in the ED, 50 mL hypertonic bolus x 2, corrected to 129, fluids d/c'd - Strict Is and Os: I 1530, O 600, Balance +930 -Basic metabolic panel every 4 hours. (2) Positive blood culture: Plan: - 24 hour preliminary blood cultures Gram + cocci, second bottle negative at 24 hrs, continue to follow - Patient afebrile, WBC 10.68, UA negative, urine cx no growth - Ceftriaxone 2,000 mg to cover infection with unknown source (3) Metabolic encephalopathy: Plan: -Acute alteration in mental status as compared to her baseline in the setting of hyponatremia of 124, alcohol use disorder, last known well at 2 PM on 09/21. -CT head without evidence of CVA, MRI motion artifact and no acute processes -DDx includes acute metabolic encephalopathy secondary to hyponatremia, please see above. vs Infection without a source - 24 hour preliminary blood cultures Gram + cocci, second bottle negative at 24 hrs, continue to monitor - TSH with am labs per nephrology recommendation -Neuro checks every 2 hours - 1:1 -N.p.o. for now until patient is more awake and alert. (4) Alcohol use disorder: Plan: - Active use, 8 regular size Coors light cans daily. - Suspect this is contributing to patient's hyponatremia. - AWSS protocol, score 7, IV Ativan. - IV thiamine and folate. - Labwork ordered for other vitamin deficiencies (b1, B3, and Vitamin C) (5) Dermatitis: Plan: - b/t rash on legs, so symptoms reported by patient by HPI limited - labwork for vitamin deficiences ordered (6) Tobacco abuse: Plan: - Patient smokes >1ppd, needed nicotine patch on prior admission - monitor for now Plan Patient's point of contact is her caregiver Cassandra Dodson (phone number [phone]), Jayson Luna is POA DVT ppx: SubQ Lovenox Diet: NPO Code: Full Disp: Tele Admission and Anticipated Discharge Date Admission Date: September 22, 2022 Supervising Physician Co-Signing Physician Notes Attending attestation Pt seen and examined in concert with Dr. Harris, St. Dr. Santillan. In agreement with the documented findings as noted in the resident documentation with any exceptions or additions as noted here. Somnolent but arousable with touch without significant agitation at this time. Caregiver present in the room for additional history re: alcohol use verification 8+ beers per day (caregiver takes her to the store for them) and little else for POI. On examination, S1/S2 nl RRR no MCG. CTAB. Abd NT/ND BS+ve Hyponatremia, multifactorial - nephro consult - close monitoring of BMP q4-6 hours with adjustment goals as noted. s/p hypertonic, will slow repletion 2/2 avoiding over-repletion. BCx + - abx management with ceftriaxone and monitoring. If contaminant, can consider D/C same Metabolic encephalopathy - no concerning findings on imaging at this time - w/u for vitamin deficiency and management for hyponatremia as above Skin changes of the bilateral LE - peeling rash to the knees with visible excoriations concerning for vitamin deficiency as above v. severe xerosis Else see resident documentation as noted. Subjective Eliana is a 67 yo female with PMH chronic hyponatremia, major depressive disorder, alcohol use disorder, tobacco use presented to the ER via EMS due to altered mental status and being found in her bathtub by her caregiver. History from caregiver that at baseline, Eliana is very depressed, chronic alcohol user, drinking 8 regular sized Coors light beers daily for at least as long as the patient has had this caregiver and lorazepam 1 mg p.o. daily as needed for anxiety. Caregiver goes to Eliana's house from 10- every day to help give her a bath, get her food, get her groceries, etc. Reportedly Wednesday Anni slept through most of the day, but was at least somewhat conversant with caregiver before she left. On arrival Wednesday at 10 AM, caregiver found patient in the bathtub having soiled herself. She would awake to voice, but had strange speech, and would fall back asleep again. EMS was called.In the ER patient noted to have a sodium of 123 and Serum osmolality 258, urine osmolality 320, urine sodium 55. CT head did not show any acute abnormality such as a stroke but did note chronic atrophy and microvascular ischemic changes. Chest x-ray shows a 9 mm nodular density at the left lung base. Patient received 1 L of n ormal saline, IV magnesium, and IV ceftriaxone. HPI is limited. Eliana reports feeling poor and possible urinary urgency. She does not answer most questions, unclear if she is not comprehending or choosing not to answer. She is not oriented to place, person or time. Per caregiver and spouse, she is not confused at baseline and this is similar to a previous hospitalization for hyponatremia. She smokes greater than one pack a day of cigarettes. She eats very little. Rash on her legs was not as severe as the last time her saw her but notes they were always dry. Review of Systems Review of Systems: See HPI Physical Exam Constitutional: + ill appearing and + thin Eyes: PERRL, conjunctivae normal, anicteric sclerae Cardiovascular: RRR, no murmur, no edema Skin: Xerotic, desquamating skin b/t legs Psychiatric: not orientated to time, place or person Results & Data Results & Data ([facility]) Vital Signs (Past 12 Hours) Vital Signs Temp Pulse Pulse Resp BP Pulse Ox O2 Del Method 09/23/22 06:51 37.0 C 102 H 18 161/73 H 92 Room Air 09/23/22 03:17 36.7 C 88 22 132/80 90 Room Air 09/22/22 22:45 84 09/22/22 22:35 36.8 C 88 16 123/86 94 Room Air 09/22/22 21:02 36.8 C 87 17 143/86 H 93 Room Air Laboratory Results 09/22/22 11:27 02/22/23 05:35 Serum Osm 258 Urine osm 320 Urine Na 55
[2022-09-23] MEDS ORDERED: THIAMINE HCL 100 MG in SYRINGE 9 ML IV SCH (09:00)
[2022-09-23] MEDS: FOLIC ACID 1 MG in SYRINGE 9.8 ML IV SCH (09:39)
[2022-09-23] MEDS: POTASSIUM CHLORIDE / WTR 10 MEQ/100 ML PLCT IV SCH ×3 (09:40→11:58)
[2022-09-23 10:06] LABS: A calco-baum cmplx NotReported Not Detected (NotDetected); Bact fragilis Not Reported Not Detected (NotDetected); C auris Not Reported Not Detected (NotDetected); Calbicans Not Reported Not Detected (NotDetected); Candida glabrata Not Reported Not Detected (NotDetected); Candida krusei Not Reported Not Detected (NotDetected); Cneoformans/gatti Not Reported Not Detected (NotDetected); Cparapsilosis Not Reported Not Detected (NotDetected); Ctropicalis Not Reported Not Detected (NotDetected); E cloacae compx Not Reported Not Detected (NotDetected); Efaecalis Not Reported Not Detected (NotDetected); Efaecium Not Reported Not Detected (NotDetected); Enterobacterales Not Reported Not Detected (NotDetected); Escherichia coli Not Reported Not Detected (NotDetected); H influenzae Not Reported Not Detected (NotDetected); K aerogenes Not Reported Not Detected (NotDetected); Koxytoca Not Reported Not Detected (NotDetected); Kpneumoniae grp Not Reported Not Detected (NotDetected); Lmonocyt Not Reported Not Detected (NotDetected); N meningitidis Not Reported Not Detected (NotDetected); P aeruginosa Not Reported Not Detected (NotDetected); Proteus spp Not Reported Not Detected (NotDetected); Salmonella spp Not Reported Not Detected (NotDetected); Smarcescens Not Reported Not Detected (NotDetected); Staph lugdunensis Not Reported Not Detected (NotDetected); Staphaureus Not Reported Not Detected (NotDetected); Staphepi Not Reported Not Detected (NotDetected); Staphylococcus spp. DETECTED (NotDetected); Stenmaltophilia Not Reported Not Detected (NotDetected); Strep agal(GrpB) Not Reported Not Detected (NotDetected); Strep pneum Not Reported Not Detected (NotDetected); Strep pyog (GrpA) Not Reported Not Detected (NotDetected); Strep spp Not Reported Not Detected (NotDetected)
[2022-09-23 10:08] LABS: Staph spp. Not Reported DETECTED (NotDetected)
[2022-09-23] MEDS ORDERED: Ativan IV Alcohol Withdrawal--Active Protocol IV PRN (10:22)
[2022-09-23] MEDS ORDERED: LORazepam 2 MG/1 ML VIAL IV PRN ×3 (10:28)
[2022-09-23 10:30] LABS: Anion Gap 6 (3-11); BUN Creatinine Ratio 7.3 (10-20); Blood Urea Nitrogen 3 mg/dl (6-23); Calcium 8.9 mg/dl (8.5-10.1); Carbon Dioxide 28 mmol/L (21-32); Chloride 94 mmol/L (98-107); Est GFR (African American) 124.8 ml/min; Est GFR (Non-African American) 107.7 ml/min; Glucose 90 mg/dl (70-99(Fasting)); Potassium 3.6 mmol/L (3.5-5.1); Sodium 128 mmol/L (136-145)
[2022-09-23] MEDS ORDERED: Patient's HEIGHT &/or WEIGHT Needed SCH (10:45)
[2022-09-23] MEDS: ENOXAPARIN INJ 40 MG/0.4 ML SYR SQ SCH (12:00)
--- NOTE | 2022-09-23 12:30 | Nephrology Progress Note ---
Date of Service September 23, 2022 Assessment & Plan (1) Hyponatremia: Plan: Chronic, severe hyponatremia with symptoms. Received 1 L of NSS and 2 x 50 ml boluses of 3% saline overnight. Sodium improving appropriating. Uosm to be updated this AM. Close monitoring is being provided with labs q4 hours. Urine in [place] remains concentrated. Close monitoring will be required due to risk of ODS and potential for auto-correction. Avoid a rate of correction >0.5 mmol/L/h or >6-8 mmol/L within a 24 hour period. Document strict I/O's. Consider updating a TSH with AM labs. (2) Metabolic encephalopathy: Plan: Complex picture of alcohol dependence, chronic benzodiazepine use, and hyponatremia. CT negative for acute CVA. MRI unable to be obtained at this time. UDS negative. Treatment of dysnatremia outlined above. Presentation concerning for Wernicke encephalopathy. I discussed this concern with Dr. Peters. LE rash possibly manifestation of B vitamin deficiency as well. High dose IV thiamine has been ordered. MVI and FA also provided. Frequent neurochecks. Remains on treatment for potential alcohol withdrawal. (3) Alcohol use disorder: Plan: As above. Prognosis is unfortunately guarded. Admission and Anticipated Discharge Date Admission Date: September 22, 2022 Juan Jose Monroy was seen and evaluated with the 1:1 at the bedside this AM. She was refusing examination or to participate in conversation. She repeatedly stated "get out and leave me alone." She hid her head under the covers when I asked if I could examine her. She did tell me that she knew that she was in the hospital and that she had been admitted yesterday. Review of Systems Review of Systems: Unobtainable due to mental health condition and Other (patient refused to participate) Physical Exam Physical Exam: Limited due to patient refusal Constitutional: well developed, + ill appearing and + thin Eyes: + anicteric sclerae; no corneal abnormality ENMT: Mouth: + dry oral mucous membranes Respiratory: normal respiratory effort Cardiovascular: Rate/Rhythm: regular rate Skin: + turgor decreased, + skin atrophy, + crusts and + dry skin Diffuse dry and exfoliating of skin on LE BL Neurologic: moves all extremities and awake Psychiatric: Orientation: oriented to place; + uncooperative Eye Contact: + poor eye contact Affect: + irritable affect Mood: + angry mood Results & Data ([facility]) Vital Signs (Past 12 Hours) Vital Signs Temp Pulse Pulse Resp BP BP Pulse Ox 09/23/22 11:43 09/23/22 11:46 36.4 C L 83 18 134/82 93 09/23/22 09:58 82 09/23/22 09:52 09/23/22 06:51 37.0 C 102 H 18 161/73 H 92 09/23/22 03:17 36.7 C 88 22 132/80 90 Pulse Ox O2 Del Method O2 Del Method 09/23/22 11:43 93 Room Air 09/23/22 11:46 Room Air 09/23/22 09:58 09/23/22 09:52 Room Air 09/23/22 06:51 Room Air 09/23/22 03:17 Room Air Laboratory Results Laboratory Results - last 24 hr 09/22/22 09/22/22 09/22/22 11:27 11:27 11:27 PT 10.9 INR 1.0 APTT 29.0 PTT Ratio 1.1 Sodium Potassium Chloride Carbon Dioxide Anion Gap BUN Creatinine Est Cr Clr Drug Dosing Est GFR ( Amer) Est GFR (Non-Af Amer) BUN/Creatinine Ratio Glucose Osmolality 258 L Lactate Calcium Phosphorus Magnesium Ammonia Procalcitonin < 0.05 Urine Color Urine Appearance Urine pH Ur Specific Carmine Urine Protein Urine Glucose (UA) Urine Ketones Urine Blood Urine Nitrite Urine Bilirubin Urine Urobilinogen Ur Leukocyte Esterase Urine WBC (Auto) Urine RBC (Auto) U Hyaline Cast (Auto) U Epithel Cells (Auto) Urine Bacteria (Auto) Urine Osmolality Urine Sodium Urine Potassium Urine Chloride Urine Opiates Screen Ur Methadone, Qual Urine Barbiturates Ur Phencyclidine (PCP) U Amphetamin/Meth Scrn MDMA (Ecstasy) Screen U Benzodiazepines Scrn Ur Cocaine Metabolite U Marijuana (THC) Screen Ethyl Alcohol mg/dL SARS-CoV-2 (PCR) Influenza Type A (PCR) Influenza Type B (PCR) RSV (RT-PCR) Staphylococcus sp PCR Bld Cult ID Panel PCR 09/22/22 09/22/22 09/22/22 11:51 12:02 12:02 PT INR APTT PTT Ratio Sodium Potassium Chloride Carbon Dioxide Anion Gap BUN Creatinine Est Cr Clr Drug Dosing Est GFR ( Amer) Est GFR (Non-Af Amer) BUN/Creatinine Ratio Glucose Osmolality Lactate 1.4 Calcium Phosphorus Magnesium Ammonia 39.0 Procalcitonin Urine Color Urine Appearance Urine pH Ur Specific Carmine Urine Protein Urine Glucose (UA) Urine Ketones Urine Blood Urine Nitrite Urine Bilirubin Urine Urobilinogen Ur Leukocyte Esterase Urine WBC (Auto) Urine RBC (Auto) U Hyaline Cast (Auto) U Epithel Cells (Auto) Urine Bacteria (Auto) Urine Osmolality Urine Sodium Urine Potassium Urine Chloride Urine Opiates Screen Ur Methadone, Qual Urine Barbiturates Ur Phencyclidine (PCP) U Amphetamin/Meth Scrn MDMA (Ecstasy) Screen U Benzodiazepines Scrn Ur Cocaine Metabolite U Marijuana (THC) Screen Ethyl Alcohol mg/dL SARS-CoV-2 (PCR) Influenza Type A (PCR) Influenza Type B (PCR) RSV (RT-PCR) Staphylococcus sp PCR DETECTED A Bld Cult ID Panel PCR See PCR Comment 09/22/22 09/22/22 09/22/22 12:02 12:51 12:51 PT INR APTT PTT Ratio Sodium Potassium Chloride Carbon Dioxide Anion Gap BUN Creatinine Est Cr Clr Drug Dosing Est GFR ( Amer) Est GFR (Non-Af Amer) BUN/Creatinine Ratio Glucose Osmolality Lactate Calcium Phosphorus Magnesium Ammonia Procalcitonin Urine Color Yellow Urine Appearance Clear Urine pH 8.0 H Ur Specific Carmine 1.009 Urine Protein Negative Urine Glucose (UA) Negative Urine Ketones 2+ H Urine Blood Trace H Urine Nitrite Negative Urine Bilirubin Negative Urine Urobilinogen Negative Ur Leukocyte Esterase Negative Urine WBC (Auto) 0 Urine RBC (Auto) 5-10 H U Hyaline Cast (Auto) 1-5 U Epithel Cells (Auto) 0-5 Urine Bacteria (Auto) Negative Urine Osmolality 320 L Urine Sodium Urine Potassium Urine Chloride Urine Opiates Screen Ur Methadone, Qual Urine Barbiturates Ur Phencyclidine (PCP) U Amphetamin/Meth Scrn MDMA (Ecstasy) Screen U Benzodiazepines Scrn Ur Cocaine Metabolite U Marijuana (THC) Screen Ethyl Alcohol mg/dL < 10.0 SARS-CoV-2 (PCR) Influenza Type A (PCR) Influenza Type B (PCR) RSV (RT-PCR) Staphylococcus sp PCR Bld Cult ID Panel PCR 09/22/22 09/22/22 09/22/22 12:51 13:13 15:58 PT INR APTT PTT Ratio Sodium 123 L Potassium 3.7 Chloride 92 L Carbon Dioxide 26 Anion Gap 5 BUN 4 L Creatinine 0.40 L Est Cr Clr Drug Dosing Not Reportable Est GFR ( Amer) 125.8 Est GFR (Non-Af Amer) 108.5 BUN/Creatinine Ratio 10.0 Glucose 134 H Osmolality Lactate Calcium 9.3 Phosphorus Magnesium Ammonia Procalcitonin Urine Color Urine Appearance Urine pH Ur Specific Carmine Urine Protein Urine Glucose (UA) Urine Ketones Urine Blood Urine Nitrite Urine Bilirubin Urine Urobilinogen Ur Leukocyte Esterase Urine WBC (Auto) Urine RBC (Auto) U Hyaline Cast (Auto) U Epithel Cells (Auto) Urine Bacteria (Auto) Urine Osmolality Urine Sodium 55 Urine Potassium 67.1 Urine Chloride 74 Urine Opiates Screen Ur Methadone, Qual Urine Barbiturates Ur Phencyclidine (PCP) U Amphetamin/Meth Scrn MDMA (Ecstasy) Screen U Benzodiazepines Scrn Ur Cocaine Metabolite U Marijuana (THC) Screen Ethyl Alcohol mg/dL SARS-CoV-2 (PCR) NEGATIVE Influenza Type A (PCR) Negative Influenza Type B (PCR) Negative RSV (RT-PCR) Negative Staphylococcus sp PCR Bld Cult ID Panel PCR 09/22/22 09/22/22 09/22/22 18:23 22:33 23:38 PT INR APTT PTT Ratio Sodium 125 L Potassium TNP 3.8 Chloride 94 L Carbon Dioxide 24 Anion Gap 7 BUN 4 L Creatinine 0.37 L Est Cr Clr Drug Dosing Not Reportable Est GFR ( Amer) 129.1 Est GFR (Non-Af Amer) 111.4 BUN/Creatinine Ratio 10.8 Glucose 103 H Osmolality Lactate Calcium 9.0 Phosphorus Magnesium Ammonia Procalcitonin Urine Color Urine Appearance Urine pH Ur Specific Carmine Urine Protein Urine Glucose (UA) Urine Ketones Urine Blood Urine Nitrite Urine Bilirubin Urine Urobilinogen Ur Leukocyte Esterase Urine WBC (Auto) Urine RBC (Auto) U Hyaline Cast (Auto) U Epithel Cells (Auto) Urine Bacteria (Auto) Urine Osmolality Urine Sodium Urine Potassium Urine Chloride Urine Opiates Screen Neg Ur Methadone, Qual Neg Urine Barbiturates Neg Ur Phencyclidine (PCP) Neg U Amphetamin/Meth Scrn Neg MDMA (Ecstasy) Screen Neg U Benzodiazepines Scrn Neg Ur Cocaine Metabolite Neg U Marijuana (THC) Screen Neg Ethyl Alcohol mg/dL SARS-CoV-2 (PCR) Influenza Type A (PCR) Influenza Type B (PCR) RSV (RT-PCR) Staphylococcus sp PCR Bld Cult ID Panel PCR 02/09/23/22 09/23/22 02:38 05:35 05:35 PT INR APTT PTT Ratio Sodium 128 L 129 L Potassium 3.6 3.3 L Chloride 93 L 95 L Carbon Dioxide 29 26 Anion Gap 6 8 BUN 4 L 4 L Creatinine 0.42 L 0.35 L Est Cr Clr Drug Dosing Not Reportable Not Reportable Est GFR ( Amer) 123.8 131.4 Est GFR (Non-Af Amer) 106.8 113.4 BUN/Creatinine Ratio 9.5 L 11.4 Glucose 100 H 91 Osmolality Lactate Calcium 9.2 9.0 Phosphorus 3.3 Magnesium 1.8 Ammonia Procalcitonin Urine Color Urine Appearance Urine pH Ur Specific Carmine Urine Protein Urine Glucose (UA) Urine Ketones Urine Blood Urine Nitrite Urine Bilirubin Urine Urobilinogen Ur Leukocyte Esterase Urine WBC (Auto) Urine RBC (Auto) U Hyaline Cast (Auto) U Epithel Cells (Auto) Urine Bacteria (Auto) Urine Osmolality Urine Sodium Urine Potassium Urine Chloride Urine Opiates Screen Ur Methadone, Qual Urine Barbiturates Ur Phencyclidine (PCP) U Amphetamin/Meth Scrn MDMA (Ecstasy) Screen U Benzodiazepines Scrn Ur Cocaine Metabolite U Marijuana (THC) Screen Ethyl Alcohol mg/dL SARS-CoV-2 (PCR) Influenza Type A (PCR) Influenza Type B (PCR) RSV (RT-PCR) Staphylococcus sp PCR Bld Cult ID Panel PCR 09/23/22 09:53 PT INR APTT PTT Ratio Sodium 128 L Potassium 3.6 Chloride 94 L Carbon Dioxide 28 Anion Gap 6 BUN 3 L Creatinine 0.41 L Est Cr Clr Drug Dosing Not Reportable Est GFR ( Amer) 124.8 Est GFR (Non-Af Amer) 107.7 BUN/Creatinine Ratio 7.3 L Glucose 90 Osmolality Lactate Calcium 8.9 Phosphorus Magnesium Ammonia Procalcitonin Urine Color Urine Appearance Urine pH Ur Specific Carmine Urine Protein Urine Glucose (UA) Urine Ketones Urine Blood Urine Nitrite Urine Bilirubin Urine Urobilinogen Ur Leukocyte Esterase Urine WBC (Auto) Urine RBC (Auto) U Hyaline Cast (Auto) U Epithel Cells (Auto) Urine Bacteria (Auto) Urine Osmolality Urine Sodium Urine Potassium Urine Chloride Urine Opiates Screen Ur Methadone, Qual Urine Barbiturates Ur Phencyclidine (PCP) U Amphetamin/Meth Scrn MDMA (Ecstasy) Screen U Benzodiazepines Scrn Ur Cocaine Metabolite U Marijuana (THC) Screen Ethyl Alcohol mg/dL SARS-CoV-2 (PCR) Influenza Type A (PCR) Influenza Type B (PCR) RSV (RT-PCR) Staphylococcus sp PCR Bld Cult ID Panel PCR PG Care Time/CCT Total # of Minutes Spent Total Time Spent with Patient: Total time spent is greater than 50% in coordination of care (as documented) at patient's floor/unit and/or counseling patient: Coding Level of Care Code 44958 SUB INP/OBS CARE 3/50MIN Diagnoses Hyponatremia E87.1 Metabolic encephalopathy G93.41 Alcohol use disorder F10.90
[2022-09-23] MEDS ORDERED: cefTRIAXone SODIUM 2,000 MG in DEXTROSE 5% 50 ML IV SCH (13:00)
[2022-09-23 13:52] LABS: BUN Creatinine Ratio 14.3 (10-20); Calcium 8.4 mg/dl (8.5-10.1); Creatinine Clr Calc Pharmacy 177.2 ml/min; Est GFR (African American) 141.5 ml/min; Est GFR (Non-African American) 122.1 ml/min; Potassium 3.9 mmol/L (3.5-5.1)
[2022-09-23] MEDS ORDERED: SODIUM CHLORIDE 3 % 100 ML IV ONE (17:26)
[2022-09-23 18:23] LABS: BUN Creatinine Ratio 13.3 (10-20); Calcium 8.7 mg/dl (8.5-10.1); Creatinine Clr Calc Pharmacy 165.4 ml/min; Est GFR (African American) 138.3 ml/min; Est GFR (Non-African American) 119.3 ml/min; Potassium 3.9 mmol/L (3.5-5.1)
[2022-09-23 20:47] LABS: BUN Creatinine Ratio 9.8 (10-20); Calcium 8.9 mg/dl (8.5-10.1); Est GFR (African American) 124.8 ml/min; Est GFR (Non-African American) 107.7 ml/min; Potassium 3.9 mmol/L (3.5-5.1)
[2022-09-24 01:34] LABS: BUN Creatinine Ratio 11.1 (10-20); Calcium 8.7 mg/dl (8.5-10.1); Creatinine Clr Calc Pharmacy 137.8 ml/min; Est GFR (African American) 130.2 ml/min; Est GFR (Non-African American) 112.4 ml/min; Potassium 3.7 mmol/L (3.5-5.1)
[2022-09-24] MEDS: DEXTROSE 50% 50 ML SYRINGE IV PRN ×2 (02:05→06:37)
[2022-09-24] MEDS: THIAMINE HCL 500 MG in SODIUM CHLORIDE 0.9% 50 ML IV SCH ×3 (03:00→20:23)
[2022-09-24 06:11] LABS: Basophils # (auto) 0.07 K/uL (0-0.2); Basophils % (auto) 1.3 %; Eosinophils % (auto) 1.9 %; Hematocrit (blood only) 40.5 % (37.0-47.0); Hemoglobin 14.1 g/dl (12.0-16.0); Immature Granulocytes # (auto) 0.01 K/uL (0.01-0.20); Immature Granulocytes % (auto) 0.2 %; Lymphocytes # (auto) 0.81 K/uL (1.2-3.4); Lymphocytes % (auto) 15.4 %; Mean Corpuscular Hemoglobin 31.8 pg (25.0-34.0); Mean Corpuscular Hgb Conc 34.8 g/dL (32.0-36.0); Mean Corpuscular Volume 91.4 fL (80.0-100.0); Mean Platelet Volume 9.5 fL (9.4-12.4); Monocytes # (auto) 0.77 K/uL (0.11-0.59); Monocytes % (auto) 14.6 %; Neutrophils # (auto) 3.51 K/uL (1.40-6.50); Neutrophils % (auto) 66.6 %; Platelet Count 159 K/uL (130-400); RDW Coefficient of Variation 12.4 % (11.5-14.5); Red Blood Count 4.43 M/uL (4.20-5.40); White Blood Count 5.27 K/ul (4.8-10.8)
[2022-09-24 06:27] LABS: BUN Creatinine Ratio 12.8 (10-20); Calcium 8.7 mg/dl (8.5-10.1); Creatinine Clr Calc Pharmacy 128.8 ml/min; Est GFR (African American) 126.8 ml/min; Est GFR (Non-African American) 109.4 ml/min; Magnesium 1.7 mg/dl (1.7-2.4); Potassium 3.6 mmol/L (3.5-5.1)
--- NOTE | 2022-09-24 07:19 | Hospitalist Progress Note ---
Date of Service September 24, 2022 Assessment & Plan (1) Hyponatremia: Plan: 67 yo female with a PMH of chronic hyponatremia and alcohol use disorder was found in her home with altered mental status and presented with hyponatremia. Hyponatremia -Acute on chronic, likely multifactorial -Has a history of chronic hyponatremia with a baseline around [id number] according to documentation from 2018. Patient was admitted to the intensive care unit in 2018 due to symptomatic hyponatremia with a sodium as low as 108, was discharged on sodium tablets. At that time, her hyponatremia was felt to be secondary to poor solute intake and excess free water intake (in the form of alcohol), as well as ADH release associated with intravascular volume contraction. -Today, patient's sodium is 123. Patient is not taking sodium tablets per her caregiver, and is drinking 8 regular sized Coors lights daily. - Serum Osm 258, Urine Osm 320, Urine Na 55 - Nephrology consulted: goal increase 2-3/24 hrs, no more than 6-8/24 hrs - 1 L NS in the ED, 50 mL hypertonic bolus x 2, corrected to 129, fluids d/c'd - 09/24 Na 132 (+3meq/24 hrs) - Strict Is and Os: I 2165, O 1300, Balance +865 -Basic metabolic panel daily (2) Metabolic encephalopathy: Plan: -Acute alteration in mental status as compared to her baseline in the setting of hyponatremia of 124, alcohol use disorder, last known well at 2 PM on 09/21. -CT head without evidence of CVA, MRI motion artifact and no acute processes -DDx includes acute metabolic encephalopathy secondary to hyponatremia, please see above. vs Infection without a source - 24 hour preliminary blood cultures Gram + cocci, second bottle negative at 48 hrs, continue to monitor - TSH 1.388 -Neuro checks every 2 hours (3) Positive blood culture: Plan: - 24 hour preliminary blood cultures Gram + cocci, second bottle negative at 24 hrs, continue to follow - Patient afebrile, WBC down to 5.27 from 10.68, UA negative, urine cx no growth - Ceftriaxone 2,000 mg to cover infection with unknown source, d/c'd (4) Alcohol use disorder: Plan: - Active use, 8 regular size Coors light cans daily. - Suspect this is contributing to patient's hyponatremia. - AWSS protocol, score 2, IV Ativan. - IV thiamine and folate. - Labwork ordered for other vitamin deficiencies (B1, B3, and Vitamin C) (5) Dermatitis: Plan: - b/t rash on legs and arms, no symptoms - labwork for vitamin deficiencies ordered - continued to be worked up for other deficiencies (zinc) (6) Tobacco abuse: Plan: - Patient smokes >1ppd, needed nicotine patch on prior admission - monitor for now (7) Anxiety: Plan: - home ativan 1mg BID PRN Plan Patient's point of contact is her caregiver Cassandra Dodson (phone number [phone]), Jayson Luna is POA DVT ppx: SubQ Lovenox Diet: Regular Code: Full Disp: Tele Admission and Anticipated Discharge Date Admission Date: September 22, 2022 Supervising Physician Co-Signing Physician Notes Attending attestation Pt seen and examined in concert with Dr. Harris, [facility]. Dr. Santillan. In agreement with the documented findings as noted in the resident documentation with any exceptions or additions as noted here. Significantly more interactive today and AAOx3. Reports no acute complaint other than irritation at IV site. Reports rash of the bilateral UE and LE have been chronic, patient has no moisturizing routine. Previously, caregiver present in the room for additional history re: alcohol use verification 8+ beers per day (caregiver takes her to the store for them) and little else for POI. On examination, S1/S2 nl RRR no MCG. CTAB. Abd NT/ND BS+ve. Rash with peeling skin in large swaths of the UE and LE, worse on the LE. Hyponatremia, multifactorial - nephro consult - improved. BMP this afternoon then qAM. BCx + - likely contaminant, resolution of AMS with sodium correction, no other hallmarks of infection. D/C abx Metabolic encephalopathy - no concerning findings on imaging at this time - w/u for vitamin deficiency pending Skin changes of the bilateral LE - peeling rash to the knees with visible excoriations concerning for vitamin deficiency as above v. severe xerosis. f/u Zinc level Else see resident documentation as noted. Subjective Eliana is a 67 yo female with PMH chronic hyponatremia, major depressive disorder, alcohol use disorder, tobacco use presented to the ER via EMS due to altered mental status and being found in her bathtub by her caregiver. HPI is limited. She reports feeling fine and only reports pain in her IV site. Has an appetite. Has a cough but it is not productive. Requested catheter removed. No headache, abdominal pain. Review of Systems Review of Systems: See HPI Physical Exam Physical Exam: Patient deferred physical exam Skin: Xerotic, peeling rash on arms similar to legs Results & Data Results & Data ([facility]) Vital Signs (Past 12 Hours) Vital Signs Temp Pulse Pulse Resp BP BP Pulse Ox 09/24/22 03:00 36.8 C 76 18 138/86 94 09/23/22 22:46 80 09/23/22 22:34 36.6 C 83 16 159/91 H 94 O2 Del Method 09/24/22 03:00 Room Air 09/23/22 22:46 09/23/22 22:34 Room Air Laboratory Results 09/24/22 05:51 09/24/22 09:33
[2022-09-24] MEDS: FOLIC ACID 1 MG in SYRINGE 9.8 ML IV SCH (08:43)
[2022-09-24 10:08] LABS: BUN Creatinine Ratio 10.3 (10-20); Calcium 8.9 mg/dl (8.5-10.1); Creatinine Clr Calc Pharmacy 128.8 ml/min; Est GFR (African American) 126.8 ml/min; Est GFR (Non-African American) 109.4 ml/min; Phosphorus 3.7 mg/dl (2.5-4.9); Potassium 3.6 mmol/L (3.5-5.1)
[2022-09-24] MEDS ORDERED: LORazepam 1 MG TAB PO PRN (10:43)
[2022-09-24] MEDS: ENOXAPARIN INJ 40 MG/0.4 ML SYR SQ SCH (12:53)
--- NOTE | 2022-09-24 15:04 | Nephrology Progress Note ---
Date of Service September 24, 2022 Assessment & Plan (1) Hyponatremia: Plan: Clinical presentation consistent with beer potomania. Improving with treatment. Tolerating adequate PO intake. Will monitor closely. Electrolytes otherwise normal. Document strict I/O's. (2) Metabolic encephalopathy: Plan: Clinical presentation concerning for WE. High dose IV thiamine has been ordered. MVI and FA also provided. Remains on treatment for potential alcohol withdrawal. (3) Alcohol use disorder: Plan: As above. I suspect Eliana will benefit from additional treatment for MDD and psychiatric consultation or follow up. Unfortunately, she is not motivated to stop drinking at this time. Admission and Anticipated Discharge Date Admission Date: September 22, 2022 Subjective No acute events overnight. Eliana was more conversational today. However, she also said that she doesn't care and she wishes that everyone would just leave her alone. She makes no concessions or expresses no interest in stopping dr inking. She did become tearful when talking about her sister and ex- visiting yesterday. Appetite is good. Eliana denies any fluid retention or edema. No diarrhea. Review of Systems Review of Systems: All systems reviewed & are unremarkable except as noted in HPI & below Physical Exam Physical Exam: Limited due to patient refusal Constitutional: well developed; no acute distress Eyes: + anicteric sclerae; no corneal abnormality ENMT: Mouth: oral mucous membranes not dry Neck: normal visual inspection and trachea midline Respiratory: normal respiratory effort Auscultation: lungs clear to auscultation bilaterally Cardiovascular: Rate/Rhythm: regular rate Heart Sounds: normal S1 and normal S2 Extremities: no edema Musculoskeletal: Extremities: no cyanosis and no clubbing Skin: + turgor decreased, + skin atrophy, + crusts and + dry skin Psychiatric: Orientation: alert and cooperative Affect: + depressed affect Mood: + depressed mood and + angry mood Results & Data ([facility]) Vital Signs (Past 12 Hours) Vital Signs Temp Pulse Pulse Pulse Resp BP Pulse Ox 09/24/22 11:10 37.2 C 84 16 148/78 H 94 09/24/22 09:02 09/24/22 08:42 36.7 C 79 18 138/77 94 09/24/22 07:29 83 09/24/22 03:00 36.8 C 76 18 138/86 94 O2 Del Method 09/24/22 11:10 Room Air 09/24/22 09:02 Room Air 09/24/22 08:42 Room Air 09/24/22 07:29 09/24/22 03:00 Room Air Laboratory Results Laboratory Results - last 24 hr 09/23/22 09/23/22 09/23/22 14:30 16:27 20:06 WBC RBC Hgb Hct MCV MCH MCHC RDW Std Deviation RDW Coeff of Amador Plt Count MPV Immature Gran % (Auto) Neut % (Auto) Lymph % (Auto) Trinity % (Auto) Eos % (Auto) Baso % (Auto) Neut # (Auto) Lymph # (Auto) Trinity # (Auto) Eos # (Auto) Baso # (Auto) Immature Gran # (Auto) Sodium 129 L 130 L Potassium 3.9 3.9 Chloride 95 L 98 Carbon Dioxide 25 23 Anion Gap 9 9 BUN 4 L 4 L Creatinine 0.30 L 0.41 L Est Cr Clr Drug Dosing 165.4 121.0 Est GFR ( Amer) 138.3 124.8 Est GFR (Non-Af Amer) 119.3 107.7 BUN/Creatinine Ratio 13.3 9.8 L Glucose 73 74 POC Glucose Calcium 8.7 8.9 Phosphorus Magnesium TSH Urine Osmolality 420 L 09/24/22 09/24/22 09/24/22 00:54 02:27 05:51 WBC RBC Hgb Hct MCV MCH MCHC RDW Std Deviation RDW Coeff of Amador Plt Count MPV Immature Gran % (Auto) Neut % (Auto) Lymph % (Auto) Trinity % (Auto) Eos % (Auto) Baso % (Auto) Neut # (Auto) Lymph # (Auto) Trinity # (Auto) Eos # (Auto) Baso # (Auto) Immature Gran # (Auto) Sodium 131 L 132 L Potassium 3.7 3.6 Chloride 98 99 Carbon Dioxide 21 23 Anion Gap 12 H 10 BUN 4 L 5 L Creatinine 0.36 L 0.39 L Est Cr Clr Drug Dosing 137.8 128.8 Est GFR ( Amer) 130.2 126.8 Est GFR (Non-Af Amer) 112.4 109.4 BUN/Creatinine Ratio 11.1 12.8 Glucose 65 L 67 L POC Glucose 132 H Calcium 8.7 8.7 Phosphorus Magnesium 1.7 TSH Urine Osmolality 09/24/22 09/24/22 09/24/22 05:51 05:51 07:10 WBC 5.27 RBC 4.43 Hgb 14.1 Hct 40.5 MCV 91.4 MCH 31.8 MCHC 34.8 RDW Std Deviation 42.0 RDW Coeff of Amador 12.4 Plt Count 159 MPV 9.5 Immature Gran % (Auto) 0.2 Neut % (Auto) 66.6 Lymph % (Auto) 15.4 Trinity % (Auto) 14.6 Eos % (Auto) 1.9 Baso % (Auto) 1.3 Neut # (Auto) 3.51 Lymph # (Auto) 0.81 L Trinity # (Auto) 0.77 H Eos # (Auto) 0.10 Baso # (Auto) 0.07 Immature Gran # (Auto) 0.01 Sodium Potassium Chloride Carbon Dioxide Anion Gap BUN Creatinine Est Cr Clr Drug Dosing Est GFR ( Amer) Est GFR (Non-Af Amer) BUN/Creatinine Ratio Glucose POC Glucose 115 H Calcium Phosphorus Magnesium TSH 1.388 Urine Osmolality 09/24/22 09:33 WBC RBC Hgb Hct MCV MCH MCHC RDW Std Deviation RDW Coeff of Amador Plt Count MPV Immature Gran % (Auto) Neut % (Auto) Lymph % (Auto) Trinity % (Auto) Eos % (Auto) Baso % (Auto) Neut # (Auto) Lymph # (Auto) Trinity # (Auto) Eos # (Auto) Baso # (Auto) Immature Gran # (Auto) Sodium 132 L Potassium 3.6 Chloride 99 Carbon Dioxide 22 Anion Gap 11 BUN 4 L Creatinine 0.39 L Est Cr Clr Drug Dosing 128.8 Est GFR ( Amer) 126.8 Est GFR (Non-Af Amer) 109.4 BUN/Creatinine Ratio 10.3 Glucose 71 POC Glucose Calcium 8.9 Phosphorus 3.7 Magnesium TSH Urine Osmolality PG Care Time/CCT Total # of Minutes Spent Total Time Spent with Patient: Total time spent is greater than 50% in coordination of care (as documented) at patient's floor/unit and/or counseling patient: Coding Level of Care Code 56781 SUB INP/OBS CARE 3/50MIN Diagnoses Hyponatremia E87.1 Metabolic encephalopathy G93.41 Alcohol use disorder F10.90
[2022-09-24 19:45] LABS: Calcium 8.7 mg/dl (8.5-10.1); Creatinine Clr Calc Pharmacy 61.3 ml/min; Est GFR (African American) 86.4 ml/min; Est GFR (Non-African American) 74.6 ml/min; Potassium 3.4 mmol/L (3.5-5.1)
[2022-09-25] MEDS: THIAMINE HCL 500 MG in SODIUM CHLORIDE 0.9% 50 ML IV SCH (05:36)
--- NOTE | 2022-09-25 07:33 | Hospitalist Progress Note ---
Date of Service September 25, 2022 Assessment & Plan (1) Hyponatremia: Plan: 67 yo female with a PMH of chronic hyponatremia and alcohol use disorder was found in her home with altered mental status and presented with hyponatremia. Hyponatremia -Acute on chronic, likely multifactorial -Has a history of chronic hyponatremia with a baseline around [id number] according to documentation from 2018. Patient was admitted to the intensive care unit in 2018 due to symptomatic hyponatremia with a sodium as low as 108, was discharged on sodium tablets. At that time, her hyponatremia was felt to be secondary to poor solute intake and excess free water intake (in the form of alcohol), as well as ADH release associated with intravascular volume contraction. -Today, patient's sodium is 123. Patient is not taking sodium tablets per her caregiver, and is drinking 8 regular sized Coors lights daily. - Serum Osm 258, Urine Osm 320, Urine Na 55 - Nephrology consulted: goal increase 2-3/24 hrs, no more than 6-8/24 hrs - 1 L NS in the ED, 50 mL hypertonic bolus x 2, corrected to 129, fluids d/c'd - 09/24 Na 132 (+3meq/24 hrs) - Strict Is and Os: I 2165, O 1300, Balance +865 -Basic metabolic panel daily (2) Metabolic encephalopathy: Plan: -Acute alteration in mental status as compared to her baseline in the setting of hyponatremia of 124, alcohol use disorder, last known well at 2 PM on 09/21. -CT head without evidence of CVA, MRI motion artifact and no acute processes -DDx includes acute metabolic encephalopathy secondary to hyponatremia, please see above. vs Infection without a source - 24 hour preliminary blood cultures Gram + cocci, second bottle negative at 48 hrs, continue to monitor - TSH 1.388 -Neuro checks every 2 hours (3) Positive blood culture: Plan: - 24 hour preliminary blood cultures Gram + cocci, second bottle negative at 24 hrs, continue to follow - Patient afebrile, WBC down to 5.27 from 10.68, UA negative, urine cx no growth - Ceftriaxone 2,000 mg to cover infection with unknown source, d/c'd (4) Alcohol use disorder: Plan: - Active use, 8 regular size Coors light cans daily. - Suspect this is contributing to patient's hyponatremia. - AWSS protocol, score 2, IV Ativan. - IV thiamine and folate. - Labwork ordered for other vitamin deficiencies (B1, B3, and Vitamin C) (5) Dermatitis: Plan: - b/t rash on legs and arms, no symptoms - labwork for vitamin deficiencies ordered - continued to be worked up for other deficiencies (zinc) (6) Tobacco abuse: Plan: - Patient smokes >1ppd, needed nicotine patch on prior admission - monitor for now (7) Anxiety: Plan: - home ativan 1mg BID PRN Plan Patient's point of contact is her caregiver Cassandra Dodson (phone number [phone]), Jayson Luna is POA DVT ppx: SubQ Lovenox Diet: Regular Code: Full Disp: Tele Admission and Anticipated Discharge Date Admission Date: September 22, 2022 Results & Data Results & Data ([facility]) Vital Signs (Past 12 Hours) Vital Signs Temp Pulse Pulse Resp BP Pulse Ox O2 Del Method 09/25/22 07:18 36.5 C 78 18 163/88 H 94 Room Air 09/25/22 02:43 37.3 C 84 20 172/83 H 92 Room Air 09/24/22 22:48 37.2 C 89 24 137/80 91 Room Air 09/24/22 22:48 85
[2022-09-25 08:03] LABS: Basophils # (auto) 0.07 K/uL (0-0.2); Basophils % (auto) 1.2 %; Eosinophils % (auto) 1.7 %; Hematocrit (blood only) 40.1 % (37.0-47.0); Immature Granulocytes # (auto) 0.02 K/uL (0.01-0.20); Immature Granulocytes % (auto) 0.3 %; Lymphocytes # (auto) 0.95 K/uL (1.2-3.4); Lymphocytes % (auto) 16.5 %; Mean Corpuscular Hemoglobin 31.8 pg (25.0-34.0); Mean Corpuscular Hgb Conc 34.9 g/dL (32.0-36.0); Mean Corpuscular Volume 91.1 fL (80.0-100.0); Mean Platelet Volume 9.7 fL (9.4-12.4); Monocytes # (auto) 0.93 K/uL (0.11-0.59); Monocytes % (auto) 16.2 %; Neutrophils # (auto) 3.68 K/uL (1.40-6.50); Neutrophils % (auto) 64.1 %; Platelet Count 166 K/uL (130-400); RDW Coefficient of Variation 12.4 % (11.5-14.5); RDW Standard Deviation 41.6 fL (36.4-46.3); White Blood Count 5.75 K/ul (4.8-10.8)
[2022-09-25 08:11] LABS: Calcium 8.5 mg/dl (8.5-10.1); Creatinine Clr Calc Pharmacy 120.4 ml/min; Est GFR (African American) 123.8 ml/min; Est GFR (Non-African American) 106.8 ml/min; Potassium 3.4 mmol/L (3.5-5.1)
[2022-09-25] MEDS: FOLIC ACID 1 MG in SYRINGE 9.8 ML IV SCH (08:15)
[2022-09-25] MEDS ORDERED: POTASSIUM CHLORIDE CRTAB 20 MEQ TABCR PO STA (08:33)
[2022-09-25] MEDS ORDERED: SODIUM CHLORIDE 1 GM TABLET PO ONE (08:45)
--- NOTE | 2022-09-25 10:44 | Nephrology Progress Note ---
Date of Service September 25, 2022 Assessment & Plan (1) Hyponatremia: Plan: Clinical presentation consistent with beer potomania. PO intake improved. Initially refused PO NaCl and KCl. Agreeable after discussing risks/benefits. Unfortunately, Eliana continues to state that she is not interested in staying in the hospital. She plans to go home today. She told me that she will sign-out AMA. I discussed the plan of care with Dr. Amin and his team this AM. Health risks, including risk of and debility, were discussed with the patient. She expressed understanding. She would not tell me if she plans to resume drinking once discharged. She did tell me that she plans to follow up with Dr. Salgado in early September but would not likely follow up in the nephrology clinic. I would offer nephrology follow up with me within 1-2 weeks of discharge. I would encourage at least a 2 L daily fluid restriction. Oral KCl 40 mEq provided today and oral NaCl 1 gram. Continue NaCl 1 gram twice daily at discharge and KCl 20 mEq daily. Encourage repeat blood work on Wednesday. (2) Metabolic encephalopathy: Plan: Clinical presentation concerning for WE. High dose IV thiamine has been provided. Clinical improvement noted. MVI and FA also provided. Continued daily B vitamin supplementation will be necessary. (3) Alcohol use disorder: Plan: I suspect Eliana will benefit from additional treatment for MDD and psychiatric consultation or follow up. Unfortunately, she is not motivated to stop drinking or engage in any additional therapy at this time. Admission and Anticipated Discharge Date Admission Date: September 22, 2022 Subjective No acute events overnight. Eliana is resting comfortably in bed at this time. Appetite is fair. Review of Systems Review of Systems: All systems reviewed & are unremarkable except as noted in HPI & below Physical Exam Physical Exam: Limited due to patient refusal Constitutional: well developed; no acute distress Eyes: + anicteric sclerae; no corneal abnormality ENMT: Mouth: oral mucous membranes not dry Neck: normal visual inspection and trachea midline Respiratory: normal respiratory effort Cardiovascular: Rate/Rhythm: regular rate Extremities: no edema Musculoskeletal: Extremities: no cyanosis and no clubbing Skin: + turgor decreased, + skin atrophy, + crusts and + dry skin Psychiatric: Orientation: alert and oriented x 3 Eye Contact: + poor eye contact Affect: + irritable affect Results & Data ([facility]) Vital Signs (Past 12 Hours) Vital Signs Temp Pulse Pulse Resp BP Pulse Ox O2 Del Method 09/25/22 09:30 Room Air 09/25/22 07:40 82 09/25/22 07:18 36.5 C 78 18 163/88 H 94 Room Air 09/25/22 02:43 37.3 C 84 20 172/83 H 92 Room Air 09/24/22 22:48 37.2 C 89 24 137/80 91 Room Air 09/24/22 22:48 85 Laboratory Results Laboratory Results - last 24 hr 09/24/22 09/25/22 09/25/22 19:04 07:23 07:23 WBC 5.75 RBC 4.40 Hgb 14.0 Hct 40.1 MCV 91.1 MCH 31.8 MCHC 34.9 RDW Std Deviation 41.6 RDW Coeff of [place]ador 12.4 Plt Count 166 MPV 9.7 Immature Gran % (Auto) 0.3 Neut % (Auto) 64.1 Lymph % (Auto) 16.5 [place] % (Auto) 16.2 Eos % (Auto) 1.7 Baso % (Auto) 1.2 Neut # (Auto) 3.68 Lymph # (Auto) 0.95 L [place] # (Auto) 0.93 H Eos # (Auto) 0.10 Baso # (Auto) 0.07 Immature Gran # (Auto) 0.02 Sodium 133 L Potassium 3.4 L Chloride 100 Carbon Dioxide 27 Anion Gap 6 BUN 9 Creatinine 0.82 D Est Cr Clr Drug Dosing 61.3 Est GFR ( Amer) 86.4 Est GFR (Non-Af Amer) 74.6 BUN/Creatinine Ratio 11.0 Glucose 106 H Calcium 8.7 Zinc Pending 09/25/22 07:23 WBC RBC Hgb Hct MCV MCH MCHC RDW Std Deviation RDW Coeff of [place] Plt Count MPV Immature Gran % (Auto) Neut % (Auto) Lymph % (Auto) [place] % (Auto) Eos % (Auto) Baso % (Auto) Neut # (Auto) Lymph # (Auto) [place] # (Auto) Eos # (Auto) Baso # (Auto) Immature Gran # (Auto) Sodium 131 L Potassium 3.4 L Chloride 98 Carbon Dioxide 25 Anion Gap 8 BUN 8 Creatinine 0.42 L D Est Cr Clr Drug Dosing 120.4 Est GFR ( Amer) 123.8 Est GFR (Non-Af Amer) 106.8 BUN/Creatinine Ratio 19.0 Glucose 84 Calcium 8.5 Zinc PG Care Time/CCT Total # of Minutes Spent Total Time Spent with Patient: Total time spent is greater than 50% in coordination of care (as documented) at patient's floor/unit and/or counseling patient: Coding Level of Care Code 94127 SUB INP/OBS CARE 3/50MIN Diagnoses Hyponatremia E87.1 Metabolic encephalopathy G93.41 Alcohol use disorder F10.90
--- NOTE | 2022-09-25 11:29 | Discharge Summary ---
Date of Service September 25, 2022 Admission HPI Per Admitting Provider 67-year-old female past medical history significant for chronic hyponatremia, major depressive disorder, alcohol use disorder, tobacco use presented to the ER via EMS due to altered mental status and being found in her bathtub by her caregiver. History is given by caregiver as patient is very tired and unable to answer any questions except for basic yes/no questions before falling back asleep. Caregiver reports that at baseline, Anni is very depressed, chronic alcohol user, drinking 8 regular sized Coors light beers daily for at least as long as the patient has had this caregiver. The only other medication that she is on as far as the caregiver knows is lorazepam 1 mg p.o. daily as needed for anxiety. Caregiver goes to Anni's house from - every day to help give her a bath, get her food, get her groceries, etc. Yesterday Anni slept through most of the day, but was at least somewhat conversant with caregiver before she left. On arrival today at 10 AM, caregiver notes that patient's coffee table was turned over, walker was turned over, and patient was found in the bathtub having soiled herself. She would awake to voice, but had strange speech, and would fall back asleep again. EMS was called. Patient herself was able to tell me that she does not have any pain, otherwise either unable or unwilling to answer my questions. In the ER patient noted to have a hemoglobin of 16.7, sodium of 123, magnesium of 1.6, total bilirubin of 1.5, LFTs normal, ammonia normal, normal troponin, normal procalcitonin, and normal lactate. Patient noted to have a low-grade temperature of 37.7 C, vitals otherwise normal and patient is protecting her own airway. Alcohol level was negative. UDS not performed. Urinalysis not suggestive of urinary tract infection. Hyponatremia labs as follows: Serum osmolality 258, urine osmolality 320, urine sodium 55. Patient is COVID/influenza/RSV negative. CT head did not show any acute abnormality such as a stroke but did note chronic atrophy and microvascular ischemic changes. MRI is pending. Chest x-ray shows a 9 mm nodular density at the left lung base, but no evidence of pneumonia, pleural effusions, pulmonary edema. Patient received 1 L of normal saline, IV magnesium, and IV ceftriaxone. Hospitalist service was consulted for admission for altered mental status. Admission Exam Per Admitting Provider Constitutional: Well-developed, thin, ill-appearing Respiratory: normal respiratory effort, lungs clear to auscultation (Saturating well on room air) Cardiovascular: RRR, no murmur, no edema Gastrointestinal (Abdomen): normal bowel sounds, soft, nontender, no hepatosplenomegaly Skin: Bilateral lower extremities with cracking of skin, no evidence of infection Psychiatric: Obtunded affect, responds to voice but will very quickly fall asleep again Principal Diagnosis Hyponatremia Discharge Exam Deferred- Pt refused Constitutional no acute distress and no altered mental status Respiratory normal respiratory effort; no respiratory distress Skin Xerotic, peeling rash on arms similar to legs Discharge Data Allergies Allergy/AdvReac Type Severity Reaction Status Date / Time sulfamethoxazole Allergy Mild GI Verified 09/22/22 12:35 [From Bactrim] DISTURBANCES trimethoprim [From Bactrim] Allergy Mild GI Verified 09/22/22 12:35 DISTURBANCES escitalopram [From Lexapro] AdvReac Unknown Verified 09/22/22 12:35 Consultations 09/22/22 15:03 ED Decision to Admit Stat 09/22/22 15:52 Consult Nephrology Routine Ordered Studies 09/22/22 11:43 CT cervical spine wo con Stat CT head/brain wo con Stat 09/22/22 15:03 MR brain wo con Stat Laboratory Results WBC 5.75 K/ul (4.8-10.8) 09/25/22 07:23 RBC 4.40 M/uL (4.20-5.40) 09/25/22 07:23 Hgb 14.0 g/dl (12.0-16.0) 09/25/22 07:23 Hct 40.1 % (37.0-47.0) 09/25/22 07:23 MCV 91.1 fL (80.0-100.0) 09/25/22 07: MCH 31.8 pg (25.0-34.0) 09/25/22 07: MCHC 34.9 g/dL (32.0-36.0) 09/25/22 07: RDW Std Deviation 41.6 fL (36.4-46.3) 09/25/22 07: RDW Coeff of Amador 12.4 % (11.5-14.5) 09/25/22 07: Plt Count 166 K/uL (130-400) 09/25/22 07: MPV 9.7 fL (9.4-12.4) 09/25/22 07: Immature Gran % (Auto) 0.3 % 09/25/22 07: Neut % (Auto) 64.1 % 09/25/22 07: Lymph % (Auto) 16.5 % 09/25/22 07:23 Pettis % (Auto) 16.2 % 09/25/22 07:23 Eos % (Auto) 1.7 % 09/25/22 07: Baso % (Auto) 1.2 % 09/25/22 07: Neut # (Auto) 3.68 K/uL (1.40-6.50) 09/25/22 07: Lymph # (Auto) 0.95 K/uL (1.2-3.4) L 09/25/22 07:23 Pettis # (Auto) 0.93 K/uL (0.11-0.59) H 09/25/22 07:23 Eos # (Auto) 0.10 K/uL (0-0.50) 09/25/22 07: Baso # (Auto) 0.07 K/uL (0-0.2) 09/25/22 07: Immature Gran # (Auto) 0.02 K/uL (0.01-0.20) 09/25/22 07: PT 10.9 Seconds (9.0-12.0) 09/22/22 11:27 INR 1.0 (0.9-1.1) 09/22/22 11:27 APTT 29.0 Seconds (21.0-31.0) 09/22/22 11:27 PTT Ratio 1.1 09/22/22 11:27 Sodium 131 mmol/L (136-145) L 09/25/22 07:23 Potassium 3.4 mmol/L (3.5-5.1) L 09/25/22 07:23 Chloride 98 mmol/L (98-107) 09/25/22 07: Carbon Dioxide 25 mmol/L (21-32) 09/25/22 07:23 Anion Gap 8 (3-11) 09/25/22 07:23 BUN 8 mg/dl (6-23) 09/25/22 07:23 Creatinine 0.42 mg/dl (0.6-1.2) L D 09/25/22 07:23 Est Cr Clr Drug Dosing 120.4 ml/min 09/25/22 07:23 Est GFR ( Amer) 123.8 ml/min 09/25/22 07:23 Est GFR (Non-Af Amer) 106.8 ml/min 09/25/22 07:23 BUN/Creatinine Ratio 19.0 (10-20) 09/25/22 07:23 Glucose 84 mg/dl (70-99(Fasting)) 09/25/22 07:23 POC Glucose 115 mg/dl (70-99) H 09/24/22 07:10 Osmolality 258 mOsm/kg (280-300) L 09/22/22 11:27 Lactate 1.4 mmol/L (0.4-2.0) 09/22/22 12:02 Calcium 8.5 mg/dl (8.5-10.1) 09/25/22 07:23 Phosphorus 3.7 mg/dl (2.5-4.9) 09/24/22 09:33 Magnesium 1.7 mg/dl (1.7-2.4) 09/24/22 05:51 Total Bilirubin 1.5 mg/dl (0.2-1.0) H 09/22/22 11:27 Direct Bilirubin 0.2 mg/dl (0-0.2) 09/22/22 11:27 AST 29 U/L (13-39) 09/22/22 11:27 ALT 27 U/L (7-52) 09/22/22 11:27 Alkaline Phosphatase 77 U/L (34-104) 09/22/22 11:27 Ammonia 39.0 umol/L (18-72) 09/22/22 12:02 Troponin I High Sens 4.6 pg/ml (0-14) 09/22/22 11:27 Total Protein 7.4 gm/dl (6.0-8.3) 09/22/22 11:27 Albumin 4.4 gm/dl (3.4-5.0) 09/22/22 11:27 Procalcitonin < 0.05 ng/ml (0-0.5) 09/22/22 11:27 TSH 1.388 uIu/ml (0.300-4.500) 09/24/22 05:51 Urine Color Yellow 09/22/22 12:51 Urine Appearance Clear (Clear) 09/22/22 12:51 Urine pH 8.0 (4.5-7.5) H 09/22/22 12:51 Ur Specific Penrose 1.009 (1.000-1.030) 09/22/22 12:51 Urine Protein Negative (Negative) 09/22/22 12:51 Urine Glucose (UA) Negative (Negative) 09/22/22 12:51 Urine Ketones 2+ (Negative) H 09/22/22 12:51 Urine Blood Trace (Negative) H 09/22/22 12:51 Urine Nitrite Negative (Negative) 09/22/22 12:51 Urine Bilirubin Negative (Negative) 09/22/22 12:51 Urine Urobilinogen Negative (Negative) 09/22/22 12:51 Ur Leukocyte Esterase Negative (Negative) 09/22/22 12:51 Urine WBC (Auto) 0 /hpf (0-5) 09/22/22 12:51 Urine RBC (Auto) 5-10 /hpf (0-4) H 09/22/22 12:51 U Hyaline Cast (Auto) 1-5 /lpf (0-5) 09/22/22 12:51 U Epithel Cells (Auto) 0-5 /lpf (0-5) 09/22/22 12:51 Urine Bacteria (Auto) Negative (Negative) 09/22/22 12:51 Urine Osmolality 420 mOsm/kg (500-800) L 09/23/22 14:30 Urine Sodium 55 mmol/L 09/22/22 12:51 Urine Potassium 67.1 mmol/L 09/22/22 12:51 Urine Chloride 74 mmol/L 09/22/22 12:51 Urine Opiates Screen Neg (Neg) 09/22/22 18:23 Ur Methadone, Qual Neg (Neg) 09/22/22 18:23 Urine Barbiturates Neg (Neg) 09/22/22 18:23 Ur Phencyclidine (PCP) Neg (Neg) 09/22/22 18:23 U Amphetamin/Meth Scrn Neg (Neg) 09/22/22 18:23 MDMA (Ecstasy) Screen Neg (Neg) 09/22/22 18:23 U Benzodiazepines Scrn Neg (Neg) 09/22/22 18:23 Ur Cocaine Metabolite Neg (Neg) 09/22/22 18:23 U Marijuana (THC) Screen Neg (Neg) 09/22/22 18:23 Ethyl Alcohol mg/dL < 10.0 mg/dl (<10.0) 09/22/22 12:02 SARS-CoV-2 (PCR) NEGATIVE (Negative) 09/22/22 13:13 Influenza Type A (PCR) Negative (Neg) 09/22/22 13:13 Influenza Type B (PCR) Negative (Neg) 09/22/22 13:13 RSV (RT-PCR) Negative (Neg) 09/22/22 13:13 Staphylococcus sp PCR DETECTED (NotDetected) A 09/22/22 11:51 Bld Cult ID Panel PCR See PCR Comment (NotDetected) 09/22/22 11:[address] 09/22/22 11:43 CT OF THE CERVICAL SPINE WITHOUT CONTRAST CLINICAL HISTORY: ? fall, confusion COMPARISON STUDY: No previous studies for comparison. TECHNIQUE: Helical axial images of the cervical spine were obtained without IV contrast. Sagittal and coronal reconstructions were viewed. Automated exposure control was utilized for the study. A dose lowering technique was utilized adhering to the principles of ALARA. FINDINGS: Alignment of the cervical spine is anatomic. Vertebral body heights are maintained. No acute cervical spine fracture or subluxation is present. There is no prevertebral edema. Facet joints are intact. Slight concavity of the superior endplates of T8-T4 is chronic. Moderate multilevel degenerative changes within the cervical spine are present. Emphysema within the visualized lung apices is incidentally noted. IMPRESSION: No acute cervical spine fracture or subluxation. ACT 112: Negative or not required by law. Electronically signed by: Yaniv Williamson M.D. 09/22/2022 1:55 PM Chest X-Ray 09/22/22 11:43 XR chest 1V portable HISTORY: Sepsis COMPARISON: Chest 05/02/2019. FINDINGS: No pneumothorax. No pleural effusions. No new focal lung consolidations to suggest a pneumonia. No evidence for pulmonary edema. The heart is normal in size. Mild calcified plaque at the aortic knob. There is 9 mm nodular density at the left lung base. IMPRESSION: 1. No acute process within the chest. 2. A 9 mm nodular density at the left lung base. Follow-up PA and lateral views of the chest or chest CT recommended for further evaluation. ACT 112: Positive. There are findings on this exam that require communication between the performing entity and the patient following Patient Test Result Information Act ([place] Act 112) guidelines. Electronically signed by: Edgar Cordova M.D. 09/22/2022 12:[address] 09/22/22 11:[address] DOSE: HISTORY: confusion TECHNIQUE: Multiaxial CT images of the head were performed without the use of intravenous contrast. Automated exposure control was utilized for this study. A dose lowering technique was utilized adhering to the principles of ALARA. Comparison: Head CT 11/07/2017. Findings: The paranasal sinuses and mastoid air cells are clear. The calvarium and skull base are intact. There is no mass, hematoma, midline shift, acute infarct. White matter hypodensity is nonspecific but suggestive of microvascular ischemic change. The ventricles and sulci demonstrate mild age-related involutional changes. Impression: No acute intracranial abnormality. Atrophy and microvascular ischemic changes. ACT 112: Negative or not required by law. Electronically signed by: Edgar Cordova M.D. 09/22/2022 2:16 PM Brain MRI 09/22/22 15:03 Brain MRI WITHOUT CONTRAST HISTORY: Altered mental status. r/o cva TECHNIQUE: Multiplanar multisequence MRI of the brain was performed without the use of contrast. COMPARISON STUDY: Head CT 09/22/2022. Brain MRI 08/31/2011. FINDINGS: Motion artifact. There is no mass, hematoma, midline shift, or acute infarct. The paranasal sinuses are clear. The mastoid air cells are clear. The ventricles and sulci demonstrate mild age-related involutional changes. Scattered foci of T2 hyperintensity seen within the periventricular and subcortical white matter are nonspecific but suggestive of mild microvascular ischemic changes. The major vascular flow voids at the skull base are well-tanika ntained. IMPRESSION: 1. Motion artifact. No definite acute intracranial abnormality. 2. Scattered foci of T2 hyperintensity seen within the periventricular and subcortical white matter are nonspecific but favor microvascular ischemic change. ACT 112: Negative or not required by law. Electronically signed by: Edgar Cordova M.D. 09/23/2022 7:39 AM Hospital Course (1) Hyponatremia: 67 yo female with a PMH of chronic hyponatremia and alcohol use disorder was found in her home with altered mental status and presented with hyponatremia. Hyponatremia -Acute on chronic, likely multifactorial -Has a history of chronic hyponatremia with a baseline [id number] to documentation from 2018. Patient was admitted to the intensive care unit in 2018 due to symptomatic hyponatremia with a sodium as low as 108, was discharged on sodium tablets. At that time, her hyponatremia was felt to be secondary to poor solute intake and excess free water intake (in the form of alcohol), as well as ADH release associated with intravascular volume contraction. -Today, patient's sodium is131. Patient is not taking sodium tablets per her caregiver, and is drinking 8 regular sized Coors lights daily. - Serum Osm 258, Urine Osm 320, Urine Na 55 - Nephrology consulted and willing to see her in office for f/u in 1-2 weeks - Plan to discharge on 1g NaCl BID and 20meq KCl daily -Should get f/u BMP next week Metabolic encephalopathy: -Acute alteration in mental status as compared to her baseline in the setting of hyponatremia of 124, alcohol use disorder, last known well at 2 PM on 09/21. -CT head without evidence of CVA, MRI motion artifact and no acute processes -DDx includes acute metabolic encephalopathy secondary to hyponatremia, please see above - TSH 1.388 -Mental status back to baseline prior to discharge - PT/OT ordered but PT declines; she also decline home PT at this time Positive blood culture: - 24 hour preliminary blood cultures Gram + cocci, second bottle negative at 48 hours; likely contaminate - Patient afebrile, WBC down to 5.27 from 10.68, UA negative, urine cx no growth - Ceftriaxone 2,000 mg to cover infection with unknown source, discontinued. Alcohol use disorder: - Active use, 8 regular size Coors light cans daily. - Suspect this is contributing to patient's hyponatremia. - Was placed on AWSS protocol - Labwork ordered for other vitamin deficiencies (B1, B3, and Vitamin); labs still pending - Recommend daily multivitamin with folate and thiamine Dermatitis: - b/t rash on legs and arms, no symptoms - labwork for vitamin deficiencies ordered - continued to be worked up for other deficiencies (zinc levels also still pending) Tobacco abuse: - Patient smokes >1ppd Anxiety: - home ativan 1mg BID PRN (2) Metabolic encephalopathy: (3) Positive blood culture: (4) Alcohol use disorder: (5) Dermatitis: (6) Tobacco abuse: (7) Anxiety: Total Time Total Time Spent Total Time Spent (In Minutes): 30 Discharge Plan Discharge Items Patient Disposition: Home - Self-Care Reason For Visit: METABOLIC ENCEPHALOPATHY, ACUTE ON CHRONIC HYPONA Discharge Diagnosis: Metabolic Encephalopathy Activity: Per Instructions section Non-emergency contact: Primary Care Provider Call non-emergency contact if: you have any medication questions and you have a fever Follow-up/Referrals: Zia Salgado MD [Primary Care Provider] - 09/30/22 11:40 am (Pre existing appointment scheduled prior to admission ) Mikael Campbell DO [Physician] - (1-2 weeks ) Diet: Regular Addtl Attending Provider Instructions: You were admitted to the hospital for altered mental status likely secondary to hyponatremia (low sodium). Your sodium was likely low because of the beer intake. Your sodium is now at your baseline. We would recommend working to de crease your beer intake. Please go to your appointment with Dr. Salgado next week, we would like for him to check your sodium again them. We would like you to start taking salt tabs. 1g twice a day to help your sodium stay at a normal level. A prescription was sent to the pharmacy for this. We would also like you to start taking a multivitamin that has folate and thiamine in it. You can get this at the pharmacy. It is important to take this everyday. A discharge summary will be sent to your primary care physician to ensure continuity of care. Please bring this discharge summary with you to your next office appointment so that your provider can review it at that time. Medications: Your medication list has been reviewed and reconciled upon discharge to ensure accuracy and continuity of care. An updated list of all your medications is included with your hospital discharge paperwork. Please review this list closely, and make note of any changes. Pending Studies at Discharge: Yes (B Vitamins, Vitamin C, Zinc ) Stand-Alone Forms: My [place], Smoking Cessation Medications and DC Order Prescriptions: New sodium chloride 1,000 mg Tablet,Soluble 1 g PO BID 30 Days Qty: 60 0RF potassium chloride [Klor-Con M20] 20 mEq tablet,ER particles/crystals 20 meq PO DAILY Qty: 30 0RF Continued lorazepam 1 mg tablet 1 mg PO BID PRN (Reason: Anxiety) loratadine [Claritin] 10 mg Tablet 10 mg PO DAILY PRN (Reason: allergies) Discharge Orders: Discharge Order (Routine); Ordered 09/25/22 Ordered By: Radha Harris Admission Data Admit Date/Time: 09/22/22 15:52 Attending Provider: Reinier Amin Admit Provider: Lina Nelson Primary Care Provider: Zia Salgado Other Providers: Mikael Campbell ; Lina Nelson Other Interventions: Discharge Summary Assessment (RN) Last Done: 09/25/22 11:20 Supervising Physician Co-Signing Physician Notes I also saw the patient confirmed kwan portions of the history and physical examin ation. I agree with the impression and plan as noted in the resident discharge summary. Upon our exam this morning, the patient is irritated/confrontational. Upon entering room, she says "Fk You." She was upset that she could not take the lorazepam which her medicare sales executive brought from home. Explained to her that we could give her the same dose that she was on, but whether this would be ordered through the pharmacy and dose by the nurse. She again used expletives and referenced our conversation yesterday -I explained to her that this was my first time meeting her as I was not part of her care team yesterday. Fortunately, the patient's home caregiver is at bedside today. She reports that Eliana is at her baseline in terms of mental status. Her lab work is improved. Suspect the mental status change was secondary to the hyponatremia. Patient has a follow-up with her PCP scheduled for September 30. This is appropriate follow-up. Discussed with the patient's caregiver at bedside, should symptoms worsen, return to the hospital. Reviewed new medication recommendations. Also recommend follow-up BMP at the time of her September 30 PCP visit. For additional, see resident documentation Resident Activity Tracking Resident Involvement: Resident Care Provided Care Provided: Adult [facility]
[2022-09-25] MEDS ORDERED: SODIUM CHLORIDE 1 GM TABLET PO SCH (21:00)
[2022-09-28 17:47] LABS: Zinc 45 mcg/dL (60-130)
[2022-09-30 22:23] LABS: Nicotinamide 27 ng/mL; Nicotinic Acid <20 ng/mL
== END 2022-09-25 11:33 | disposition home or self-care (01) | DRG 640 ==
LOC: ED 11:14 → SUATTDRO 15:52 → 2S 15:52